=== PATIENT | male | born 1960 | race Caucasian/White ===

== ENCOUNTER 2016-06-20 06:28 | Emergency (ER) | payer MEDICARE, OTHER ==
[2016-06-20 06:51] VITALS: BP 139/93; PULSE 83; RESP 20; TEMP 98.4
[2016-06-20] MEDS ORDERED: NAPROXEN 250 MG TAB PO STA (07:23)
[2016-06-20] MEDS ORDERED: HYDROcodone/APAP 10-325MG 1 EACH TAB PO ONE (07:23)
--- NOTE | 2016-06-20 07:26 | ED ---
Back Pain HPI - General Chief Complaint: Back Pain/Injury Stated Complaint: Fall/Back Pain Time Seen by Provider: 06/20/16 07:14 Source: patient, family Limitations: no limitations - History of Present Illness Initial Comments: Patient complains of an accidental fall. He injured his low back. He did not hit his head. He denies conscious. He has no neck pain or stiffness. He has no nausea or vomiting. He has no belly pain. He has no weakness or trouble walking. He has no loss of continence. He denies urinary retention. He has no palpitations. He did not take any medication for the back pain. The pain is localized to the low back. It does not radiate anywhere. - Related Data Home Medications Medication Instructions Recorded Confirmed Budesonide-Formot 160-4.5 Mcg 2 puff INHALATION RT-BID 07/15/14 06/20/16 [Symbicort 160-4.5 Mcg Inhaler] Metoprolol Succinate (ER) [Toprol 25 mg PO DAILY 07/15/14 06/20/16 XL] Simvastatin [Zocor] 40 mg PO HS 07/15/14 06/20/16 FLUoxetine HCL [PROzac] 40 mg PO DAILY 01/23/16 06/20/16 Hydrocodone/Acetaminophen [[place] 1 tab PO Q6HR PRN 01/23/16 06/20/16 7.5-325] Albuterol Nebulized [Ventolin 2.5 mg INHALATION RT-Q4H PRN 06/20/16 06/20/16 Nebulized] Morphine Sulfate [Morphine Sulfate 30 mg PO BID PRN 06/20/16 06/20/16 ER] Previous Rx's Medication Instructions Recorded Morphine Sulfate Ir [MSIR] 15 mg PO Q6HR PRN #15 tablet 07/15/14 Allergies Allergy/AdvReac Type Severity Reaction Status Date / Time No Known Allergies Allergy Verified 06/20/16 07:34 Review of Systems ROS Statement: Those systems with pertinent positive or pertinent negative responses have been documented in the HPI. ROS Other: All systems not noted in ROS Statement are negative. Past Medical History Past Medical History: Heart Failure, COPD, Diabetes Mellitus, Hyperlipidemia, Hypertension, Seizure Disorder, Sleep Apnea/CPAP/BIPAP Additional Past Medical History / Comment(s): chronic pain History of Any Multi-Drug Resistant Organisms: None Reported Past Surgical History: Appendectomy Additional Past Surgical History / Comment(s): trach., left kidney operation d/ t defect Past Anesthesia/Blood Transfusion Reactions: No Reported Reaction Past Psychological History: No Psychological Hx Reported Smoking Status: Current every day smoker Past Alcohol Use History: Daily Past Drug Use History: Marijuana, Prescription Drug Abuse - Past Family History Father Family Medical History: No Reported History Additional Family Medical History / Comment(s): none Mother Family Medical History: No Reported History General Exam Limitations: no limitations General appearance: alert, in no apparent distress Head exam: Present: atraumatic, normocephalic, normal inspection Eye exam: Present: normal appearance, PERRL, EOMI. Absent: scleral icterus, conjunctival injection, periorbital swelling Respiratory exam: Absent: respiratory distress Back exam: Present: normal inspection Neurological exam: Present: alert, oriented X3, CN II-XII intact Psychiatric exam: Present: normal affect, normal mood Skin exam: Present: warm, dry, intact, normal color. Absent: rash Course Vital Signs 06/20/16 06:49 Temperature 98.4 F Pulse Rate 83 Respiratory 20 Rate Blood Pressure 139/93 O2 Sat by Pulse 90 L Oximetry Medical Decision Making - Medical Decision Making Patient complains of an injury to the low back. Imaging is all negative. Patient was given pain medication in the emergency department. He is feeling much better and is stable for discharge. Disposition Clinical Impression: Mechanical back pain Disposition: HOME SELF-CARE Condition: Good Instructions: Acute Low Back Pain (ED) Time of Disposition: 08:24
--- NOTE | 2016-06-20 08:21 | XR ---
EXAMINATION TYPE: XR lumbar spine 2 or 3V DATE OF EXAM: 06/20/2016 8:07 AM CLINICAL HISTORY: pain TECHNIQUE: Three views of the lumbar spine are submitted. COMPARISON: None. FINDINGS: There are 5 lumbar type vertebral bodies identified. The lumbar spine shows satisfactory alignment w ithout evidence of acute fracture or dislocation. Vertebral body heights are within normal limits. [id number] degenerative disc space narrowing is seen throughout. Ventral spurring is noted as w ell as facet joint arthropathy. The overlying soft tissue appears unremarkable. IMPRESSION: No acute fracture or dislocation is seen in the lumbar spine. ICD 10 NO FRACTURE, INITIAL EVALUATION
--- NOTE | 2016-06-20 08:22 | XR ---
EXAMINATION TYPE: XR pelvis AP view DATE OF EXAM: 06/20/2016 8:07 AM CLINICAL HISTORY: pain TECHNIQUE: Single view the pelvis is submitted. FINDINGS:No evidence for fracture, dislocation or bony lesion. Joint spaces are well-preserved. SI joints appear symmetric. IMPRESSION: 1. No acute fracture or dislocation seen. ICD 10 NO FRACTURE, INITIAL EVALUATION
== END 2016-06-20 08:58 | disposition home or self-care (01) ==
LOC: EC 06:28
DX: M54.9 Dorsalgia, unspecified (principal); I50.9 Heart failure, unspecified; I10 Essential (primary) hypertension; E78.5 Hyperlipidemia, unspecified; J44.9 Chronic obstructive pulmonary disease, unspecified; F17.200 Nicotine dependence, unspecified, uncomplicated; G47.30 Sleep apnea, unspecified; Z99.89 Dependence on other enabling machines and devices; Z79.899 Other long term (current) drug therapy; Z79.51 Long term (current) use of inhaled steroids; W19.XXXA Unspecified fall, initial encounter; G89.29 Other chronic pain
CPT/HCPCS: 72100; 72170; 99283

== ENCOUNTER → 2016-09-09 | Outpatient (CLI) | payer MEDICARE ==
[2016-09-09 13:16] LABS: Blood Urea Nitrogen 13 mg/dL (9-20); Non-African American GFR(MDRD) >60 (>60 ml/min/1.73 sqM)
== END | disposition home or self-care (01) ==
LOC: LABWHC1 12:45
PROVIDERS: ATTEND Psychiatry & Neurology Neurology
DX: M54.5 Low back pain (principal); M54.6 Pain in thoracic spine
CPT/HCPCS: 36415; 82565; 84520

== ENCOUNTER 2016-10-02 09:30 | Inpatient (IN) | payer MEDICARE, OTHER ==
[2016-10-02] MEDS ORDERED: MORPHINE SULFATE 4 MG/ML SYRINGE IV STA (09:42)
[2016-10-02] MEDS ORDERED: IPRATROPIUM-ALBUTEROL 3 ML NEB INHALATION STA (09:46)
--- NOTE | 2016-10-02 09:46 | ED ---
General Adult HPI - General Stated complaint: Chest Pain after fall Time Seen by Provider: 10/02/16 09:35 Source: patient, RN notes reviewed Mode of arrival: EMS Limitations: no limitations - History of Present Illness Initial comments: Patient is a pleasant 56-year-old male presenting to the emergency Department with chest discomfort. Patient did get up using restroom around 2 or 3 in the morning. Patient was taken off his sweat pants when he tripped and fell. Patient did fall on his hands and then did hit his chest. Injury did not the wind out of him however he did not pass out. No head injury or loss of consciousness. No neck or back pain. No abdominal pain. No extremity injury. Patient has continued chest discomfort. Patient denies any dyspnea. Patient states his oxygen saturation is normally in the upper 80s. - Related Data Home Medications Medication Instructions Recorded Confirmed Metoprolol Succinate (ER) [Toprol 25 mg PO DAILY 07/15/14 10/02/16 XL] FLUoxetine HCL [PROzac] 40 mg PO DAILY 01/23/16 10/02/16 Albuterol Nebulized [Ventolin 2.5 mg INHALATION RT-Q4H PRN 06/20/16 10/02/16 Nebulized] Morphine Sulfate [Morphine Sulfate 30 mg PO Q12H 06/20/16 10/02/16 ER] Lisinopril [Zestril] 2.5 mg PO DAILY 10/02/16 10/02/16 Morphine Sulfate ER [Ms Contin 15 mg PO Q12HR 10/02/16 10/02/16 15Mg] Simvastatin [Zocor] 80 mg PO HS 10/02/16 10/02/16 Allergies Allergy/AdvReac Type Severity Reaction Status Date / Time No Known Allergies Allergy Verified 10/02/16 11:07 Review of Systems ROS Statement: Those systems with pertinent positive or pertinent negative responses have been documented in the HPI. ROS Other: All systems not noted in ROS Statement are negative. Constitutional: Denies: fever Eyes: Denies: eye pain ENT: Denies: ear pain Respiratory: Denies: cough, dyspnea Cardiovascular: Reports: chest pain Endocrine: Denies: fatigue Gastrointestinal: Denies: abdominal pain Genitourinary: Denies: dysuria Musculoskeletal: Denies: back pain Skin: Denies: rash Neurological: Denies: weakness Past Medical History Past Medical History: Heart Failure, COPD, Diabetes Mellitus, Hyperlipidemia, Hypertension, Seizure Disorder, Sleep Apnea/CPAP/BIPAP Additional Past Medical History / Comment(s): chronic pain History of Any Multi-Drug Resistant Organisms: None Reported Past Surgical History: Appendectomy Additional Past Surgical History / Comment(s): trach., left kidney operation d/ t defect Past Anesthesia/Blood Transfusion Reactions: No Reported Reaction Past Psychological History: No Psychological Hx Reported Smoking Status: Current every day smoker Past Alcohol Use History: Daily Past Drug Use History: Marijuana, Prescription Drug Abuse - Past Family History Father Family Medical History: No Reported History Additional Family Medical History / Comment(s): none Mother Family Medical History: No Reported History General Exam Limitations: no limitations General appearance: alert, in no apparent distress Head exam: Present: atraumatic Eye exam: Present: normal appearance, PERRL ENT exam: Present: normal oropharynx Neck exam: Present: other (Tracheostomy) Respiratory exam: Present: wheezes, chest wall tenderness Cardiovascular Exam: Present: regular rate, normal rhythm Expanded Peripheral pulses: 2+: Dorsalis Pedis (R), Dorsalis Pedis (L) GI/Abdominal exam: Present: soft. Absent: tenderness Extremities exam: Present: normal inspection. Absent: pedal edema, calf tenderness Neurological exam: Present: alert Psychiatric exam: Present: normal affect, normal mood Skin exam: Absent: rash Course Vital Signs 10/02/16 10/02/16 10/02/16 09:42 10:00 10:13 Temperature 100.6 F H Pulse Rate 94 89 92 Respiratory 24 18 Rate Blood Pressure 110/62 O2 Sat by Pulse 89 L Oximetry 10/02/16 10/02/16 10/02/16 10:59 12:16 12:59 Temperature Pulse Rate 81 75 Respiratory 20 16 22 Rate Blood Pressure 164/74 118/70 107/63 O2 Sat by Pulse 91 L 95 Oximetry - Reevaluation(s) Reevaluation #1: 10/02/16 11:23 Case was discussed in detail with trauma surgeon, Dr. Monreal who does request computed tomography scan of the chest prior to making disposition. 10/02/16 11:29 Patient reexamined and still having discomfort now more in the right chest region. Patient updated. EKG Findings - EKG Comments: EKG Findings:: Normal sinus rhythm 96. WI 194. QRS 104. QT 364. QTC 459. Normal axis. Normal QRS. Normal ST-T. Medical Decision Making - Medical Decision Making Patient reexamined and has continued discomfort. Case again discussed with Dr. Monreal who will admit with pulmonary consult. Patient states he has seen Dr. King previously. Patient does not meet sepsis criteria as source of infection is not identified. - Lab Data Result diagrams: 10/02/16 09:53 10/02/16 09:53 Lab Results 10/02/16 10/02/16 10/02/16 Range/Units 09:53 09:53 09:53 WBC 9.8 (3.8-10.6) k/uL RBC 4.82 (4.30-5.90) m/uL Hgb 16.3 (13.0-17.5) gm/dL Hct 51.1 (39.0-53.0) % MCV 106.1 H (80.0-100.0) fL MCH 33.7 (25.0-35.0) pg MCHC 31.8 (31.0-37.0) g/dL RDW 15.6 H (11.5-15.5) % Plt Count 158 (150-450) k/uL Neutrophils % 84 % Lymphocytes % 9 % Monocytes % 4 % Eosinophils % 2 % Basophils % 1 % Neutrophils # 8.3 H (1.3-7.7) k/uL Lymphocytes # 0.8 L (1.0-4.8) k/uL Monocytes # 0.4 (0-1.0) k/uL Eosinophils # 0.2 (0-0.7) k/uL Basophils # 0.1 (0-0.2) k/uL Macrocytosis Moderate PT (9.0-12.0) sec INR (<1.1) APTT (22.0-30.0) sec Sodium 141 (137-145) mmol/L Potassium 4.8 (3.5-5.1) mmol/L Chloride 100 (98-107) mmol/L Carbon Dioxide 28 (22-30) mmol/L Anion Gap 13 mmol/L BUN 14 (9-20) mg/dL Creatinine 0.85 (0.66-1.25) mg/dL Est GFR (MDRD) Af Amer >60 (>60 ml/min/1.73 sqM) Est GFR (MDRD) Non-Af >60 (>60 ml/min/1.73 sqM) Glucose 155 H (74-99) mg/dL Calcium 9.4 (8.4-10.2) mg/dL Magnesium 1.8 (1.6-2.3) mg/dL Total Bilirubin 1.1 (0.2-1.3) mg/dL AST 65 H (17-59) U/L ALT 40 (21-72) U/L Alkaline Phosphatase 74 (38-126) U/L Total Creatine Kinase 207 H (55-170) U/L CK-MB (CK-2) 3.2 H* (0.0-2.4) ng/mL CK-MB (CK-2) Rel Index 1.5 Troponin I <0.012 (0.000-0.034) ng/mL Total Protein 8.3 H (6.3-8.2) g/dL Albumin 4.4 (3.5-5.0) g/dL Urine Color Urine Appearance (Clear) Urine pH (5.0-8.0) Ur Specific [place] (1.001-1.035) Urine Protein (Negative) Urine Glucose (UA) (Negative) Urine Ketones (Negative) Urine Blood (Negative) Urine Nitrite (Negative) Urine Bilirubin (Negative) Urine Urobilinogen (<2.0) mg/dL Ur Leukocyte Esterase (Negative) 10/02/16 10/02/16 Range/Units 09:53 12:45 WBC (3.8-10.6) k/uL RBC (4.30-5.90) m/uL Hgb (13.0-17.5) gm/dL Hct (39.0-53.0) % MCV (80.0-100.0) fL MCH (25.0-35.0) pg MCHC (31.0-37.0) g/dL RDW (11.5-15.5) % Plt Count (150-450) k/uL Neutrophils % % Lymphocytes % % Monocytes % % Eosinophils % % Basophils % % Neutrophils # (1.3-7.7) k/uL Lymphocytes # (1.0-4.8) k/uL Monocytes # (0-1.0) k/uL Eosinophils # (0-0.7) k/uL Basophils # (0-0.2) k/uL Macrocytosis PT 12.4 H (9.0-12.0) sec INR 1.3 (<1.1) APTT 22.6 (22.0-30.0) sec Sodium (137-145) mmol/L Potassium (3.5-5.1) mmol/L Chloride (98-107) mmol/L Carbon Dioxide (22-30) mmol/L Anion Gap mmol/L BUN (9-20) mg/dL Creatinine (0.66-1.25) mg/dL Est GFR (MDRD) Af Amer (>60 ml/min/1.73 sqM) Est GFR (MDRD) Non-Af (>60 ml/min/1.73 sqM) Glucose (74-99) mg/dL Calcium (8.4-10.2) mg/dL Magnesium (1.6-2.3) mg/dL Total Bilirubin (0.2-1.3) mg/dL AST (17-59) U/L ALT (21-72) U/L Alkaline Phosphatase (38-126) U/L Total Creatine Kinase (55-170) U/L CK-MB (CK-2) (0.0-2.4) ng/mL CK-MB (CK-2) Rel Index Troponin I (0.000-0.034) ng/mL Total Protein (6.3-8.2) g/dL Albumin (3.5-5.0) g/dL Urine Color Yellow Urine Appearance Clear (Clear) Urine pH 5.0 (5.0-8.0) Ur Specific [place] 1.027 (1.001-1.035) Urine Protein Trace H (Negative) Urine Glucose (UA) Negative (Negative) Urine Ketones Negative (Negative) Urine Blood Negative (Negative) Urine Nitrite Negative (Negative) Urine Bilirubin Negative (Negative) Urine Urobilinogen <2.0 (<2.0) mg/dL Ur Leukocyte Esterase Negative (Negative) - Radiology Data Radiology results: report reviewed (Computed tomography scan of the chest shows fractures ribs 6 and 7 on the right. Minimally depressed sternal fracture. Increased density right lung base could reflect atelectasis versus contusion.), image reviewed (Chest x-ray with rib x-rays shows right-sided fractures at 6 and 7. There is an area of increased opacity which could reflect atelectasis versus focal contusion. Sternal x-ray cannot exclude nondisplaced sternal fracture.) Disposition Clinical Impression: Sternal fracture, Rib fracture Disposition: ADMITTED IP TO THIS HOSP
[2016-10-02 10:05] LABS: Basophils # (A) 0.1 k/uL (0-0.2); Basophils % (A) 1 %; CH 34.1; CHCM 32.3; Eosinophils # (A) 0.2 k/uL (0-0.7); Eosinophils % (A) 2 %; HCT 51.1 % (39.0-53.0); HDW 2.45; HGB 16.3 gm/dL (13.0-17.5); Luc # (Auto) 0.13; Luc % (Auto) 1; Lymphocytes # (A) 0.8 k/uL (1.0-4.8); Lymphocytes % (A) 9 %; MCH 33.7 pg (25.0-35.0); MCHC 31.8 g/dL (31.0-37.0); MCV 106.1 fL (80.0-100.0); Macrocytosis Moderate; Mean Platelet Volume 6.9; Monocytes # (A) 0.4 k/uL (0-1.0); Monocytes % (A) 4 %; Neutrophils # (A) 8.3 k/uL (1.3-7.7); Neutrophils % (A) 84 %; RBC 4.82 m/uL (4.30-5.90); RDW 15.6 % (11.5-15.5); WBC 9.8 k/uL (3.8-10.6); WBC (Perox) 9.78
[2016-10-02 10:19] LABS: ALT 40 U/L (21-72); AST 65 U/L (17-59); Alkaline Phosphatase 74 U/L (38-126); Anion Gap 13 mmol/L; Blood Urea Nitrogen 14 mg/dL (9-20); Calcium 9.4 mg/dL (8.4-10.2); Carbon Dioxide 28 mmol/L (22-30); Chloride 100 mmol/L (98-107); Glucose 155 mg/dL (74-99); Magnesium 1.8 mg/dL (1.6-2.3); Non-African American GFR(MDRD) >60 (>60 ml/min/1.73 sqM); Potassium 4.8 mmol/L (3.5-5.1); Sodium 141 mmol/L (137-145); Total Bilirubin 1.1 mg/dL (0.2-1.3); Total Protein 8.3 g/dL (6.3-8.2)
[2016-10-02 10:21] LABS: INR 1.3 (<1.1); Partial Thromboplastin Time 22.6 sec (22.0-30.0); Prothrombin Time 12.4 sec (9.0-12.0)
[2016-10-02 10:26] LABS: Creatine Kinase 207 U/L (55-170)
[2016-10-02 10:38] LABS: Troponin I <0.012 ng/mL (0.000-0.034)
[2016-10-02 10:39] LABS: Creatine Kinase MB 3.2 ng/mL (0.0-2.4)
--- NOTE | 2016-10-02 10:58 | XR ---
EXAMINATION TYPE: XR ribs bilat w pa chest xray, XR sternum DATE OF EXAM: 10/02/2016 10:48 AM COMPARISON: NONE HISTORY: Pain TECHNIQUE: Single view of the chest 8 views of the ribs are submitted. 3 views of the sternum are a lso submitted. FINDINGS: Scattered senescent parenchymal changes are noted. There is focal increased density right lower lobe which may reflect pleural thickening although small contusion is not excluded. No Evidence for pneumo thorax. Mediastinal structures are prominent and this may reflect overall technique. Tracheostomy tub e noted. Evaluation of the right-sided ribs demonstrates fracture involving right ribs 6 and 7. Remote deformi ties of bowel several left-sided ribs without acute displaced fracture at this time. IMPRESSION: 1. Right-sided rib fractures of ribs 6 and 7 and now with small focal area of the increased opacity w hich may reflect focal contusion or atelectasis. Sternum: On the lateral projection there is a vague lucency involving the sternal body approximately 6 cm from the sternomanubrial joint. Correlate clinically with point tenderness to exclude fracture. Retroster nal airspace is well-preserved. IMPRESSION: I cannot exclude virtually nondisplaced sternal fracture. Correlate clinically with point tenderness .
[2016-10-02] MEDS ORDERED: RX INFO: IV CONTRAST WAS GIVEN 1 EACH MISC MISCELLANE PRN (11:24)
[2016-10-02] MEDS ORDERED: HYDROmorphone 1 MG/ML 1 ML SYRINGE IVP STA ×3 (11:28→16:40)
--- NOTE | 2016-10-02 12:29 | CT ---
EXAMINATION TYPE: CT chest w con DATE OF EXAM: 10/02/2016 12:17 PM COMPARISON: NONE HISTORY: Chest pain post fall CT DLP: 1142.2 mGycm Automated exposure control for dose reduction was used. CONTRAST: CT scan of the chest is performed with IV Contrast, patient injected with 100 mL of Omnipaque 300. FINDINGS: LUNGS: There is right basilar atelectasis or pulmonary contusion. There is no evidence for pneumothor ax. Mild left basilar atelectasis noted. MEDIASTINUM: No evidence for traumatic injury to the thoracic aorta. The heart is mildly enlarged. Tr acheostomy is in place. UPPER ABDOMEN: No significant abnormality appreciated. OTHER: Virtually nondisplaced fractures of right ribs 6 and 7. Minimally depressed sternal body frac ture with fracture depression 1 mm. Retrosternal airspace demonstrates mild strandy attenuation. No s ignificant hematoma. Upper abdominal structures are unremarkable. IMPRESSION: 1. Fractures of right ribs 6 and 7 as well as a minimally depressed sternal body fracture. 2. Increased density at the right lung base may reflect atelectasis however contusion is not excluded . No evidence for pneumothorax.
[2016-10-02 13:03] LABS: Appearance,Urine Clear (Clear); Bilirubin,Urine Negative (Negative); Glucose,Urine (UA) Negative (Negative); Ketones,Urine Negative (Negative); Leukocyte Esterase,Urine Negative (Negative); Nitrite,Urine Negative (Negative); Protein,Urine Trace (Negative); Specific Gravity,Urine 1.027 (1.001-1.035); UA Billing (MACRO vs. MICRO) CHEM; Urobilinogen,Urine <2.0 mg/dL (<2.0)
[2016-10-02] MEDS ORDERED: ONDANSETRON 4 MG/2 ML VIAL IVP PRN (13:35)
[2016-10-02] MEDS ORDERED: NALOXONE 0.4 MG/ML 1 ML VIAL IV PRN (13:35)
[2016-10-02] MEDS ORDERED: HYDROmorphone 1 MG/ML 1 ML SYRINGE IV PRN (13:35)
[2016-10-02] MEDS ORDERED: SODIUM CHLORIDE 0.9% 1,000 ML IV SCH (13:45)
--- NOTE | 2016-10-02 15:54 | P.GSHP ---
History of Present Illness H&P Date: 10/02/16 Chief Complaint: Fall 56 years old male presented with history of fall around 3 AM this morning. Patient was changing his clothes and felt dizzy and fell and hit his chest against bathtub. He complains of some shortness of breath and pain along the anterior part of the chest. He denies any abdominal pain. No nausea or vomiting. No difficulty with vision or hearing. Significant past medical history including obstructive sleep apnea and has tracheostomy. He has history of alcohol abuse and continues to drink 6 beers per day. Other comorbid conditions include morbid obesity BMI 39.2, sleep apnea, diabetes, seizures, COPD Past Medical History Past Medical History: Heart Failure, COPD, Diabetes Mellitus, Hyperlipidemia, Hypertension, Seizure Disorder, Sleep Apnea/CPAP/BIPAP Additional Past Medical History / Comment(s): chronic pain History of Any Multi-Drug Resistant Organisms: None Reported Past Surgical History: Appendectomy Additional Past Surgical History / Comment(s): trach., left kidney operation d/ t defect Past Anesthesia/Blood Transfusion Reactions: No Reported Reaction Past Psychological History: No Psychological Hx Reported Smoking Status: Current every day smoker Past Alcohol Use History: Daily Past Drug Use History: Marijuana, Prescription Drug Abuse - Past Family History Father Family Medical History: No Reported History Additional Family Medical History / Comment(s): none Mother Family Medical History: No Reported History Medications and Allergies Home Medications Medication Instructions Recorded Confirmed Type Metoprolol Succinate (ER) [Toprol 25 mg PO DAILY 07/15/14 10/02/16 History XL] FLUoxetine HCL [PROzac] 40 mg PO DAILY 01/23/16 10/02/16 History Albuterol Nebulized [Ventolin 2.5 mg INHALATION RT-Q4H PRN 06/20/16 10/02/16 History Nebulized] Morphine Sulfate [Morphine Sulfate 30 mg PO Q12H 06/20/16 10/02/16 History ER] Lisinopril [Zestril] 2.5 mg PO DAILY 10/02/16 10/02/16 History Morphine Sulfate ER [Ms Contin 15 mg PO Q12HR 10/02/16 10/02/16 History 15Mg] Simvastatin [Zocor] 80 mg PO HS 10/02/16 10/02/16 History Allergies Allergy/AdvReac Type Severity Reaction Status Date / Time No Known Allergies Allergy Verified 10/02/16 11:07 Surgical - Exam Vital Signs Temp Pulse Resp BP Pulse Ox 100.6 F H 94 24 110/62 89 L 10/02/16 09:42 10/02/16 09:42 10/02/16 09:42 10/02/16 09:42 10/02/16 09:42 General: Patient is alert and oriented to time, place and person and cooperative with exam. HEENT: No pallor, no icterus, tracheostomy in place Chest: Bilateral equal breath sounds present. His lung sounds at the base Cardiovascular: Regular rate and rhythm. Abdomen: Soft, nontender, nondistended. Integumentary: No active ulcers or discharge. Neurologic: Cranial nerves II-XII intact. Strength upper and lower extremities 5/5. No focal neurologic deficits. Gait is normal. Psychiatric: No anxiety or psychosis. No suicidal thoughts. Results - Labs 10/02/16 09:53 10/02/16 09:53 - Imaging Comments: Computed tomography scan of the chest reviewed. Multiple rib fractures and underlying pulmonary contusion versus atelectasis. Undisplaced sternal fracture Assessment and Plan (1) Diabetes 1.5, managed as type 1 Status: Acute (2) Diabetes mellitus Status: Acute (3) Rib fracture Status: Acute (4) Sternal fracture Status: Acute (5) Alcohol intoxication Status: Acute Plan: 1. Admit under trauma service 2. Internal medicine consultation for management of multiple compress comorbid conditions. Patient will be transferred to medical service once stable in next 24-48 hours 3. 12-lead EKG and 2-D echocardiogram 4. [facility] protocol- high risk for delirium tremens 5. Pulmonology consult 6. Chest x-ray in a.m. 7. Pain management. 8. Pulmonary toilet 9. Start clear liquid diet.
[2016-10-02] MEDS ORDERED: LORazepam 2 MG/ML SYRINGE IV PRN ×3 (17:32)
[2016-10-02] MEDS ORDERED: ALBUTEROL NEBULIZED 2.5 MG/3 ML INHALATION PRN (17:43)
[2016-10-02 18:22] LABS: Glucose,Whole Blood 122 mg/dL (75-99)
[2016-10-02] MEDS: THIAMINE 100 MG TAB PO SCH (18:23)
[2016-10-02 19:30] LABS: Hemoglobin A1C 6.6 % (4.2-6.1)
[2016-10-02] MEDS ORDERED: ALBUTEROL NEBULIZED 2.5 MG/3 ML INHALATION SCH (20:00)
[2016-10-02 20:49] LABS: Glucose,Whole Blood 143 mg/dL (75-99)
[2016-10-02] MEDS: HEPARIN SODIUM,PORCINE 5,000 UNIT/ML 1 ML VIAL SQ SCH (20:50)
[2016-10-02] MEDS: HYDROmorphone 2 MG/ML 1 ML SYRINGE IVP PRN (20:51)
[2016-10-02] MEDS: INSULIN LISPRO (humaLOG) 300 UNIT/3 ML VIAL SQ SCH (20:55)
[2016-10-02] MEDS ORDERED: SIMVASTATIN 80 MG PO SCH (21:00)
[2016-10-02] MEDS: BUDESONIDE 0.5 MG/2 ML NEBU INHALATION SCH (21:45)
[2016-10-02] MEDS: IPRATROPIUM-ALBUTEROL 3 ML NEB INHALATION SCH (21:45)
--- NOTE | 2016-10-02 22:03 | CONS ---
DATE OF CONSULTATION: 10/02/2016. CRITICAL CARE NOTE: REASON FOR CONSULTATION: Fall, chest pain and rib fracture. HISTORY OF PRESENT ILLNESS: Mr. Pete Gomez is a 56-year-old male who is very well known to me. Patient has severe degree of obstructive sleep apnea. He is morbidly obese. He has permanent tracheostomy due to severe sleep apnea, history of prior noncompliance and history of multiple cardiac arrest. Patient of note has been hospitalized after a fall which is about 1-1/2 to 2 feet and landed on his chest as well as on the right side. He is complaining of severe chest pain, which is in the front of the chest as well as going to the back. With that, he is making very shallow respiratory efforts. He was fairly asymptomatic. He feels that he tripped and fell down. He denies any loss of consciousness, seizure like activity. He has a history of deep venous thrombosis, pulmonary embolism in the past but has not been on any anticoagulant for a long period of time. His last tracheostomy was changed more than about I believe 3 years ago. He feels that his tracheostomy has been working very well. Past medical history is significant for hypertension, hypertensive cardiovascular disease, history of prior deep venous thrombosis, pulmonary embolism, history of chronic pain syndrome as well as pain medication utilization in the past, mood disorder, depression, morbid obesity, obstructive sleep apnea. PAST SURGICAL HISTORY: Significant for history of tracheostomy and left renal surgery. ALLERGIES: No known drug allergy. Medications at home include: 1. Metoprolol 25 mg p.o. daily. 2. Fluoxetine 40 mg daily. 3. Albuterol nebulizer 3 to 4 times a day as needed. 4. Morphine extended release 30 mg q.12. 5. Lisinopril 2.5 mg daily. 6. Zocor is 80 mg p.o. daily. FAMILY HISTORY AND SOCIAL HISTORY: , lives with his , extensive history of smoking and nicotine use. Uses about a pack a day on a daily basis. Also history of marijuana use in the past as well. His medications at home in the hospital include: 1. Albuterol unit dose updraft 4 times a day. 2. Dilaudid 1 mg q.3 hourly p.r.n. 3. Sliding scale insulin. 4. Ativan is 1 mg p.r.n. as per CIWA protocol. 5. Also on metoprolol is 25 mg daily. 6. Multivitamin. 7. Narcan. 8. Zofran. 9. Protonix. 10. IV fluid normal saline KVO. 11. Thiamine 100 mg p.o. 2 times a day. Patient has been complaining of severe pain and having very poor respiratory effort because of severe pain. Feels that 1 mg of Dilaudid is not helping much. Most recent vitals include blood pressure is 115/74, respiratory rate 20, pulse 73, temperature 98, his saturation is 93% on trach collar. HEENT: Atraumatic, normocephalic. Pharynx clear. Narrow pharyngeal opening is present. Mallampati Grade IV. NECK: Supple. The tracheostomy site is intact. No obvious purulent discharge surrounding erythema and edema is seen. NECK: Supple without lymphadenopathy, jugular venous distention or carotid bruit. LUNGS: Bilateral good air entry is present; however, decreased air entry at the bases present with poor respiratory effort. Patient does feel severe pain on taking deep breaths, tenderness on palpation is present on the right side of the chest as well as sternum. HEART: Regular rate and rhythm. S1 and S2 audible. ABDOMEN: Soft. No rebound or rigidity. EXTREMITIES: +1 peripheral pulses. NEUROLOGICAL EXAMINATION: Examination is awake and alert. No focal neurological deficits. X-rays including rib x-rays with right-sided rib fractures 6 and 7 was seen with associated contusion, atelectasis on the right side. Old deformities in the left side has been noted as well. EKG performed in the emergency department reviewed revealed normal sinus rhythm. Chest CT performed revealed right basal atelectasis of pulmonary contusion. No evidence of pneumothorax, mild left basilar atelectasis is seen. Tracheostomy is intact, nondisplaced fracture of the six and seventh right rib is noted along with depressed sternum about 1 mm likely fracture. No hematoma identified. Contusion and density in the right lung noted as well. The laboratory data reviewed. White cell count is 9800, hemoglobin of 15 and 51, platelet count of 158,000. PT and INR are 12.4 and 1.3. Chemistry otherwise is within normal limits. CK-MB is 3.2, LFTs are AST and ALT 65 and 40. Urinalysis is unremarkable. Alcohol level is less than 10. IMPRESSION: 1. Status post fall with likely sternal fracture as well as right sided two nondisplaced fracture. 2. Chest pain severity degree associated with that poor respiratory effort. 3. Lung contusion versus atelectasis on the right side. 4. Chronic hypoxic hypercapnic respiratory failure and obstructive sleep apnea with tracheostomy. 5. History of prior deep venous thrombosis, pulmonary embolism, hypertension, hypertensive cardiovascular disease. 6. The patient is high risk for deep venous thrombosis, peptic ulcer disease prophylaxis. PLAN AND RECOMMENDATION: 1. Continue breathing treatments and adjust bronchodilator. See orders for details. 2. Will put patient on DVT and peptic ulcer disease prophylaxis as well. Patient already on Protonix. Will put on subcu heparin as well. 3. Maintain patient on deep breathing exercises, incentive spirometry. Repeat follow-up chest x-ray tomorrow. Adjust pain medications. The patient is being started on CIWA protocol with Ativan as needed. In case if patient develops withdrawal or DTs. 4. I have discussed with the patient about trach change, which can be considered in outpatient setting. Of note that patient has been advised in the past for that as well but he missed and cancelled previous follow ups. 5. Will follow closely.
[2016-10-03] MEDS: HYDROmorphone 2 MG/ML 1 ML SYRINGE IVP PRN ×4 (00:44→12:56)
[2016-10-03 07:04] LABS: Glucose,Whole Blood 126 mg/dL (75-99)
[2016-10-03] MEDS: BUDESONIDE 0.5 MG/2 ML NEBU INHALATION SCH (07:15)
[2016-10-03] MEDS: IPRATROPIUM-ALBUTEROL 3 ML NEB INHALATION SCH ×2 (07:15→11:16)
[2016-10-03 07:35] VITALS: BP 126/73; RESP 18; TEMP 98.8
[2016-10-03] MEDS: INSULIN LISPRO (humaLOG) 300 UNIT/3 ML VIAL SQ SCH ×2 (08:24→12:56)
[2016-10-03] MEDS: HEPARIN SODIUM,PORCINE 5,000 UNIT/ML 1 ML VIAL SQ SCH (08:32)
[2016-10-03] MEDS ORDERED: PANTOPRAZOLE 40 MG/10 ML VIAL IV SCH (09:00)
[2016-10-03] MEDS ORDERED: LISINOPRIL 2.5 MG TAB PO SCH (09:00)
[2016-10-03] MEDS ORDERED: METOPROLOL SUCCINATE (ER) 25 MG TAB.ER.24H PO SCH (09:00)
[2016-10-03 09:32] LABS: Basophils # (A) 0.1 k/uL (0-0.2); Basophils % (A) 1 %; CH 34.5; CHCM 33.3; Eosinophils # (A) 0.2 k/uL (0-0.7); Eosinophils % (A) 3 %; HCT 49.6 % (39.0-53.0); HGB 16.7 gm/dL (13.0-17.5); Luc # (Auto) 0.14; Luc % (Auto) 2; Lymphocytes # (A) 1.5 k/uL (1.0-4.8); Lymphocytes % (A) 16 %; MCH 34.9 pg (25.0-35.0); MCHC 33.6 g/dL (31.0-37.0); Macrocytosis Moderate; Mean Platelet Volume 8.1; Monocytes # (A) 0.6 k/uL (0-1.0); Monocytes % (A) 7 %; Neutrophils # (A) 6.5 k/uL (1.3-7.7); Neutrophils % (A) 72 %; RBC 4.77 m/uL (4.30-5.90); RDW 15.5 % (11.5-15.5); WBC 8.9 k/uL (3.8-10.6); WBC (Perox) 8.76
--- NOTE | 2016-10-03 09:53 | ECHOF ---
Referral Reason:cardiac contusion MEASUREMENTS -------- HEIGHT: 185.4 cm WEIGHT: 142.4 kg BP: 140/60 RVIDd: 2.8 cm (< 3.3) IVSd: 1.5 cm (0.6 - 1.1) LVIDd: 4.8 cm (3.9 - 5.3) LVPWd: 1.2 cm (0.6 - 1.1) IVSs: 2.0 cm LVIDs: 3.9 cm LVPWs: 1.2 cm LA Diam: 4.0 cm (2.7 - 3.8) Ao Diam: 3.9 cm (2.0 - 3.7) AV Cusp: 2.4 cm (1.5 - 2.6) LA Diam: 5.5 cm (2.7 - 3.8) MV EXCURSION: 23.861 mm (> 18.000) MV EF SLOPE: 210 mm/s (70 - 150) EPSS: 0.6 cm MV E Manohar: 0.49 m/s MV DecT: 263 ms MV A Manohar: 0.69 m/s MV E/A Ratio: 0.72 FINDINGS -------- Sinus rhythm. Pt. is morbid obesity with FX Ribs from fall. There is mild concentric left ventricular hypertrophy. Overall left ventricular systolic function is normal with, an EF between 55 - 60 %. The right ventricle is normal in size. The left atrial size is normal. The right atrial size is normal. The aortic valve was not well visualized. Mild mitral annular calcification present. Mild mitral regurgitation is present. Mild tricuspid regurgitation present. There is no evidence of pulmonary hypertension. The right ventricular systolic pressure, as measured by Doppler, is {RVSP}. The pulmonic valve was not well visualized. The aortic root size is normal. There is no pericardial effusion. CONCLUSIONS -------- 1. Pt. is morbid obesity with FX Ribs from fall. 2. There is mild concentric left ventricular hypertrophy. 3. Overall left ventricular systolic function is normal with, an EF between 55 - 60 %. 4. Mild mitral annular calcification present. 5. Mild mitral regurgitation is present. 6. Mild tricuspid regurgitation present. 7. There is no evidence of pulmonary hypertension. 8. The right ventricular systolic pressure, as measured by Doppler, is {RVSP}. 9. There is no pericardial effusion. TRUCK UNLOADER: Debbie Acharya RDCS
[2016-10-03 10:04] LABS: ALT 42 U/L (21-72); AST 58 U/L (17-59); Alkaline Phosphatase 68 U/L (38-126); Anion Gap 13 mmol/L; Blood Urea Nitrogen 17 mg/dL (9-20); Calcium 9.8 mg/dL (8.4-10.2); Carbon Dioxide 28 mmol/L (22-30); Chloride 98 mmol/L (98-107); Glucose 141 mg/dL (74-99); Non-African American GFR(MDRD) >60 (>60 ml/min/1.73 sqM); Sodium 139 mmol/L (137-145); Total Bilirubin 1.8 mg/dL (0.2-1.3); Total Protein 8.3 g/dL (6.3-8.2)
[2016-10-03 10:10] LABS: Potassium 5.2 mmol/L (3.5-5.1)
[2016-10-03 11:21] VITALS: PULSE 90
[2016-10-03 11:45] LABS: Glucose,Whole Blood 163 mg/dL (75-99)
[2016-10-03] MEDS ORDERED: MULTIVITAMINS, THERA 1 EACH TAB PO SCH (12:00)
--- NOTE | 2016-10-03 12:27 | XR ---
EXAMINATION TYPE: XR chest 2V DATE OF EXAM: 10/03/2016 10:50 AM COMPARISON: Prior chest x-ray and chest CT third of September 2016 HISTORY: Sternal fracture, rib fractures TECHNIQUE: Frontal and lateral views of the chest are obtained on 4 images. FINDINGS: The heart remains enlarged. Patchy basilar density may reflect atelectasis or airspace dis ease. Patient's sternal fracture is not well seen due to technique. Patient's rib fractures are also not well seen. There is no evident pneumothorax. Tracheostomy tube is in place. There is overlying ap propriate position. Lung volumes are low. Pulmonary vascularity and john within normal limits. IMPRESSION: Probable basilar atelectasis, correlate to exclude pneumonia. Cardiomegaly. There may be ascending aortic aneurysm, correlate for possible pulmonary artery hypertension
[2016-10-03] MEDS: THIAMINE 100 MG TAB PO SCH (12:56)
--- NOTE | 2016-10-03 13:46 | P.PN ---
Subjective This is a 56-year-old male patient who is being evaluated and examined examined on the fourth floor. This patient is well-known to our services. This patient has a severe degree of obstructive sleep apnea and is morbidly obese. He has a permanent tracheostomy due to severe sleep apnea and a history of non- compliance with multiple cardiac arrests. Patient has been admitted to the hospital status post fall of about 1-1/2-2 feet he landed on his chest as well as his right side. He was complaining of chest pain which started in the front and goes around to the back. With chest pain he was having very shallow respiratory efforts. The patient stated that he tripped and fell down at home. He denies any loss of consciousness or seizure-like activity. The patient had x-rays that revealed he had a right-sided rib fractures #6 in #7 and it was associated with contusion and atelectasis on the right side. No deformities are also noted on the left side. A chest CT performed revealed a right basilar atelectasis of pulmonary contusion there was no evidence of pneumothorax, mild left basilar atelectasis is seen. Patient had a tracheostomy change 3 or more years ago. She is also known to have alcohol dependence. Upon examination the patient is resting up in bed and states he would like to be discharged. Is in no distress and he states his breathing efforts have improved. Objective - Vital Signs Vital signs: Vital Signs Temp 98.8 F 10/03/16 07:00 Pulse 90 10/03/16 11:26 Resp 18 10/03/16 07:00 BP 126/73 10/03/16 07:00 Pulse Ox 94 L 10/03/16 07:18 Intake & Output 10/02/16 10/03/16 10/03/16 18:59 06:59 18:59 Other: # Voids 1 1 - Exam GENERAL EXAM: Alert, active, comfortable in no apparent distress. HEAD: Normocephalic. EYES: Normal reaction of pupils, equal size. NOSE: Clear with pink turbinates. THROAT: No erythema or exudates. He is on a trach collar NECK: No masses, no JVD. CHEST: No chest wall deformity. LUNGS: Noted to have decreased air entry at the bases with poor respiratory effort. Patient does feel severe pain with taking deep breaths and has tenderness on palpitation to the right side. CVS: S1 and S2 normal with no audible mumurs, regular rhythm. ABDOMEN: No hepatosplenomegaly, normal bowel sounds, no guarding or rigidity. EXTREMITIES: No edema noted, pedal pulses palpable. SKIN: No rashes CENTRAL NERVOUS SYSTEM: No focal deficits, tone is normal in all 4 extremities. - Labs CBC & Chem 7: 10/03/16 08:24 10/03/16 08:24 Labs: Abnormal Lab Results - Last 24 Hours (Table) 10/02/16 10/02/16 10/03/16 Range/Units 18:11 20:47 06:59 MCV (80.0-100.0) fL Potassium (3.5-5.1) mmol/L Glucose (74-99) mg/dL POC Glucose (mg/dL) 122 H 143 H 126 H (75-99) mg/dL Total Bilirubin (0.2-1.3) mg/dL Total Protein (6.3-8.2) g/dL 10/03/16 10/03/16 10/03/16 Range/Units 08:24 08:24 11:43 MCV 104.0 H (80.0-100.0) fL Potassium 5.2 H (3.5-5.1) mmol/L Glucose 141 H (74-99) mg/dL POC Glucose (mg/dL) 163 H (75-99) mg/dL Total Bilirubin 1.8 H (0.2-1.3) mg/dL Total Protein 8.3 H (6.3-8.2) g/dL Assessment and Plan Plan: Assessment Status post fall with likely sternal fracture as well as right-sided to nondisplaced fractures of the ribs. Chest pain severity degree associated with that of poor respiratory effort Lung contusion versus atelectasis on the right side Chronic hypoxic hypercapnic respiratory failure and obstructive sleep apnea with tracheostomy History of deep vein thrombosis, pulmonary embolism History of hypertension and hypertensive cardiovascular disease Plan Medications have been reviewed and will be continued as ordered. Patient will need to maintain deep breathing exercises, incentive spirometer, supplemental oxygen and pulmonary hygiene. Continue with GI and DVT prophylaxis. Continue with CIWA protocol for possible withdrawals or DTs. Patient may have trach change possibly to be considered in the outpatient setting. We will continue to monitor labs/results and adjust treatment as necessary. I performed an examination of the patient and discussed their management with the nurse practitioner. I have reviewed the nurse practitioner's note and agree with the documented findings and plan of care.
--- NOTE | 2016-10-03 18:48 | CONS ---
DATE OF CONSULTATION: REASON FOR CONSULTATION: Fall, sternal fracture. Medical clearance for discharge and hypoxemia. Patient is a morbidly obese 56-year-old gentleman who has a chronic tracheostomy; does not use any oxygen; normal ( ) oxygen saturations are around 88% to 89%. Morbidly obese. Used to have sleep apnea. Since his tracheostomy does not have any sleep apnea anymore. He is admitted after a mechanical fall and found to have sternal fracture. Patient denied any fever or chills. Patient denied any nausea or vomiting. Patient is not having any alcohol withdrawals at this point of time. Patient was evaluated by Pulmonology as well. Regarding his blood pressure medication, patient is on lisinopril. Patient's potassium is a bit elevated at 5.2 secondary to mild hemolysis. Since his blood pressure remains normal, because of this mild hyperkalemia I will go ahead and discontinue lisinopril. Patient is on a very low dose of Lisinopril at 2.5. It can be restarted if needed as an outpatient. Patient is okay to be discharged from a medical perspective. No further intervention is necessary. REVIEW OF SYSTEMS: CONSTITUTIONAL: No fever, no malaise, no fatigue. HEENT: No recent visual problems or hearing problems. Denied any sore throat. CARDIOVASCULAR: No chest pain, orthopnea, PND, no palpitations, no syncope. PULMONARY: No shortness of breath, no cough, no hemoptysis. GASTROINTESTINAL: No diarrhea, no nausea, no vomiting, no abdominal pain. Normoactive bowel sounds. NEUROLOGICAL: No headaches, no weakness, no numbness. HEMATOLOGICAL: Denies any bleeding or petechiae. GENITOURINARY: Denies any burning micturition, frequency, or urgency. MUSCULOSKELETAL/RHEUMATOLOGICAL: Denies any joint pain, swelling, or any muscle pain. ENDOCRINE: Denies any polyuria or polydipsia. The rest of the 14 point review of systems is negative. Past medical history is significant for: 1. COPD. 2. Diabetes mellitus, although patient is not on any diabetic medications. It appears to be diet-controlled with hemoglobin A1c of 6.6. 3. Sleep apnea. 4. Appendectomy. SOCIAL HISTORY: Patient continues to smoke. Does drink alcohol daily but denied any previous withdrawals. Patient does not believe he is going to have withdrawals. Marijuana use. FAMILY HISTORY: Significant for diabetes mellitus. Home medications include: 1. Metoprolol. 2. Fluoxetine. 3. Albuterol. 4. Morphine. 5. Lisinopril. 6. Simvastatin. ALLERGIES: NO KNOWN DRUG ALLERGIES. PHYSICAL EXAMINATION: VITAL SIGNS: Temperature 98.8, pulse of 90, respiratory rate of 18. Blood pressure is 126/73. Saturating at 90% on 8 L ( ) oxygen patient is saturating at 89% or 88% on room air with tracheostomy, which is his baseline as per the patient. Patient had a low-grade temperature last night, although all the imaging workup is negative. No signs or symptoms of sepsis. May be related to fall and hematoma. Patient was asked to check his temperature at home. GENERAL: Morbidly obese. Alert and oriented x3. Patient has a tracheostomy in place. HEENT: Pupils are round and equally reacting to light. EOMI. No scleral icterus. No conjunctival pallor. Normocephalic, atraumatic. No pharyngeal erythema. No thyromegaly. CARDIOVASCULAR: S1 and S2 present. No murmurs, rubs, or gallops. PULMONARY: Chest is clear to auscultation, no wheezing or crackles. ABDOMEN: Soft, nontender, nondistended, normoactive bowel sounds. No palpable organomegaly. MUSCULOSKELETAL: No joint swelling or deformity. EXTREMITIES: No cyanosis, clubbing, or pedal edema. NEUROLOGICAL: Gross neurological examination did not reveal any focal deficits. SKIN: No rashes. LABORATORY DATA: CBC, CMP within normal limits. All the imaging was reviewed. Except for sternal fracture, no other abnormality was appreciated. Urine has trace protein. No signs or symptoms of sepsis. I do not believe patient will need antibiotics. ASSESSMENT AND PLAN: 1. Sternal fracture. Management as per primary service. 2. Diabetes mellitus; appears to be diet-controlled. May benefit from metformin. Hemoglobin A1c of 6.6. Because of his obesity, he can be treated with metformin for borderline diabetes to pre-diabetes. 3. Sternal fracture and rib fracture. 4. Patient was watched for alcohol withdrawals. My suspicion is low that patient is going to have alcohol withdrawals. Because of that patient can be discharged. 5. Acute hypoxemia secondary to fall and morbid obesity contributing to that. We are getting rid of the oxygen and Pulmonology evaluated the patient. No further recommendations from them. Patient can be discharged if he is able to saturate okay. 6. Low-grade fever secondary to fall and hematoma. I did not see signs or symptoms of sepsis. Patient was asked to check his temperature at home. If it continues to be elevated, patient will need to call PCP or come to the ER. At this point of time, patient's temperatures have been within normal limits since last night. 7. Hypertension because of mildly elevated potassium. I discontinued lisinopril, but patient was on lowest dose of lisinopril. It can be reinitiated if needed as an outpatient. Patient will need to follow up with Dr. Lilli Ferro in 3 to 7 days. Activity as tolerated. Cardiac diet. Low-calorie diet. Obesity counseling was provided. No further intervention from medical perspective. Patient can be discharged from medical perspective.
== END 2016-10-03 15:09 | disposition home or self-care (01) | DRG 184 ==
LOC: EC 09:30 → 4MS4W 13:35
PROVIDERS: ADMIT Surgery; ATTEND Surgery
DX: S22.41XA Multiple fractures of ribs, right side, initial encounter for closed fracture (principal); S22.22XA Fracture of body of sternum, initial encounter for closed fracture; J96.11 Chronic respiratory failure with hypoxia; J96.12 Chronic respiratory failure with hypercapnia; Z93.0 Tracheostomy status; S27.321A Contusion of lung, unilateral, initial encounter; J98.11 Atelectasis; I11.0 Hypertensive heart disease with heart failure; I50.9 Heart failure, unspecified; E87.5 Hyperkalemia; E66.01 Morbid (severe) obesity due to excess calories; F32.9 Major depressive disorder, single episode, unspecified; G89.4 Chronic pain syndrome; F10.10 Alcohol abuse, uncomplicated; G47.33 Obstructive sleep apnea (adult) (pediatric); G40.909 Epilepsy, unspecified, not intractable, without status epilepticus; F39 Unspecified mood [affective] disorder; F17.200 Nicotine dependence, unspecified, uncomplicated; E78.5 Hyperlipidemia, unspecified; E10.9 Type 1 diabetes mellitus without complications; Z68.39 Body mass index [BMI] 39.0-39.9, adult; J44.9 Chronic obstructive pulmonary disease, unspecified; Z86.74 Personal history of sudden cardiac arrest; Z91.19 Patient's noncompliance with other medical treatment and regimen; Z86.718 Personal history of other venous thrombosis and embolism; Z79.899 Other long term (current) drug therapy; Z86.711 Personal history of pulmonary embolism; W01.198A Fall on same level from slipping, tripping and stumbling with subsequent striking against other object, initial encounter; Y92.002 Bathroom of unspecified non-institutional (private) residence as the place of occurrence of the external cause
CPT/HCPCS: 36415; 71020; 71111; 71120; 71260; 80053; 80320; 81003; 82550; 82553; 83036; 83735; 84484; 85025; 85610; 85730; 87040; 87086; 93005; 93306; 94640; 94760

== ENCOUNTER 2016-10-04 05:35 | Inpatient (IN) | payer MEDICARE, OTHER ==
[2016-10-04] MEDS ORDERED: ACETAMINOPHEN TAB 325 MG TAB PO STA (05:38)
[2016-10-04] MEDS ORDERED: LEVOFLOXACIN 750MG-D5W PMX 750 MG in DEXTROSE/WATER 1 150ML.BAG IVPB STA (05:38)
--- NOTE | 2016-10-04 06:06 | XR ---
EXAM: XR Chest, 1 View CLINICAL HISTORY: Reason: Fever TECHNIQUE: Frontal view of the chest. COMPARISON: CT chest 10/02/2016 FINDINGS: Lungs: Mild increased opacity in both lung bases which may reflect lower lobe partial atelectasis or pulmonary infiltrates as were also evident on CT of 10/02/2016. Pleural space: No evidence of pleural effusion or pneumothorax. Heart: Heart size is mildly enlarged. Mediastinum: Prominence of superior mediastinum, unchanged since CT of 10/02/2016 and is related to vascular structures as well as mediastinal fat on CT chest of 10/02/2016. Bones/joints: Unremarkable. Tubes, lines and devices: Tracheostomy tube projects to upper trachea. IMPRESSION: Mild cardiomegaly. Mild bibasilar pulmonary opacities which may reflect bilateral lower lobe partial atelectasis or possible infiltrates. Possibility of basilar pneumonia cannot be excluded. Clinical correlation is recommended.
[2016-10-04] MEDS: SODIUM CHLORIDE 0.9% 500 ML IV SCH ×2 (06:08→07:28)
[2016-10-04 06:41] LABS: Basophils # (A) 0.1 k/uL (0-0.2); Basophils % (A) 1 %; CH 33.9; CHCM 32.1; Eosinophils % (A) 0 %; HCT 47.8 % (39.0-53.0); HDW 2.49; HGB 15.3 gm/dL (13.0-17.5); Luc # (Auto) 0.13; Luc % (Auto) 1; Lymphocytes # (A) 0.8 k/uL (1.0-4.8); Lymphocytes % (A) 5 %; MCH 34.1 pg (25.0-35.0); MCHC 32.1 g/dL (31.0-37.0); MCV 106.3 fL (80.0-100.0); Macrocytosis Moderate; Mean Platelet Volume 7.1; Monocytes # (A) 0.7 k/uL (0-1.0); Monocytes % (A) 5 %; Neutrophils # (A) 12.8 k/uL (1.3-7.7); Neutrophils % (A) 89 %; RDW 15.6 % (11.5-15.5); WBC 14.4 k/uL (3.8-10.6); WBC (Perox) 13.97
[2016-10-04] MEDS ORDERED: HYDROcodone/APAP 5-325MG 1 EACH TAB PO STA (06:55)
[2016-10-04 06:56] LABS: ALT 60 U/L (21-72); AST 103 U/L (17-59); Alkaline Phosphatase 60 U/L (38-126); Anion Gap 12 mmol/L; Blood Urea Nitrogen 25 mg/dL (9-20); Calcium 9.7 mg/dL (8.4-10.2); Carbon Dioxide 30 mmol/L (22-30); Chloride 96 mmol/L (98-107); Glucose 224 mg/dL (74-99); Non-African American GFR(MDRD) 59 (>60 ml/min/1.73 sqM); Sodium 138 mmol/L (137-145); Total Bilirubin 1.3 mg/dL (0.2-1.3); Total Protein 8.3 g/dL (6.3-8.2)
[2016-10-04 06:57] LABS: Potassium 5.6 mmol/L (3.5-5.1)
--- NOTE | 2016-10-04 07:03 | ED ---
SOB HPI - General Chief Complaint: Shortness of Breath Stated Complaint: joy Time Seen by Provider: 10/04/16 05:37 Source: patient, EMS Mode of arrival: EMS Limitations: physical limitation - History of Present Illness Initial Comments: This patient is a 56-year-old man brought by EMS to be evaluated for respiratory distress. The patient is reported by EMS to have coughed up a mucous plug through his tracheostomy and to have had improvement of the respiratory distress. The patient had been in his usual state of health until 2 days ago when he had a fall, striking his chest wall on the edge of a tub. He sustained a sternum and rib fractures. He had been admitted in the hospital then discharged yesterday. Over the course of the day he developed the thick secretions through his tracheostomy, and then was having moderately severe shortness of breath. Family phoned EMS. The patient also believes that he is having some subjective fever. The patient does note that he had been discharged with prescription for Coumadin but has not started that. He does have previous history of DVT, but states that he is not having leg pain or swelling currently. MD Complaint: shortness of breath, cough, pain with inspiration -: hour(s) Severity: severe Quality: aching, sharp Consistency: constant Improves With: nothing Worsens With: coughing, inspiration Known History Of: COPD Context: trauma/injury Associated Symptoms: chest pain, fever, cough, sputum production Treatments Prior to Arrival: oxygen - Related Data Home Oxygen Therapy: No Home Medications Medication Instructions Recorded Confirmed Metoprolol Succinate (ER) [Toprol 25 mg PO DAILY 07/15/14 10/04/16 XL] FLUoxetine HCL [PROzac] 40 mg PO DAILY 01/23/16 10/04/16 Albuterol Nebulized [Ventolin 2.5 mg INHALATION RT-Q4H PRN 06/20/16 10/04/16 Nebulized] Morphine Sulfate [Morphine Sulfate 30 mg PO Q12H 06/20/16 10/04/16 ER] Morphine Sulfate ER [Ms Contin 15 mg PO Q12HR 10/02/16 10/04/16 15Mg] Simvastatin [Zocor] 80 mg PO HS 10/02/16 10/04/16 Lisinopril [Zestril] 2.5 mg PO DAILY 10/04/16 10/04/16 Allergies Allergy/AdvReac Type Severity Reaction Status Date / Time No Known Allergies Allergy Verified 10/04/16 07:23 Review of Systems ROS Statement: Those systems with pertinent positive or pertinent negative responses have been documented in the HPI. ROS Other: All systems not noted in ROS Statement are negative. Constitutional: Reports: fever. Denies: weakness Respiratory: Reports: cough, dyspnea. Denies: wheezes, hemoptysis Cardiovascular: Reports: chest pain, palpitations. Denies: dyspnea on exertion , orthopnea, edema, syncope Gastrointestinal: Denies: abdominal pain, nausea, vomiting Genitourinary: Denies: dysuria, hematuria Musculoskeletal: Denies: back pain Skin: Denies: rash Neurological: Denies: headache, weakness, numbness Past Medical History Past Medical History: Heart Failure, COPD, Diabetes Mellitus, Hyperlipidemia, Hypertension, Seizure Disorder, Sleep Apnea/CPAP/BIPAP Additional Past Medical History / Comment(s): 10-02-16 fall and cp after fall. hx of: chronic pain, diverticulitis, pt stated he "has the trach d/t his sleep apnea", pt stated "told 2 days ago he has a mass next to spine" History of Any Multi-Drug Resistant Organisms: None Reported Past Surgical History: Appendectomy Additional Past Surgical History / Comment(s): trach., left kidney operation d/ t defect, bronch. colonoscopy/polypectomy-benign polyps Past Anesthesia/Blood Transfusion Reactions: No Reported Reaction Past Psychological History: Depression Smoking Status: Current every day smoker Past Alcohol Use History: Heavy Additional Past Alcohol Use History / Comment(s): started smoking age 17 but has decreased to smoking 1 cig per day but chews 1 can of tobacco per day. pt stated drinks more than 14 beer per week but does'nt drink daily. Past Drug Use History: Cocaine, Marijuana, Prescription Drug Abuse Additional Drug Use History / Comment(s): occ will smoke marijuana - Past Family History Father Family Medical History: No Reported History Additional Family Medical History / Comment(s): none Mother Family Medical History: No Reported History General Exam Limitations: physical limitation General appearance: alert, in distress, obese Head exam: Present: atraumatic, normocephalic Eye exam: Present: normal appearance. Absent: scleral icterus, conjunctival injection ENT exam: Present: normal oropharynx Neck exam: Present: other (Tracheostomy with small amount of thick yellow sputum ) Respiratory exam: Present: respiratory distress, wheezes, rhonchi, chest wall tenderness. Absent: decreased breath sounds, prolonged expiratory Cardiovascular Exam: Present: normal rhythm, tachycardia, normal heart sounds. Absent: systolic murmur, diastolic murmur, rubs, gallop GI/Abdominal exam: Present: soft. Absent: distended, tenderness, guarding, rebound, rigid, mass, pulsatile mass, hernia Extremities exam: Present: normal inspection, normal capillary refill. Absent: pedal edema, calf tenderness Back exam: Present: normal inspection. Absent: CVA tenderness (R), CVA tenderness (L) Neurological exam: Present: alert Skin exam: Present: warm, intact, normal color, diaphoretic. Absent: rash Course Vital Signs 10/04/16 10/04/16 10/04/16 05:37 07:11 07:28 Temperature 102.7 F H 100.5 F H Pulse Rate 112 H 102 H 100 Respiratory 24 24 24 Rate Blood Pressure 102/62 95/53 95/53 O2 Sat by Pulse 90 L 87 L 92 L Oximetry Medical Decision Making - Medical Decision Making Patient's 56-year-old man presenting with respiratory distress after being discharged with sternal and rib fractures. Clinically the patient does appear to be septic. He has fever, tachycardia and his pulse oximetry was low. On his exam he is also diaphoretic. Patient started with fluid bolus, started on broad-spectrum antibiotic for suspected pneumonia. Patient's be signed out pending the d-dimer. - Lab Data Result diagrams: 10/04/16 05:48 10/04/16 05:48 Lab Results 10/04/16 10/04/16 10/04/16 Range/Units 05:48 05:48 05:48 WBC 14.4 H (3.8-10.6) k/uL RBC 4.50 (4.30-5.90) m/uL Hgb 15.3 (13.0-17.5) gm/dL Hct 47.8 (39.0-53.0) % MCV 106.3 H (80.0-100.0) fL MCH 34.1 (25.0-35.0) pg MCHC 32.1 (31.0-37.0) g/dL RDW 15.6 H (11.5-15.5) % Plt Count 189 (150-450) k/uL Neutrophils % 89 % Lymphocytes % 5 % Monocytes % 5 % Eosinophils % 0 % Basophils % 1 % Neutrophils # 12.8 H (1.3-7.7) k/uL Lymphocytes # 0.8 L (1.0-4.8) k/uL Monocytes # 0.7 (0-1.0) k/uL Eosinophils # 0.0 (0-0.7) k/uL Basophils # 0.1 (0-0.2) k/uL Macrocytosis Moderate PT (9.0-12.0) sec INR (<1.1) APTT (22.0-30.0) sec D-Dimer (<0.60) mg/L FEU Sodium 138 (137-145) mmol/L Potassium 5.6 H (3.5-5.1) mmol/L Chloride 96 L (98-107) mmol/L Carbon Dioxide 30 (22-30) mmol/L Anion Gap 12 mmol/L BUN 25 H (9-20) mg/dL Creatinine 1.28 H (0.66-1.25) mg/dL Est GFR (MDRD) Af Amer >60 (>60 ml/min/1.73 sqM) Est GFR (MDRD) Non-Af 59 (>60 ml/min/1.73 sqM) Glucose 224 H (74-99) mg/dL Plasma Lactic Acid Miguel Angel 2.5 H* (0.7-2.0) mmol/L Calcium 9.7 (8.4-10.2) mg/dL Total Bilirubin 1.3 (0.2-1.3) mg/dL AST 103 H (17-59) U/L ALT 60 (21-72) U/L Alkaline Phosphatase 60 (38-126) U/L Troponin I (0.000-0.034) ng/mL NT-Pro-B Natriuret Pep pg/mL Total Protein 8.3 H (6.3-8.2) g/dL Albumin 4.2 (3.5-5.0) g/dL 10/04/16 10/04/16 10/04/16 Range/Units 05:48 05:48 05:48 WBC (3.8-10.6) k/uL RBC (4.30-5.90) m/uL Hgb (13.0-17.5) gm/dL Hct (39.0-53.0) % MCV (80.0-100.0) fL MCH (25.0-35.0) pg MCHC (31.0-37.0) g/dL RDW (11.5-15.5) % Plt Count (150-450) k/uL Neutrophils % % Lymphocytes % % Monocytes % % Eosinophils % % Basophils % % Neutrophils # (1.3-7.7) k/uL Lymphocytes # (1.0-4.8) k/uL Monocytes # (0-1.0) k/uL Eosinophils # (0-0.7) k/uL Basophils # (0-0.2) k/uL Macrocytosis PT 12.4 H (9.0-12.0) sec INR 1.3 (<1.1) APTT 22.8 (22.0-30.0) sec D-Dimer (<0.60) mg/L FEU Sodium (137-145) mmol/L Potassium (3.5-5.1) mmol/L Chloride (98-107) mmol/L Carbon Dioxide (22-30) mmol/L Anion Gap mmol/L BUN (9-20) mg/dL Creatinine (0.66-1.25) mg/dL Est GFR (MDRD) Af Amer (>60 ml/min/1.73 sqM) Est GFR (MDRD) Non-Af (>60 ml/min/1.73 sqM) Glucose (74-99) mg/dL Plasma Lactic Acid Miguel Angel (0.7-2.0) mmol/L Calcium (8.4-10.2) mg/dL Total Bilirubin (0.2-1.3) mg/dL AST (17-59) U/L ALT (21-72) U/L Alkaline Phosphatase (38-126) U/L Troponin I 0.030 (0.000-0.034) ng/mL NT-Pro-B Natriuret Pep 582 pg/mL Total Protein (6.3-8.2) g/dL Albumin (3.5-5.0) g/dL 10/04/16 Range/Units 07:20 WBC (3.8-10.6) k/uL RBC (4.30-5.90) m/uL Hgb (13.0-17.5) gm/dL Hct (39.0-53.0) % MCV (80.0-100.0) fL MCH (25.0-35.0) pg MCHC (31.0-37.0) g/dL RDW (11.5-15.5) % Plt Count (150-450) k/uL Neutrophils % % Lymphocytes % % Monocytes % % Eosinophils % % Basophils % % Neutrophils # (1.3-7.7) k/uL Lymphocytes # (1.0-4.8) k/uL Monocytes # (0-1.0) k/uL Eosinophils # (0-0.7) k/uL Basophils # (0-0.2) k/uL Macrocytosis PT (9.0-12.0) sec INR (<1.1) APTT (22.0-30.0) sec D-Dimer 0.74 H (<0.60) mg/L FEU Sodium (137-145) mmol/L Potassium (3.5-5.1) mmol/L Chloride (98-107) mmol/L Carbon Dioxide (22-30) mmol/L Anion Gap mmol/L BUN (9-20) mg/dL Creatinine (0.66-1.25) mg/dL Est GFR (MDRD) Af Amer (>60 ml/min/1.73 sqM) Est GFR (MDRD) Non-Af (>60 ml/min/1.73 sqM) Glucose (74-99) mg/dL Plasma Lactic Acid Miguel Angel (0.7-2.0) mmol/L Calcium (8.4-10.2) mg/dL Total Bilirubin (0.2-1.3) mg/dL AST (17-59) U/L ALT (21-72) U/L Alkaline Phosphatase (38-126) U/L Troponin I (0.000-0.034) ng/mL NT-Pro-B Natriuret Pep pg/mL Total Protein (6.3-8.2) g/dL Albumin (3.5-5.0) g/dL - EKG Data -: EKG Interpreted by Hi EKG shows normal: sinus rhythm, axis (Normal), intervals (Normal), QRS complexes (Normal), ST-T waves (Normal) Rate: tachycardia (Rate 104 bpm) Disposition Clinical Impression: Respiratory distress, acute, Pneumonia, Sepsis, Lactic acidosis, Hyperkalemia Disposition: ADMITTED IP TO THIS HOSP Condition: Serious Referrals: Lilli Ferro MD [Primary Care Provider] - 1-2 days
[2016-10-04 07:20] LABS: INR 1.3 (<1.1); Partial Thromboplastin Time 22.8 sec (22.0-30.0); Prothrombin Time 12.4 sec (9.0-12.0)
[2016-10-04] MEDS ORDERED: PIPERACILLIN-TAZOBACTAM 3.375 GM in DEXTROSE/WATER 1 50ML.BAG IVPB STA (07:41)
[2016-10-04] MEDS ORDERED: LEVOFLOXACIN 750MG-D5W PMX 750 MG in DEXTROSE/WATER 1 150ML.BAG IVPB SCH (07:45)
[2016-10-04] MEDS ORDERED: RX INFO: IV CONTRAST WAS GIVEN 1 EACH MISC MISCELLANE PRN (08:06)
[2016-10-04] MEDS: PIPERACILLIN-TAZOBACTAM 3.375 GM in DEXTROSE/WATER 1 50ML.BAG IVPB SCH ×3 (08:07→23:53)
[2016-10-04] MEDS: SODIUM CHLORIDE 0.9% 1,000 ML IV SCH ×6 (08:41→20:54)
--- NOTE | 2016-10-04 09:06 | CT ---
EXAMINATION TYPE: CT chest angio for PE DATE OF EXAM: 10/04/2016 8:46 AM COMPARISON: CT chest dated 10/02/2016. HISTORY: r/o PE, recent fall with rib fx, SOB CT DLP: 969.2 mGycm. Automated Exposure Control for Dose Reduction was Utilized. CONTRAST: CTA scan of the thorax is performed with IV Contrast, patient injected with 80 mL of Visipaque 320, p ulmonary embolism protocol. MIP Images are created on CT scanner and reviewed. FINDINGS: LUNGS: Multifocal wedge shaped consolidations with air bronchograms demonstrated increased attenuatio n in comparison to the paraspinal muscles and represent bibasilar atelectasis. Mild paraseptal emphys ematous changes are most pronounced within the lung apices. Midline tracheostomy is noted. The lungs are grossly clear, there is no concerning parenchymal mass or nodule identified. There is no pleura l effusion or pneumothorax seen. The tracheobronchial tree is patent. MEDIASTINUM: There is satisfactory enhancement of the pulmonary artery and its branches, there is no CT evidence for pulmonary embolism. There are no greater than 1 cm hilar or mediastinal lymph nodes. No cardiomegaly or pericardial effusion is seen. OTHER: The hepatic parenchyma is generally hypoattenuated most commonly related to underlying hepatic steatosis. Mild degenerative changes of the visualized thoracic spine are seen. Subacute fractures o f right ribs 6 and 7 at the lateral margins are again appreciated. IMPRESSION: 1. No evidence of pulmonary embolus. 2. Multifocal wedge-shaped consolidations most compatible with multifocal subsegmental atelectasis. N o large airways are patent. 3. Hepatic steatosis.
[2016-10-04] MEDS: SODIUM CHLORIDE 0.9% 1,000 ML IV ONE ×2 (09:44→10:38)
[2016-10-04] MEDS ORDERED: HYDROmorphone 1 MG/ML 1 ML SYRINGE IVP PRN ×2 (10:03→13:18)
[2016-10-04] MEDS: FAMOTIDINE 20 MG/2 ML VIAL IV SCH ×2 (10:05→20:52)
[2016-10-04] MEDS: HEPARIN SODIUM,PORCINE 5,000 UNIT/ML 1 ML VIAL SQ SCH ×3 (10:05→23:53)
[2016-10-04 11:18] LABS: Glucose,Whole Blood 134 mg/dL (75-99)
[2016-10-04 13:36] LABS: Appearance,Urine Cloudy (Clear); Bilirubin,Urine Negative (Negative); Calcium Oxalate Crystals,Urine Occasional /hpf; Glucose,Urine (UA) Negative (Negative); Granular Casts,Urine 5 /lpf (0); Ketones,Urine Trace (Negative); Leukocyte Esterase,Urine Negative (Negative); Mucus,Urine Rare /hpf; Nitrite,Urine Negative (Negative); PH, Urine 5.5 (5.0-8.0); Particle Count 9062; Protein,Urine 2+ (Negative); RBC,Urine 61 /hpf (0-5); Squamous Epithelial Cell,Urine <1 /hpf (0-4); UA Billing (MACRO vs. MICRO) MICRO; Urobilinogen,Urine <2.0 mg/dL (<2.0); WBC,Urine 6 /hpf (0-5)
[2016-10-04 14:31] LABS: Specific Gravity,Urine >1.050 (1.001-1.035)
[2016-10-04 15:25] LABS: Glucose,Whole Blood 163 mg/dL (75-99)
[2016-10-04] MEDS ORDERED: IPRATROPIUM-ALBUTEROL 3 ML NEB INHALATION PRN (15:27)
[2016-10-04] MEDS ORDERED: NALOXONE 0.4 MG/ML 1 ML VIAL IV PRN (15:27)
[2016-10-04] MEDS ORDERED: IV VANCOMYCIN PER PHARMACY 1 EACH MISC MISCELLANE PRN (15:38)
[2016-10-04] MEDS ORDERED: VANCOMYCIN 1,000 MG in SODIUM CHLORIDE 0.9% 250 ML IVPB STA (15:38)
[2016-10-04] MEDS: IPRATROPIUM-ALBUTEROL 3 ML NEB INHALATION SCH ×3 (15:59→23:26)
[2016-10-04] MEDS: methylPREDNISolone SOD SUCCI 40 MG/ML 1 ML VIAL IV SCH ×3 (16:25→23:53)
[2016-10-04] MEDS ORDERED: VANCOMYCIN 2,500 MG in SODIUM CHLORIDE 0.9% 500 ML IVPB ONE (16:30)
--- NOTE | 2016-10-04 17:23 | CONS ---
DATE OF CONSULTATION: 10/04/2016 REASON FOR CONSULT: Acute hypoxic respiratory failure. HISTORY OF PRESENTING ILLNESS: Mr. Pete Gomez is a 56-year-old morbidly obese male with history of severe degree of obstructive sleep apnea and obesity hypoventilation. Patient has a long-standing tracheostomy. Patient in fact was hospitalized about 72 hours ago with fall and sternal fracture and 2 right-sided rib fractures. Patient had a component of pulmonary contusion, was stabilized with pain medications, breathing treatments, deep breathing exercises, incentive spirometry, and eventually was discharged; however, patient came back into the emergency department earlier this morning with increasing shortness of breath, cough, low oxygen saturation. He has been very short of breath. Patient has been having very thick secretions coming from the tracheostomy tube with intermittent mucus plugs. Patient was eventually admitted to the hospital with low oxygen saturation. He does require about 70% oxygen to keep saturation in low 90s and high 80s, though. But he is awake, opens eyes, follows simple commands. Past medical history is significant for: 1. Prior history of DVT, PE. Did receive his therapy. Now off of anticoagulation. 2. History of obesity hypoventilation and severe degree of obstructive sleep apnea, status post tracheostomy. 3. History of hypertension, hypertensive cardiovascular disease. 4. Chronic pain syndrome. 5. History of mood disorder, depression. 6. Severe chronic obstructive pulmonary disease, emphysema. 7. Chronic congestive heart failure related to chronic diastolic heart failure. 8. History of seizure disorder. 9. Dyslipidemia. 10. Diabetes mellitus. Past surgical history is significant for: 1. Status post tracheostomy. 2. History of renal surgery. 3. Status post colonoscopy. 4. Bronchoscopy for tracheostomy change in the past. 5. History of polyp resection during colonoscopy. FAMILY HISTORY AND SOCIAL HISTORY: . Lives with his . Smokes about 1 pack per day. Has been doing that for the last 40 to 45 years. Prior history of substance use, including cocaine, marijuana and history of alcohol, but has been sober for many years. Rest of the family history and social history otherwise unremarkable and noncontributory. ALLERGIES: NO KNOWN DRUG ALLERGY. Medications at home include: 1. Zestril 2.5 mg. 2. Zocor 80 mg daily. 3. MS Contin 15 two times a day. 4. Morphine sulfate 30 mg q.12. 5. Albuterol updraft 4 times a day. 6. Prozac 40 mg daily. 7. Metoprolol 25 mg daily. REVIEW OF SYSTEMS: Otherwise unremarkable except as dictated above. Current medications while in the hospital include: 1. DuoNeb unit dose updraft 4 times a day. 2. Pulmicort 2 times a day. 3. Pepcid 20 mg daily. 4. Heparin 5000 subcutaneously q.8 hourly. 5. Dilaudid for pain control. 6. Sliding scale insulin. 7. Levaquin 750 IV q.24. 8. Solu-Medrol just started; 40 q.6. 9. IV fluids. 10. Zosyn 3.375. 11. Vancomycin. Patient has very concentrated urine. On examination, most recent vitals include blood pressure 97/73, respiratory rate 14, pulse 74, temperature 98. T-max was 103. Saturation 90% on 15% non-rebreather mask. HEENT EXAMINATION: Otherwise atraumatic, normocephalic. Pharynx is clear. Narrow pharyngeal opening is present. Mallampati grade IV. NECK: Supple. Tracheostomy is intact. No bruit is present. LUNGS: Bilateral coarse breath sounds present. Inspiratory and expiratory wheezing and rhonchi. HEART: Regular rate, rhythm. S1, S2 audible. ABDOMEN: Soft. No rebound or rigidity. EXTREMITIES: Plus one peripheral pulses. NEUROLOGICAL EXAMINATION: Otherwise awake and alert. Labs reviewed. White cell count 14,000, hemoglobin 15, hematocrit 47, platelet count 189,000. PT, INR, PTT within normal limits. Sodium 138, potassium 5.6. BUN 25, creatinine 1.28. LFTs are within normal limits. BNP is 582. Urinalysis otherwise unremarkable. Influenza A and B are both negative. GFR is greater than 60%, though. Radiographic studies include chest x-ray performed in the emergency department earlier this morning; reviewed and compared to prior x-ray; revealed bibasilar infiltrate. EKG performed in the emergency department revealed sinus tachycardia. CT scan of the chest performed in the emergency department reviewed and compared; no PE has been seen; dense consolidation bilaterally is seen with severe emphysema, stable. Tracheostomy. Subsegmental atelectasis cannot be excluded bilaterally. IMPRESSION: 1. Acute hypoxic respiratory failure. 2. Severe sepsis associated with acute hypoxic respiratory failure and bilateral pneumonia. 3. Septic shock, intravascular volume depletion and dehydration and very poor urine output. Urine output of only 200 mL, which is very dark, since morning. Patient is significantly volume-depleted, has rising creatinine. 4. Obesity hypoventilation. 5. Obstructive sleep apnea. 6. Severe chronic obstructive pulmonary disease, emphysema. PLAN AND RECOMMENDATIONS: Antibiotics. Breathing treatments. Steroids are being started. Continue other supportive care. Will give aggressive fluid resuscitation. Will give 2 liters of crystalloid followed by IV fluids. Patient's FiO2 has been lowered to 70%. With that, saturations are still in the high 80s to low 90s. Would recommend accepting saturation about 88%. 7. Right-sided multiple rib fractures as well as mediastinal fracture. Will monitor and observe. 8. Bilateral atelectasis, more so on the left base, and some on the right side as well. Likely related to rib fractures and pneumonia and poor respiratory effort. Will keep patient in ICU. Continue deep breathing exercises, incentive spirometry, supportive care as dictated above. Critical care time spent: 45 minutes.
--- NOTE | 2016-10-04 17:47 | HP ---
DATE OF ADMISSION: Patient is a 56-year-old who came in with respiratory distress, found to be significantly wheezing. Patient was discharged yesterday after he was treated for a sternal fracture. Patient was evaluated by me as well as Pulmonary. CT of the chest did not show any significant pneumonic infiltrates on the day before CT, but CT was done yesterday which showed significant pneumonic infiltrates with high-grade fever, although patient had low-grade fever the day before which was believed secondary to the atelectasis. Now he has clear-cut pneumonic pneumonia with dark sputum production. Patient denied any dysuria, nausea, vomiting. Patient has elevated potassium, because of which lisinopril is being held. Patient is on IV fluids and patient was admitted to ICU. Patient's wheezing did improve significantly after systemic steroids, inhalational treatments. Patient's sepsis did improve. Respiratory failure did improve. REVIEW OF SYSTEMS: CONSTITUTIONAL: No fever, no malaise, no fatigue. HEENT: No recent visual problems or hearing problems. Denied any sore throat. CARDIOVASCULAR: No chest pain, orthopnea, PND, no palpitations, no syncope. PULMONARY: As described in HPI. GASTROINTESTINAL: No diarrhea, no nausea, no vomiting, no abdominal pain. Normoactive bowel sounds. NEUROLOGICAL: No headaches, no weakness, no numbness. HEMATOLOGICAL: Denies any bleeding or petechiae. GENITOURINARY: Denies any burning micturition, frequency, or urgency. MUSCULOSKELETAL/RHEUMATOLOGICAL: Denies any joint pain, swelling, or any muscle pain. ENDOCRINE: Denies any polyuria or polydipsia. The rest of the 14 point review of systems is negative. Home medications include: 1. Metoprolol. 2. Fluoxetine. 3. Albuterol. 4. Morphine. 5. Simvastatin. 6. Lisinopril. ALLERGIES: NO KNOWN DRUG ALLERGIES. Past medical history is significant for: 1. COPD. 2. Diabetes mellitus. 3. Hyperlipidemia. 4. Hypertension. 5. Seizure disorder. 6. Sleep apnea. 7. Patient has a tracheostomy. PSYCHOLOGICAL HISTORY: Significant for depression. SOCIAL HISTORY: Patient continues to smoke. Does drink alcohol, about 6 beers a day. Used to use cocaine and marijuana. Occasionally smokes marijuana. FAMILY HISTORY: Significant for diabetes mellitus. PHYSICAL EXAMINATION: VITAL SIGNS: Temperature 98.8. Pulse of 74 now; when he came in it was 112. Respiratory rate of 34. Blood pressure is 119/73. Saturating at 92% on trach collar 70% FiO2 and 15 L of oxygen. GENERAL: Alert, oriented x3. Morbidly obese. Patient has a tracheostomy in place. HEENT: Pupils are round and equally reacting to light. EOMI. No scleral icterus. No conjunctival pallor. Normocephalic, atraumatic. No pharyngeal erythema. No thyromegaly. CARDIOVASCULAR: S1 and S2 present. No murmurs, rubs, or gallops. PULMONARY: Rhonchorous breath sounds bilaterally. Expiratory wheezing, which was not heard yesterday. I did not hear any clear-cut bronchophony or egophony. Apparently his wheezing is significantly improved as compared to admission. ABDOMEN: Soft, nontender, nondistended, normoactive bowel sounds. No palpable organomegaly. MUSCULOSKELETAL: No joint swelling or deformity. EXTREMITIES: No cyanosis, clubbing, or pedal edema. NEUROLOGICAL: Gross neurological examination did not reveal any focal deficits. SKIN: No rashes. LABORATORY DATA: CBC, CMP are abnormal for elevated RBC in the urine. WBC count of 6. CT of the chest as mentioned above. MCV is 106.3. I will obtain a B12 level. WBC count of 14,400. BUN of 25, creatinine 1.28. Blood glucose is elevated. ASSESSMENT AND PLAN: 1. Severe sepsis secondary to bilateral pneumonia. Probable precipitating factor is his rib fracture. Patient was started on broad-spectrum antibiotics Zosyn, vancomycin. I discontinued levofloxacin. Will get sputum cultures. 2. Leukocytosis due to assessment #1. 3. Hyperkalemia. Lisinopril will be discontinued and patient will be started on IV fluids. Patient is significantly hypotensive. 4. Alcohol abuse. Will watch him for alcohol withdrawals. 5. Acute hypoxic respiratory failure secondary to pneumonia. 6. Acute on chronic hypercapnic respiratory failure secondary to chronic obstructive pulmonary disease exacerbation, for which patient will be started on systemic steroids, inhalational treatments, antibiotics. 7. Hypertension. Lisinopril will be held because of above-mentioned reasons. Patient is at present hypotensive because of possibly sepsis. Blood cultures were obtained. 8. Patient will be on GI prophylaxis. 9. Patient will need DVT prophylaxis as well. 10. Morbid obesity. Used to have history of sleep apnea.
[2016-10-04 17:53] LABS: Glucose,Whole Blood 135 mg/dL (75-99)
[2016-10-04] MEDS: INSULIN LISPRO (humaLOG) 300 UNIT/3 ML VIAL SQ SCH ×2 (18:42→21:10)
[2016-10-04] MEDS: BUDESONIDE 0.5 MG/2 ML NEBU INHALATION SCH (19:27)
[2016-10-04 21:11] LABS: Glucose,Whole Blood 159 mg/dL (75-99)
[2016-10-04] MEDS: HYDROmorphone 1 MG/ML 1 ML SYRINGE IVP PRN (21:19)
[2016-10-04] MEDS: VANCOMYCIN 2,000 MG in SODIUM CHLORIDE 0.9% 500 ML IVPB SCH (23:52)
[2016-10-05] MEDS: SODIUM CHLORIDE 0.9% 1,000 ML IV SCH ×2 (00:57→09:32)
[2016-10-05] MEDS: HYDROmorphone 1 MG/ML 1 ML SYRINGE IVP PRN ×7 (01:17→22:26)
[2016-10-05] MEDS: IPRATROPIUM-ALBUTEROL 3 ML NEB INHALATION SCH ×6 (03:04→23:23)
[2016-10-05 04:39] LABS: Basophils % (A) 0 %; CH 34.1; CHCM 32.1; Eosinophils # (A) 0.1 k/uL (0-0.7); Eosinophils % (A) 1 %; HCT 43.9 % (39.0-53.0); HDW 2.59; HGB 14.6 gm/dL (13.0-17.5); Luc # (Auto) 0.03; Luc % (Auto) 0; Lymphocytes # (A) 0.8 k/uL (1.0-4.8); Lymphocytes % (A) 8 %; MCH 35.4 pg (25.0-35.0); MCHC 33.2 g/dL (31.0-37.0); MCV 106.7 fL (80.0-100.0); Macrocytosis Moderate; Mean Platelet Volume 7.2; Monocytes # (A) 0.1 k/uL (0-1.0); Monocytes % (A) 2 %; Neutrophils # (A) 7.9 k/uL (1.3-7.7); Neutrophils % (A) 89 %; RBC 4.12 m/uL (4.30-5.90); WBC 8.9 k/uL (3.8-10.6); WBC (Perox) 8.08
[2016-10-05 05:11] LABS: Anion Gap 10 mmol/L; Blood Urea Nitrogen 22 mg/dL (9-20); Calcium 8.5 mg/dL (8.4-10.2); Carbon Dioxide 26 mmol/L (22-30); Chloride 102 mmol/L (98-107); Glucose 191 mg/dL (74-99); Magnesium 1.9 mg/dL (1.6-2.3); Non-African American GFR(MDRD) >60 (>60 ml/min/1.73 sqM); Phosphorous 2.9 mg/dL (2.5-4.5); Potassium 4.9 mmol/L (3.5-5.1); Sodium 138 mmol/L (137-145)
[2016-10-05] MEDS: methylPREDNISolone SOD SUCCI 40 MG/ML 1 ML VIAL IV SCH ×2 (05:31→13:36)
[2016-10-05] MEDS ORDERED: LEVOFLOXACIN 750MG-D5W PMX 750 MG in DEXTROSE/WATER 1 150ML.BAG IVPB SCH (06:00)
[2016-10-05] MEDS: BUDESONIDE 0.5 MG/2 ML NEBU INHALATION SCH ×2 (08:02→19:23)
--- NOTE | 2016-10-05 08:04 | XR ---
EXAMINATION TYPE: XR chest 1V DATE OF EXAM: 10/05/2016 6:37 AM COMPARISON: Prior chest x-ray and chest CT 10/04/2016 HISTORY: Shortness of breath TECHNIQUE: Single frontal view of the chest is obtained. FINDINGS: The patient is rotated. Tracheostomy tube is again seen overlying appropriate position. Mccall perior mediastinum is prominent as on previous. Heart remains enlarged. There are overlying cardiac l cortes. No evident pneumothorax. There may be some improvement in the interstitium. Patchy basilar dens ity persists. IMPRESSION: Suspect improvement in patient's volume status. There may be basilar atelectasis or airs pace disease versus edema, difficult to exclude small effusion.
[2016-10-05] MEDS: PIPERACILLIN-TAZOBACTAM 3.375 GM in DEXTROSE/WATER 1 50ML.BAG IVPB SCH ×2 (08:10→16:59)
[2016-10-05] MEDS: INSULIN LISPRO (humaLOG) 300 UNIT/3 ML VIAL SQ SCH ×4 (08:12→20:49)
[2016-10-05] MEDS: HEPARIN SODIUM,PORCINE 5,000 UNIT/ML 1 ML VIAL SQ SCH ×2 (08:13→16:58)
[2016-10-05] MEDS: FAMOTIDINE 20 MG/2 ML VIAL IV SCH ×2 (08:13→20:33)
[2016-10-05 08:14] LABS: Glucose,Whole Blood 176 mg/dL (75-99)
[2016-10-05 12:28] LABS: Glucose,Whole Blood 186 mg/dL (75-99)
[2016-10-05] MEDS: VANCOMYCIN 2,000 MG in SODIUM CHLORIDE 0.9% 500 ML IVPB SCH (13:36)
[2016-10-05 13:39] LABS: Hemoglobin A1C 6.6 % (4.2-6.1)
--- NOTE | 2016-10-05 15:06 | PN ---
The patient is a 56-year-old admitted with acute hypoxic respiratory failure secondary to bilateral pneumonia as well as also severe sepsis secondary to pneumonia and patient is having copious amount of sputum. Patient has Gram-positive cocci ( ) cocci on the sputum cultures. Will continue with broad-spectrum antibiotics for now. Patient is having severe pain in the places where he has rib fractures. Patient was resumed on his home opiates for pain. Patient is having good urine output. Creatinine improved. Will cut down IV fluids. REVIEW OF SYSTEMS: GENERAL: As described in HPI. CARDIOVASCULAR: No chest pain, no orthopnea, no PND, no palpitations. PULMONARY: Denied any shortness of breath. No cough or hemoptysis. GASTROINTESTINAL: No diarrhea, nausea or vomiting. No abdominal pain. Normoactive bowel sounds. NEUROLOGIC: No headaches, no weakness, no numbness. Medications were reviewed. PHYSICAL EXAMINATION: VITAL SIGNS: Temperature 98.1, pulse of 87, respiratory rate of around 26, blood pressure is 142/82, saturating at 88% on 13 L by trach collar with copious amounts of sputum coming out of it. GENERAL: The patient is alert and oriented x3, morbidly obese, tracheostomy in place, copious amount of sputum coming out. HEENT: Pupils are round and equally reacting to light. EOMI. No scleral icterus. No conjunctival pallor. Normocephalic, atraumatic. No pharyngeal erythema. No thyromegaly. CARDIOVASCULAR: S1 and S2 present. No murmurs, rubs, or gallops. LUNG EXAMINATION: Rhonchus breath sounds. Expiratory wheezing significant. ABDOMEN: Soft, nontender, nondistended, normoactive bowel sounds. No palpable organomegaly. MUSCULOSKELETAL: No joint swelling or deformity. EXTREMITIES: No cyanosis, clubbing, or pedal edema. NEUROLOGICAL: Gross neurological examination did not reveal any focal deficits. SKIN: No rashes. LABORATORY DATA: CBC, CMP showed improved. BUN and creatinine, mildly low platelet count secondary to sepsis. ASSESSMENT AND PLAN: 1. Severe sepsis secondary to bilateral pneumonia and patient is on broad-spectrum antibiotics as mentioned above. Will taper down the antibiotics depending on further ( ) of the cultures. 2. Leukocytosis due to assessment #1. 3. Acute hypoxic respiratory failure secondary to bilateral pneumonia. 4. Acute on chronic hypercarbic respiratory failure secondary to chronic obstructive pulmonary disease exacerbation. Continue with systemic steroids and inhalational treatments. 5. Hyperkalemia, resolved at this point of time. Continue to hold off lisinopril. 6. Hypertension. Antihypertensives are being held because of his kidney dysfunction and sepsis. 7. Acute renal failure secondary to acute tubular necrosis which improved, presently improved creatinine. We will cut down on the IV fluids. Patient is having good urine output around 200 mL per hour. Leukocytosis improved.
[2016-10-05] MEDS: methylPREDNISolone SOD SUCCI 125 MG/2 ML VIAL IV SCH (16:59)
--- NOTE | 2016-10-05 17:10 | PN ---
He was seen on 10/05/2016. He is hemodynamically stable. He is quite short of breath. He has a tracheostomy in place. On physical examination, his blood pressure 140/80, respiratory rate 17, pulse rate 87, temperature 98.1, O2 sat is 78%. HEENT reveals pupils are equal. Tracheostomy in place. Chest reveals decreased breath sounds with bilateral wheeze. Cardiovascular system reveals an S1, S2. Abdomen is soft. There is 1+ pedal edema. White count is 8.9, hemoglobin 14.6. Sodium 138, potassium 4.9, chloride 102, bicarb 26, BUN 22, creatinine 0.9. Chest x-ray shows basilar atelectasis versus edema. CTA off the chest done on 10/04/2016 showed multifocal wedge shape consolidation with air bronchograms representing bibasilar atelectasis versus infiltrate. IMPRESSION AT THIS TIME: 1. Acute on chronic respiratory failure. 2. Obesity with obesity hypoventilation syndrome, status post tracheostomy. 3. Previous history of deep venous thrombosis and pulmonary embolism. 4. Acute on chronic hypoxic respiratory failure. 5. Septic shock with possible aspiration-type pneumonia. At this point in time, continue IV steroids, increase them. Continue bronchodilators. Continue to optimize his oxygenation with supplemental oxygen through the tracheostomy. Have ID further evaluate the patient as the patient is on multiple antibiotics and hopefully we can narrow his coverage. He may require gentle diuresis. Continue supportive care. Would consult physical medicine and rehab to see if he is a candidate for inpatient rehab as he was recently discharged and came back to the hospital. Depending on how he does, we shall make further changes to his care.
[2016-10-05 17:15] LABS: Glucose,Whole Blood 219 mg/dL (75-99)
[2016-10-05 20:29] LABS: Glucose,Whole Blood 261 mg/dL (75-99)
[2016-10-05] MEDS: MORPHINE SULFATE ER 15 MG TABLET PO SCH (20:33)
[2016-10-05] MEDS: MORPHINE SULFATE ER 30 MG TABLET PO SCH (20:34)
[2016-10-05] MEDS ORDERED: INSULIN DETEMIR 100 UNIT/ML 10 ML VIAL SQ ONE (20:44)
[2016-10-05] MEDS ORDERED: INSULIN LISPRO (humaLOG) 300 UNIT/3 ML VIAL SQ ONE (20:44)
--- NOTE | 2016-10-05 23:34 | P.CONS ---
History of Present Illness - Reason for Consult Consult date: 10/05/16 - Chief Complaint shortness of breath - History of Present Illness 56-year-old male that he has multiple medical troubles and includes a history of respiratory failure requiring tracheostomy. He apparently had difficulty with trauma to his sternum was taking care of recently. He was doing somewhat better however now presents with significant shortness of breath and wheezing. Computed tomography scan shows evidence of multifocal pneumonia. Which is a new finding. Patient is doing somewhat better this afternoon ALLERGIES had steroids and antibiotic therapy. He is not hypotensive responded well to fluid resuscitation Is able to communicate that he is feeling somewhat better this evening. He is much less short of breath. Wheezing is improved. Coughing is improved. He feels that his distress has resolved. He is denying significant fever, chill or rigor. He was able to ingest some nutrition, does not have a tube feed at this time. Tracheostomies in the place from difficulties with recent respiratory failure. Review of Systems she 6-year-old gentleman which is feelin HEENT:Denies headache or acute visual change. Denies sinus or mouth discomforts. Denies neck stiffness or pain. Denies significant oral cavity pain. Denies difficulty on swallowing.no difficulties with his tracheostomy Lungs: per the HPI stiffing and shortness of Cardiovascular: Denies significant chest pain, orthopnea, dyspnea on exertion, syncope Gastrointestinal:Denies nausea, vomiting, diarrhea, constipation, hematemesis, melena, hematochezia. No no significant change of bowel habit noticed. Musculoskeletal: denies significant myalgias or arthralgias. No new joint swelling. Denies new back pain. Skin: Denies new rash or lesions. No new ulcers or wounds are related.. Neuro: Denies headache or visual change. Denies any new onset weakness or difficulty with ambulation. Denies falls or seizures. Psychiatric:Denies anxiety or depression. Endocrine: Denies significant fatigue, denies significant weight loss or weight gain. Past Medical History Past Medical History: Heart Failure, COPD, Diabetes Mellitus, Hyperlipidemia, Hypertension, Seizure Disorder, Sleep Apnea/CPAP/BIPAP Additional Past Medical History / Comment(s): 5 Pt admitted to [facility] after a fall with sternal and rib fractures. hx of: chronic pain, diverticulitis, pt stated he "has the trach d/t his sleep apnea"-no longer has SANTY, pt stated "told 4 days ago he has a mass next to spine". History of Any Multi-Drug Resistant Organisms: None Reported Past Surgical History: Appendectomy Additional Past Surgical History / Comment(s): trach., left kidney operation d/ t defect, bronch. colonoscopy/polypectomy-benign polyps Past Anesthesia/Blood Transfusion Reactions: No Reported Reaction Past Psychological History: Depression Additional Psychological History / Comment(s): Pt resides with spouse and child. He uses no assistive device. He drives. Smoking Status: Current every day smoker Past Alcohol Use History: Heavy Additional Past Alcohol Use History / Comment(s): started smoking age 17 but has decreased to smoking 1 cig per day but chews 1 can of tobacco per day. pt stated drinks more than 14 beer per week but does'nt drink daily. Past Drug Use History: Cocaine, Marijuana, Prescription Drug Abuse Additional Drug Use History / Comment(s): occ will smoke marijuana - Past Family History Father Family Medical History: No Reported History Additional Family Medical History / Comment(s): none Mother Family Medical History: No Reported History Medications and Allergies Home Medications and Allergies Comment(s): Current Medications Albuterol/Ipratropium (Duoneb 0.5 Mg-3 Mg/3 Ml Soln) 3 ml INHALATION RT-Q2H PRN PRN Reason: Shortness Of Breath Or Wheezing Albuterol/Ipratropium (Duoneb 0.5 Mg-3 Mg/3 Ml Soln) 3 ml INHALATION RT-Q4H [facility] Last Admin: 10/05/16 23:23 Dose: 3 ml Budesonide (Pulmicort) 0.5 mg INHALATION RT-BID [facility] Last Admin: 10/05/16 19:23 Dose: 0.5 mg Famotidine (Pepcid) 20 mg IV BID [facility] Last Admin: 10/05/16 20:33 Dose: 20 mg Heparin Sodium (Porcine) (Heparin) 5,000 unit SQ Q8HR [facility] Last Admin: 10/05/16 16:58 Dose: 5,000 unit Hydromorphone HCl (Dilaudid) 1 mg IVP Q2HR PRN PRN Reason: Pain Last Admin: 10/05/16 22:26 Dose: 1 mg Piperacillin/Tazobactam/ (Dextrose 3.375 gm/ IV Solution) 50 mls @ 12.5 mls/hr IVPB Q8HR [facility] Last Admin: 10/05/16 16:59 Dose: 12.5 mls/hr Sodium Chloride (Saline 0.9%) 1,000 mls @ 50 mls/hr IV .Q20H [facility] Last Admin: 10/05/16 09:32 Dose: 150 mls/hr Vancomycin HCl 2,000 mg/ (Sodium Chloride) 500 mls @ 167 mls/hr IVPB Q12HR@0000 ,1200 [facility] Last Admin: 10/05/16 13:36 Dose: 167 mls/hr Insulin Human Lispro (Humalog) 0 unit SQ ACHS [facility] PRN Reason: Protocol Last Admin: 10/05/16 20:49 Dose: Not Given Methylprednisolone Sodium Succinate (Solu-Medrol) 60 mg IV Q6HR [facility] Last Admin: 10/05/16 16:59 Dose: 60 mg Miscellaneous Information (Rx Info: Iv Contrast Was Given) 1 each MISCELLANE DAILY PRN PRN Reason: Per Protocol Stop: 10/06/16 08:07 Last Admin: 10/04/16 10:06 Dose: 1 each Miscellaneous Information (Vancomycin Trough Due) 0 each MISCELLANE ONCE ONE Stop: 10/06/16 11:01 Morphine Sulfate (Ms Contin) 30 mg PO Q12HR [facility] Last Admin: 10/05/16 20:34 Dose: 30 mg Morphine Sulfate (Ms Contin) 15 mg PO Q12HR [facility] Last Admin: 10/05/16 20:33 Dose: 15 mg Naloxone HCl (Narcan) 0.2 mg IV Q2M PRN PRN Reason: Opioid Reversal Home Medications Medication Instructions Recorded Confirmed Type Metoprolol Succinate (ER) [Toprol 25 mg PO DAILY 07/15/14 10/04/16 History XL] FLUoxetine HCL [PROzac] 40 mg PO DAILY 01/23/16 10/04/16 History Albuterol Nebulized [Ventolin 2.5 mg INHALATION RT-Q4H PRN 06/20/16 10/04/16 History Nebulized] Morphine Sulfate [Morphine Sulfate 30 mg PO Q12H 06/20/16 10/04/16 History ER] Morphine Sulfate ER [Ms Contin 15 mg PO Q12HR 10/02/16 10/04/16 History 15Mg] Simvastatin [Zocor] 80 mg PO HS 10/02/16 10/04/16 History Lisinopril [Zestril] 2.5 mg PO DAILY 10/04/16 10/04/16 History Allergies Allergy/AdvReac Type Severity Reaction Status Date / Time No Known Allergies Allergy Verified 10/04/16 07:23 Physical Exam Vitals: Vital Signs Temp Pulse Resp BP Pulse Ox 10/05/16 23:23 63 10/05/16 22:00 73 15 146/79 91 L 10/05/16 21:00 74 23 147/86 90 L 10/05/16 20:00 98.8 F 77 16 154/85 91 L 10/05/16 19:46 92 10/05/16 19:24 77 10/05/16 19:00 74 13 141/80 90 L 10/05/16 18:00 73 14 154/75 88 L 10/05/16 17:00 78 23 135/84 91 L 10/05/16 16:00 76 17 144/78 92 L 10/05/16 15:35 78 10/05/16 15:26 86 10/05/16 15:00 73 22 133/78 90 L 10/05/16 14:00 87 26 H 142/82 88 L 10/05/16 13:00 87 17 140/80 89 L 10/05/16 12:00 98.1 F 72 23 153/101 86 L 10/05/16 11:30 73 14 176/95 88 L 10/05/16 11:16 70 10/05/16 11:00 71 13 178/110 88 L 10/05/16 10:30 73 19 171/122 88 L 10/05/16 10:00 73 13 189/91 89 L 10/05/16 09:30 74 11 L 166/85 88 L 10/05/16 09:00 77 13 179/85 88 L 10/05/16 08:39 76 10/05/16 08:30 75 16 181/89 94 L 10/05/16 08:14 94 L 10/05/16 08:05 87 10/05/16 08:00 98.2 F 72 13 144/89 93 L 10/05/16 07:30 69 15 163/94 92 L 10/05/16 07:00 65 18 168/119 91 L 10/05/16 06:30 73 26 H 193/92 88 L 10/05/16 06:00 81 12 155/87 89 L 10/05/16 05:30 65 10 L 131/78 91 L 10/05/16 05:00 65 15 139/81 91 L 10/05/16 04:30 77 16 145/84 91 L 10/05/16 04:00 72 16 140/76 91 L 10/05/16 03:30 70 11 L 137/74 91 L 10/05/16 03:18 68 10/05/16 03:04 67 10/05/16 03:00 68 15 137/75 92 L 10/05/16 02:30 68 12 133/73 92 L 10/05/16 02:00 71 13 145/84 92 L 10/05/16 01:30 80 20 153/83 89 L 10/05/16 01:00 69 12 154/89 90 L 10/05/16 00:30 72 12 160/88 91 L 10/05/16 00:05 75 11 L 147/86 92 L 10/05/16 00:00 73 12 103/68 89 L 10/04/16 23:43 67 10/04/16 23:30 69 13 109/69 91 L 10/04/16 23:27 67 Intake and Output 10/05/16 10/05/16 10/06/16 14:59 22:59 06:59 Intake Total 1650 500 Output Total 815 655 Balance 835 -155 Intake: IV 200 0.9 ns 200 Intake, IV Titration 1650 300 Amount Piperacillin-Tazobactam 3 50 50 .375 gm In Dextrose/Water 1 50ml.bag @ 12.5 mls/hr IVPB Q8HR [facility] Rx#: [id number] Sodium Chloride 0.9% 1, 1100 250 000 ml @ 50 mls/hr IV . Q20H [facility] Rx#:[id number] Vancomycin 2,000 mg In 500 Sodium Chloride 0.9% 500 ml @ 167 mls/hr IVPB Q12HR@0000,1200 [facility] Rx#: [id number] Output: Urine 815 655 Other: Voiding Method Indwelling Catheter Indwelling Catheter Weight 153 kg 153 kg Patient Weight 10/06/16 06:59 Weight 153 kg 56-year-old male who has superobesity seems comfortable HEENT: Anicteric conjunctiva are pink and moist nasal mucosa grossly intact without significant lesions, there is no thrush.tracheostomy scant purulent sputum Neck: The neck is supple without significant lymphadenopathy or thyromegaly. Lungs: Symmetrical air entry. Bibasilar crackles are heard. Scattered wheezing and crackles to the lung villalpando. Heart: Regular rate and rhythm with an audible S1-S2, no S3 positive S4 There is no significant murmur click or rub, PMI was nondisplaced. Abdomen:obese Positive bowel sounds soft and nontender without palpable masses or organomegaly. There was no guarding or rebound. Extremities: The upper extremities have excellent pulses they are symmetric, no significant petechiae or telangiectasia. No splinter hemorrhages were noted. lower extremities have evidence of the significant edema. No ulcerations are s Neuro: Awake alert oriented to person place and time. There are no acute new gross focal sensory motor deficits.communicates by capping his tracheostomy. Results CBC & Chem 7: 10/05/16 04:10 10/05/16 04:10 Labs: Abnormal Lab Results - Last 24 Hours (Table) 10/05/16 10/05/16 10/05/16 Range/Units 04:10 04:10 04:10 RBC 4.12 L (4.30-5.90) m/uL MCV 106.7 H (80.0-100.0) fL MCH 35.4 H (25.0-35.0) pg Plt Count 134 L (150-450) k/uL Neutrophils # 7.9 H (1.3-7.7) k/uL Lymphocytes # 0.8 L (1.0-4.8) k/uL BUN 22 H (9-20) mg/dL Glucose 191 H (74-99) mg/dL POC Glucose (mg/dL) (75-99) mg/dL Hemoglobin A1c 6.6 H (4.2-6.1) % 10/05/16 10/05/16 10/05/16 Range/Units 08:12 12:24 17:12 RBC (4.30-5.90) m/uL MCV (80.0-100.0) fL MCH (25.0-35.0) pg Plt Count (150-450) k/uL Neutrophils # (1.3-7.7) k/uL Lymphocytes # (1.0-4.8) k/uL BUN (9-20) mg/dL Glucose (74-99) mg/dL POC Glucose (mg/dL) 176 H 186 H 219 H (75-99) mg/dL Hemoglobin A1c (4.2-6.1) % 10/05/16 Range/Units 20:27 RBC (4.30-5.90) m/uL MCV (80.0-100.0) fL MCH (25.0-35.0) pg Plt Count (150-450) k/uL Neutrophils # (1.3-7.7) k/uL Lymphocytes # (1.0-4.8) k/uL BUN (9-20) mg/dL Glucose (74-99) mg/dL POC Glucose (mg/dL) 261 H (75-99) mg/dL Hemoglobin A1c (4.2-6.1) % Microbiology - Last 24 Hours (Table) 10/04/16 13:17 Urine Culture - Final Urine,Catheterized 10/04/16 09:55 Blood Culture - Preliminary Blood No Growth after 24 hours Laboratory Results WBC 8.9 k/uL (3.8-10.6) 10/05/16 04:10 RBC 4.12 m/uL (4.30-5.90) L 10/05/16 04:10 Hgb 14.6 gm/dL (13.0-17.5) 10/05/16 04:10 Hct 43.9 % (39.0-53.0) 10/05/16 04:10 MCV 106.7 fL (80.0-100.0) H 10/05/16 04:10 MCH 35.4 pg (25.0-35.0) H 10/05/16 04:10 MCHC 33.2 g/dL (31.0-37.0) 10/05/16 04:10 RDW 15.0 % (11.5-15.5) 10/05/16 04:10 Plt Count 134 k/uL (150-450) L 10/05/16 04:10 Neutrophils % 89 % 10/05/16 04:10 Lymphocytes % 8 % 10/05/16 04:10 Monocytes % 2 % 10/05/16 04:10 Eosinophils % 1 % 10/05/16 04:10 Basophils % 0 % 10/05/16 04:10 Neutrophils # 7.9 k/uL (1.3-7.7) H 10/05/16 04:10 Lymphocytes # 0.8 k/uL (1.0-4.8) L 10/05/16 04:10 Monocytes # 0.1 k/uL (0-1.0) 10/05/16 04:10 Eosinophils # 0.1 k/uL (0-0.7) 10/05/16 04:10 Basophils # 0.0 k/uL (0-0.2) 10/05/16 04:10 Macrocytosis Moderate 10/05/16 04:10 PT 12.4 sec (9.0-12.0) H 10/04/16 05:48 INR 1.3 (<1.1) 10/04/16 05:48 APTT 22.8 sec (22.0-30.0) 10/04/16 05:48 D-Dimer 0.74 mg/L FEU (<0.60) H 10/04/16 07:20 Sodium 138 mmol/L (137-145) 10/05/16 04:10 Potassium 4.9 mmol/L (3.5-5.1) 10/05/16 04:10 Chloride 102 mmol/L (98-107) 10/05/16 04:10 Carbon Dioxide 26 mmol/L (22-30) 10/05/16 04:10 Anion Gap 10 mmol/L 10/05/16 04:10 BUN 22 mg/dL (9-20) H 10/05/16 04:10 Creatinine 0.90 mg/dL (0.66-1.25) 10/05/16 04:10 Est GFR (MDRD) Af Amer >60 (>60 ml/min/1.73 sqM) 10/05/16 04:10 Est GFR (MDRD) Non-Af >60 (>60 ml/min/1.73 sqM) 10/05/16 04:10 Glucose 191 mg/dL (74-99) H 10/05/16 04:10 POC Glucose (mg/dL) 261 mg/dL (75-99) H 10/05/16 20:27 POC Glu Schedule Announcer ID Kranthi Mims 10/05/16 20:[address] Glu mg/dL 143 mg/dL 10/05/16 04:10 Hemoglobin A1c 6.6 % (4.2-6.1) H 10/05/16 04:10 Plasma Lactic Acid Miguel Angel 1.6 mmol/L (0.7-2.0) 10/04/16 09:55 Calcium 8.5 mg/dL (8.4-10.2) 10/05/16 04:10 Phosphorus 2.9 mg/dL (2.5-4.5) 10/05/16 04:10 Magnesium 1.9 mg/dL (1.6-2.3) 10/05/16 04:10 Total Bilirubin 1.3 mg/dL (0.2-1.3) 10/04/16 05:48 AST 103 U/L (17-59) H 10/04/16 05:48 ALT 60 U/L (21-72) 10/04/16 05:48 Alkaline Phosphatase 60 U/L (38-126) 10/04/16 05:48 Troponin I 0.030 ng/mL (0.000-0.034) 10/04/16 05:48 NT-Pro-B Natriuret Pep 582 pg/mL 10/04/16 05:48 Total Protein 8.3 g/dL (6.3-8.2) H 10/04/16 05:48 Albumin 4.2 g/dL (3.5-5.0) 10/04/16 05:48 Urine Color Yellow 10/04/16 13:17 Urine Appearance Cloudy (Clear) 10/04/16 13:17 Urine pH 5.5 (5.0-8.0) 10/04/16 13:17 Ur Specific [place] >1.050 (1.001-1.035) H 10/04/16 13:17 Urine Protein 2+ (Negative) H 10/04/16 13:17 Urine Glucose (UA) Negative (Negative) 10/04/16 13:17 Urine Ketones Trace (Negative) H 10/04/16 13:17 Urine Blood Small (Negative) H 10/04/16 13:17 Urine Nitrite Negative (Negative) 10/04/16 13:17 Urine Bilirubin Negative (Negative) 10/04/16 13:17 Urine Urobilinogen <2.0 mg/dL (<2.0) 10/04/16 13:17 Ur Leukocyte Esterase Negative (Negative) 10/04/16 13:17 Urine RBC 61 /hpf (0-5) H 10/04/16 13:17 Urine WBC 6 /hpf (0-5) H 10/04/16 13:17 Ur Squamous Epith Cells <1 /hpf (0-4) 10/04/16 13:17 Calcium Oxalate Crystal Occasional /hpf (None) H 10/04/16 13:17 Hyaline Casts 13 /lpf (0-2) H 10/04/16 13:17 Granular Casts 5 /lpf (0) 10/04/16 13:17 Urine Mucus Rare /hpf (None) H 10/04/16 13:17 Influenza Type A RNA Not Detected (Not Detectd) 10/04/16 08:15 Influenza Type B (PCR) Not Detected (Not Detectd) 10/04/16 08:15 Microbiology 10/04/16 13:17 Urine,Catheterized Urine Culture - Final 10/04/16 09:55 Blood Blood Culture - Preliminary No Growth after 24 hours 10/04/16 05:48 Blood Blood Culture - Preliminary No Growth after 24 hours 10/04/16 06:05 Sputum Gram Stain - Preliminary 10/04/16 06:05 Sputum Sputum Culture - Preliminary Assessment and Plan (1) Gram-negative pneumonia Narrative/Plan: 56-year-old male that has an extensive past medical history including respiratory failure requiring tracheostomy he is nonintensive care unit with evidence of multifocal pneumonia. Sputum Gram stain is a available and is evidence of several gram-negative pathogens. This time we await further data. Piperacillin tazobactam is being utilized in case her Pseudomonas pneumonia. There is also concerned there may have an aspiration event. These also would give coverage for this also. While culture is in process would continue current antibiotic therapy but will likely discontinue the vancomycin tomorrow when there is further data available. Computed tomography scan fails to reveal evidence of a pulmonary embolus. However there is evidence of the multifocal pneumonia. There is leukocytosis. Respiratory failure has also improved. He's had significant improvement since coming to the ICU with treatment of his underlying pulmonary disease also. Status: Acute (2) Lactic acidosis Status: Acute (3) Tracheostomy in place Status: Acute
[2016-10-06] MEDS: HYDROmorphone 1 MG/ML 1 ML SYRINGE IVP PRN ×9 (00:29→22:35)
[2016-10-06] MEDS: HEPARIN SODIUM,PORCINE 5,000 UNIT/ML 1 ML VIAL SQ SCH ×3 (00:29→16:33)
[2016-10-06] MEDS: methylPREDNISolone SOD SUCCI 125 MG/2 ML VIAL IV SCH ×4 (00:29→17:39)
[2016-10-06] MEDS: SODIUM CHLORIDE 0.9% 1,000 ML IV SCH ×2 (00:34→17:39)
[2016-10-06] MEDS: VANCOMYCIN 2,000 MG in SODIUM CHLORIDE 0.9% 500 ML IVPB SCH (00:34)
[2016-10-06] MEDS: PIPERACILLIN-TAZOBACTAM 3.375 GM in DEXTROSE/WATER 1 50ML.BAG IVPB SCH ×2 (00:34→08:21)
[2016-10-06] MEDS: IPRATROPIUM-ALBUTEROL 3 ML NEB INHALATION SCH ×6 (03:26→19:55)
[2016-10-06 05:55] LABS: Basophils % (A) 0 %; CH 34.4; CHCM 31.5; Eosinophils % (A) 0 %; HDW 2.42; HGB 13.3 gm/dL (13.0-17.5); Luc # (Auto) 0.06; Luc % (Auto) 1; Lymphocytes # (A) 0.5 k/uL (1.0-4.8); Lymphocytes % (A) 5 %; MCH 34.1 pg (25.0-35.0); MCV 109.9 fL (80.0-100.0); Macrocytosis Marked; Mean Platelet Volume 7.7; Monocytes # (A) 0.3 k/uL (0-1.0); Monocytes % (A) 3 %; Neutrophils % (A) 91 %; RBC 3.91 m/uL (4.30-5.90); RDW 15.3 % (11.5-15.5); WBC (Perox) 11.67
[2016-10-06 06:18] LABS: Anion Gap 10 mmol/L; Blood Urea Nitrogen 21 mg/dL (9-20); Calcium 8.9 mg/dL (8.4-10.2); Carbon Dioxide 26 mmol/L (22-30); Chloride 102 mmol/L (98-107); Glucose 204 mg/dL (74-99); Magnesium 2.1 mg/dL (1.6-2.3); Non-African American GFR(MDRD) >60 (>60 ml/min/1.73 sqM); Phosphorous 2.7 mg/dL (2.5-4.5); Potassium 4.3 mmol/L (3.5-5.1); Sodium 138 mmol/L (137-145)
--- NOTE | 2016-10-06 07:01 | XR ---
EXAMINATION TYPE: XR chest 1V DATE OF EXAM: 10/06/2016 6:43 AM COMPARISON: 10/05/2016 HISTORY: Shortness of breath TECHNIQUE: Single frontal view of the chest is obtained. FINDINGS: Midline tracheostomy is again present. Cardiac enlargement remains unchanged from the prio r exam. Superior mediastinal prominence is again unchanged. No overt pulmonary vascular congestion. T here is blunting of the costophrenic angles with a layering effect and associated bibasilar airspace disease. No pneumothorax. IMPRESSION: Small layering pleural effusions and associated bibasilar airspace disease, likely atele ctasis, although infectious etiology is also possible.
[2016-10-06 07:04] LABS: Vitamin B12 524 pg/mL (239-931)
[2016-10-06] MEDS: INSULIN LISPRO (humaLOG) 300 UNIT/3 ML VIAL SQ SCH ×6 (08:19→20:26)
[2016-10-06] MEDS: FAMOTIDINE 20 MG/2 ML VIAL IV SCH ×2 (08:21→20:26)
[2016-10-06 08:25] LABS: Glucose,Whole Blood 220 mg/dL (75-99)
[2016-10-06] MEDS: BUDESONIDE 0.5 MG/2 ML NEBU INHALATION SCH ×2 (08:27→19:37)
[2016-10-06] MEDS: MORPHINE SULFATE ER 30 MG TABLET PO SCH ×2 (08:28→20:27)
[2016-10-06] MEDS: MORPHINE SULFATE ER 15 MG TABLET PO SCH ×2 (08:28→20:27)
[2016-10-06] MEDS ORDERED: VANCOMYCIN TROUGH DUE 1 EACH MISC MISCELLANE ONE (11:00)
[2016-10-06] MEDS ORDERED: MEROPENEM 1 GM in SODIUM CHLORIDE 0.9% 100 ML IVPB SCH (11:15)
--- NOTE | 2016-10-06 12:34 | PN ---
DATE OF SERVICE: 10/06/2016 He is less short of breath, seems to be doing better overall. On physical examination, blood pressure is 138/78, respiratory rate 14, pulse rate of 63, O2 sat by trach collar on 70% FiO2 is 90%. HEENT reveals tracheostomy in place. Chest reveals decreased breath sounds with occasional rhonchi. Cardiovascular system reveals an S1 and S2. Abdomen is soft. There is 1+ to 2+ pedal edema. White count is 11, hemoglobin 13.3. Sodium 138, potassium 4.3, chloride 102, bicarb 26, BUN 21, creatinine of 0.8. Chest x-ray shows pleural effusions with atelectatic changes, possible infiltrate in the lower zones. IMPRESSION: 1. Aspiration-type pneumonia. 2. Gram-negative etiology to pneumonia with pseudomonas aeruginosa growing from the sputum from the fifth which is resistant to Zosyn and Levaquin. At this point in time, I would continue meropenem, bronchodilators, IV steroids. Agree with transferring him out of the ICU. Continue tracheostomy for obesity hypoventilation syndrome and obstructive sleep apnea.
[2016-10-06] MEDS ORDERED: MEROPENEM 0.5 GM in SODIUM CHLORIDE 0.9% 100 ML IVPB SCH (12:45)
[2016-10-06] MEDS: NICOTINE 14MG/24HR PATCH TRANSDERM SCH (13:14)
[2016-10-06 13:15] LABS: Glucose,Whole Blood 234 mg/dL (75-99)
--- NOTE | 2016-10-06 13:20 | PN ---
Patient is a 56-year-old admitted to the hospital with acute hypoxic respiratory failure secondary to bilateral pneumonia and patient is found to have ( ) pneumonia and patient was being treated for COPD exacerbation. Patient pseudomonas is not sensitive to Zosyn. Vancomycin will be discontinued. Zosyn will be discontinued. Patient was started on Meropenem and patient is still having copious amounts of sputum. REVIEW OF SYSTEMS: CARDIOVASCULAR: No chest pain, no orthopnea, no PND, no palpitations. PULMONARY: significantly improved shortness of breath. GASTROINTESTINAL: No diarrhea, nausea or vomiting. No abdominal pain. Normoactive bowel sounds. NEUROLOGIC: No headaches, no weakness, no numbness. Medications are reviewed. PHYSICAL EXAMINATION: Temperature 97.8, pulse of 68, respiratory rate of 14, blood pressure is 138/78, saturating at 92% on trach collar and 14 liters of oxygen of 70% FiO2. GENERAL: Morbidly obese. Alert and oriented x3. HEENT: Pupils are round and equally reacting to light. EOMI. No scleral icterus. No conjunctival pallor. Normocephalic, atraumatic. No pharyngeal erythema. No thyromegaly. CARDIOVASCULAR: S1 and S2 present. No murmurs, rubs, or gallops. PULMONARY: rhonchus breath sounds bilaterally with expiratory wheezing, continued expiratory wheezing and much improved compared to admission clinically, although does not on requirements of his oxygen. ABDOMEN: Soft, nontender, nondistended, normoactive bowel sounds. No palpable organomegaly. MUSCULOSKELETAL: No joint swelling or deformity. EXTREMITIES: No cyanosis, clubbing, or pedal edema. NEUROLOGICAL: Gross neurological examination did not reveal any focal deficits. SKIN: No rashes. LABORATORY DATA: B12 Level is essentially within normal limits. CBC, CMP are abnormal for elevated WBC count of 11,000. Blood sugars are elevated, because of systemic steroids. Patient was started on insulin regimen. ASSESSMENT AND PLAN: 1. Severe sepsis secondary to bilateral pneumonia pseudomonal pneumonia, which is probably complicated by tracheostomy and also recent rib fracture. 2. Acute hypoxic respiratory failure secondary to bilateral pneumonia. 3. Acute hypoxic respiratory failure due to pneumonia. 4. Acute on chronic hypercapnic respiratory failure secondary to chronic obstructive pulmonary disease with acute exacerbation along with ( ) lung disease contributing to severe hypoxemia hypertension. 5. Acute renal failure. 6. Uncontrolled blood sugars secondary to systemic steroids. Management as mentioned above.
--- NOTE | 2016-10-06 14:44 | P.PN ---
Subjective Principal diagnosis: Gram-negative pneumonia 56-year-old male that he has multiple medical troubles and includes a history of respiratory failure requiring tracheostomy. He apparently had difficulty with trauma to his sternum was taking care of recently. He was doing somewhat better however now presents with significant shortness of breath and wheezing. Computed tomography scan shows evidence of multifocal pneumonia. Which is a new finding. Patient is doing somewhat better this afternoon ALLERGIES had steroids and antibiotic therapy. He is not hypotensive responded well to fluid resuscitation Is able to communicate that he is feeling somewhat better this evening. He is much less short of breath. Wheezing is improved. Coughing is improved. He feels that his distress has resolved. He is denying significant fever, chill or rigor. He was able to ingest some nutrition, does not have a tube feed at this time. Tracheostomies in the place from difficulties with recent respiratory failure. Sitting upright eating his lunch. Has been a bit cantankerous with the staff and his . He wants tobacco to chew on. We related this is not a possibility. Nicotine patches given. Less short of breath overall improved Objective - Vital Signs Vital signs: Vital Signs Temp 98.1 F 10/06/16 12:00 Pulse 91 10/06/16 13:00 Resp 22 10/06/16 13:00 BP 149/90 10/06/16 13:00 Pulse Ox 88 L 10/06/16 13:00 Intake & Output 10/05/16 10/06/16 10/06/16 18:59 06:59 18:59 Intake Total 1900 1200 350 Output Total 1050 1460 490 Balance 850 -260 -140 Weight 153 kg 153 kg Intake: IV 1150 350 0.9 ns 600 200 Meropenem 1 gm In Sodium 100 Chloride 0.9% 100 ml @ 200 mls/hr IVPB Q8HR [facility] Rx#:[id number] Piperacillin-Tazobactam 3 50 50 .375 gm In Dextrose/Water 1 50ml.bag @ 12.5 mls/hr IVPB Q8HR [facility] Rx#: [id number] Vancomycin 2,000 mg In 500 Sodium Chloride 0.9% 500 ml @ 167 mls/hr IVPB Q12HR@0000,1200 [facility] Rx#: [id number] Intake, IV Titration 1900 50 Amount Piperacillin-Tazobactam 3 100 .375 gm In Dextrose/Water 1 50ml.bag @ 12.5 mls/hr IVPB Q8HR [facility] Rx#: [id number] Sodium Chloride 0.9% 1, 1300 50 000 ml @ 50 mls/hr IV . Q20H [facility] Rx#:[id number] Vancomycin 2,000 mg In 500 Sodium Chloride 0.9% 500 ml @ 167 mls/hr IVPB Q12HR@0000,1200 [facility] Rx#: [id number] Output: Urine 1050 1460 490 Other: Voiding Method Indwelling Catheter Indwelling Catheter Indwelling Catheter - Exam 56-year-old male who has superobesity seems comfortable HEENT: Anicteric conjunctiva are pink and moist nasal mucosa grossly intact without significant lesions, there is no thrush.tracheostomy scant purulent sputum Neck: The neck is supple without significant lymphadenopathy or thyromegaly. Lungs: Symmetrical air entry. Bibasilar crackles are heard. Scattered wheezing and crackles to the lung villalpando. Heart: Regular rate and rhythm with an audible S1-S2, no S3 positive S4 There is no significant murmur click or rub, PMI was nondisplaced. Abdomen:obese Positive bowel sounds soft and nontender without palpable masses or organomegaly. There was no guarding or rebound. Extremities: The upper extremities have excellent pulses they are symmetric, no significant petechiae or telangiectasia. No splinter hemorrhages were noted. lower extremities have evidence of the significant edema. No ulcerations are s Neuro: Awake alert oriented to person place and time. There are no acute new gross focal sensory motor deficits.communicates by capping his tracheostomy. - Labs CBC & Chem 7: 10/06/16 05:00 10/06/16 05:00 Labs: Abnormal Lab Results - Last 24 Hours (Table) 10/05/16 10/05/16 10/06/16 Range/Units 17:12 20:27 05:00 WBC 11.0 H (3.8-10.6) k/uL RBC 3.91 L (4.30-5.90) m/uL MCV 109.9 H (80.0-100.0) fL Plt Count 146 L (150-450) k/uL Neutrophils # 10.0 H (1.3-7.7) k/uL Lymphocytes # 0.5 L (1.0-4.8) k/uL BUN (9-20) mg/dL Glucose (74-99) mg/dL POC Glucose (mg/dL) 219 H 261 H (75-99) mg/dL 10/06/16 10/06/16 10/06/16 Range/Units 05:00 08:18 13:13 WBC (3.8-10.6) k/uL RBC (4.30-5.90) m/uL MCV (80.0-100.0) fL Plt Count (150-450) k/uL Neutrophils # (1.3-7.7) k/uL Lymphocytes # (1.0-4.8) k/uL BUN 21 H (9-20) mg/dL Glucose 204 H (74-99) mg/dL POC Glucose (mg/dL) 220 H 234 H (75-99) mg/dL Microbiology - Last 24 Hours (Table) 10/04/16 09:55 Blood Culture - Preliminary Blood No Growth after 48 hours 10/04/16 13:17 Urine Culture - Final Urine,Catheterized Laboratory Results WBC 11.0 k/uL (3.8-10.6) H 10/06/16 05:00 RBC 3.91 m/uL (4.30-5.90) L 10/06/16 05:00 Hgb 13.3 gm/dL (13.0-17.5) 10/06/16 05:00 Hct 43.0 % (39.0-53.0) 10/06/16 05:00 MCV 109.9 fL (80.0-100.0) H 10/06/16 05:00 MCH 34.1 pg (25.0-35.0) 10/06/16 05:00 MCHC 31.0 g/dL (31.0-37.0) 10/06/16 05:00 RDW 15.3 % (11.5-15.5) 10/06/16 05:00 Plt Count 146 k/uL (150-450) L 10/06/16 05:00 Neutrophils % 91 % 10/06/16 05:00 Lymphocytes % 5 % 10/06/16 05:00 Monocytes % 3 % 10/06/16 05:00 Eosinophils % 0 % 10/06/16 05:00 Basophils % 0 % 10/06/16 05:00 Neutrophils # 10.0 k/uL (1.3-7.7) H 10/06/16 05:00 Lymphocytes # 0.5 k/uL (1.0-4.8) L 10/06/16 05:00 Monocytes # 0.3 k/uL (0-1.0) 10/06/16 05:00 Eosinophils # 0.0 k/uL (0-0.7) 10/06/16 05:00 Basophils # 0.0 k/uL (0-0.2) 10/06/16 05:00 Macrocytosis Marked 10/06/16 05:00 PT 12.4 sec (9.0-12.0) H 10/04/16 05:48 INR 1.3 (<1.1) 10/04/16 05:48 APTT 22.8 sec (22.0-30.0) 10/04/16 05:48 D-Dimer 0.74 mg/L FEU (<0.60) H 10/04/16 07:20 Sodium 138 mmol/L (137-145) 10/06/16 05:00 Potassium 4.3 mmol/L (3.5-5.1) 10/06/16 05:00 Chloride 102 mmol/L (98-107) 10/06/16 05:00 Carbon Dioxide 26 mmol/L (22-30) 10/06/16 05:00 Anion Gap 10 mmol/L 10/06/16 05:00 BUN 21 mg/dL (9-20) H 10/06/16 05:00 Creatinine 0.80 mg/dL (0.66-1.25) 10/06/16 05:00 Est GFR (MDRD) Af Amer >60 (>60 ml/min/1.73 sqM) 10/06/16 05:00 Est GFR (MDRD) Non-Af >60 (>60 ml/min/1.73 sqM) 10/06/16 05:00 Glucose 204 mg/dL (74-99) H 10/06/16 05:00 POC Glucose (mg/dL) 234 mg/dL (75-99) H 10/06/16 13:13 POC Glu Physics Instructor CHERRIE Carol Ann Arriaza 10/06/16 13:[address] Glu mg/dL 143 mg/dL 10/05/16 04:10 Hemoglobin A1c 6.6 % (4.2-6.1) H 10/05/16 04:10 Plasma Lactic Acid Miguel Angel 1.6 mmol/L (0.7-2.0) 10/04/16 09:55 Calcium 8.9 mg/dL (8.4-10.2) 10/06/16 05:00 Phosphorus 2.7 mg/dL (2.5-4.5) 10/06/16 05:00 Magnesium 2.1 mg/dL (1.6-2.3) 10/06/16 05:00 Total Bilirubin 1.3 mg/dL (0.2-1.3) 10/04/16 05:48 AST 103 U/L (17-59) H 10/04/16 05:48 ALT 60 U/L (21-72) 10/04/16 05:48 Alkaline Phosphatase 60 U/L (38-126) 10/04/16 05:48 Troponin I 0.030 ng/mL (0.000-0.034) 10/04/16 05:48 NT-Pro-B Natriuret Pep 582 pg/mL 10/04/16 05:48 Total Protein 8.3 g/dL (6.3-8.2) H 10/04/16 05:48 Albumin 4.2 g/dL (3.5-5.0) 10/04/16 05:48 Vitamin B12 524 pg/mL (239-931) 10/06/16 05:00 Urine Color Yellow 10/04/16 13:17 Urine Appearance Cloudy (Clear) 10/04/16 13:17 Urine pH 5.5 (5.0-8.0) 10/04/16 13:17 Ur Specific [place] >1.050 (1.001-1.035) H 10/04/16 13:17 Urine Protein 2+ (Negative) H 10/04/16 13:17 Urine Glucose (UA) Negative (Negative) 10/04/16 13:17 Urine Ketones Trace (Negative) H 10/04/16 13:17 Urine Blood Small (Negative) H 10/04/16 13:17 Urine Nitrite Negative (Negative) 10/04/16 13:17 Urine Bilirubin Negative (Negative) 10/04/16 13:17 Urine Urobilinogen <2.0 mg/dL (<2.0) 10/04/16 13:17 Ur Leukocyte Esterase Negative (Negative) 10/04/16 13:17 Urine RBC 61 /hpf (0-5) H 10/04/16 13:17 Urine WBC 6 /hpf (0-5) H 10/04/16 13:17 Ur Squamous Epith Cells <1 /hpf (0-4) 10/04/16 13:17 Calcium Oxalate Crystal Occasional /hpf (None) H 10/04/16 13:17 Hyaline Casts 13 /lpf (0-2) H 10/04/16 13:17 Granular Casts 5 /lpf (0) 10/04/16 13:17 Urine Mucus Rare /hpf (None) H 10/04/16 13:17 Influenza Type A RNA Not Detected (Not Detectd) 10/04/16 08:15 Influenza Type B (PCR) Not Detected (Not Detectd) 10/04/16 08:15 Microbiology 10/04/16 09:55 Blood Blood Culture - Preliminary No Growth after 48 hours 10/04/16 06:05 Sputum Gram Stain - Preliminary 10/04/16 06:05 Sputum Sputum Culture - Preliminary Pseudomonas aeruginosa 10/04/16 05:48 Blood Blood Culture - Preliminary No Growth after 48 hours 10/04/16 13:17 Urine,Catheterized Urine Culture - Final Assessment and Plan (1) Gram-negative pneumonia Narrative/Plan: 56-year-old male that has an extensive past medical history including respiratory failure requiring tracheostomy he is nonintensive care unit with evidence of multifocal pneumonia. Sputum Gram stain is a available and is evidence of several gram-negative pathogens. This time we await further data. Piperacillin tazobactam is being utilized in case her Pseudomonas pneumonia. There is also concerned there may have an aspiration event. These also would give coverage for this also. The culture is now finalized and pseudomonas has been isolated but it is resistant to piperacillin tazobactam. Constantly he is altered to meropenem appropriate dose of 1 g IV piggyback every 8 hours. The 2 weeks of this therapy. Will need IV access and outpatient IV antibiotic therapy which he has done in the past. Computed tomography scan fails to reveal evidence of a pulmonary embolus. However there is evidence of the multifocal pneumonia. There is leukocytosis. Respiratory failure has also improved. He's had significant improvement since coming to the ICU with treatment of his underlying pulmonary disease also. Currently out of the ICU today. Appropriate isolation is been started for the multidrug resistant pathogen. Status: Acute (2) Lactic acidosis Status: Acute (3) Tracheostomy in place Status: Acute
[2016-10-06 16:50] LABS: Glucose,Whole Blood 240 mg/dL (75-99)
[2016-10-06 20:25] LABS: Glucose,Whole Blood 257 mg/dL (75-99)
[2016-10-06] MEDS: MEROPENEM 500 MG in SODIUM CHLORIDE 0.9% 50 ML IVPB SCH (20:25)
[2016-10-06] MEDS: INSULIN GLARGINE 100 UNIT/ML 10 ML VIAL SQ SCH (20:25)
[2016-10-07 00:04] LABS: Glucose,Whole Blood 141 mg/dL (75-99)
[2016-10-07] MEDS: HYDROmorphone 1 MG/ML 1 ML SYRINGE IVP PRN ×12 (00:23→23:12)
[2016-10-07] MEDS: HEPARIN SODIUM,PORCINE 5,000 UNIT/ML 1 ML VIAL SQ SCH ×4 (00:24→23:11)
[2016-10-07] MEDS: methylPREDNISolone SOD SUCCI 125 MG/2 ML VIAL IV SCH ×5 (00:24→23:12)
[2016-10-07] MEDS: MEROPENEM 500 MG in SODIUM CHLORIDE 0.9% 50 ML IVPB SCH ×3 (04:54→20:41)
[2016-10-07 05:19] LABS: Basophils % (A) 0 %; CH 34.3; CHCM 32.6; Eosinophils % (A) 0 %; HCT 43.1 % (39.0-53.0); HDW 2.52; HGB 13.9 gm/dL (13.0-17.5); Luc # (Auto) 0.06; Luc % (Auto) 1; Lymphocytes # (A) 0.5 k/uL (1.0-4.8); Lymphocytes % (A) 5 %; MCH 34.2 pg (25.0-35.0); MCHC 32.3 g/dL (31.0-37.0); MCV 105.8 fL (80.0-100.0); Macrocytosis Moderate; Mean Platelet Volume 7.4; Monocytes # (A) 0.4 k/uL (0-1.0); Monocytes % (A) 4 %; Neutrophils # (A) 9.6 k/uL (1.3-7.7); Neutrophils % (A) 91 %; RBC 4.08 m/uL (4.30-5.90); RDW 14.9 % (11.5-15.5); WBC 10.6 k/uL (3.8-10.6); WBC (Perox) 10.72
[2016-10-07 05:31] LABS: Anion Gap 9 mmol/L; Blood Urea Nitrogen 26 mg/dL (9-20); Carbon Dioxide 27 mmol/L (22-30); Chloride 102 mmol/L (98-107); Glucose 169 mg/dL (74-99); Magnesium 2.4 mg/dL (1.6-2.3); Non-African American GFR(MDRD) >60 (>60 ml/min/1.73 sqM); Phosphorous 3.2 mg/dL (2.5-4.5); Potassium 4.5 mmol/L (3.5-5.1); Sodium 138 mmol/L (137-145)
--- NOTE | 2016-10-07 06:45 | P.CONS ---
History of Present Illness - Chief Complaint Medical debility - History of Present Illness I had the opportunity to see patient for inpatient rehab consultation with regard to medical debility. He was admitted to [facility] October 04 with respiratory distress. Known respiratory failure and tracheostomy. Seen by Dr. King for same. Seen by Dr. Kaur for multifactorial pneumonia. Chest x-rays followed and demonstrated effusions and airspace disease. I have just added PT. Previous functional history, as elicited from patient: 56-year-old right-handed white male who is and lives in one floor home with and 2 kids. History smoking doesn't smoke currently. Admits to alcohol. Is on disability due to back pain issues. Does the cooking and laundry. Patient describes independent with driving, standing shower and gait without device. Family history mother of heart attack. Review of Systems Review of systems: ENT: Denies sneezes or discharge. Eyes: Denies discharge or photophobia. Cardiac: Denies chest pain or palpitation. Pulmonary: At least mild shortness of breath. Gastrointestinal: Denies nausea, emesis, constipation, diarrhea. Genitourinary: Denies discharge or frequency. Musculoskeletal: Denies muscle or bone aches. Neurologic: Generalized weakness. Endocrine: Denies shakes or sweats. Oncology: Denies cancers. Dermatologic: Denies rash, itching, pruritus. ALLERGY/immunology: Denies sneezes, rashes. Past Medical History Past Medical History: Heart Failure, COPD, Diabetes Mellitus, Hyperlipidemia, Hypertension, Seizure Disorder, Sleep Apnea/CPAP/BIPAP Additional Past Medical History / Comment(s): 5-3-17 Pt admitted to [facility] after a fall with sternal and rib fractures. hx of: chronic pain, diverticulitis, pt stated he "has the trach d/t his sleep apnea"-no longer has SANTY, pt stated "told 4 days ago he has a mass next to spine". History of Any Multi-Drug Resistant Organisms: None Reported Past Surgical History: Appendectomy Additional Past Surgical History / Comment(s): trach., left kidney operation d/ t defect, bronch. colonoscopy/polypectomy-benign polyps Past Anesthesia/Blood Transfusion Reactions: No Reported Reaction Past Psychological History: Depression Additional Psychological History / Comment(s): Pt resides with spouse and child. He uses no assistive device. He drives. Smoking Status: Current every day smoker Past Alcohol Use History: Heavy Additional Past Alcohol Use History / Comment(s): started smoking age 17 but has decreased to smoking 1 cig per day but chews 1 can of tobacco per day. pt stated drinks more than 14 beer per week but does'nt drink daily. Past Drug Use History: Cocaine, Marijuana, Prescription Drug Abuse Additional Drug Use History / Comment(s): occ will smoke marijuana - Past Family History Father Family Medical History: No Reported History Additional Family Medical History / Comment(s): none Mother Family Medical History: No Reported History Medications and Allergies Home Medications Medication Instructions Recorded Confirmed Type Metoprolol Succinate (ER) [Toprol 25 mg PO DAILY 07/15/14 10/04/16 History XL] FLUoxetine HCL [PROzac] 40 mg PO DAILY 01/23/16 10/04/16 History Albuterol Nebulized [Ventolin 2.5 mg INHALATION RT-Q4H PRN 06/20/16 10/04/16 History Nebulized] Morphine Sulfate [Morphine Sulfate 30 mg PO Q12H 06/20/16 10/04/16 History ER] Morphine Sulfate ER [Ms Contin 15 mg PO Q12HR 10/02/16 10/04/16 History 15Mg] Simvastatin [Zocor] 80 mg PO HS 10/02/16 10/04/16 History Lisinopril [Zestril] 2.5 mg PO DAILY 10/04/16 10/04/16 History Allergies Allergy/AdvReac Type Severity Reaction Status Date / Time No Known Allergies Allergy Verified 10/04/16 07:23 Physical Exam Vitals: Vital Signs Temp Pulse Resp BP Pulse Ox 10/07/16 04:00 58 L 17 134/86 92 L 10/07/16 02:00 69 16 10/07/16 00:00 98.2 F 70 24 174/90 90 L 10/06/16 22:00 66 20 147/83 89 L 10/06/16 21:00 70 15 147/83 92 L 10/06/16 20:00 98.6 F 67 27 H 135/71 89 L 10/06/16 19:47 76 10/06/16 19:37 74 10/06/16 18:00 40 H 176/86 10/06/16 16:00 60 12 176/86 88 L 10/06/16 15:48 68 10/06/16 15:43 68 10/06/16 15:00 70 22 89 L 10/06/16 14:00 72 13 149/90 88 L 10/06/16 13:00 91 22 149/90 88 L 10/06/16 12:00 98.1 F 65 12 148/84 89 L 10/06/16 11:42 68 10/06/16 11:36 59 L 10/06/16 11:00 59 L 25 H 145/82 90 L 10/06/16 10:00 63 14 138/78 90 L 10/06/16 09:00 90 23 133/68 89 L 10/06/16 08:45 68 10/06/16 08:30 65 92 L 10/06/16 08:00 97.8 F 62 23 146/89 89 L 10/06/16 07:00 64 21 146/88 93 L Intake and Output 10/06/16 10/06/16 10/07/16 14:59 22:59 06:59 Intake Total 350 300 300 Output Total 875 848 4255 Balance -140 100 -700 Intake: IV 350 300 300 0.9 ns 200 100 100 Meropenem 1 gm In Sodium 100 200 200 Chloride 0.9% 100 ml @ 200 mls/hr IVPB Q8HR [facility] Rx#:[id number] Piperacillin-Tazobactam 3 50 .375 gm In Dextrose/Water 1 50ml.bag @ 12.5 mls/hr IVPB Q8HR [facility] Rx#: [id number] Output: Urine 411 [id number] Other: Voiding Method Indwelling Catheter Indwelling Catheter Indwelling Catheter Weight 153 kg 153 kg Patient Weight 10/07/16 06:59 Weight 153 kg Skin: Good color, texture, turgor. General: Overweight to obese and comfortable appearance. Head: Normocephalic, atraumatic. Eyes: Symmetric. Pupils equal round. Ears: Symmetric. Hearing within normal limits. Mouth: Clear. Neck: Supple. Carotid without bruit. Cardiac: Regular rate and rhythm. Lungs: Clear anteriorly and posteriorly. Barrel chested. Abdomen: Soft active nontender. Extremities: Normal tone. Neurological: Mental status: Alert, cooperative, pleasant. Cranial nerves: Symmetric facial tone and trapezius. Motor: Demonstrates active movement of all limbs but difficulty elevating legs more so than arms off of bed. Sensation: Intact throughout. DTRs: Symmetric and equal throughout. Mobility: Very weak and did not attempt to sit or stand on my own in ICU. Results CBC & Chem 7: 10/07/16 04:04 10/07/16 04:04 Labs: Abnormal Lab Results - Last 24 Hours (Table) 10/06/16 10/06/16 10/06/16 Range/Units 05:00 08:18 13:13 RBC (4.30-5.90) m/uL MCV (80.0-100.0) fL Neutrophils # (1.3-7.7) k/uL Lymphocytes # (1.0-4.8) k/uL BUN 21 H (9-20) mg/dL Glucose 204 H (74-99) mg/dL POC Glucose (mg/dL) 220 H 234 H (75-99) mg/dL Magnesium (1.6-2.3) mg/dL 10/06/16 10/06/16 10/07/16 Range/Units 16:48 20:24 00:02 RBC (4.30-5.90) m/uL MCV (80.0-100.0) fL Neutrophils # (1.3-7.7) k/uL Lymphocytes # (1.0-4.8) k/uL BUN (9-20) mg/dL Glucose (74-99) mg/dL POC Glucose (mg/dL) 240 H 257 H 141 H (75-99) mg/dL Magnesium (1.6-2.3) mg/dL 10/07/16 10/07/16 Range/Units 04:04 04:04 RBC 4.08 L (4.30-5.90) m/uL MCV 105.8 H (80.0-100.0) fL Neutrophils # 9.6 H (1.3-7.7) k/uL Lymphocytes # 0.5 L (1.0-4.8) k/uL BUN 26 H (9-20) mg/dL Glucose 169 H (74-99) mg/dL POC Glucose (mg/dL) (75-99) mg/dL Magnesium 2.4 H (1.6-2.3) mg/dL Microbiology - Last 24 Hours (Table) 10/04/16 09:55 Blood Culture - Preliminary Blood No Growth after 48 hours Chest x-ray: report reviewed (Chest x-rays followed for effusions.) Assessment and Plan (1) Respiratory distress, acute Status: Acute Plan: Pressure and: 1. Medical debility. 2. Acute respiratory failure. 3. Pneumonia with sepsis. 4. History of low back pain. 5. Diabetes. 6. Hypertension. 7. Dyslipidemia. 8. History of seizure. 9. COPD. 10. Sleep apnea. Comments and plan: At this time I have conservatively prescribe physical therapy for at least bedside to begin with. Advance as able. As patient is able to tolerate and benefit from therapy out of bed may begin occupational therapy.
[2016-10-07 07:36] LABS: Glucose,Whole Blood 205 mg/dL (75-99)
--- NOTE | 2016-10-07 08:13 | XR ---
EXAMINATION TYPE: XR chest 1V DATE OF EXAM: 10/07/2016 6:49 AM COMPARISON: Prior chest x-ray 06 Oct 2016, CT chest 04 Oct 2016 HISTORY: Shortness of breath TECHNIQUE: frontal view of the chest is obtained on 2 images. FINDINGS: The heart is enlarged. There is no evident pneumothorax. Superior mediastinum is prominent , tracheostomy tube is stable. There are overlying cardiac leads. Central vascularity is mildly incre ased. Bibasilar increased density again noted. IMPRESSION: Similar findings. Basilar atelectasis versus edema or pneumonia, small effusions not exc luded. Ascending aortic aneurysm.
[2016-10-07] MEDS: BUDESONIDE 0.5 MG/2 ML NEBU INHALATION SCH ×2 (08:42→19:26)
[2016-10-07] MEDS: IPRATROPIUM-ALBUTEROL 3 ML NEB INHALATION SCH ×4 (08:43→19:26)
[2016-10-07] MEDS: FAMOTIDINE 20 MG/2 ML VIAL IV SCH (09:06)
[2016-10-07] MEDS: INSULIN LISPRO (humaLOG) 300 UNIT/3 ML VIAL SQ SCH ×7 (09:12→20:38)
[2016-10-07] MEDS: MORPHINE SULFATE ER 15 MG TABLET PO SCH ×2 (09:16→20:39)
[2016-10-07] MEDS: MORPHINE SULFATE ER 30 MG TABLET PO SCH ×2 (09:16→20:38)
[2016-10-07] MEDS: NICOTINE 14MG/24HR PATCH TRANSDERM SCH (09:17)
[2016-10-07 09:24] LABS: INR 1.3 (<1.1); Prothrombin Time 12.8 sec (9.0-12.0)
--- NOTE | 2016-10-07 11:18 | P.PN ---
Subjective This is a 56-year-old male being evaluated and examined today on the sixth floor. This patient is well-known to our services, is morbidly obese and has a permanent tracheostomy.. This patient was recently discharged from the hospital a few days ago with status post fall with sternal fractures and right- sided rib fractures. The patient also had a component of a pulmonary contusion and was stabilized with pain medications, breathing treatments, deep breathing exercises, incentive spirometry and was eventually discharged. Patient came back to the emergency room with increasing shortness of breath, cough and desaturations. Patient states he has been having some very thick secretions coming out from his tracheostomy tube with intermittent mucous plugs. Upon examination the patient is resting up in bed on 70% trach collar and keeping oxygen saturations in the low 90s. He continues to have increase in secretions which are thick. Patient is unable to cough up secretions and requires frequent suctioning. Objective - Vital Signs Vital signs: Vital Signs Temp 98.0 F 10/07/16 08:00 Pulse 66 10/07/16 08:00 Resp 31 H 10/07/16 08:00 BP 145/95 10/07/16 08:00 Pulse Ox 91 L 10/07/16 08:00 Intake & Output 10/06/16 10/07/16 10/07/16 18:59 06:59 18:59 Intake Total 400 550 650 Output Total 690 1000 600 Balance -290 -450 50 Weight 153 kg Intake: IV 400 550 50 0.9 ns 250 150 50 Meropenem 1 gm In Sodium 100 400 Chloride 0.9% 100 ml @ 200 mls/hr IVPB Q8HR [facility] Rx#:[id number] Piperacillin-Tazobactam 3 50 .375 gm In Dextrose/Water 1 50ml.bag @ 12.5 mls/hr IVPB Q8HR [facility] Rx#: [id number] Oral 600 Output: Urine 690 1000 600 Other: Voiding Method Indwelling Catheter Indwelling Catheter Urinal - Exam GENERAL EXAM: Alert, active, comfortable in no apparent distress. HEAD: Normocephalic. EYES: Normal reaction of pupils, equal size. NOSE: Clear with pink turbinates. THROAT: No erythema or exudates. Mallampati grade 4 NECK: No masses, no JVD. CHEST: No chest wall deformity. LUNGS: Laterally coarse and congested. His respiratory and expiratory wheezes and rhonchi noted throughout. CVS: S1 and S2 normal with no audible mumurs, regular rhythm. ABDOMEN: No hepatosplenomegaly, normal bowel sounds, no guarding or rigidity. EXTREMITIES: No edema noted, pedal pulses palpable. SKIN: No rashes CENTRAL NERVOUS SYSTEM: No focal deficits, tone is normal in all 4 extremities. - Labs CBC & Chem 7: 10/07/16 04:04 10/07/16 04:04 Labs: Abnormal Lab Results - Last 24 Hours (Table) 10/06/16 10/06/16 10/06/16 Range/Units 13:13 16:48 20:24 RBC (4.30-5.90) m/uL MCV (80.0-100.0) fL Neutrophils # (1.3-7.7) k/uL Lymphocytes # (1.0-4.8) k/uL PT (9.0-12.0) sec BUN (9-20) mg/dL Glucose (74-99) mg/dL POC Glucose (mg/dL) 234 H 240 H 257 H (75-99) mg/dL Magnesium (1.6-2.3) mg/dL 10/07/16 10/07/16 10/07/16 Range/Units 00:02 04:04 04:04 RBC 4.08 L (4.30-5.90) m/uL MCV 105.8 H (80.0-100.0) fL Neutrophils # 9.6 H (1.3-7.7) k/uL Lymphocytes # 0.5 L (1.0-4.8) k/uL PT (9.0-12.0) sec BUN 26 H (9-20) mg/dL Glucose 169 H (74-99) mg/dL POC Glucose (mg/dL) 141 H (75-99) mg/dL Magnesium 2.4 H (1.6-2.3) mg/dL 10/07/16 10/07/16 Range/Units 07:34 08:51 RBC (4.30-5.90) m/uL MCV (80.0-100.0) fL Neutrophils # (1.3-7.7) k/uL Lymphocytes # (1.0-4.8) k/uL PT 12.8 H (9.0-12.0) sec BUN (9-20) mg/dL Glucose (74-99) mg/dL POC Glucose (mg/dL) 205 H (75-99) mg/dL Magnesium (1.6-2.3) mg/dL Microbiology - Last 24 Hours (Table) 10/04/16 09:55 Blood Culture - Preliminary Blood No Growth after 48 hours Assessment and Plan Plan: Assessment Acute hypoxic respiratory failure Severe sepsis associated with acute hypoxic respiratory failure and bilateral pneumonia Pseudomonas MDRO pneumonia Septic shock, intravascular volume depletion and dehydration Obesity hypoventilation Obstructive sleep apnea Severe chronic obstructive pulmonary disease, emphysema Right-sided multiple rib fractures and mediastinal fracture Bilateral atelectasis more so on the left and some on the right side as well. Likely related to rib fractures, pneumonia and poor respiratory effort. Medications have been reviewed and will be continued. We will continue with the antibiotics as well as the breathing treatments and steroids. We will continue pulmonary hygiene, spirometer and supportive care. Patient continues on FiO2 of 70% on trach collar. Requires frequent suctioning. Recommend keeping oxygen saturations above 88% or higher. We will continue to monitor labs/results and adjust treatment as necessary. I performed an examination of the patient and discussed their management with the nurse practitioner. I have reviewed the nurse practitioner's note and agree with the documented findings and plan of care.
[2016-10-07] MEDS ORDERED: LIDOCAINE 2% INJ 20 MG/ML SQ ONE (11:45)
--- NOTE | 2016-10-07 12:09 | XR ---
EXAMINATION TYPE: XR chest 1V confirm line plcmt DATE OF EXAM: 10/07/2016 12:02 PM COMPARISON: 10/07/2016 HISTORY: PICC line FINDINGS: There are bilateral pleural effusions with cardiomegaly and bibasilar infiltrate. There is a diffuse interstitial pattern. Mediastinum is widened and a tracheostomy tube noted. PICC line appears with t he tip overlying the SVC. Arthropathy of the shoulders. Rib deformities are stable. IMPRESSION: 1. PICC line in good position. 2. Widened mediastinum is stable with bilateral infiltrate and pleural effusion. Underlying CHF not e xcluded.
[2016-10-07 12:29] LABS: Glucose,Whole Blood 164 mg/dL (75-99)
--- NOTE | 2016-10-07 16:29 | P.PN ---
Subjective Date of service 10/07/2016. Progress note being dictated for Dr. Andujar. Interval history: This a 56-year-old gentleman admitted with acute hypoxic respiratory failure secondary to bilateral pneumonia with Pseudomonas. Change meropenem as per infectious disease. Continues to have moderate secretions, improving states clear whitish but still thick, unable to cough up, requiring suctioning-less frequent. Unable INR 1.3, scheduled for PICC line today. Telemetry sinus rhythm. Awaiting transfer to telemetry unit. Denies chest pain , palpitations or increasing shortness of breath. Blood Sugars better controlled. Objective - Vital Signs Vital signs: Vital Signs Temp 98.6 F 10/07/16 12:00 Pulse 56 L 10/07/16 12:00 Resp 14 10/07/16 12:00 BP 155/86 10/07/16 12:00 Pulse Ox 95 10/07/16 12:00 Intake & Output 10/06/16 10/07/16 10/07/16 18:59 06:59 18:59 Intake Total 175 753 9554 Output Total 690 1000 600 Balance -290 -450 450 Weight 153 kg Intake: IV 400 550 450 0.9 ns 250 150 400 Meropenem 1 gm In Sodium 100 400 50 Chloride 0.9% 100 ml @ 200 mls/hr IVPB Q8HR [facility] Rx#:[id number] Piperacillin-Tazobactam 3 50 .375 gm In Dextrose/Water 1 50ml.bag @ 12.5 mls/hr IVPB Q8HR [facility] Rx#: [id number] Oral 600 Output: Urine 690 1000 600 Other: Voiding Method Indwelling Catheter Indwelling Catheter Urinal - Exam PHYSICAL EXAM: VITAL SIGNS: As above GENERAL: [Sitting up at side of bed, maintaining O2 sats of 93-94% on trach collar, 14 L, 70% FiO2, no acute distress] HEENT: [Pupils equal conjunctiva normal. No conjunctival pallor] NECK: [Supple, no JVD] RESPIRATORY EFFORT:[Increased] LUNGS: [Rhonchorous throughout with improved expiratory wheezing] CARDIOVASCULAR[regular S1 and S2, no murmurs rubs or gallops, no edema] GI: [Abdomen soft,nondistended, nontender, positive bowel sounds. No guarding, no rigidity] PSYCH: [Alert and oriented -3, mood and affect normal.] NEURO: [No focal deficits] Microbiology 10/04/16 09:55 Blood Blood Culture - Preliminary No Growth after 72 hours 10/04/16 05:48 Blood Blood Culture - Preliminary No Growth after 72 hours 10/04/16 06:05 Sputum Gram Stain - Final 10/04/16 06:05 Sputum Sputum Culture - Final Pseudomonas aeruginosa Haemophilus influenzae 10/04/16 13:17 Urine,Catheterized Urine Culture - Final - Labs CBC & Chem 7: 10/07/16 04:04 10/07/16 04:04 Labs: Abnormal Lab Results - Last 24 Hours (Table) 10/06/16 10/06/16 10/07/16 Range/Units 16:48 20:24 00:02 RBC (4.30-5.90) m/uL MCV (80.0-100.0) fL Neutrophils # (1.3-7.7) k/uL Lymphocytes # (1.0-4.8) k/uL PT (9.0-12.0) sec BUN (9-20) mg/dL Glucose (74-99) mg/dL POC Glucose (mg/dL) 240 H 257 H 141 H (75-99) mg/dL Magnesium (1.6-2.3) mg/dL 10/07/16 10/07/16 10/07/16 Range/Units 04:04 04:04 07:34 RBC 4.08 L (4.30-5.90) m/uL MCV 105.8 H (80.0-100.0) fL Neutrophils # 9.6 H (1.3-7.7) k/uL Lymphocytes # 0.5 L (1.0-4.8) k/uL PT (9.0-12.0) sec BUN 26 H (9-20) mg/dL Glucose 169 H (74-99) mg/dL POC Glucose (mg/dL) 205 H (75-99) mg/dL Magnesium 2.4 H (1.6-2.3) mg/dL 10/07/16 10/07/16 Range/Units 08:51 12:28 RBC (4.30-5.90) m/uL MCV (80.0-100.0) fL Neutrophils # (1.3-7.7) k/uL Lymphocytes # (1.0-4.8) k/uL PT 12.8 H (9.0-12.0) sec BUN (9-20) mg/dL Glucose (74-99) mg/dL POC Glucose (mg/dL) 164 H (75-99) mg/dL Magnesium (1.6-2.3) mg/dL Microbiology - Last 24 Hours (Table) 10/04/16 09:55 Blood Culture - Preliminary Blood No Growth after 72 hours Assessment and Plan Plan: 1. Severe sepsis secondary to bilateral pseudomonal MDRO pneumonia, complicated by tracheostomy and recent rib fracture. 2. Acute hypoxic respiratory failure secondary to pneumonia and. 3. [Acute on chronic hypercapnic respiratory failure secondary to acute exacerbation of COPD]. 4. [Acute renal failure]. 5. [Morbid Obesity, BMI 42.2]. 6. [Obstructive Sleep apnea, uses CPAP at home]. 7. [Ongoing nicotine abuse]. 8. PICC line placement pending. 9. Ascending aortic aneurysm per CXR 10. PE ruled out 11. Hepatic steatosis 12. Multifocal wedge-shaped consolidations compatible with multifocal subsegmental atelectasis per CT 13. Hepatic steatosis 14. Diabetes mellitus, uncontrolled on steroids, improving Plan: Continue on current medication regime, Merrem, steroids, nebulized bronchodilators. Antibiotics as per infectious disease. Aggressive pulmonary toileting. Awaiting transfer to 6 E. telemetry unit., Patient still requiring tracheostomy suctioning for thick secretions. Further recommendations to follow. The impression and plan of care has been dictated as directed. : I performed a H&P examination of this patient and discussed the same with the dictator. I agree with the dictator's note. Any additional findings/opinions/ etc. will be noted.
[2016-10-07] MEDS: SODIUM CHLORIDE 0.9% 1,000 ML IV SCH (16:30)
[2016-10-07 17:36] LABS: Glucose,Whole Blood 135 mg/dL (75-99)
[2016-10-07 20:28] LABS: Glucose,Whole Blood 183 mg/dL (75-99)
[2016-10-07] MEDS: INSULIN GLARGINE 100 UNIT/ML 10 ML VIAL SQ SCH (20:37)
--- NOTE | 2016-10-07 22:03 | P.PN ---
Subjective Principal diagnosis: Gram-negative pneumonia 56-year-old male that he has multiple medical troubles and includes a history of respiratory failure requiring tracheostomy. He apparently had difficulty with trauma to his sternum was taking care of recently. He was doing somewhat better however now presents with significant shortness of breath and wheezing. Computed tomography scan shows evidence of multifocal pneumonia. Which is a new finding. Patient is doing somewhat better this afternoon ALLERGIES had steroids and antibiotic therapy. He is not hypotensive responded well to fluid resuscitation Is able to communicate that he is feeling somewhat better this evening. He is much less short of breath. Wheezing is improved. Coughing is improved. He feels that his distress has resolved. He is denying significant fever, chill or rigor. He was able to ingest some nutrition, does not have a tube feed at this time. Tracheostomies in the place from difficulties with recent respiratory failure. Sitting upright eating his lunch. Has been a bit cantankerous with the staff and his . He wants tobacco to chew on. We related this is not a possibility. Nicotine patches given. Less short of breath and improved overall. Objective - Vital Signs Vital signs: Vital Signs Temp 98.7 F 10/07/16 20:00 Pulse 64 10/07/16 20:00 Resp 34 H 10/07/16 20:00 BP 165/83 10/07/16 20:00 Pulse Ox 93 L 10/07/16 20:00 Intake & Output 10/07/16 10/07/16 10/08/16 06:59 18:59 06:59 Intake Total 550 1100 410 Output Total 1000 2000 Balance -450 -900 410 Weight 153 kg Intake: IV 550 500 50 0.9 ns 150 450 50 Meropenem 1 gm In Sodium 400 50 Chloride 0.9% 100 ml @ 200 mls/hr IVPB Q8HR [facility] Rx#:[id number] Oral 600 360 Output: Urine 1000 2000 Other: Voiding Method Indwelling Catheter Urinal Urinal - Exam 56-year-old male who has superobesity seems comfortable sitting up and eating without problem. HEENT: Anicteric conjunctiva are pink and moist nasal mucosa grossly intact without significant lesions, there is no thrush.tracheostomy scant purulent sputum Neck: The neck is supple without significant lymphadenopathy or thyromegaly. Lungs: Symmetrical air entry. Bibasilar crackles are heard. Scattered wheezing and crackles to the lung villalpando. Heart: Regular rate and rhythm with an audible S1-S2, no S3 positive S4 There is no significant murmur click or rub, PMI was nondisplaced. Abdomen:obese Positive bowel sounds soft and nontender without palpable masses or organomegaly. There was no guarding or rebound. Extremities: The upper extremities have excellent pulses they are symmetric, no significant petechiae or telangiectasia. No splinter hemorrhages were noted. lower extremities have evidence of the significant edema. No ulcerations are seen Neuro: Awake alert oriented to person place and time. There are no acute new gross focal sensory motor deficits.communicates by capping his tracheostomy. - Labs CBC & Chem 7: 10/07/16 04:04 10/07/16 04:04 Labs: Abnormal Lab Results - Last 24 Hours (Table) 10/07/16 10/07/16 10/07/16 Range/Units 00:02 04:04 04:04 RBC 4.08 L (4.30-5.90) m/uL MCV 105.8 H (80.0-100.0) fL Neutrophils # 9.6 H (1.3-7.7) k/uL Lymphocytes # 0.5 L (1.0-4.8) k/uL PT (9.0-12.0) sec BUN 26 H (9-20) mg/dL Glucose 169 H (74-99) mg/dL POC Glucose (mg/dL) 141 H (75-99) mg/dL Magnesium 2.4 H (1.6-2.3) mg/dL 10/07/16 10/07/16 10/07/16 Range/Units 07:34 08:51 12:28 RBC (4.30-5.90) m/uL MCV (80.0-100.0) fL Neutrophils # (1.3-7.7) k/uL Lymphocytes # (1.0-4.8) k/uL PT 12.8 H (9.0-12.0) sec BUN (9-20) mg/dL Glucose (74-99) mg/dL POC Glucose (mg/dL) 205 H 164 H (75-99) mg/dL Magnesium (1.6-2.3) mg/dL 10/07/16 10/07/16 Range/Units 17:34 20:26 RBC (4.30-5.90) m/uL MCV (80.0-100.0) fL Neutrophils # (1.3-7.7) k/uL Lymphocytes # (1.0-4.8) k/uL PT (9.0-12.0) sec BUN (9-20) mg/dL Glucose (74-99) mg/dL POC Glucose (mg/dL) 135 H 183 H (75-99) mg/dL Magnesium (1.6-2.3) mg/dL Microbiology - Last 24 Hours (Table) 10/04/16 09:55 Blood Culture - Preliminary Blood No Growth after 72 hours Laboratory Results WBC 10.6 k/uL (3.8-10.6) 10/07/16 04:04 RBC 4.08 m/uL (4.30-5.90) L 10/07/16 04:04 Hgb 13.9 gm/dL (13.0-17.5) 10/07/16 04:04 Hct 43.1 % (39.0-53.0) 10/07/16 04:04 MCV 105.8 fL (80.0-100.0) H 10/07/16 04:04 MCH 34.2 pg (25.0-35.0) 10/07/16 04:04 MCHC 32.3 g/dL (31.0-37.0) 10/07/16 04:04 RDW 14.9 % (11.5-15.5) 10/07/16 04:04 Plt Count 171 k/uL (150-450) 10/07/16 04:04 Neutrophils % 91 % 10/07/16 04:04 Lymphocytes % 5 % 10/07/16 04:04 Monocytes % 4 % 10/07/16 04:04 Eosinophils % 0 % 10/07/16 04:04 Basophils % 0 % 10/07/16 04:04 Neutrophils # 9.6 k/uL (1.3-7.7) H 10/07/16 04:04 Lymphocytes # 0.5 k/uL (1.0-4.8) L 10/07/16 04:04 Monocytes # 0.4 k/uL (0-1.0) 10/07/16 04:04 Eosinophils # 0.0 k/uL (0-0.7) 10/07/16 04:04 Basophils # 0.0 k/uL (0-0.2) 10/07/16 04:04 Macrocytosis Moderate 10/07/16 04:04 PT 12.8 sec (9.0-12.0) H 10/07/16 08:51 INR 1.3 (<1.1) 10/07/16 08:51 APTT 22.8 sec (22.0-30.0) 10/04/16 05:48 D-Dimer 0.74 mg/L FEU (<0.60) H 10/04/16 07:20 Sodium 138 mmol/L (137-145) 10/07/16 04:04 Potassium 4.5 mmol/L (3.5-5.1) 10/07/16 04:04 Chloride 102 mmol/L (98-107) 10/07/16 04:04 Carbon Dioxide 27 mmol/L (22-30) 10/07/16 04:04 Anion Gap 9 mmol/L 10/07/16 04:04 BUN 26 mg/dL (9-20) H 10/07/16 04:04 Creatinine 0.80 mg/dL (0.66-1.25) 10/07/16 04:04 Est GFR (MDRD) Af Amer >60 (>60 ml/min/1.73 sqM) 10/07/16 04:04 Est GFR (MDRD) Non-Af >60 (>60 ml/min/1.73 sqM) 10/07/16 04:04 Glucose 169 mg/dL (74-99) H 10/07/16 04:04 POC Glucose (mg/dL) 183 mg/dL (75-99) H 10/07/16 20:26 POC Glu C[employer] Mason Maintenance ID Francesca Johnson 10/07/16 20:[address] Glu mg/dL 143 mg/dL 10/05/16 04:10 Hemoglobin A1c 6.6 % (4.2-6.1) H 10/05/16 04:10 Plasma Lactic Acid Miguel Angel 1.6 mmol/L (0.7-2.0) 10/04/16 09:55 Calcium 9.0 mg/dL (8.4-10.2) 10/07/16 04:04 Phosphorus 3.2 mg/dL (2.5-4.5) 10/07/16 04:04 Magnesium 2.4 mg/dL (1.6-2.3) H 10/07/16 04:04 Total Bilirubin 1.3 mg/dL (0.2-1.3) 10/04/16 05:48 AST 103 U/L (17-59) H 10/04/16 05:48 ALT 60 U/L (21-72) 10/04/16 05:48 Alkaline Phosphatase 60 U/L (38-126) 10/04/16 05:48 Troponin I 0.030 ng/mL (0.000-0.034) 10/04/16 05:48 NT-Pro-B Natriuret Pep 582 pg/mL 10/04/16 05:48 Total Protein 8.3 g/dL (6.3-8.2) H 10/04/16 05:48 Albumin 4.2 g/dL (3.5-5.0) 10/04/16 05:48 Vitamin B12 524 pg/mL (239-931) 10/06/16 05:00 Urine Color Yellow 10/04/16 13:17 Urine Appearance Cloudy (Clear) 10/04/16 13:17 Urine pH 5.5 (5.0-8.0) 10/04/16 13:17 Ur Specific [place] >1.050 (1.001-1.035) H 10/04/16 13:17 Urine Protein 2+ (Negative) H 10/04/16 13:17 Urine Glucose (UA) Negative (Negative) 10/04/16 13:17 Urine Ketones Trace (Negative) H 10/04/16 13:17 Urine Blood Small (Negative) H 10/04/16 13:17 Urine Nitrite Negative (Negative) 10/04/16 13:17 Urine Bilirubin Negative (Negative) 10/04/16 13:17 Urine Urobilinogen <2.0 mg/dL (<2.0) 10/04/16 13:17 Ur Leukocyte Esterase Negative (Negative) 10/04/16 13:17 Urine RBC 61 /hpf (0-5) H 10/04/16 13:17 Urine WBC 6 /hpf (0-5) H 10/04/16 13:17 Ur Squamous Epith Cells <1 /hpf (0-4) 10/04/16 13:17 Calcium Oxalate Crystal Occasional /hpf (None) H 10/04/16 13:17 Hyaline Casts 13 /lpf (0-2) H 10/04/16 13:17 Granular Casts 5 /lpf (0) 10/04/16 13:17 Urine Mucus Rare /hpf (None) H 10/04/16 13:17 Influenza Type A RNA Not Detected (Not Detectd) 10/04/16 08:15 Influenza Type B (PCR) Not Detected (Not Detectd) 10/04/16 08:15 Microbiology 10/04/16 09:55 Blood Blood Culture - Preliminary No Growth after 72 hours 10/04/16 05:48 Blood Blood Culture - Preliminary No Growth after 72 hours 10/04/16 06:05 Sputum Gram Stain - Final 10/04/16 06:05 Sputum Sputum Culture - Final Pseudomonas aeruginosa Haemophilus influenzae 10/04/16 13:17 Urine,Catheterized Urine Culture - Final Assessment and Plan (1) Gram-negative pneumonia Narrative/Plan: 56-year-old male that has an extensive past medical history including respiratory failure requiring tracheostomy he is nonintensive care unit with evidence of multifocal pneumonia. Sputum Gram stain is a available and is evidence of several gram-negative pathogens. This time we await further data. Piperacillin tazobactam is being utilized in case her Pseudomonas pneumonia. There is also concerned there may have an aspiration event. These also would give coverage for this also. The culture is now finalized and pseudomonas has been isolated but it is resistant to piperacillin tazobactam. Constantly he is altered to meropenem appropriate dose of 1 g IV piggyback every 8 hours. The 2 weeks of this therapy. Will need IV access and outpatient IV antibiotic therapy which he has done in the past. PICC line to be done and IV antibioitics chocies given and will recive through [facility] . Computed tomography scan fails to reveal evidence of a pulmonary embolus. However there is evidence of the multifocal pneumonia. There is leukocytosis. Respiratory failure has also improved. He's had significant improvement since coming to the ICU with treatment of his underlying pulmonary disease also. Sill move out of the ICU today. Appropriate isolation is been started for the multidrug resistant pathogen. Status: Acute (2) Lactic acidosis Status: Acute (3) Tracheostomy in place Status: Acute
[2016-10-07] MEDS: FAMOTIDINE 20 MG TAB PO SCH (23:11)
[2016-10-08] MEDS: HYDROmorphone 1 MG/ML 1 ML SYRINGE IVP PRN ×10 (01:24→21:58)
[2016-10-08 02:46] LABS: Glucose,Whole Blood 137 mg/dL (75-99)
[2016-10-08] MEDS: MEROPENEM 500 MG in SODIUM CHLORIDE 0.9% 50 ML IVPB SCH ×3 (03:15→19:48)
[2016-10-08 05:01] LABS: Basophils % (A) 0 %; CH 34.6; CHCM 32.7; Eosinophils # (A) 0.1 k/uL (0-0.7); Eosinophils % (A) 1 %; HCT 42.4 % (39.0-53.0); HDW 2.49; HGB 14.3 gm/dL (13.0-17.5); Luc # (Auto) 0.04; Luc % (Auto) 1; Lymphocytes # (A) 0.5 k/uL (1.0-4.8); Lymphocytes % (A) 6 %; MCH 35.9 pg (25.0-35.0); MCHC 33.8 g/dL (31.0-37.0); MCV 106.2 fL (80.0-100.0); Macrocytosis Moderate; Monocytes # (A) 0.4 k/uL (0-1.0); Monocytes % (A) 4 %; Neutrophils # (A) 8.3 k/uL (1.3-7.7); Neutrophils % (A) 89 %; RBC 3.99 m/uL (4.30-5.90); RDW 14.9 % (11.5-15.5); WBC 9.3 k/uL (3.8-10.6); WBC (Perox) 9.19
[2016-10-08 05:09] LABS: Anion Gap 7 mmol/L; Blood Urea Nitrogen 32 mg/dL (9-20); Calcium 8.9 mg/dL (8.4-10.2); Carbon Dioxide 33 mmol/L (22-30); Chloride 100 mmol/L (98-107); Glucose 158 mg/dL (74-99); Magnesium 2.7 mg/dL (1.6-2.3); Non-African American GFR(MDRD) >60 (>60 ml/min/1.73 sqM); Phosphorous 3.7 mg/dL (2.5-4.5); Potassium 4.6 mmol/L (3.5-5.1); Sodium 140 mmol/L (137-145)
[2016-10-08] MEDS: methylPREDNISolone SOD SUCCI 125 MG/2 ML VIAL IV SCH ×3 (06:08→17:43)
[2016-10-08 07:26] LABS: Glucose,Whole Blood 157 mg/dL (75-99)
[2016-10-08] MEDS: BUDESONIDE 0.5 MG/2 ML NEBU INHALATION SCH ×2 (07:46→19:43)
[2016-10-08] MEDS: IPRATROPIUM-ALBUTEROL 3 ML NEB INHALATION SCH ×4 (07:47→19:43)
[2016-10-08] MEDS: INSULIN LISPRO (humaLOG) 300 UNIT/3 ML VIAL SQ SCH ×7 (07:56→22:26)
[2016-10-08] MEDS: HEPARIN SODIUM,PORCINE 5,000 UNIT/ML 1 ML VIAL SQ SCH ×2 (07:57→16:29)
[2016-10-08] MEDS: NICOTINE 14MG/24HR PATCH TRANSDERM SCH (07:57)
[2016-10-08] MEDS: FAMOTIDINE 20 MG TAB PO SCH ×2 (07:57→21:58)
--- NOTE | 2016-10-08 07:59 | XR ---
EXAMINATION TYPE: XR chest 1V DATE OF EXAM: 10/08/2016 7:05 AM HISTORY: Shortness of breath. COMPARISON: October 07, 2016 TECHNIQUE: Single view of the chest is submitted. FINDINGS: Demonstrated are scattered senescent parenchymal change. Persistent pulmonary venous congestion with cardiomegaly and scattered infiltrates and pleural effusi ons suggesting underlying congestive failure. Infiltrates of other etiology not excluded. Hilar and mediastinal structures are stable. Tracheostomy tube in place. Left-sided PICC line noted. Degenerative changes are seen of the dorsal spine. IMPRESSION: 1. Stable features of congestive failure. Follow-up until resolution recommended.
[2016-10-08] MEDS: MORPHINE SULFATE ER 30 MG TABLET PO SCH ×2 (08:22→20:14)
[2016-10-08] MEDS: MORPHINE SULFATE ER 15 MG TABLET PO SCH ×2 (08:22→20:14)
--- NOTE | 2016-10-08 10:50 | P.PN ---
Subjective This is a 56-year-old male being evaluated and examined today on the sixth floor. This patient is well-known to our services, is morbidly obese and has a permanent tracheostomy.. This patient was recently discharged from the hospital a few days ago with status post fall with sternal fractures and right- sided rib fractures. The patient also had a component of a pulmonary contusion and was stabilized with pain medications, breathing treatments, deep breathing exercises, incentive spirometry and was eventually discharged. Patient came back to the emergency room with increasing shortness of breath, cough and desaturations. Patient states he has been having some very thick secretions coming out from his tracheostomy tube with intermittent mucous plugs. Upon examination the patient is resting up in bed side chair, his trach collar was not connected to the wall oxygen and he was satting in the mid 70s. This blog writer reconnected the oxygen and awoke the patient. And the patient thinks he remembers knocking it off the wall and then he fell asleep and forgot to reattach it. The patient is self ambulating in the room therefore he was educated on the importance of making sure his trach collars attached at all times. He continues to have increase in secretions which are thick, however the amount has decreased since yesterday per the patient.. Patient in 10 used to be unable to cough up secretions and requires frequent suctioning. Objective - Vital Signs Vital signs: Vital Signs Temp 98.3 F 10/08/16 06:00 Pulse 50 L 10/08/16 10:00 Resp 17 10/08/16 10:00 BP 156/91 10/08/16 08:00 Pulse Ox 95 10/08/16 10:00 Intake & Output 10/07/16 10/08/16 10/08/16 18:59 06:59 18:59 Intake Total 1100 460 20 Output Total 1999 1300 800 Balance -900 -840 -780 Weight 153 kg 160 kg 160 kg Intake: IV 500 100 20 0.9 ns 450 100 20 Meropenem 1 gm In Sodium 50 Chloride 0.9% 100 ml @ 200 mls/hr IVPB Q8HR [facility] Rx#:[id number] Oral 600 360 Output: Urine 1999 1300 800 Other: Voiding Method Urinal Urinal Urinal - Exam GENERAL EXAM: Alert, active, comfortable in no apparent distress. HEAD: Normocephalic. EYES: Normal reaction of pupils, equal size. NOSE: Clear with pink turbinates. THROAT: No erythema or exudates. Mallampati grade 4 NECK: No masses, no JVD. CHEST: No chest wall deformity. LUNGS:Bilaterally coarse and congested. His respiratory and expiratory wheezes and rhonchi noted throughout. CVS: S1 and S2 normal with no audible mumurs, regular rhythm. ABDOMEN: No hepatosplenomegaly, normal bowel sounds, no guarding or rigidity. EXTREMITIES: No edema noted, pedal pulses palpable. SKIN: No rashes CENTRAL NERVOUS SYSTEM: No focal deficits, tone is normal in all 4 extremities. - Labs CBC & Chem 7: 10/08/16 04:40 10/08/16 04:40 Labs: Abnormal Lab Results - Last 24 Hours (Table) 10/07/16 10/07/16 10/07/16 Range/Units 12:28 17:34 20:26 RBC (4.30-5.90) m/uL MCV (80.0-100.0) fL MCH (25.0-35.0) pg Plt Count (150-450) k/uL Neutrophils # (1.3-7.7) k/uL Lymphocytes # (1.0-4.8) k/uL Carbon Dioxide (22-30) mmol/L BUN (9-20) mg/dL Glucose (74-99) mg/dL POC Glucose (mg/dL) 164 H 135 H 183 H (75-99) mg/dL Magnesium (1.6-2.3) mg/dL 10/08/16 10/08/16 10/08/16 Range/Units 02:43 04:40 04:40 RBC 3.99 L (4.30-5.90) m/uL MCV 106.2 H (80.0-100.0) fL MCH 35.9 H (25.0-35.0) pg Plt Count 149 L (150-450) k/uL Neutrophils # 8.3 H (1.3-7.7) k/uL Lymphocytes # 0.5 L (1.0-4.8) k/uL Carbon Dioxide 33 H (22-30) mmol/L BUN 32 H (9-20) mg/dL Glucose 158 H (74-99) mg/dL POC Glucose (mg/dL) 137 H (75-99) mg/dL Magnesium 2.7 H (1.6-2.3) mg/dL 10/08/16 Range/Units 07:25 RBC (4.30-5.90) m/uL MCV (80.0-100.0) fL MCH (25.0-35.0) pg Plt Count (150-450) k/uL Neutrophils # (1.3-7.7) k/uL Lymphocytes # (1.0-4.8) k/uL Carbon Dioxide (22-30) mmol/L BUN (9-20) mg/dL Glucose (74-99) mg/dL POC Glucose (mg/dL) 157 H (75-99) mg/dL Magnesium (1.6-2.3) mg/dL Microbiology - Last 24 Hours (Table) 10/04/16 09:55 Blood Culture - Preliminary Blood No Growth after 72 hours Assessment and Plan Plan: Assessment Acute hypoxic respiratory failure Severe sepsis associated with acute hypoxic respiratory failure and bilateral pneumonia Pseudomonas MDRO pneumonia Septic shock, intravascular volume depletion and dehydration Obesity hypoventilation Obstructive sleep apnea Severe chronic obstructive pulmonary disease, emphysema Right-sided multiple rib fractures and mediastinal fracture Bilateral atelectasis more so on the left and some on the right side as well. Likely related to rib fractures, pneumonia and poor respiratory effort. Medications have been reviewed and will be continued. We will continue with the antibiotics as well as the breathing treatments and steroids. We will continue pulmonary hygiene, spirometer and supportive care. Patient continues on FiO2 of 70% on trach collar. Requires frequent suctioning. Recommend keeping oxygen saturations above 88% or higher. Occasion provided to the patient regarding importance of making sure trach collar is attached at all times. Patient was also educated on the fact that he cannot have tobacco chew and hospital. Patient is on nicotine patch. We will continue to monitor labs/ results and adjust treatment as necessary. I performed an examination of the patient and discussed their management with the nurse practitioner. I have reviewed the nurse practitioner's note and agree with the documented findings and plan of care.
[2016-10-08 11:55] LABS: Glucose,Whole Blood 141 mg/dL (75-99)
--- NOTE | 2016-10-08 13:02 | P.PN ---
Subjective Date of service 10/08/2016. Progress note being dictated for Dr. Knutson. Interval history: This a 56-year-old gentleman admitted with acute hypoxic respiratory failure secondary to bilateral pneumonia with Pseudomonas. Maintained on Meropenem as per infectious disease. Secretions, improving requiring less frequent suctioning. PICC line placed yesterday.Telemetry sinus rhythm. Denies chest pain, palpitations or increasing shortness of breath. Blood Sugars controlled. Bilateral legs swollen, Doppler ultrasound ordered. Chest x-ray stable features of possible CHF and the patient with history of CHF. Past medical history reviewed. Review of systems: HEENT: Denies headache or focal deficits. Denies any dizziness or lightheadedness. Respiratory: Denies any increased shortness of breath. Moderate secretions, improving, not yet able to cough up own secretions Cardiac: Denies any chest pain, palpitations. GI: Denies any nausea, vomiting, or diarrhea. Denies any abdominal tenderness. : Denies any dysuria. Psychiatry: Denies any anxiety or depression. Active Medications Albuterol/Ipratropium (Duoneb 0.5 Mg-3 Mg/3 Ml Soln) 3 ml INHALATION RT-Q2H PRN PRN Reason: Shortness Of Breath Or Wheezing Albuterol/Ipratropium (Duoneb 0.5 Mg-3 Mg/3 Ml Soln) 3 ml INHALATION RT-QID [facility] Last Admin: 10/08/16 11:25 Dose: Not Given Budesonide (Pulmicort) 0.5 mg INHALATION RT-BID [facility] Last Admin: 10/08/16 07:46 Dose: Not Given Famotidine (Pepcid) 20 mg PO BID [facility] Last Admin: 10/08/16 07:57 Dose: 20 mg Heparin Sodium (Porcine) (Heparin) 5,000 unit SQ Q8HR [facility] Last Admin: 10/08/16 07:57 Dose: 5,000 unit Hydromorphone HCl (Dilaudid) 1 mg IVP Q2HR PRN PRN Reason: Pain Last Admin: 10/08/16 10:02 Dose: 1 mg Meropenem 500 mg/ Sodium (Chloride) 50 mls @ 100 mls/hr IVPB Q8H [facility] Last Admin: 10/08/16 11:26 Dose: 100 mls/hr Insulin Glargine (Lantus) 20 unit SQ HS [facility] Last Admin: 10/07/16 20:37 Dose: 20 unit Insulin Human Lispro (Humalog) 0 unit SQ ACHS [facility] PRN Reason: Protocol Last Admin: 10/08/16 07:56 Dose: 3 unit Insulin Human Lispro (Humalog) 10 unit SQ AC-TID [facility] Last Admin: 10/08/16 07:57 Dose: 10 unit Methylprednisolone Sodium Succinate (Solu-Medrol) 40 mg IV Q6HR [facility] Last Admin: 10/08/16 11:26 Dose: 40 mg Morphine Sulfate (Ms Contin) 30 mg PO Q12HR [facility] Last Admin: 10/08/16 08:22 Dose: 30 mg Morphine Sulfate (Ms Contin) 15 mg PO Q12HR [facility] Last Admin: 10/08/16 08:22 Dose: 15 mg Naloxone HCl (Narcan) 0.2 mg IV Q2M PRN PRN Reason: Opioid Reversal Nicotine (Habitrol 14mg/24hr Patch) 1 patch TRANSDERM DAILY [facility] Last Admin: 10/08/16 07:57 Dose: 1 patch Objective - Vital Signs Vital signs: Vital Signs Temp 98.5 F 10/08/16 11:20 Pulse 53 L 10/08/16 11:20 Resp 27 H 10/08/16 11:23 BP 156/91 10/08/16 08:00 Pulse Ox 93 L 10/08/16 11:20 Intake & Output 10/07/16 10/08/16 10/08/16 18:59 06:59 18:59 Intake Total 1100 460 40 Output Total 1999 1300 1750 Balance -900 -924 -2440 Weight 153 kg 160 kg 160 kg Intake: IV 500 100 40 0.9 ns 450 100 40 Meropenem 1 gm In Sodium 50 Chloride 0.9% 100 ml @ 200 mls/hr IVPB Q8HR [facility] Rx#:[id number] Oral 600 360 Output: Urine 1999 1300 1750 Other: Voiding Method Urinal Urinal Urinal - Exam PHYSICAL EXAM: VITAL SIGNS: As above GENERAL: [Sitting up in chair, maintaining O2 sats of 93-94% on trach collar, 70 % FiO2, no acute distress] HEENT: [Pupils equal conjunctiva normal. No conjunctival pallor] NECK: [Supple, no JVD] RESPIRATORY EFFORT:[Increased] LUNGS: [Rhonchorous throughout with improving scattered expiratory wheezing] CARDIOVASCULAR[regular S1 and S2, no murmurs rubs or gallops, positive edema] GI: [Abdomen soft,nondistended, nontender, positive bowel sounds. No guarding, no rigidity] PSYCH: [Alert and oriented -3, mood and affect normal.] NEURO: [No focal deficits] Microbiology 10/04/16 09:55 Blood Blood Culture - Preliminary No Growth after 96 hours 10/04/16 05:48 Blood Blood Culture - Preliminary No Growth after 96 hours 10/04/16 06:05 Sputum Gram Stain - Final 10/04/16 06:05 Sputum Sputum Culture - Final Pseudomonas aeruginosa Haemophilus influenzae 10/04/16 13:17 Urine,Catheterized Urine Culture - Final - Labs CBC & Chem 7: 10/08/16 04:40 10/08/16 04:40 Labs: Abnormal Lab Results - Last 24 Hours (Table) 10/07/16 10/07/16 10/07/16 Range/Units 12:28 17:34 20:26 RBC (4.30-5.90) m/uL MCV (80.0-100.0) fL MCH (25.0-35.0) pg Plt Count (150-450) k/uL Neutrophils # (1.3-7.7) k/uL Lymphocytes # (1.0-4.8) k/uL Carbon Dioxide (22-30) mmol/L BUN (9-20) mg/dL Glucose (74-99) mg/dL POC Glucose (mg/dL) 164 H 135 H 183 H (75-99) mg/dL Magnesium (1.6-2.3) mg/dL 10/08/16 10/08/16 10/08/16 Range/Units 02:43 04:40 04:40 RBC 3.99 L (4.30-5.90) m/uL MCV 106.2 H (80.0-100.0) fL MCH 35.9 H (25.0-35.0) pg Plt Count 149 L (150-450) k/uL Neutrophils # 8.3 H (1.3-7.7) k/uL Lymphocytes # 0.5 L (1.0-4.8) k/uL Carbon Dioxide 33 H (22-30) mmol/L BUN 32 H (9-20) mg/dL Glucose 158 H (74-99) mg/dL POC Glucose (mg/dL) 137 H (75-99) mg/dL Magnesium 2.7 H (1.6-2.3) mg/dL 10/08/16 10/08/16 Range/Units 07:25 11:53 RBC (4.30-5.90) m/uL MCV (80.0-100.0) fL MCH (25.0-35.0) pg Plt Count (150-450) k/uL Neutrophils # (1.3-7.7) k/uL Lymphocytes # (1.0-4.8) k/uL Carbon Dioxide (22-30) mmol/L BUN (9-20) mg/dL Glucose (74-99) mg/dL POC Glucose (mg/dL) 157 H 141 H (75-99) mg/dL Magnesium (1.6-2.3) mg/dL Microbiology - Last 24 Hours (Table) 10/04/16 09:55 Blood Culture - Preliminary Blood No Growth after 96 hours Assessment and Plan Plan: 1. Severe sepsis secondary to bilateral pseudomonal MDRO pneumonia, complicated by tracheostomy and recent rib fracture. Possible component of acute CHF exacerbation, in a patient with history of CHF, echo pending,. 2. Acute hypoxic respiratory failure secondary to pneumonia and. 3. [Acute on chronic hypercapnic respiratory failure secondary to acute exacerbation of COPD]. 4. [Acute renal failure]. 5. [Morbid Obesity, BMI 42.2]. 6. [Obstructive Sleep apnea, uses CPAP at home]. 7. [Ongoing nicotine abuse]. 8. PICC line placement pending. 9. Ascending aortic aneurysm per CXR 10. PE ruled out 11. Hepatic steatosis 12. Multifocal wedge-shaped consolidations compatible with multifocal subsegmental atelectasis per CT 13. Hepatic steatosis 14. Diabetes mellitus, uncontrolled on steroids, improving Plan: Continue on current medication regime, Merrem, steroids, nebulized bronchodilators. Bilateral Doppler ultrasound of legs pending .echo ordered. Antibiotics continue as per infectious disease. Aggressive pulmonary toileting. Awaiting transfer to telemetry unit. The impression and plan of care has been dictated as directed. : I performed a H&P examination of this patient and discussed the same with the dictator. I agree with the dictator's note. Any additional findings/opinions/ etc. will be noted.
--- NOTE | 2016-10-08 16:43 | US ---
EXAMINATION TYPE: US venous doppler duplex LE DATE OF EXAM: 10/08/2016 10:38 AM COMPARISON: NONE CLINICAL HISTORY: rule out DVT, swelling. SIDE PERFORMED: TECHNIQUE: The lower extremity deep venous system is examined utilizing real time linear array sonog kisha with graded compression, doppler sonography and color-flow sonography. VESSELS IMAGED: External Iliac Vein (EIV) Common Femoral Vein Deep Femoral Vein Greater Saphenous Vein * Femoral Vein Popliteal Vein Small Saphenous Vein * Proximal Calf Veins (* superficial vessels) Patient morbidly obese, technically difficult study Right Leg: Appears negative for DVT Left Leg: Appears negative for DVT IMPRESSION: No evidence of DVT at this time.
[2016-10-08 16:59] LABS: Glucose,Whole Blood 136 mg/dL (75-99)
[2016-10-08 22:13] LABS: Glucose,Whole Blood 116 mg/dL (75-99)
--- NOTE | 2016-10-08 22:25 | PN ---
DATE OF SERVICE: 10/08/2016 This 56-year-old gentleman who was admitted with severe sepsis secondary to Pseudomonas pneumonia also had H. influenzae grown from the sputum culture. The patient is on broad-spectrum IV antibiotics. I have seen and evaluated the patient with the nurse practitioner. Please refer to the nurse practitioner's notes and impressions documented as scribe for further information. The patient also has bilateral leg swelling. Would also recommend bilateral ultrasound of the leg to rule out possibility of DVT. Continue to monitor. Chest x-ray reviewed. Further recommendations to follow.
--- NOTE | 2016-10-08 22:46 | P.PN ---
Subjective Principal diagnosis: Gram-negative pneumonia 56-year-old male that he has multiple medical troubles and includes a history of respiratory failure requiring tracheostomy. He apparently had difficulty with trauma to his sternum was taking care of recently. He was doing somewhat better however now presents with significant shortness of breath and wheezing. Computed tomography scan shows evidence of multifocal pneumonia. Which is a new finding. Patient is doing somewhat better this afternoon ALLERGIES had steroids and antibiotic therapy. He is not hypotensive responded well to fluid resuscitation Is able to communicate that he is feeling somewhat better this evening. He is much less short of breath. Wheezing is improved. Coughing is improved. He feels that his distress has resolved. He is denying significant fever, chill or rigor. He was able to ingest some nutrition, does not have a tube feed at this time. Tracheostomies in the place from difficulties with recent respiratory failure. Sitting upright eating his lunch. More calm today Less short of breath and improved overall. Objective - Vital Signs Vital signs: Vital Signs Temp 98.5 F 10/08/16 16:00 Pulse 55 L 10/08/16 18:00 Resp 37 H 10/08/16 18:00 BP 152/84 10/08/16 18:00 Pulse Ox 94 L 10/08/16 18:00 Intake & Output 10/08/16 10/08/16 10/09/16 06:59 18:59 06:59 Intake Total 460 60 20 Output Total 1300 2700 900 Balance -844 -4283 -880 Weight 160 kg 160 kg 160 kg Intake: IV 100 60 20 0.9 ns 100 60 20 Oral 360 Output: Urine 1300 2700 900 Other: Voiding Method Urinal Urinal Urinal - Exam 56-year-old male who has superobesity seems comfortable sitting up and eating without problem. HEENT: Anicteric conjunctiva are pink and moist nasal mucosa grossly intact without significant lesions, there is no thrush.tracheostomy scant purulent sputum Neck: The neck is supple without significant lymphadenopathy or thyromegaly. Lungs: Symmetrical air entry. Bibasilar crackles are heard. Scattered wheezing and crackles to the lung villalpando. Heart: Regular rate and rhythm with an audible S1-S2, no S3 positive S4 There is no significant murmur click or rub, PMI was nondisplaced. Abdomen:obese Positive bowel sounds soft and nontender without palpable masses or organomegaly. There was no guarding or rebound. Extremities: The upper extremities have excellent pulses they are symmetric, no significant petechiae or telangiectasia. No splinter hemorrhages were noted. lower extremities have evidence of the significant edema. No ulcerations are seen Neuro: Awake alert oriented to person place and time. There are no acute new gross focal sensory motor deficits.communicates by capping his tracheostomy. - Labs CBC & Chem 7: 10/08/16 04:40 10/08/16 04:40 Labs: Abnormal Lab Results - Last 24 Hours (Table) 10/08/16 10/08/16 10/08/16 Range/Units 02:43 04:40 04:40 RBC 3.99 L (4.30-5.90) m/uL MCV 106.2 H (80.0-100.0) fL MCH 35.9 H (25.0-35.0) pg Plt Count 149 L (150-450) k/uL Neutrophils # 8.3 H (1.3-7.7) k/uL Lymphocytes # 0.5 L (1.0-4.8) k/uL Carbon Dioxide 33 H (22-30) mmol/L BUN 32 H (9-20) mg/dL Glucose 158 H (74-99) mg/dL POC Glucose (mg/dL) 137 H (75-99) mg/dL Magnesium 2.7 H (1.6-2.3) mg/dL 10/08/16 10/08/16 10/08/16 Range/Units 07:25 11:53 16:58 RBC (4.30-5.90) m/uL MCV (80.0-100.0) fL MCH (25.0-35.0) pg Plt Count (150-450) k/uL Neutrophils # (1.3-7.7) k/uL Lymphocytes # (1.0-4.8) k/uL Carbon Dioxide (22-30) mmol/L BUN (9-20) mg/dL Glucose (74-99) mg/dL POC Glucose (mg/dL) 157 H 141 H 136 H (75-99) mg/dL Magnesium (1.6-2.3) mg/dL 10/08/16 Range/Units 22:12 RBC (4.30-5.90) m/uL MCV (80.0-100.0) fL MCH (25.0-35.0) pg Plt Count (150-450) k/uL Neutrophils # (1.3-7.7) k/uL Lymphocytes # (1.0-4.8) k/uL Carbon Dioxide (22-30) mmol/L BUN (9-20) mg/dL Glucose (74-99) mg/dL POC Glucose (mg/dL) 116 H (75-99) mg/dL Magnesium (1.6-2.3) mg/dL Microbiology - Last 24 Hours (Table) 10/04/16 09:55 Blood Culture - Preliminary Blood No Growth after 96 hours Laboratory Results WBC 9.3 k/uL (3.8-10.6) 10/08/16 04:40 RBC 3.99 m/uL (4.30-5.90) L 10/08/16 04:40 Hgb 14.3 gm/dL (13.0-17.5) 10/08/16 04:40 Hct 42.4 % (39.0-53.0) 10/08/16 04:40 MCV 106.2 fL (80.0-100.0) H 10/08/16 04:40 MCH 35.9 pg (25.0-35.0) H 10/08/16 04:40 MCHC 33.8 g/dL (31.0-37.0) 10/08/16 04:40 RDW 14.9 % (11.5-15.5) 10/08/16 04:40 Plt Count 149 k/uL (150-450) L 10/08/16 04:40 Neutrophils % 89 % 10/08/16 04:40 Lymphocytes % 6 % 10/08/16 04:40 Monocytes % 4 % 10/08/16 04:40 Eosinophils % 1 % 10/08/16 04:40 Basophils % 0 % 10/08/16 04:40 Neutrophils # 8.3 k/uL (1.3-7.7) H 10/08/16 04:40 Lymphocytes # 0.5 k/uL (1.0-4.8) L 10/08/16 04:40 Monocytes # 0.4 k/uL (0-1.0) 10/08/16 04:40 Eosinophils # 0.1 k/uL (0-0.7) 10/08/16 04:40 Basophils # 0.0 k/uL (0-0.2) 10/08/16 04:40 Macrocytosis Moderate 10/08/16 04:40 PT 12.8 sec (9.0-12.0) H 10/07/16 08:51 INR 1.3 (<1.1) 10/07/16 08:51 APTT 22.8 sec (22.0-30.0) 10/04/16 05:48 D-Dimer 0.74 mg/L FEU (<0.60) H 10/04/16 07:20 Sodium 140 mmol/L (137-145) 10/08/16 04:40 Potassium 4.6 mmol/L (3.5-5.1) 10/08/16 04:40 Chloride 100 mmol/L (98-107) 10/08/16 04:40 Carbon Dioxide 33 mmol/L (22-30) H 10/08/16 04:40 Anion Gap 7 mmol/L 10/08/16 04:40 BUN 32 mg/dL (9-20) H 10/08/16 04:40 Creatinine 0.74 mg/dL (0.66-1.25) 10/08/16 04:40 Est GFR (MDRD) Af Amer >60 (>60 ml/min/1.73 sqM) 10/08/16 04:40 Est GFR (MDRD) Non-Af >60 (>60 ml/min/1.73 sqM) 10/08/16 04:40 Glucose 158 mg/dL (74-99) H 10/08/16 04:40 POC Glucose (mg/dL) 116 mg/dL (75-99) H 10/08/16 22:12 POC Glu Contract Graphic Designer ID Delmy Schwartz 10/08/16 22:[address] Glu mg/dL 143 mg/dL 10/05/16 04:10 Hemoglobin A1c 6.6 % (4.2-6.1) H 10/05/16 04:10 Plasma Lactic Acid Miguel Angel 1.6 mmol/L (0.7-2.0) 10/04/16 09:55 Calcium 8.9 mg/dL (8.4-10.2) 10/08/16 04:40 Phosphorus 3.7 mg/dL (2.5-4.5) 10/08/16 04:40 Magnesium 2.7 mg/dL (1.6-2.3) H 10/08/16 04:40 Total Bilirubin 1.3 mg/dL (0.2-1.3) 10/04/16 05:48 AST 103 U/L (17-59) H 10/04/16 05:48 ALT 60 U/L (21-72) 10/04/16 05:48 Alkaline Phosphatase 60 U/L (38-126) 10/04/16 05:48 Troponin I 0.030 ng/mL (0.000-0.034) 10/04/16 05:48 NT-Pro-B Natriuret Pep 582 pg/mL 10/04/16 05:48 Total Protein 8.3 g/dL (6.3-8.2) H 10/04/16 05:48 Albumin 4.2 g/dL (3.5-5.0) 10/04/16 05:48 Vitamin B12 524 pg/mL (239-931) 10/06/16 05:00 Urine Color Yellow 10/04/16 13:17 Urine Appearance Cloudy (Clear) 10/04/16 13:17 Urine pH 5.5 (5.0-8.0) 10/04/16 13:17 Ur Specific [place] >1.050 (1.001-1.035) H 10/04/16 13:17 Urine Protein 2+ (Negative) H 10/04/16 13:17 Urine Glucose (UA) Negative (Negative) 10/04/16 13:17 Urine Ketones Trace (Negative) H 10/04/16 13:17 Urine Blood Small (Negative) H 10/04/16 13:17 Urine Nitrite Negative (Negative) 10/04/16 13:17 Urine Bilirubin Negative (Negative) 10/04/16 13:17 Urine Urobilinogen <2.0 mg/dL (<2.0) 10/04/16 13:17 Ur Leukocyte Esterase Negative (Negative) 10/04/16 13:17 Urine RBC 61 /hpf (0-5) H 10/04/16 13:17 Urine WBC 6 /hpf (0-5) H 10/04/16 13:17 Ur Squamous Epith Cells <1 /hpf (0-4) 10/04/16 13:17 Calcium Oxalate Crystal Occasional /hpf (None) H 10/04/16 13:17 Hyaline Casts 13 /lpf (0-2) H 10/04/16 13:17 Granular Casts 5 /lpf (0) 10/04/16 13:17 Urine Mucus Rare /hpf (None) H 10/04/16 13:17 Influenza Type A RNA Not Detected (Not Detectd) 10/04/16 08:15 Influenza Type B (PCR) Not Detected (Not Detectd) 10/04/16 08:15 Microbiology 10/04/16 09:55 Blood Blood Culture - Preliminary No Growth after 96 hours 10/04/16 05:48 Blood Blood Culture - Preliminary No Growth after 96 hours 10/04/16 06:05 Sputum Gram Stain - Final 10/04/16 06:05 Sputum Sputum Culture - Final Pseudomonas aeruginosa Haemophilus influenzae 10/04/16 13:17 Urine,Catheterized Urine Culture - Final Assessment and Plan (1) Gram-negative pneumonia Narrative/Plan: 56-year-old male that has an extensive past medical history including respiratory failure requiring tracheostomy he is nonintensive care unit with evidence of multifocal pneumonia. Sputum Gram stain is a available and is evidence of several gram-negative pathogens. This time we await further data. Piperacillin tazobactam is being utilized in case her Pseudomonas pneumonia. There is also concerned there may have an aspiration event. These also would give coverage for this also. The culture is now finalized and pseudomonas has been isolated but it is resistant to piperacillin tazobactam. Constantly he is altered to meropenem appropriate dose of 1 g IV piggyback every 8 hours. The 2 weeks of this therapy. Will need IV access and outpatient IV antibiotic therapy which he has done in the past. PICC line to be done and IV antibioitics chocies given and will recive through [facility] . Computed tomography scan fails to reveal evidence of a pulmonary embolus. However there is evidence of the multifocal pneumonia. There is leukocytosis. Respiratory failure has also improved. He's had significant improvement since coming to the ICU with treatment of his underlying pulmonary disease also. Will move out of the ICU today. Appropriate isolation is been started for the multidrug resistant pathogen. Status: Acute (2) Lactic acidosis Status: Acute (3) Tracheostomy in place Status: Acute
[2016-10-09] MEDS: INSULIN GLARGINE 100 UNIT/ML 10 ML VIAL SQ SCH ×2 (00:01→21:46)
[2016-10-09] MEDS: methylPREDNISolone SOD SUCCI 125 MG/2 ML VIAL IV SCH ×4 (00:02→18:09)
[2016-10-09] MEDS: HEPARIN SODIUM,PORCINE 5,000 UNIT/ML 1 ML VIAL SQ SCH ×3 (00:03→18:09)
[2016-10-09 02:00] LABS: Glucose,Whole Blood 160 mg/dL (75-99)
[2016-10-09] MEDS: HYDROmorphone 1 MG/ML 1 ML SYRINGE IVP PRN ×6 (04:33→23:31)
[2016-10-09] MEDS: MEROPENEM 500 MG in SODIUM CHLORIDE 0.9% 50 ML IVPB SCH ×3 (05:59→20:26)
[2016-10-09 07:42] LABS: Glucose,Whole Blood 146 mg/dL (75-99)
--- NOTE | 2016-10-09 07:55 | XR ---
EXAMINATION TYPE: XR chest 1V DATE OF EXAM: 10/09/2016 7:32 AM COMPARISON: Prior chest x-ray 10/08/2016 HISTORY: Shortness of breath TECHNIQUE: Single frontal view of the chest is obtained. FINDINGS: The heart remains enlarged. Patchy basilar density persists, there is blunting of the cost ophrenic angle on the right, the left is not included. Interstitium is increased. No evident pneumoth orax. Tracheostomy tube is stable. Left-sided PICC line shows the distal tip in the innominate vein r egion. Prominent mediastinum is also unchanged. IMPRESSION: Correlate for pulmonary venous hypertension and interstitial edema. There may be associa shira effusion.
[2016-10-09] MEDS: IPRATROPIUM-ALBUTEROL 3 ML NEB INHALATION SCH ×4 (08:12→19:21)
[2016-10-09] MEDS: BUDESONIDE 0.5 MG/2 ML NEBU INHALATION SCH ×2 (08:12→19:21)
[2016-10-09 09:06] LABS: Basophils % (A) 0 %; CH 34.1; Eosinophils % (A) 0 %; HCT 48.4 % (39.0-53.0); HDW 2.35; HGB 15.4 gm/dL (13.0-17.5); Luc # (Auto) 0.08; Luc % (Auto) 1; Lymphocytes # (A) 0.4 k/uL (1.0-4.8); Lymphocytes % (A) 4 %; MCHC 31.8 g/dL (31.0-37.0); MCV 107.1 fL (80.0-100.0); Macrocytosis Moderate; Mean Platelet Volume 7.2; Monocytes # (A) 0.4 k/uL (0-1.0); Monocytes % (A) 3 %; Neutrophils # (A) 9.3 k/uL (1.3-7.7); Neutrophils % (A) 92 %; RBC 4.52 m/uL (4.30-5.90); RDW 14.9 % (11.5-15.5); WBC 10.1 k/uL (3.8-10.6); WBC (Perox) 10.28
[2016-10-09] MEDS: NICOTINE 14MG/24HR PATCH TRANSDERM SCH (09:11)
[2016-10-09] MEDS: FAMOTIDINE 20 MG TAB PO SCH ×2 (09:11→20:32)
[2016-10-09] MEDS: INSULIN LISPRO (humaLOG) 300 UNIT/3 ML VIAL SQ SCH ×7 (09:11→21:47)
[2016-10-09] MEDS: MORPHINE SULFATE ER 30 MG TABLET PO SCH ×2 (09:30→21:46)
[2016-10-09] MEDS: MORPHINE SULFATE ER 15 MG TABLET PO SCH ×2 (09:30→21:46)
[2016-10-09 10:10] LABS: Anion Gap 9 mmol/L; Blood Urea Nitrogen 33 mg/dL (9-20); Calcium 9.2 mg/dL (8.4-10.2); Carbon Dioxide 32 mmol/L (22-30); Chloride 97 mmol/L (98-107); Glucose 211 mg/dL (74-99); Magnesium 2.7 mg/dL (1.6-2.3); Non-African American GFR(MDRD) >60 (>60 ml/min/1.73 sqM); Phosphorous 3.9 mg/dL (2.5-4.5); Potassium 4.8 mmol/L (3.5-5.1); Sodium 138 mmol/L (137-145)
--- NOTE | 2016-10-09 10:57 | P.PN ---
Subjective This is a 56-year-old male being evaluated and examined today on the 4th floor. This patient is well-known to our services, is morbidly obese and has a permanent tracheostomy.. This patient was recently discharged from the hospital a few days ago with status post fall with sternal fractures and right- sided rib fractures. The patient also had a component of a pulmonary contusion and was stabilized with pain medications, breathing treatments, deep breathing exercises, incentive spirometry and was eventually discharged. Patient came back to the emergency room with increasing shortness of breath, cough and desaturations. Patient states he has been having some very thick secretions coming out from his tracheostomy tube with intermittent mucous plugs. Upon examination the patient is resting up on the side of the bed. He appears to be doing a lot better than previous. Patient continues on 70% trach collar. Prescription has been provided for home suction equipment. He continues to have secretions which are thick, however the amount has decreased since yesterday per the patient. Patient is unable to cough up secretions and requires frequent suctioning. Objective - Vital Signs Vital signs: Vital Signs Temp 97.5 F L 10/09/16 07:00 Pulse 51 L 10/09/16 07:00 Resp 22 10/09/16 07:00 BP 178/99 10/09/16 07:00 Pulse Ox 94 L 10/09/16 07:00 Intake & Output 10/08/16 10/09/16 10/09/16 18:59 06:59 18:59 Intake Total 60 20 120 Output Total 2700 1550 Balance -2640 -1530 120 Weight 160 kg 160 kg Intake: IV 60 20 0.9 ns 60 20 Oral 120 Output: Urine 2700 1550 Other: Voiding Method Urinal Urinal # Voids 1 # Bowel Movements 1 - Exam GENERAL EXAM: Alert, active, comfortable in no apparent distress. HEAD: Normocephalic. EYES: Normal reaction of pupils, equal size. NOSE: Clear with pink turbinates. THROAT: No erythema or exudates. Mallampati grade 4 NECK: No masses, no JVD. CHEST: No chest wall deformity. LUNGS:Bilaterally coarse and congested. His respiratory and expiratory wheezes and rhonchi noted throughout. CVS: S1 and S2 normal with no audible mumurs, regular rhythm. ABDOMEN: No hepatosplenomegaly, normal bowel sounds, no guarding or rigidity. EXTREMITIES: +1 edema noted, pedal pulses palpable. SKIN: No rashes CENTRAL NERVOUS SYSTEM: No focal deficits, tone is normal in all 4 extremities. - Labs CBC & Chem 7: 10/09/16 08:33 10/09/16 08:33 Labs: Abnormal Lab Results - Last 24 Hours (Table) 10/08/16 10/08/16 10/08/16 Range/Units 11:53 16:58 22:12 MCV (80.0-100.0) fL Neutrophils # (1.3-7.7) k/uL Lymphocytes # (1.0-4.8) k/uL Chloride (98-107) mmol/L Carbon Dioxide (22-30) mmol/L BUN (9-20) mg/dL Glucose (74-99) mg/dL POC Glucose (mg/dL) 141 H 136 H 116 H (75-99) mg/dL Magnesium (1.6-2.3) mg/dL 10/09/16 10/09/16 10/09/16 Range/Units 01:58 07:18 08:33 MCV 107.1 H (80.0-100.0) fL Neutrophils # 9.3 H (1.3-7.7) k/uL Lymphocytes # 0.4 L (1.0-4.8) k/uL Chloride (98-107) mmol/L Carbon Dioxide (22-30) mmol/L BUN (9-20) mg/dL Glucose (74-99) mg/dL POC Glucose (mg/dL) 160 H 146 H (75-99) mg/dL Magnesium (1.6-2.3) mg/dL 10/09/16 Range/Units 08:33 MCV (80.0-100.0) fL Neutrophils # (1.3-7.7) k/uL Lymphocytes # (1.0-4.8) k/uL Chloride 97 L (98-107) mmol/L Carbon Dioxide 32 H (22-30) mmol/L BUN 33 H (9-20) mg/dL Glucose 211 H (74-99) mg/dL POC Glucose (mg/dL) (75-99) mg/dL Magnesium 2.7 H (1.6-2.3) mg/dL Microbiology - Last 24 Hours (Table) 10/04/16 09:55 Blood Culture - Preliminary Blood No Growth after 96 hours Assessment and Plan Plan: Assessment Acute hypoxic respiratory failure Severe sepsis associated with acute hypoxic respiratory failure and bilateral pneumonia Pseudomonas MDRO pneumonia Septic shock, intravascular volume depletion and dehydration Obesity hypoventilation Obstructive sleep apnea Severe chronic obstructive pulmonary disease, emphysema Right-sided multiple rib fractures and mediastinal fracture Bilateral atelectasis more so on the left and some on the right side as well. Likely related to rib fractures, pneumonia and poor respiratory effort. Medications have been reviewed and will be continued. Continue with discharge planning. We will continue with the antibiotics as well as the breathing treatments and steroids. We will continue pulmonary hygiene, spirometer and supportive care. Patient continues on FiO2 of 70% on trach collar. Requires frequent suctioning. Prescription has been provided for home suction equipment. Recommend keeping oxygen saturations above 88% or higher. Education provided to the patient regarding importance of making sure trach collar is attached at all times. Patient was also educated on the fact that he cannot have tobacco chew and hospital. Patient is on nicotine patch. We will continue to monitor labs/results and adjust treatment as necessary. I performed an examination of the patient and discussed their management with the nurse practitioner. I have reviewed the nurse practitioner's note and agree with the documented findings and plan of care.
--- NOTE | 2016-10-09 11:15 | P.PN ---
Subjective Date of service 10/09/2016. Progress note being dictated for Dr. Knutson. Interval history: This a 56-year-old gentleman admitted with acute hypoxic respiratory failure secondary to bilateral pneumonia with Pseudomonas. Maintained on Meropenem as per infectious disease via PICC line. Transferred out of ICU last night to [facility] unit. Secretions continue to improve, occasionally able to cough up own secretions , occasional suctioning. Chest x- ray reporting unchanged prominent mediastinum, pulmonary venous hypertension, interstitial edema, possible associated effusion.Good diet intake, positive bowel movement. Bilateral Doppler negative for DVT. Denies chest pain, palpitations or increasing shortness of breath. Past medical history reviewed. Review of systems: HEENT: Denies headache or focal deficits. Denies any dizziness or lightheadedness. Respiratory: Denies any increased shortness of breath. Secretions, improving, occasionally able to cough up creamy white secretions, occasional suctioning Cardiac: Denies any chest pain, palpitations. GI: Denies any nausea, vomiting, or diarrhea. Denies any abdominal tenderness. Positive bowel movement last night. : Denies any dysuria. Psychiatry: Denies any anxiety or depression. Active Medications Generic Name Dose Route Start Last Admin Trade Name Freq PRN Reason Stop Dose Admin Albuterol/Ipratropium 3 ml 10/04/16 15:27 Duoneb 0.5 Mg-3 Mg/3 Ml Soln INHALATION RT-Q2H PRN Shortness Of Breath Or Wheezing Albuterol/Ipratropium 3 ml 10/06/16 20:00 10/09/16 08:12 Duoneb 0.5 Mg-3 Mg/3 Ml Soln INHALATION Not Given RT-QID FRANCO Budesonide 0.5 mg 10/04/16 20:00 10/09/16 08:12 Pulmicort INHALATION Not Given RT-BID FRANCO Famotidine 20 mg 10/07/16 21:00 10/09/16 09:11 Pepcid PO 20 mg BID FRANCO Administration Heparin Sodium (Porcine) 5,000 unit 10/04/16 08:00 10/09/16 09:11 Heparin SQ 5,000 unit Q8HR FRANCO Administration Hydromorphone HCl 1 mg 10/05/16 14:03 10/09/16 09:12 Dilaudid IVP 1 mg Q2HR PRN Administration Pain Meropenem 500 mg/ Sodium 50 mls @ 100 mls/hr 10/06/16 20:00 10/09/16 05:59 Chloride IVPB 100 mls/hr Q8H FRANCO Administration Insulin Glargine 20 unit 10/06/16 21:00 10/09/16 00:01 Lantus SQ 20 unit HS FRANCO Administration Insulin Human Lispro 0 unit 10/04/16 17:30 10/09/16 09:11 Humalog SQ 2 unit ACHS FRANCO Administration Protocol Insulin Human Lispro 10 unit 10/06/16 12:30 10/09/16 09:11 Humalog SQ 10 unit AC-TID FRANCO Administration Methylprednisolone Sodium Succinate 40 mg 10/08/16 00:00 10/09/16 06:01 Solu-Medrol IV 40 mg Q6HR FRANCO Administration Morphine Sulfate 30 mg 10/05/16 21:00 10/09/16 09:30 Ms Contin PO 30 mg Q12HR FRANCO Administration Morphine Sulfate 15 mg 10/05/16 21:00 10/09/16 09:30 Ms Contin PO Not Given Q12HR FRANCO Naloxone HCl 0.2 mg 10/04/16 15:27 Narcan IV Q2M PRN Opioid Reversal Nicotine 1 patch 10/06/16 12:00 10/09/16 09:11 Habitrol 14mg/24hr Patch TRANSDERM 1 patch DAILY FRANCO Administration Objective - Vital Signs Vital signs: Vital Signs Temp 97.5 F L 10/09/16 07:00 Pulse 51 L 10/09/16 07:00 Resp 22 10/09/16 07:00 BP 178/99 10/09/16 07:00 Pulse Ox 94 L 10/09/16 07:00 Intake & Output 10/08/16 10/09/16 10/09/16 18:59 06:59 18:59 Intake Total 60 20 120 Output Total 2700 1550 Balance -2640 -1530 120 Weight 160 kg 160 kg Intake: IV 60 20 0.9 ns 60 20 Oral 120 Output: Urine 2700 1550 Other: Voiding Method Urinal Urinal # Voids 1 # Bowel Movements 1 - Exam PHYSICAL EXAM: VITAL SIGNS: As above GENERAL: [Sitting up at bedside, no acute distress HEENT: [Pupils equal conjunctiva normal. No conjunctival pallor. 70% trach collar.] NECK: [Supple, no JVD] RESPIRATORY EFFORT:[Increased] LUNGS: [Rhonchorous throughout with improving scattered expiratory wheezing] CARDIOVASCULAR[regular S1 and S2, no murmurs rubs or gallops, positive edema] GI: [Abdomen soft,nondistended, nontender, positive bowel sounds. No guarding, no rigidity] PSYCH: [Alert and oriented -3, mood and affect normal.] NEURO: [No focal deficits] Microbiology 10/04/16 05:48 Blood Blood Culture - Preliminary No Growth after 120 hours 10/04/16 09:55 Blood Blood Culture - Preliminary No Growth after 96 hours 10/04/16 06:05 Sputum Gram Stain - Final 10/04/16 06:05 Sputum Sputum Culture - Final Pseudomonas aeruginosa Haemophilus influenzae 10/04/16 13:17 Urine,Catheterized Urine Culture - Final - Labs CBC & Chem 7: 10/09/16 08:33 10/09/16 08:33 Labs: Abnormal Lab Results - Last 24 Hours (Table) 10/08/16 10/08/16 10/08/16 Range/Units 11:53 16:58 22:12 MCV (80.0-100.0) fL Neutrophils # (1.3-7.7) k/uL Lymphocytes # (1.0-4.8) k/uL Chloride (98-107) mmol/L Carbon Dioxide (22-30) mmol/L BUN (9-20) mg/dL Glucose (74-99) mg/dL POC Glucose (mg/dL) 141 H 136 H 116 H (75-99) mg/dL Magnesium (1.6-2.3) mg/dL 10/09/16 10/09/16 10/09/16 Range/Units 01:58 07:18 08:33 MCV 107.1 H (80.0-100.0) fL Neutrophils # 9.3 H (1.3-7.7) k/uL Lymphocytes # 0.4 L (1.0-4.8) k/uL Chloride (98-107) mmol/L Carbon Dioxide (22-30) mmol/L BUN (9-20) mg/dL Glucose (74-99) mg/dL POC Glucose (mg/dL) 160 H 146 H (75-99) mg/dL Magnesium (1.6-2.3) mg/dL 10/09/16 Range/Units 08:33 MCV (80.0-100.0) fL Neutrophils # (1.3-7.7) k/uL Lymphocytes # (1.0-4.8) k/uL Chloride 97 L (98-107) mmol/L Carbon Dioxide 32 H (22-30) mmol/L BUN 33 H (9-20) mg/dL Glucose 211 H (74-99) mg/dL POC Glucose (mg/dL) (75-99) mg/dL Magnesium 2.7 H (1.6-2.3) mg/dL Microbiology - Last 24 Hours (Table) 10/04/16 09:55 Blood Culture - Preliminary Blood No Growth after 96 hours Assessment and Plan Plan: 1. Severe sepsis secondary to bilateral pseudomonal MDRO pneumonia, complicated by tracheostomy and recent rib fracture. Possible component of acute CHF exacerbation, in a patient with history of CHF, echo pending,. 2. Acute hypoxic respiratory failure secondary to pneumonia and. 3. [Acute on chronic hypercapnic respiratory failure secondary to acute exacerbation of COPD]. 4. [Acute renal failure]. 5. [Morbid Obesity, BMI 42.2]. 6. [Obstructive Sleep apnea, uses CPAP at home]. 7. [Ongoing nicotine abuse]. 8. PICC line placement pending. 9. Ascending aortic aneurysm per CXR 10. PE ruled out 11. Hepatic steatosis 12. Multifocal wedge-shaped consolidations compatible with multifocal subsegmental atelectasis per CT 13. Hepatic steatosis 14. Diabetes mellitus, uncontrolled on steroids, improving Plan: Continue on current medication regime, Merrem, steroids, nebulized bronchodilators. Aggressive pulmonary toileting. Nicotine/chewing tobacco cessation readdressed. Antibiotics as per ID. Increase ambulation as tolerated. Further recommendations to follow. The impression and plan of care has been dictated as directed. : I performed a H&P examination of this patient and discussed the same with the dictator. I agree with the dictator's note. Any additional findings/opinions/ etc. will be noted.
[2016-10-09 12:14] LABS: Glucose,Whole Blood 159 mg/dL (75-99)
[2016-10-09 17:10] LABS: Glucose,Whole Blood 141 mg/dL (75-99)
--- NOTE | 2016-10-09 20:13 | PN ---
This 56-year-old gentleman who was admitted with severe sepsis and Pseudomonas and pneumonia is being closely monitored. Patient is definitely improving, but still has multiple medical issues at this time. Continue with antibiotics. Please refer to the nurse practitioner's notes and impressions documented as a scribe for further information. Closely monitor. Prognosis guarded. Further recommendations to follow. PT, OT evaluation. Discharge plan will be home with home care versus ECF. Further recommendations to follow. MTDD
[2016-10-09 21:28] LABS: Glucose,Whole Blood 137 mg/dL (75-99)
--- NOTE | 2016-10-09 22:41 | P.PN ---
Subjective Principal diagnosis: Gram-negative pneumonia 56-year-old male that he has multiple medical troubles and includes a history of respiratory failure requiring tracheostomy. He apparently had difficulty with trauma to his sternum was taking care of recently. He was doing somewhat better however now presents with significant shortness of breath and wheezing. Computed tomography scan shows evidence of multifocal pneumonia. Which is a new finding. Patient is doing somewhat better this afternoon ALLERGIES had steroids and antibiotic therapy. He is not hypotensive responded well to fluid resuscitation Is able to communicate that he is feeling somewhat better this evening. He is much less short of breath. Wheezing is improved. Coughing is improved. He feels that his distress has resolved. He is denying significant fever, chill or rigor. He was able to ingest some nutrition, does not have a tube feed at this time. Tracheostomies in the place from difficulties with recent respiratory failure. Sitting upright eating his lunch. More calm today Less short of breath and improved overall. Objective - Vital Signs Vital signs: Vital Signs Temp 97.5 F L 10/09/16 15:00 Pulse 60 10/09/16 15:00 Resp 22 10/09/16 15:00 BP 134/74 10/09/16 15:00 Pulse Ox 96 10/09/16 15:00 Intake & Output 10/09/16 10/09/16 10/10/16 06:59 18:59 06:59 Intake Total 20 360 Output Total 0687 333 4313 Balance -1530 -540 -1200 Weight 160 kg Intake: IV 20 0.9 ns 20 Oral 360 Output: Urine 1524 087 0931 Other: Voiding Method Urinal # Voids 1 2 # Bowel Movements 1 0 - Exam 56-year-old male who has superobesity seems comfortable sitting up and eating without problem. HEENT: Anicteric conjunctiva are pink and moist nasal mucosa grossly intact without significant lesions, there is no thrush.tracheostomy scant purulent sputum Neck: The neck is supple without significant lymphadenopathy or thyromegaly. Lungs: Symmetrical air entry. Bibasilar crackles are heard. Scattered wheezing and crackles to the lung villalpando. Heart: Regular rate and rhythm with an audible S1-S2, no S3 positive S4 There is no significant murmur click or rub, PMI was nondisplaced. Abdomen:obese Positive bowel sounds soft and nontender without palpable masses or organomegaly. There was no guarding or rebound. Extremities: The upper extremities have excellent pulses they are symmetric, no significant petechiae or telangiectasia. No splinter hemorrhages were noted. lower extremities have evidence of the significant edema. No ulcerations are seen Neuro: Awake alert oriented to person place and time. There are no acute new gross focal sensory motor deficits.communicates by capping his tracheostomy. - Labs CBC & Chem 7: 10/09/16 08:33 10/09/16 08:33 Labs: Abnormal Lab Results - Last 24 Hours (Table) 10/09/16 10/09/16 10/09/16 Range/Units 01:58 07:18 08:33 MCV 107.1 H (80.0-100.0) fL Neutrophils # 9.3 H (1.3-7.7) k/uL Lymphocytes # 0.4 L (1.0-4.8) k/uL Chloride (98-107) mmol/L Carbon Dioxide (22-30) mmol/L BUN (9-20) mg/dL Glucose (74-99) mg/dL POC Glucose (mg/dL) 160 H 146 H (75-99) mg/dL Magnesium (1.6-2.3) mg/dL 10/09/16 10/09/16 10/09/16 Range/Units 08:33 11:59 16:59 MCV (80.0-100.0) fL Neutrophils # (1.3-7.7) k/uL Lymphocytes # (1.0-4.8) k/uL Chloride 97 L (98-107) mmol/L Carbon Dioxide 32 H (22-30) mmol/L BUN 33 H (9-20) mg/dL Glucose 211 H (74-99) mg/dL POC Glucose (mg/dL) 159 H 141 H (75-99) mg/dL Magnesium 2.7 H (1.6-2.3) mg/dL 10/09/16 Range/Units 21:10 MCV (80.0-100.0) fL Neutrophils # (1.3-7.7) k/uL Lymphocytes # (1.0-4.8) k/uL Chloride (98-107) mmol/L Carbon Dioxide (22-30) mmol/L BUN (9-20) mg/dL Glucose (74-99) mg/dL POC Glucose (mg/dL) 137 H (75-99) mg/dL Magnesium (1.6-2.3) mg/dL Microbiology - Last 24 Hours (Table) 10/04/16 09:55 Blood Culture - Preliminary Blood No Growth after 120 hours Laboratory Results WBC 10.1 k/uL (3.8-10.6) 10/09/16 08:33 RBC 4.52 m/uL (4.30-5.90) 10/09/16 08:33 Hgb 15.4 gm/dL (13.0-17.5) 10/09/16 08:33 Hct 48.4 % (39.0-53.0) 10/09/16 08:33 MCV 107.1 fL (80.0-100.0) H 10/09/16 08:33 MCH 34.0 pg (25.0-35.0) 10/09/16 08:33 MCHC 31.8 g/dL (31.0-37.0) 10/09/16 08:33 RDW 14.9 % (11.5-15.5) 10/09/16 08:33 Plt Count 181 k/uL (150-450) 10/09/16 08:33 Neutrophils % 92 % 10/09/16 08:33 Lymphocytes % 4 % 10/09/16 08:33 Monocytes % 3 % 10/09/16 08:33 Eosinophils % 0 % 10/09/16 08:33 Basophils % 0 % 10/09/16 08:33 Neutrophils # 9.3 k/uL (1.3-7.7) H 10/09/16 08:33 Lymphocytes # 0.4 k/uL (1.0-4.8) L 10/09/16 08:33 Monocytes # 0.4 k/uL (0-1.0) 10/09/16 08:33 Eosinophils # 0.0 k/uL (0-0.7) 10/09/16 08:33 Basophils # 0.0 k/uL (0-0.2) 10/09/16 08:33 Macrocytosis Moderate 10/09/16 08:33 PT 12.8 sec (9.0-12.0) H 10/07/16 08:51 INR 1.3 (<1.1) 10/07/16 08:51 APTT 22.8 sec (22.0-30.0) 10/04/16 05:48 D-Dimer 0.74 mg/L FEU (<0.60) H 10/04/16 07:20 Sodium 138 mmol/L (137-145) 10/09/16 08:33 Potassium 4.8 mmol/L (3.5-5.1) 10/09/16 08:33 Chloride 97 mmol/L (98-107) L 10/09/16 08:33 Carbon Dioxide 32 mmol/L (22-30) H 10/09/16 08:33 Anion Gap 9 mmol/L 10/09/16 08:33 BUN 33 mg/dL (9-20) H 10/09/16 08:33 Creatinine 0.77 mg/dL (0.66-1.25) 10/09/16 08:33 Est GFR (MDRD) Af Amer >60 (>60 ml/min/1.73 sqM) 10/09/16 08:33 Est GFR (MDRD) Non-Af >60 (>60 ml/min/1.73 sqM) 10/09/16 08:33 Glucose 211 mg/dL (74-99) H 10/09/16 08:33 POC Glucose (mg/dL) 137 mg/dL (75-99) H 10/09/16 21:10 POC Glu Spindle Carver Krystal Agrawal 10/09/16 21:[address] Glu mg/dL 143 mg/dL 10/05/16 04:10 Hemoglobin A1c 6.6 % (4.2-6.1) H 10/05/16 04:10 Plasma Lactic Acid Miguel Angel 1.6 mmol/L (0.7-2.0) 10/04/16 09:55 Calcium 9.2 mg/dL (8.4-10.2) 10/09/16 08:33 Phosphorus 3.9 mg/dL (2.5-4.5) 10/09/16 08:33 Magnesium 2.7 mg/dL (1.6-2.3) H 10/09/16 08:33 Total Bilirubin 1.3 mg/dL (0.2-1.3) 10/04/16 05:48 AST 103 U/L (17-59) H 10/04/16 05:48 ALT 60 U/L (21-72) 10/04/16 05:48 Alkaline Phosphatase 60 U/L (38-126) 10/04/16 05:48 Troponin I 0.030 ng/mL (0.000-0.034) 10/04/16 05:48 NT-Pro-B Natriuret Pep 582 pg/mL 10/04/16 05:48 Total Protein 8.3 g/dL (6.3-8.2) H 10/04/16 05:48 Albumin 4.2 g/dL (3.5-5.0) 10/04/16 05:48 Vitamin B12 524 pg/mL (239-931) 10/06/16 05:00 Urine Color Yellow 10/04/16 13:17 Urine Appearance Cloudy (Clear) 10/04/16 13:17 Urine pH 5.5 (5.0-8.0) 10/04/16 13:17 Ur Specific [place] >1.050 (1.001-1.035) H 10/04/16 13:17 Urine Protein 2+ (Negative) H 10/04/16 13:17 Urine Glucose (UA) Negative (Negative) 10/04/16 13:17 Urine Ketones Trace (Negative) H 10/04/16 13:17 Urine Blood Small (Negative) H 10/04/16 13:17 Urine Nitrite Negative (Negative) 10/04/16 13:17 Urine Bilirubin Negative (Negative) 10/04/16 13:17 Urine Urobilinogen <2.0 mg/dL (<2.0) 10/04/16 13:17 Ur Leukocyte Esterase Negative (Negative) 10/04/16 13:17 Urine RBC 61 /hpf (0-5) H 10/04/16 13:17 Urine WBC 6 /hpf (0-5) H 10/04/16 13:17 Ur Squamous Epith Cells <1 /hpf (0-4) 10/04/16 13:17 Calcium Oxalate Crystal Occasional /hpf (None) H 10/04/16 13:17 Hyaline Casts 13 /lpf (0-2) H 10/04/16 13:17 Granular Casts 5 /lpf (0) 10/04/16 13:17 Urine Mucus Rare /hpf (None) H 10/04/16 13:17 Influenza Type A RNA Not Detected (Not Detectd) 10/04/16 08:15 Influenza Type B (PCR) Not Detected (Not Detectd) 10/04/16 08:15 Microbiology 10/04/16 09:55 Blood Blood Culture - Preliminary No Growth after 120 hours 10/04/16 05:48 Blood Blood Culture - Preliminary No Growth after 120 hours 10/04/16 06:05 Sputum Gram Stain - Final 10/04/16 06:05 Sputum Sputum Culture - Final Pseudomonas aeruginosa Haemophilus influenzae 10/04/16 13:17 Urine,Catheterized Urine Culture - Final Assessment and Plan (1) Gram-negative pneumonia Narrative/Plan: 56-year-old male that has an extensive past medical history including respiratory failure requiring tracheostomy he is nonintensive care unit with evidence of multifocal pneumonia. Sputum Gram stain is a available and is evidence of several gram-negative pathogens. This time we await further data. Piperacillin tazobactam is being utilized in case her Pseudomonas pneumonia. There is also concerned there may have an aspiration event. These also would give coverage for this also. The culture is now finalized and pseudomonas has been isolated but it is resistant to piperacillin tazobactam. Constantly he is altered to meropenem appropriate dose of 1 g IV piggyback every 8 hours. The 2 weeks of this therapy. Will need IV access and outpatient IV antibiotic therapy which he has done in the past. PICC line to be done and IV antibioitics chocies given and will recive through [facility] . Computed tomography scan fails to reveal evidence of a pulmonary embolus. However there is evidence of the multifocal pneumonia. There is leukocytosis. Respiratory failure has also improved. He's had significant improvement on the medical floor. Likely discharge home tomorrow with his intravenous antibiotic therapy. Appropriate isolation is been started for the multidrug resistant pathogen. Status: Acute (2) Lactic acidosis Status: Acute (3) Tracheostomy in place Status: Acute
[2016-10-10] MEDS: methylPREDNISolone SOD SUCCI 125 MG/2 ML VIAL IV SCH ×5 (00:33→23:37)
[2016-10-10] MEDS: HEPARIN SODIUM,PORCINE 5,000 UNIT/ML 1 ML VIAL SQ SCH ×4 (00:36→23:41)
[2016-10-10] MEDS: MEROPENEM 500 MG in SODIUM CHLORIDE 0.9% 50 ML IVPB SCH ×3 (04:12→20:22)
[2016-10-10] MEDS: HYDROmorphone 1 MG/ML 1 ML SYRINGE IVP PRN ×5 (04:12→23:37)
[2016-10-10] MEDS: BUDESONIDE 0.5 MG/2 ML NEBU INHALATION SCH ×2 (07:30→19:21)
[2016-10-10] MEDS: IPRATROPIUM-ALBUTEROL 3 ML NEB INHALATION SCH ×4 (07:30→19:21)
[2016-10-10 07:41] LABS: Glucose,Whole Blood 141 mg/dL (75-99)
[2016-10-10] MEDS: NICOTINE 14MG/24HR PATCH TRANSDERM SCH (08:12)
[2016-10-10] MEDS: FAMOTIDINE 20 MG TAB PO SCH ×2 (08:13→20:22)
[2016-10-10] MEDS: INSULIN LISPRO (humaLOG) 300 UNIT/3 ML VIAL SQ SCH ×7 (08:13→21:47)
[2016-10-10] MEDS: MORPHINE SULFATE ER 15 MG TABLET PO SCH ×2 (08:23→21:48)
[2016-10-10] MEDS: MORPHINE SULFATE ER 30 MG TABLET PO SCH ×2 (08:23→21:47)
--- NOTE | 2016-10-10 11:21 | P.PN ---
Subjective This is a 56-year-old male being evaluated and examined today on the 4th floor. This patient is well-known to our services, is morbidly obese and has a permanent tracheostomy.. This patient was recently discharged from the hospital a few days ago with status post fall with sternal fractures and right- sided rib fractures. The patient also had a component of a pulmonary contusion and was stabilized with pain medications, breathing treatments, deep breathing exercises, incentive spirometry and was eventually discharged. Patient came back to the emergency room with increasing shortness of breath, cough and desaturations. Patient states he has been having some very thick secretions coming out from his tracheostomy tube with intermittent mucous plugs. Upon examination the patient is resting up on the side of the bed. He appears to be doing a lot better than previous. Patient continues on 70% trach collar. Prescription has been provided for home suction equipment. He continues to have secretions which are thick, however the amount has decreased. Patient is unable to cough up secretions and requires frequent suctioning. Patient states he is feeling much better today and would like to go home soon. Objective - Vital Signs Vital signs: Vital Signs Temp 96.3 F L 10/10/16 07:00 Pulse 56 L 10/10/16 10:11 Resp 22 10/10/16 07:00 BP 172/98 10/10/16 07:00 Pulse Ox 94 L 10/10/16 07:00 Intake & Output 10/09/16 10/10/16 10/10/16 18:59 06:59 18:59 Intake Total 360 Output Total 900 2200 1000 Balance -540 -2200 -1000 Intake: Oral 360 Output: Urine 900 2200 1000 Other: Voiding Method Urinal # Voids 0 # Bowel Movements 0 - Exam GENERAL EXAM: Alert, active, comfortable in no apparent distress. HEAD: Normocephalic. EYES: Normal reaction of pupils, equal size. NOSE: Clear with pink turbinates. THROAT: No erythema or exudates. Mallampati grade 4 NECK: No masses, no JVD. CHEST: No chest wall deformity. LUNGS:Bilaterally coarse and congested. His respiratory and expiratory wheezes and rhonchi noted throughout. CVS: S1 and S2 normal with no audible mumurs, regular rhythm. ABDOMEN: No hepatosplenomegaly, normal bowel sounds, no guarding or rigidity. EXTREMITIES: +1 edema noted, pedal pulses palpable. SKIN: No rashes CENTRAL NERVOUS SYSTEM: No focal deficits, tone is normal in all 4 extremities. - Labs CBC & Chem 7: 10/09/16 08:33 10/09/16 08:33 Labs: Abnormal Lab Results - Last 24 Hours (Table) 10/09/16 10/09/16 10/09/16 Range/Units 11:59 16:59 21:10 POC Glucose (mg/dL) 159 H 141 H 137 H (75-99) mg/dL 10/10/16 Range/Units 07:36 POC Glucose (mg/dL) 141 H (75-99) mg/dL Microbiology - Last 24 Hours (Table) 10/04/16 09:55 Blood Culture - Preliminary Blood No Growth after 120 hours Assessment and Plan Plan: Assessment Acute hypoxic respiratory failure Severe sepsis associated with acute hypoxic respiratory failure and bilateral pneumonia Pseudomonas MDRO pneumonia Septic shock, intravascular volume depletion and dehydration Obesity hypoventilation Obstructive sleep apnea Severe chronic obstructive pulmonary disease, emphysema Right-sided multiple rib fractures and mediastinal fracture Bilateral atelectasis more so on the left and some on the right side as well. Likely related to rib fractures, pneumonia and poor respiratory effort. Patient could be discharged home in the near future as patient has PICC line now and in-home care is being set up. Medications have been reviewed and will be continued. Continue with discharge planning. We will continue with the antibiotics as well as the breathing treatments and steroids. We will continue pulmonary hygiene, spirometer and supportive care. Patient continues on FiO2 of 70% on trach collar. Requires frequent suctioning. Prescription has been provided for home suction equipment. Recommend keeping oxygen saturations above 88% or higher. Education provided to the patient regarding importance of making sure trach collar is attached at all times. Patient was also educated on the fact that he cannot have tobacco chew and hospital. Patient is on nicotine patch. We will continue to monitor labs/results and adjust treatment as necessary. I performed an examination of the patient and discussed their management with the nurse practitioner. I have reviewed the nurse practitioner's note and agree with the documented findings and plan of care.
[2016-10-10 12:38] LABS: Glucose,Whole Blood 173 mg/dL (75-99)
[2016-10-10 17:20] LABS: Glucose,Whole Blood 199 mg/dL (75-99)
[2016-10-10 21:21] LABS: Glucose,Whole Blood 220 mg/dL (75-99)
--- NOTE | 2016-10-10 21:22 | PN ---
DATE OF SERVICE: 10/10/2016 This 56-year-old gentleman, admitted with severe sepsis and pseudomonas pneumonia also had H influenzae grown from the cultures. Seen and evaluated the patient along with the nurse practitioner. Please refer to the nurse practitioner's notes and impressions documented as a scribe for further information. Continue the bronchodilators. Continue with the antibiotics. Increase ambulation. Further recommendations to follow. IV antibiotics as outpatient. PICC line is in place.
[2016-10-10] MEDS: INSULIN GLARGINE 100 UNIT/ML 10 ML VIAL SQ SCH (21:47)
--- NOTE | 2016-10-10 23:46 | P.PN ---
Subjective Principal diagnosis: Gram-negative pneumonia 56-year-old male that he has multiple medical troubles and includes a history of respiratory failure requiring tracheostomy. He apparently had difficulty with trauma to his sternum was taking care of recently. He was doing somewhat better however now presents with significant shortness of breath and wheezing. Computed tomography scan shows evidence of multifocal pneumonia. Which is a new finding. Patient is doing somewhat better this afternoon ALLERGIES had steroids and antibiotic therapy. He is not hypotensive responded well to fluid resuscitation Is able to communicate that he is feeling somewhat better this evening. He is much less short of breath. Wheezing is improved. Coughing is improved. He feels that his distress has resolved. He is denying significant fever, chill or rigor. He was able to ingest some nutrition, does not have a tube feed at this time. Tracheostomies in the place from difficulties with recent respiratory failure. Sitting upright eating his lunch. More calm today Less short of breath and improved overall. Objective - Vital Signs Vital signs: Vital Signs Temp 97.7 F 10/10/16 14:50 Pulse 66 10/10/16 19:43 Resp 22 10/10/16 14:50 BP 127/78 10/10/16 14:50 Pulse Ox 86 L 10/10/16 19:55 Intake & Output 10/10/16 10/10/16 10/11/16 06:59 18:59 06:59 Intake Total 240 Output Total 2200 1900 Balance -2200 -1660 Intake: Oral 240 Output: Urine 2200 1900 Other: Voiding Method Urinal Urinal # Voids 0 # Bowel Movements 0 - Exam 56-year-old male who has superobesity seems comfortable sitting up and eating without problem. HEENT: Anicteric conjunctiva are pink and moist nasal mucosa grossly intact without significant lesions, there is no thrush.tracheostomy scant purulent sputum Neck: The neck is supple without significant lymphadenopathy or thyromegaly. Lungs: Symmetrical air entry. Bibasilar crackles are heard. Scattered wheezing and crackles to the lung villalpando. Heart: Regular rate and rhythm with an audible S1-S2, no S3 positive S4 There is no significant murmur click or rub, PMI was nondisplaced. Abdomen:obese Positive bowel sounds soft and nontender without palpable masses or organomegaly. There was no guarding or rebound. Extremities: The upper extremities have excellent pulses they are symmetric, no significant petechiae or telangiectasia. No splinter hemorrhages were noted. lower extremities have evidence of the significant edema. No ulcerations are seen Neuro: Awake alert oriented to person place and time. There are no acute new gross focal sensory motor deficits.communicates by capping his tracheostomy. - Labs CBC & Chem 7: 10/09/16 08:33 10/09/16 08:33 Labs: Abnormal Lab Results - Last 24 Hours (Table) 10/10/16 10/10/16 10/10/16 Range/Units 07:36 12:32 17:02 POC Glucose (mg/dL) 141 H 173 H 199 H (75-99) mg/dL 10/10/16 Range/Units 21:17 POC Glucose (mg/dL) 220 H (75-99) mg/dL Microbiology - Last 24 Hours (Table) 10/04/16 09:55 Blood Culture - Final Blood No Growth after 144 hours Laboratory Results WBC 10.1 k/uL (3.8-10.6) 10/09/16 08:33 RBC 4.52 m/uL (4.30-5.90) 10/09/16 08:33 Hgb 15.4 gm/dL (13.0-17.5) 10/09/16 08:33 Hct 48.4 % (39.0-53.0) 10/09/16 08:33 MCV 107.1 fL (80.0-100.0) H 10/09/16 08:33 MCH 34.0 pg (25.0-35.0) 10/09/16 08:33 MCHC 31.8 g/dL (31.0-37.0) 10/09/16 08:33 RDW 14.9 % (11.5-15.5) 10/09/16 08:33 Plt Count 181 k/uL (150-450) 10/09/16 08:33 Neutrophils % 92 % 10/09/16 08:33 Lymphocytes % 4 % 10/09/16 08:33 Monocytes % 3 % 10/09/16 08:33 Eosinophils % 0 % 10/09/16 08:33 Basophils % 0 % 10/09/16 08:33 Neutrophils # 9.3 k/uL (1.3-7.7) H 10/09/16 08:33 Lymphocytes # 0.4 k/uL (1.0-4.8) L 10/09/16 08:33 Monocytes # 0.4 k/uL (0-1.0) 10/09/16 08:33 Eosinophils # 0.0 k/uL (0-0.7) 10/09/16 08:33 Basophils # 0.0 k/uL (0-0.2) 10/09/16 08:33 Macrocytosis Moderate 10/09/16 08:33 PT 12.8 sec (9.0-12.0) H 10/07/16 08:51 INR 1.3 (<1.1) 10/07/16 08:51 APTT 22.8 sec (22.0-30.0) 10/04/16 05:48 D-Dimer 0.74 mg/L FEU (<0.60) H 10/04/16 07:20 Sodium 138 mmol/L (137-145) 10/09/16 08:33 Potassium 4.8 mmol/L (3.5-5.1) 10/09/16 08:33 Chloride 97 mmol/L (98-107) L 10/09/16 08:33 Carbon Dioxide 32 mmol/L (22-30) H 10/09/16 08:33 Anion Gap 9 mmol/L 10/09/16 08:33 BUN 33 mg/dL (9-20) H 10/09/16 08:33 Creatinine 0.77 mg/dL (0.66-1.25) 10/09/16 08:33 Est GFR (MDRD) Af Amer >60 (>60 ml/min/1.73 sqM) 10/09/16 08:33 Est GFR (MDRD) Non-Af >60 (>60 ml/min/1.73 sqM) 10/09/16 08:33 Glucose 211 mg/dL (74-99) H 10/09/16 08:33 POC Glucose (mg/dL) 220 mg/dL (75-99) H 10/10/16 21:17 POC Glu Stretcher Helper CHERRIE Renee Awan 10/10/16 21:[address] Glu mg/dL 143 mg/dL 10/05/16 04:10 Hemoglobin A1c 6.6 % (4.2-6.1) H 10/05/16 04:10 Plasma Lactic Acid Miguel Angel 1.6 mmol/L (0.7-2.0) 10/04/16 09:55 Calcium 9.2 mg/dL (8.4-10.2) 10/09/16 08:33 Phosphorus 3.9 mg/dL (2.5-4.5) 10/09/16 08:33 Magnesium 2.7 mg/dL (1.6-2.3) H 10/09/16 08:33 Total Bilirubin 1.3 mg/dL (0.2-1.3) 10/04/16 05:48 AST 103 U/L (17-59) H 10/04/16 05:48 ALT 60 U/L (21-72) 10/04/16 05:48 Alkaline Phosphatase 60 U/L (38-126) 10/04/16 05:48 Troponin I 0.030 ng/mL (0.000-0.034) 10/04/16 05:48 NT-Pro-B Natriuret Pep 582 pg/mL 10/04/16 05:48 Total Protein 8.3 g/dL (6.3-8.2) H 10/04/16 05:48 Albumin 4.2 g/dL (3.5-5.0) 10/04/16 05:48 Vitamin B12 524 pg/mL (239-931) 10/06/16 05:00 Urine Color Yellow 10/04/16 13:17 Urine Appearance Cloudy (Clear) 10/04/16 13:17 Urine pH 5.5 (5.0-8.0) 10/04/16 13:17 Ur Specific [place] >1.050 (1.001-1.035) H 10/04/16 13:17 Urine Protein 2+ (Negative) H 10/04/16 13:17 Urine Glucose (UA) Negative (Negative) 10/04/16 13:17 Urine Ketones Trace (Negative) H 10/04/16 13:17 Urine Blood Small (Negative) H 10/04/16 13:17 Urine Nitrite Negative (Negative) 10/04/16 13:17 Urine Bilirubin Negative (Negative) 10/04/16 13:17 Urine Urobilinogen <2.0 mg/dL (<2.0) 10/04/16 13:17 Ur Leukocyte Esterase Negative (Negative) 10/04/16 13:17 Urine RBC 61 /hpf (0-5) H 10/04/16 13:17 Urine WBC 6 /hpf (0-5) H 10/04/16 13:17 Ur Squamous Epith Cells <1 /hpf (0-4) 10/04/16 13:17 Calcium Oxalate Crystal Occasional /hpf (None) H 10/04/16 13:17 Hyaline Casts 13 /lpf (0-2) H 10/04/16 13:17 Granular Casts 5 /lpf (0) 10/04/16 13:17 Urine Mucus Rare /hpf (None) H 10/04/16 13:17 Influenza Type A RNA Not Detected (Not Detectd) 10/04/16 08:15 Influenza Type B (PCR) Not Detected (Not Detectd) 10/04/16 08:15 Microbiology 10/04/16 09:55 Blood Blood Culture - Final No Growth after 144 hours 10/04/16 05:48 Blood Blood Culture - Final No Growth after 144 hours 10/04/16 06:05 Sputum Gram Stain - Final 10/04/16 06:05 Sputum Sputum Culture - Final Pseudomonas aeruginosa Haemophilus influenzae 10/04/16 13:17 Urine,Catheterized Urine Culture - Final Assessment and Plan (1) Gram-negative pneumonia Narrative/Plan: 56-year-old male that has an extensive past medical history including respiratory failure requiring tracheostomy he is nonintensive care unit with evidence of multifocal pneumonia. Sputum Gram stain is a available and is evidence of several gram-negative pathogens. This time we await further data. Piperacillin tazobactam is being utilized in case her Pseudomonas pneumonia. There is also concerned there may have an aspiration event. These also would give coverage for this also. The culture is now finalized and pseudomonas has been isolated but it is resistant to piperacillin tazobactam. Constantly he is altered to meropenem appropriate dose of 1 g IV piggyback every 8 hours. The 2 weeks of this therapy. Will need IV access and outpatient IV antibiotic therapy which he has done in the past. PICC line to be done and IV antibioitics through [facility] Computed tomography scan fails to reveal evidence of a pulmonary embolus. However there is evidence of the multifocal pneumonia. There is leukocytosis. Respiratory failure has also improved. He's had significant improvement on the medical floor. Likely discharge home tomorrow with his intravenous antibiotic therapy. Merrem to complete 14 days .Appropriate isolation is been started for the multidrug resistant pathogen. Status: Acute (2) Lactic acidosis Status: Acute (3) Tracheostomy in place Status: Acute
[2016-10-11] MEDS: HYDROmorphone 1 MG/ML 1 ML SYRINGE IVP PRN ×4 (02:00→12:13)
[2016-10-11] MEDS: MEROPENEM 500 MG in SODIUM CHLORIDE 0.9% 50 ML IVPB SCH ×2 (03:37→12:05)
[2016-10-11] MEDS: methylPREDNISolone SOD SUCCI 125 MG/2 ML VIAL IV SCH ×2 (06:30→12:05)
[2016-10-11] MEDS: IPRATROPIUM-ALBUTEROL 3 ML NEB INHALATION SCH ×2 (07:03→11:00)
[2016-10-11] MEDS: BUDESONIDE 0.5 MG/2 ML NEBU INHALATION SCH (07:03)
[2016-10-11 07:45] LABS: Glucose,Whole Blood 153 mg/dL (75-99)
[2016-10-11 08:00] VITALS: BP 162/79; PULSE 55; RESP 20; TEMP 98.1
[2016-10-11] MEDS: INSULIN LISPRO (humaLOG) 300 UNIT/3 ML VIAL SQ SCH ×4 (08:15→12:35)
[2016-10-11] MEDS: NICOTINE 14MG/24HR PATCH TRANSDERM SCH (08:15)
[2016-10-11] MEDS: FAMOTIDINE 20 MG TAB PO SCH (08:16)
[2016-10-11] MEDS: HEPARIN SODIUM,PORCINE 5,000 UNIT/ML 1 ML VIAL SQ SCH (08:16)
[2016-10-11] MEDS: MORPHINE SULFATE ER 15 MG TABLET PO SCH (08:27)
[2016-10-11] MEDS: MORPHINE SULFATE ER 30 MG TABLET PO SCH (08:27)
--- NOTE | 2016-10-11 09:06 | P.PN ---
Subjective Date of service 10/10/2016. Progress note being dictated for Dr. Knutson. Interval history: This a 56-year-old gentleman admitted with acute hypoxic respiratory failure secondary to bilateral pneumonia with Pseudomonas, H influenza. Maintained on Meropenem as per infectious disease via PICC line. Able to clear her own secretions regularly with infrequent suctioning. He ambulated in hallway on room air, maintaining O2 sats of 91%. Post-ambulation at rest though patient did desat down to 86%, requiring reapplication of oxygen. Denies chest pain, palpitations or increasing shortness of breath. Objective - Vital Signs Vital signs: Vital Signs Temp 97.7 F 10/10/16 14:50 Pulse 62 10/10/16 16:51 Resp 22 10/10/16 14:50 BP 127/78 10/10/16 14:50 Pulse Ox 96 10/10/16 14:50 Intake & Output 10/09/16 10/10/16 10/10/16 18:59 06:59 18:59 Intake Total 360 240 Output Total 900 2200 1900 Balance -540 -2200 -1660 Intake: Oral 360 240 Output: Urine 900 2200 1900 Other: Voiding Method Urinal # Voids 0 # Bowel Movements 0 - Exam PHYSICAL EXAM: VITAL SIGNS: As above GENERAL: [Sitting up at bedside, no acute distress HEENT: [Pupils equal conjunctiva normal. No conjunctival pallor. NECK: [Supple, no JVD] RESPIRATORY EFFORT:[Increased] LUNGS: [Rhonchorous throughout with improving , occasional scattered expiratory wheezing with fine bibasilar crackles CARDIOVASCULAR[regular S1 and S2, no murmurs rubs or gallops, positive edema] GI: [Abdomen soft,nondistended, nontender, positive bowel sounds. No guarding, no rigidity] PSYCH: [Alert and oriented -3, mood and affect normal.] NEURO: [No focal deficits] - Labs CBC & Chem 7: 10/09/16 08:33 10/09/16 08:33 Labs: Abnormal Lab Results - Last 24 Hours (Table) 10/09/16 10/10/16 10/10/16 Range/Units 21:10 07:36 12:32 POC Glucose (mg/dL) 137 H 141 H 173 H (75-99) mg/dL 10/10/16 Range/Units 17:02 POC Glucose (mg/dL) 199 H (75-99) mg/dL Microbiology - Last 24 Hours (Table) 10/04/16 09:55 Blood Culture - Final Blood No Growth after 144 hours Assessment and Plan Plan: 1. Severe sepsis secondary to bilateral pseudomonal MDRO pneumonia, H influenza complicated by tracheostomy and recent rib fracture. Possible component of acute on chronic CHF exacerbation, diastolic dysfunction, EF 55-60% . 2. Acute hypoxic respiratory failure secondary to pneumonia and. 3. [Acute on chronic hypercapnic respiratory failure secondary to acute exacerbation of COPD]. 4. [Acute renal failure]. 5. [Morbid Obesity, BMI 42.2]. 6. [Obstructive Sleep apnea, uses CPAP at home]. 7. [Ongoing nicotine abuse]. 8. PICC line placement pending. 9. Ascending aortic aneurysm per CXR 10. PE ruled out 11. Hepatic steatosis 12. Multifocal wedge-shaped consolidations compatible with multifocal subsegmental atelectasis per CT 13. Hepatic steatosis 14. Diabetes mellitus, uncontrolled on steroids, improving Plan: Continue on current medication regime, Merrem, steroids, nebulized bronchodilators. Discharge planning in progress for tomorrow . Nicotine/ chewing tobacco cessation readdressed. Antibiotics as per ID. Increase ambulation as tolerated. Further recommendations to follow. The impression and plan of care has been dictated as directed. : I performed a H&P examination of this patient and discussed the same with the dictator. I agree with the dictator's note. Any additional findings/opinions/ etc. will be noted.
[2016-10-11 10:06] LABS: Basophils % (A) 0 %; CH 34.3; CHCM 32.4; Eosinophils # (A) 0.1 k/uL (0-0.7); Eosinophils % (A) 1 %; HCT 46.7 % (39.0-53.0); HDW 2.23; HGB 15.3 gm/dL (13.0-17.5); Luc # (Auto) 0.04; Luc % (Auto) 0; Lymphocytes # (A) 0.3 k/uL (1.0-4.8); Lymphocytes % (A) 2 %; MCH 34.8 pg (25.0-35.0); MCHC 32.8 g/dL (31.0-37.0); MCV 106.1 fL (80.0-100.0); Macrocytosis Moderate; Mean Platelet Volume 7.3; Monocytes # (A) 0.4 k/uL (0-1.0); Monocytes % (A) 3 %; Neutrophils # (A) 10.6 k/uL (1.3-7.7); Neutrophils % (A) 93 %; RDW 14.8 % (11.5-15.5); WBC 11.4 k/uL (3.8-10.6); WBC (Perox) 11.79
[2016-10-11 10:21] LABS: Anion Gap 7 mmol/L; Blood Urea Nitrogen 29 mg/dL (9-20); Calcium 9.1 mg/dL (8.4-10.2); Carbon Dioxide 37 mmol/L (22-30); Chloride 92 mmol/L (98-107); Glucose 283 mg/dL (74-99); Non-African American GFR(MDRD) >60 (>60 ml/min/1.73 sqM); Potassium 4.5 mmol/L (3.5-5.1); Sodium 136 mmol/L (137-145)
[2016-10-11 12:09] LABS: Glucose,Whole Blood 137 mg/dL (75-99)
--- NOTE | 2016-10-11 13:11 | P.PN ---
Subjective This is a 56-year-old male being evaluated and examined today on the 4th floor. This patient is well-known to our services, is morbidly obese and has a permanent tracheostomy.. This patient was recently discharged from the hospital a few days ago with status post fall with sternal fractures and right- sided rib fractures. The patient also had a component of a pulmonary contusion and was stabilized with pain medications, breathing treatments, deep breathing exercises, incentive spirometry and was eventually discharged. Patient came back to the emergency room with increasing shortness of breath, cough and desaturations. Patient states he has been having some very thick secretions coming out from his tracheostomy tube with intermittent mucous plugs. Upon examination the patient is resting up on the side of the bed. He appears to be doing a lot better than previous. Prescription has been provided for home suction equipment. He continues to have secretions which are thick, however the amount has decreased. Patient is unable to cough up secretions and requires frequent suctioning. Patient states he is feeling much better today and would like to go home soon. Patient was able to ambulate in the [place] on room air and maintained oxygen saturations of 91% or higher. Objective - Vital Signs Vital signs: Vital Signs Temp 98.1 F 10/11/16 07:00 Pulse 64 10/11/16 07:15 Resp 20 10/11/16 07:00 BP 162/79 10/11/16 07:00 Pulse Ox 91 L 10/11/16 07:00 Intake & Output 10/10/16 10/11/16 10/11/16 18:59 06:59 18:59 Intake Total 240 200 240 Output Total 1900 1400 Balance -1660 -1200 240 Intake: Oral 240 200 240 Output: Urine 1900 1400 Other: Voiding Method Urinal Urinal Urinal - Exam GENERAL EXAM: Alert, active, comfortable in no apparent distress. HEAD: Normocephalic. EYES: Normal reaction of pupils, equal size. NOSE: Clear with pink turbinates. THROAT: No erythema or exudates. Mallampati grade 4 NECK: No masses, no JVD. CHEST: No chest wall deformity. LUNGS:Bilaterally coarse and congested. His respiratory and expiratory wheezes and rhonchi noted throughout. CVS: S1 and S2 normal with no audible mumurs, regular rhythm. ABDOMEN: No hepatosplenomegaly, normal bowel sounds, no guarding or rigidity. EXTREMITIES: +1 edema noted, pedal pulses palpable. SKIN: No rashes CENTRAL NERVOUS SYSTEM: No focal deficits, tone is normal in all 4 extremities. - Labs CBC & Chem 7: 10/11/16 09:45 10/11/16 09:45 Labs: Abnormal Lab Results - Last 24 Hours (Table) 10/10/16 10/10/16 10/11/16 Range/Units 17:02 21:17 07:36 WBC (3.8-10.6) k/uL MCV (80.0-100.0) fL Neutrophils # (1.3-7.7) k/uL Lymphocytes # (1.0-4.8) k/uL Sodium (137-145) mmol/L Chloride (98-107) mmol/L Carbon Dioxide (22-30) mmol/L BUN (9-20) mg/dL Glucose (74-99) mg/dL POC Glucose (mg/dL) 199 H 220 H 153 H (75-99) mg/dL 10/11/16 10/11/16 10/11/16 Range/Units 09:45 09:45 12:07 WBC 11.4 H (3.8-10.6) k/uL MCV 106.1 H (80.0-100.0) fL Neutrophils # 10.6 H (1.3-7.7) k/uL Lymphocytes # 0.3 L (1.0-4.8) k/uL Sodium 136 L (137-145) mmol/L Chloride 92 L (98-107) mmol/L Carbon Dioxide 37 H (22-30) mmol/L BUN 29 H (9-20) mg/dL Glucose 283 H (74-99) mg/dL POC Glucose (mg/dL) 137 H (75-99) mg/dL Microbiology - Last 24 Hours (Table) 10/04/16 09:55 Blood Culture - Final Blood No Growth after 144 hours Assessment and Plan Plan: Assessment Acute hypoxic respiratory failure Severe sepsis associated with acute hypoxic respiratory failure and bilateral pneumonia Pseudomonas MDRO pneumonia Septic shock, intravascular volume depletion and dehydration Obesity hypoventilation Obstructive sleep apnea Severe chronic obstructive pulmonary disease, emphysema Right-sided multiple rib fractures and mediastinal fracture Bilateral atelectasis more so on the left and some on the right side as well. Likely related to rib fractures, pneumonia and poor respiratory effort. Patient could be discharged home in the near future as patient has PICC line now and in-home care is being set up. Patient is cleared for discharge from a pulmonary standpoint. Medications have been reviewed and will be continued. Continue with discharge planning. We will continue with the antibiotics as well as the breathing treatments and steroids. We will continue pulmonary hygiene, spirometer and supportive care. Patient was able to ambulate in the [place] on room air and maintained his oxygen saturations 91 and above. Requires frequent suctioning. Prescription has been provided for home suction equipment. Recommend keeping oxygen saturations above 88% or higher. Smoking cessation discussed at length. Patient is on nicotine patch. We will continue to monitor labs/results and adjust treatment as necessary. I performed an examination of the patient and discussed their management with the nurse practitioner. I have reviewed the nurse practitioner's note and agree with the documented findings and plan of care.
[2016-10-11 14:34] VITALS: BMI 44.1
--- NOTE | 2016-10-11 14:35 | DS ---
DATE OF ADMISSION: 10/04/2016 DATE OF DISCHARGE: FINAL DIAGNOSES: 1. Severe sepsis secondary to bilateral pseudomonas pneumonia MDRP with H-influenza complicated by tracheostomy and as well as recent rib fracture. 2. Possible acute on chronic congestive heart failure acute exacerbation, ejection fraction 55% to 60% with acute on chronic diastolic dysfunction. 3. Acute hypoxic respiratory failure secondary to pneumonia. 4. Chronic obstructive pulmonary disease acute exacerbation, with acute on chronic hypercapnic hypoxic respiratory failure. 5. Acute renal failure, possibly prerenal, acute tubular necrosis. 6. Morbid obesity, body mass index 42.2. 7. History of sleep apnea, CPAP at home. 8. Continued ongoing nicotine dependence. 9. PICC line placement. 10. Ascending aortic aneurysm on chest x-ray, pulmonary embolism ruled out. 11. Hepatic steatosis, multifocal wedge-shaped consolidations compatible with multiple episodes of atelectasis per CT. 12. Hepatic steatosis. 13. Diabetes mellitus type 2, uncontrolled on steroids. 14. FULL CODE. DISCHARGE DISPOSITION: The patient will be discharged in a stable condition with guarded prognosis. Total time taken is 40 minutes. This is a 56-year-old gentleman with a past medical history of multiple medical problems was admitted with pneumonia, sepsis, some multiple complex medical issues. The patient followed with Dr. Ferro in the outpatient setting. Dr. King saw the patient during the hospitalization, bronchodilators were given and Infectious Disease also saw the patient and care was coordinated. On exam, vitals are stable. CARDIOVASCULAR SYSTEM: S1, S2. RESPIRATORY SYSTEM: A few scattered rhonchi. ABDOMEN: Soft, nontender, tracheostomy percent. The patient also recommended rehab at this time. The patient would like to return home and continue to monitor. Home care is also. Discharge advice: 1. Diet is cardiac. 2. Activity limited until followup. 3. Follow up with Dr. Ferro in 2 to 3 days. 4. Follow up with Dr. King as advised. 5. Home care. MEDICATIONS: 1. Albuterol and Atrovent updrafts q.i.d. and p.r.n. 2. Prozac 40 mg p.o. daily. 3. Pepcid 20 mg p.o. b.i.d. 4. Lantus 10 units subQ q.h.s. 5. Accu-Cheks a.c. and at bedtime to be sent to Dr. Ferro. 6. Hold insulin if the Accu-Chek less than 120. 7. Zestril 2.5 mg daily. 8. Meropenem 1 gm IV q.8 for [address] Kaur. 9. PICC line care. 10. Toprol-XL 25 mg p.o. daily. 11. Morphine sulfate 30 mg p.o. b.i.d. 12. MS Contin 50 mg p.o. b.i.d. as at home. 13. Habitrol 14 daily. 14. Zocor 80 mg q.h.s. 15. Prednisone taper so that will be 40 mg daily for 3 days; 30 mg for 3 days; 20 mg for 3 days; 10 mg for 3 days. 16. Pulmicort 1 mg b.i.d. MTDD
--- NOTE | 2016-10-18 12:57 | IR ---
PICC LINE PLACEMENT: HISTORY: Infection requiring long-term antibiotic therapy PROCEDURE: Ultrasound guidance of PICC line placement. COMPLICATIONS: None ANESTHESIA: 1. 1% Lidocaine locally. FINDINGS/TECHNIQUE: The procedure was explained to the patient. The risks, complications, benefits and alternatives were discussed and any questions were answered. Informed consent was obtained. The patient was placed supine on the fluoroscopic table and prepped and draped in the usual sterile fas ion. Utilizing a 21 gauge needle and sonographic guidance, access in the left basilic vein was achi eved and there is placement of a 0.018 guidewire. The vein is patent. A 5-F. sheath was placed over the guidewire. The guidewire and dilator were removed and a 5-F. Double lumen PICC line was placed through the sheath with the chest x-ray confirming the tip at the level of the SVC. The sheath was r emoved, the catheter was flushed and sutured into position. The patient was stable throughout the pr ocedure and remained stable upon discharge from the Department of Radiology. The vein puncture was patent under ultrasound. A rojas scale image was obtained to document patency of the vein punctured. All elements of the maximal barrier technique were utilized. IMPRESSION: 1. Successful PICC line placement under ultrasound performed bedside.
== END 2016-10-11 14:53 | disposition home health service (06) | DRG 871 ==
LOC: EC 05:35 → 6ICU 07:41 → 4MS4W 10-08 20:34
PROVIDERS: ADMIT Hospitalist; ATTEND Hospitalist
PROC: 02HV33Z Insertion of Infusion Device into Superior Vena Cava, Percutaneous Approach (ICD-10-PCS; principal; 2016-10-07 12:30)
PROC: B548ZZA Ultrasonography of Superior Vena Cava, Guidance (ICD-10-PCS; principal; 2016-10-07 12:30)
DX: A41.9 Sepsis, unspecified organism (principal); J96.21 Acute and chronic respiratory failure with hypoxia; N17.0 Acute kidney failure with tubular necrosis; R65.21 Severe sepsis with septic shock; J69.0 Pneumonitis due to inhalation of food and vomit; S27.329A Contusion of lung, unspecified, initial encounter; Z93.0 Tracheostomy status; T17.990A Other foreign object in respiratory tract, part unspecified in causing asphyxiation, initial encounter; J15.1 Pneumonia due to Pseudomonas; J15.6 Pneumonia due to other Gram-negative bacteria; J96.22 Acute and chronic respiratory failure with hypercapnia; I50.33 Acute on chronic diastolic (congestive) heart failure; J44.0 Chronic obstructive pulmonary disease with (acute) lower respiratory infection; E66.2 Morbid (severe) obesity with alveolar hypoventilation; E87.2 Acidosis; J44.1 Chronic obstructive pulmonary disease with (acute) exacerbation; Z68.41 Body mass index [BMI] 40.0-44.9, adult; S22.49XA Multiple fractures of ribs, unspecified side, initial encounter for closed fracture; I11.0 Hypertensive heart disease with heart failure; I27.2 Other secondary pulmonary hypertension; E11.65 Type 2 diabetes mellitus with hyperglycemia; E78.5 Hyperlipidemia, unspecified; E86.0 Dehydration; E87.5 Hyperkalemia; F10.10 Alcohol abuse, uncomplicated; F12.10 Cannabis abuse, uncomplicated; F14.10 Cocaine abuse, uncomplicated; F17.200 Nicotine dependence, unspecified, uncomplicated; F39 Unspecified mood [affective] disorder; G40.909 Epilepsy, unspecified, not intractable, without status epilepticus; G47.33 Obstructive sleep apnea (adult) (pediatric); G89.4 Chronic pain syndrome; K76.0 Fatty (change of) liver, not elsewhere classified; T38.0X5A Adverse effect of glucocorticoids and synthetic analogues, initial encounter; Z16.24 Resistance to multiple antibiotics; Z79.899 Other long term (current) drug therapy; Z82.49 Family history of ischemic heart disease and other diseases of the circulatory system; Z86.711 Personal history of pulmonary embolism; Z86.718 Personal history of other venous thrombosis and embolism; I71.2 Thoracic aortic aneurysm, without rupture
CPT/HCPCS: 36415; 36569; 71010; 71275; 76937; 80048; 80053; 81001; 82607; 83036; 83605; 83735; 83880; 84100; 84484; 85025; 85379; 85610; 85730; 87040; 87070; 87077; 87086; 87186; 87205; 87502; 93005; 93970; 94640; 94760; 96361; 96365; 96366; 96367; 96375; 96376; 99285

== ENCOUNTER 2017-10-14 11:47 | Day surgery (SDC) | payer MEDICARE, OTHER ==
[2017-10-13 09:18] VITALS: BMI 37.5
[~2017-10-14 11:47] MED LIST: ALBUTEROL NEB (CONC) 2.5 MG/0.5 ML INHALATION ONE; LACTATED RINGERS 1,000 ML IV ONE; LACTATED RINGERS 1,000 ML IV SCH; LIDOCAINE 1% 20 ML VIAL (10MG/ML) FOR IV START INTRADERMA PRN; LIDOCAINE 2% (PF) 20 MG/ML 2 ML AMP INHALATION ONE; Pre Op ABX Message 1 EACH MISC MISCELLANE ONE
[2017-10-14 12:21] VITALS: TEMP 98.2
[2017-10-14 12:29] LABS: Glucose,Whole Blood 112 mg/dL (75-99)
[2017-10-14] MEDS ORDERED: KETAMINE 10 MG/ML 20 ML VIAL ONE (12:48)
[2017-10-14] MEDS ORDERED: PROPOFOL 10 MG/ML 20 ML VIAL IV ONE (12:48)
[2017-10-14] MEDS ORDERED: GLYCOPYRROLATE 0.2 MG/ML 2 ML VIAL ONE (12:48)
[2017-10-14] MEDS ORDERED: LIDOCAINE 1% INJ 10MG/ML (20 ML MDV) ONE (12:48)
[2017-10-14] MEDS ORDERED: MIDAZOLAM 2 MG/2 ML VIAL ONE (12:48)
--- NOTE | 2017-10-14 13:51 | P.PCN ---
Date of Procedure: 10/14/17 Preoperative Diagnosis: Recurrent tracheobronchitis, pneumonia, mucous plugs, chronic respiratory failure, obesity hypoventilation syndrome with severe degree of obstructive sleep apnea is status post tracheostomy, occlusion of tracheostomy to Postoperative Diagnosis: Purulent tracheobronchitis, bilateral mucous plug, pneumonia, extensive granulation tissue at tracheostomy site partly occluding the lumen Procedure(s) Performed: #1 Bronchoscopy, #2 bronchoalveolar lavage of right lower lobe, left lower lobe , #3 tracheostomy changed Anesthesia: local, other Surgeon: Jacques King Disposition: same day Indications for Procedure: Recurrent tracheobronchitis, tracheostomy changed, cough shortness of breath and purulent sputum production Operative Findings: As below Description of Procedure: Patient prepared and draped in a usual fashion, informed consent obtained from the patient, fiberoptic bronchoscope was passed through the existing Shiley tracheostomy granulation tissue was noted to be present at the distal stoma, extensive allow amount of mucous plug and purulent secretion was seen in the trachea as well as bilaterally in lower segmental area. Tip of the scope was wedged in the right lower lobe BAL was performed followed by BAL of the left lower lobe patient tolerated procedure well the the bronchoscope was withdrawn. New #8 Shiley XLT proximal was prepared and old tracheostomy was removed the new tracheostomy tube was placed without any difficulty in her cannula was placed the position of tracheostomy was confirmed with the bronchoscope into trachea in adequate position, patient tolerated procedure well no complication noted the new tracheostomy anchored with new trach collars
--- NOTE | 2017-10-14 14:19 | XR ---
EXAMINATION TYPE: XR chest 1V portable DATE OF EXAM: 10/14/2017 Comparison: 10/09/2016 Clinical History: 57-year-old male S/P BRONCHOSCOPY Findings: Heart remains enlarged. Diffuse interstitial prominence. Underpenetrated, limited exam. Strandy atele ctasis right base. No definite pneumothorax. There seems to be improvement of the previous effusions. Impression: Suboptimal, underpenetrated portable exam. There is cardiomegaly with continued interstitial changes, possible CHF with pulmonary vascular congestion. Improvement in the previous small effusion.
[2017-10-14 14:39] VITALS: BP 113/71; PULSE 72; RESP 18
== END 2017-10-14 15:01 | disposition home or self-care (01) ==
LOC: ORWHC2ENDO 11:47
PROVIDERS: ATTEND Internal Medicine Sleep Medicine
DX: J41.1 Mucopurulent chronic bronchitis (principal); J18.9 Pneumonia, unspecified organism; J96.10 Chronic respiratory failure, unspecified whether with hypoxia or hypercapnia; J95.09 Other tracheostomy complication; I10 Essential (primary) hypertension; E78.5 Hyperlipidemia, unspecified; G47.33 Obstructive sleep apnea (adult) (pediatric); Z99.89 Dependence on other enabling machines and devices; Z86.718 Personal history of other venous thrombosis and embolism; E11.9 Type 2 diabetes mellitus without complications; Z79.4 Long term (current) use of insulin; Z79.891 Long term (current) use of opiate analgesic; Z79.51 Long term (current) use of inhaled steroids; Z79.899 Other long term (current) drug therapy
CPT/HCPCS: 87798 ×3; 87496; 87498; 87529; 88108; 88305; 87252; 87502; 87634; 87070; 87205; 87116; 87102; 87206; 71045; 31502; 31624; J2250; J2001; J2704

== ENCOUNTER → 2019-03-26 | Outpatient (CLI) | payer MEDICARE, OTHER ==
--- NOTE | 2019-03-27 11:05 | MR ---
EXAMINATION TYPE: MR brain wo con DATE OF EXAM: 03/26/2019 7:59 PM COMPARISON: NONE HISTORY: Epilepsy, fall FINDINGS: The ventricles, basal cisterns and sulci overlying the cerebral convexities are mildly enlarged. There is evidence of mild periventricular white matter ischemic demyelination. Remote deep white matter insults are also noted. No acute edema is seen on diffusion weighted imaging. There is no evidence for midline shift or mass effect. Acute intracranial hemorrhage or extra-axial collection is not evident. The paranasal sinuses and mastoid air cells are well-aerated. IMPRESSION: Age-related atrophic and chronic small vessel ischemic change. No acute intracranial process at this time.
== END | disposition home or self-care (01) ==
LOC: RADMRIMAIN 18:49
PROVIDERS: ATTEND Family Medicine
DX: G31.1 Senile degeneration of brain, not elsewhere classified (principal); G40.309 Generalized idiopathic epilepsy and epileptic syndromes, not intractable, without status epilepticus
CPT/HCPCS: 70551

== ENCOUNTER → 2019-06-17 | Outpatient (CLI) | payer MEDICARE ==
--- NOTE | 2019-06-17 15:43 | CT ---
EXAMINATION TYPE: CT abdomen pelvis wo con DATE OF EXAM: 06/17/2019 COMPARISON: 12/12/2015 HISTORY: 58-year-old male Low back pain, abdominal pain. CT DLP: 1494.5 mGycm. Automated exposure control for dose reduction was used. TECHNIQUE: Contiguous axial scanning of the abdomen and pelvis without IV contrast. Coronal and sagit heather reconstructions performed. FINDINGS: Heart is borderline enlarged without pericardial effusion. Bands of atelectasis or scarring at the ri ght greater than left lung bases. No pleural effusion. Noncontrast appearance of the liver, gallbladder, adrenal glands, right kidney with extrarenal pelvis , spleen, and pancreas shows no gross adenopathy. Redemonstrated 2 calculi within the lower pole of the left kidney measuring up to 1 cm. Mild left-sided pelvocaliectasis shows further improvement from 12/12/2015. No dilatation of the urete rs. Prominent gastrohepatic ligament lymph node measures up to 1.2 cm but is unchanged from 2016 suggesti ng a chronic postinflammatory etiology. Same with a prominent 1.4 cm portacaval lymph node. Otherwise , scattered nonenlarged mesenteric lymph nodes are noted. Normal appendix. Mild overall stool burden. Sigmoid diverticulosis. No pericolonic inflammatory rowan e. Mild metastatic calcification abdominal aorta and iliac arteries. Mild circumferential bladder wall thickening. Minimal perivesicular fat stranding. No abnormal fluid collection in the pelvis or pelvic lymphadenopathy. Bones: There is a transitional lumbosacral segment with a sacralized L5. Disc herniations noted at L4 -L5 and L3-L4. Along with hypertrophic facet arthropathy, on the left, changes result in moderate gege ral foraminal stenosis at L4-L5 and [id number] at L3-L4. Mild to moderate on the right at L4-L5 . IMPRESSION: 1. Two nonobstructive left lower pole renal calculi measuring up to 1 cm. 2. Mild left-sided pelvicaliectasis. There seems to be some chronic dilatation of the left renal junior ecting system but this shows further improvement from 12/12/2015. 3. No ureteral calculus or ureteric dilatation. 4. Sigmoid diverticulosis without acute diverticulitis. 5. Mild circumferential bladder wall thickening may be chronic in this patient. Correlate to exclude cystitis. 6. Transitional lumbosacral segment with a sacralized L5. Disc herniations at L4-L5 and L3-L4. Modera te left neuroforaminal stenosis at L4-L5.
== END | disposition home or self-care (01) ==
LOC: RADCTMAIN 13:28
PROVIDERS: ATTEND Family Medicine
DX: N20.0 Calculus of kidney (principal); K57.30 Diverticulosis of large intestine without perforation or abscess without bleeding; N32.89 Other specified disorders of bladder
CPT/HCPCS: 74176

== ENCOUNTER → 2020-04-21 | Outpatient (CLI) | payer MEDICARE ==
--- NOTE | 2020-04-21 13:57 | XR ---
EXAMINATION TYPE: XR lumbosacral spine min 4V DATE OF EXAM: 04/21/2020 CLINICAL HISTORY: pain COMPARISON: NONE TECHNIQUE: Frontal, lateral, and oblique images of the lumbar spine are obtained. FINDINGS: There are 5 lumbar type vertebral bodies identified. The lumbar spine shows satisfactory alignment without evidence of acute fracture or dislocation. Vertebral body heights are within normal limits. Mild scattered degenerative disc disease and spondylosis. The overlying soft tissue appear s unremarkable. IMPRESSION: No acute fracture or dislocation is seen in the lumbar spine.ICD 10 NO FRACTURE, INITIAL EVALUATION
--- NOTE | 2020-04-21 13:58 | XR ---
EXAMINATION TYPE: XR sacrum coccyx DATE OF EXAM: 04/21/2020 CLINICAL HISTORY: pain TECHNIQUE: Three views of the sacrum and coccyx are submitted. COMPARISON: Sacral alae appear symmetric. No evidence for fracture or bony lesion. Sacroiliac joints are within normal limits. Visualized coccygeal segments are free of fracture or lesion. IMPRESSION: Normal study
== END | disposition home or self-care (01) ==
LOC: RADXRMAIN 13:00
PROVIDERS: ATTEND Family Medicine
DX: M54.5 Low back pain (principal); M53.3 Sacrococcygeal disorders, not elsewhere classified
CPT/HCPCS: 72110; 72220

== ENCOUNTER 2020-08-23 16:50 | Inpatient (IN) | payer MEDICARE ==
[2020-08-23] MEDS ORDERED: methylPREDNISolone SOD SUCCI 125 MG/2 ML VIAL IV STA (16:54)
--- NOTE | 2020-08-23 17:05 | ED ---
General Adult HPI - General Stated complaint: NAYA Time Seen by Provider: 08/23/20 16:54 Source: patient, RN notes reviewed, old records reviewed - History of Present Illness Initial comments: 60-year-old male presenting with increased cough and dyspnea. History of COPD and tracheostomy secondary to severe sleep apnea. Patient was vaccinated against coronavirus approximately one week ago. Since this time he's had fever, chills, increased cough and dyspnea as well as myalgias. He denies central chest pain. Denies lower extremity pain or swelling. Patient was transferred by EMS, hypoxic and febrile. Given albuterol, Atrovent during transport. - Related Data Home Medications Medication Instructions Recorded Confirmed Metoprolol Succinate (ER) [Toprol 25 mg PO DAILY 07/15/14 08/23/20 XL] FLUoxetine HCL [PROzac] 40 mg PO DAILY 01/23/16 08/23/20 Morphine Sulfate [Morphine Sulfate 30 mg PO Q12H 06/20/16 08/23/20 ER] Simvastatin [Zocor] 80 mg PO DAILY 10/02/16 08/23/20 lisinopriL [Zestril] 2.5 mg PO DAILY 10/04/16 08/23/20 Ipratropium-Albuterol Nebulize 3 ml INHALATION RT-BID 08/23/20 08/23/20 [Duoneb 0.5 mg-3 mg/3 ml Soln] Morphine Sulfate Ir [MSIR] 15 mg PO Q12H 08/23/20 08/23/20 metFORMIN HCL [Glucophage] 500 mg PO DAILY 08/23/20 08/23/20 Allergies Allergy/AdvReac Type Severity Reaction Status Date / Time No Known Allergies Allergy Verified 08/23/20 17:40 Review of Systems ROS Statement: Those systems with pertinent positive or pertinent negative responses have been documented in the HPI. ROS Other: All systems not noted in ROS Statement are negative. Past Medical History Past Medical History: Heart Failure, COPD, Diabetes Mellitus, Deep Vein Thrombosis (DVT), Hyperlipidemia, Hypertension, Sleep Apnea/CPAP/BIPAP Additional Past Medical History / Comment(s): 5-- Pt admitted to [facility] after a fall with sternal and rib fractures. hx of: chronic pain, diverticulitis, states he has a mass next to spine the dr is watching History of Any Multi-Drug Resistant Organisms: Other MDRO Past Surgical History: Appendectomy Additional Past Surgical History / Comment(s): trach., left kidney operation d/t defect, bronch. colonoscopy/polypectomy-benign polyps Past Anesthesia/Blood Transfusion Reactions: No Reported Reaction Past Psychological History: Depression Additional Psychological History / Comment(s): Pt resides with spouse and child. He uses no assistive device. He drives. Past Alcohol Use History: Occasional Additional Past Alcohol Use History / Comment(s): started smoking age 17 but has decreased to smoking 1 cig per day but chews 1 can of tobacco per day. Past Drug Use History: Cocaine, Marijuana Additional Drug Use History / Comment(s): occ will smoke marijuana current, past hx of cocaine use - Past Family History Father Family Medical History: No Reported History Additional Family Medical History / Comment(s): none Mother Family Medical History: No Reported History General Exam General appearance: alert, in no apparent distress Head exam: Present: atraumatic, normocephalic Eye exam: Present: normal appearance, PERRL ENT exam: Present: normal exam Neck exam: Present: other (Tracheostomy) Respiratory exam: Present: respiratory distress, wheezes, stridor, prolonged expiratory Cardiovascular Exam: Present: normal rhythm, tachycardia GI/Abdominal exam: Present: soft. Absent: distended, tenderness, guarding Extremities exam: Present: normal capillary refill. Absent: pedal edema, calf tenderness Neurological exam: Present: alert, oriented X3, CN II-XII intact. Absent: motor sensory deficit Psychiatric exam: Present: normal affect, normal mood Skin exam: Present: warm, dry, intact. Absent: cyanosis, diaphoretic Course Vital Signs 08/23/20 08/23/20 08/23/20 16:53 17:06 17:54 Temperature 102.7 F H Pulse Rate 112 H 112 H 110 H Respiratory 18 18 18 Rate Blood Pressure 111/76 110/75 127/79 O2 Sat by Pulse 94 L 92 L Oximetry 08/23/20 08/23/20 18:06 19:06 Temperature 100.0 F H Pulse Rate 108 H 89 Respiratory 18 18 Rate Blood Pressure 110/76 90/55 O2 Sat by Pulse 88 L 88 L Oximetry EKG Findings - EKG Comments: EKG Findings:: EKG: Sinus tachycardia, rate of 109, ID interval 180, QRS duration 106, QTC 447, no ST segment elevation. Medical Decision Making - Medical Decision Making 60-year-old male presenting with increased cough and dyspnea. Patient received coronavirus vaccine approximately one week ago. He has history of COPD. He is wheezing bilaterally. He has history of tracheostomy secondary to severe sleep apnea. He states that he does have a low oxygen level at baseline around 90%. He's 88 on 10 L trach mask. Chest x-ray showing a bilateral pneumonia. Laboratory studies reveal mild hyponatremia, acute kidney injury with a creatinine 1.42. Mildly elevated CRP. Additional coronavirus laboratory studies are pending. He will be admitted for combination COPD exacerbation with bilateral pneumonia. I will repeat a coronavirus test this is pending. Given that the patient recently received his vaccine and he does display bilateral pneumonia additionally I have given antibiotics including azithromycin and ceftriaxone. Case discussed with Dr. Lal who will admit. - Lab Data Result diagrams: 08/23/20 17:19 08/23/20 17:19 Lab Results 08/23/20 08/23/20 08/23/20 Range/Units 17:19 17:19 17:19 WBC 4.1 (3.8-10.6) k/uL RBC 4.17 L (4.30-5.90) m/uL Hgb 15.3 (13.0-17.5) gm/dL Hct 45.0 (39.0-53.0) % MCV 105.9 H (80.0-100.0) fL MCH 36.8 H (25.0-35.0) pg MCHC 34.0 (31.0-37.0) g/dL RDW 14.8 (11.5-15.5) % Plt Count 171 (150-450) k/uL MPV 8.1 Neutrophils % 63 % Lymphocytes % 20 % Monocytes % 12 % Eosinophils % 0 % Basophils % 2 % Neutrophils # 2.6 (1.3-7.7) k/uL Lymphocytes # 0.8 L (1.0-4.8) k/uL Monocytes # 0.5 (0-1.0) k/uL Eosinophils # 0.0 (0-0.7) k/uL Basophils # 0.1 (0-0.2) k/uL Macrocytosis Moderate PT 11.1 (9.0-12.0) sec INR 1.0 (<1.2) APTT 23.8 (22.0-30.0) sec D-Dimer 0.66 H (<0.60) mg/L FEU Sodium 131 L (137-145) mmol/L Potassium 4.3 (3.5-5.1) mmol/L Chloride 88 L (98-107) mmol/L Carbon Dioxide 30 (22-30) mmol/L Anion Gap 13 mmol/L BUN 33 H (9-20) mg/dL Creatinine 1.41 H (0.66-1.25) mg/dL Est GFR (CKD-EPI)AfAm 63 (>60 ml/min/1.73 sqM) Est GFR (CKD-EPI)NonAf 55 (>60 ml/min/1.73 sqM) Glucose 184 H (74-99) mg/dL Plasma Lactic Acid Miguel Angel (0.7-2.0) mmol/L Calcium 9.0 (8.4-10.2) mg/dL Magnesium 2.1 (1.6-2.3) mg/dL Total Bilirubin 0.9 (0.2-1.3) mg/dL AST 51 (17-59) U/L ALT 23 (4-49) U/L Alkaline Phosphatase 96 (38-126) U/L Lactate Dehydrogenase 597 (313-618) U/L C-Reactive Protein 53.8 H (<10.0) mg/L Total Protein 8.2 (6.3-8.2) g/dL Albumin 4.4 (3.5-5.0) g/dL 08/23/20 Range/Units 17:19 WBC (3.8-10.6) k/uL RBC (4.30-5.90) m/uL Hgb (13.0-17.5) gm/dL Hct (39.0-53.0) % MCV (80.0-100.0) fL MCH (25.0-35.0) pg MCHC (31.0-37.0) g/dL RDW (11.5-15.5) % Plt Count (150-450) k/uL MPV Neutrophils % % Lymphocytes % % Monocytes % % Eosinophils % % Basophils % % Neutrophils # (1.3-7.7) k/uL Lymphocytes # (1.0-4.8) k/uL Monocytes # (0-1.0) k/uL Eosinophils # (0-0.7) k/uL Basophils # (0-0.2) k/uL Macrocytosis PT (9.0-12.0) sec INR (<1.2) APTT (22.0-30.0) sec D-Dimer (<0.60) mg/L FEU Sodium (137-145) mmol/L Potassium (3.5-5.1) mmol/L Chloride (98-107) mmol/L Carbon Dioxide (22-30) mmol/L Anion Gap mmol/L BUN (9-20) mg/dL Creatinine (0.66-1.25) mg/dL Est GFR (CKD-EPI)AfAm (>60 ml/min/1.73 sqM) Est GFR (CKD-EPI)NonAf (>60 ml/min/1.73 sqM) Glucose (74-99) mg/dL Plasma Lactic Acid Miguel Angel 2.2 H* (0.7-2.0) mmol/L Calcium (8.4-10.2) mg/dL Magnesium (1.6-2.3) mg/dL Total Bilirubin (0.2-1.3) mg/dL AST (17-59) U/L ALT (4-49) U/L Alkaline Phosphatase (38-126) U/L Lactate Dehydrogenase (313-618) U/L C-Reactive Protein (<10.0) mg/L Total Protein (6.3-8.2) g/dL Albumin (3.5-5.0) g/dL Critical Care Time Critical Care Time: Yes Total Critical Care Time: 35 Disposition Clinical Impression: Tracheostomy in place, Bilateral pneumonia, COPD (chronic obstructive pulmonary disease) Disposition: ADMITTED IP TO THIS [facility] Condition: Stable Is patient prescribed a controlled substance at d/c from ED?: No Referrals: Lilli Ferro MD [Primary Care Provider] - 1-2 days Decision to Admit Reason: Admit from EC Decision Date: 08/23/20 Decision Time: 19:37
[2020-08-23 17:42] LABS: Basophils # (A) 0.1 k/uL (0-0.2); Basophils % (A) 2 %; Eosinophils % (A) 0 %; HGB 15.3 gm/dL (13.0-17.5); Lymphocytes # (A) 0.8 k/uL (1.0-4.8); Lymphocytes % (A) 20 %; MCH 36.8 pg (25.0-35.0); Mean Platelet Volume 8.1; Monocytes # (A) 0.5 k/uL (0-1.0); Monocytes % (A) 12 %; Neutrophils # (A) 2.6 k/uL (1.3-7.7); Neutrophils % (A) 63 %; Platelet Count 171 k/uL (150-450); RBC 4.17 m/uL (4.30-5.90); RDW 14.8 % (11.5-15.5); WBC 4.1 k/uL (3.8-10.6)
[2020-08-23 17:45] LABS: Albumin 4.4 g/dL (3.5-5.0); C Reactive Protein 53.8 mg/L (<10.0); Magnesium 2.1 mg/dL (1.6-2.3); Potassium 4.3 mmol/L (3.5-5.1); Total Bilirubin 0.9 mg/dL (0.2-1.3); Total Protein 8.2 g/dL (6.3-8.2)
[2020-08-23 17:46] LABS: MCV 105.9 fL (80.0-100.0); Macrocytosis Moderate
[2020-08-23 17:47] LABS: Partial Thromboplastin Time 23.8 sec (22.0-30.0); Prothrombin Time 11.1 sec (9.0-12.0)
[2020-08-23 17:50] LABS: D-Dimer 0.66 mg/L FEU (<0.60)
[2020-08-23] MEDS ORDERED: ACETAMINOPHEN TAB 500 MG TAB PO STA (18:05)
[2020-08-23] MEDS ORDERED: MORPHINE SULFATE 4 MG/ML SYRINGE IVP STA (18:31)
[2020-08-23] MEDS ORDERED: SODIUM CHLORIDE 0.9% 500 ML 500 ML IV ONE ×3 (18:34→21:18)
--- NOTE | 2020-08-23 18:59 | XR ---
EXAMINATION TYPE: XR chest 1V portable DATE OF EXAM: 08/23/2020 COMPARISON: 10/14/2017. HISTORY: Cough and body aches. TECHNIQUE: Single frontal view of the chest is obtained. FINDINGS: There are moderate bilateral peripheral opacities predominantly in the mid to lower lungs. No pleural effusion, or pneumothorax seen. The cardiac silhouette size is within normal limits. T he osseous structures are intact. There is an endotracheal tube terminating approximately 6 cm above the peggy IMPRESSION: Bilateral infiltrates. High riding endotracheal tube.
[2020-08-23] MEDS ORDERED: IPRATROPIUM-ALBUTEROL 3 ML NEB INHALATION PRN (19:32)
[2020-08-23] MEDS ORDERED: AZITHROMYCIN 500 MG in SODIUM CHLORIDE 0.9% 250 ML IVPB STA (19:34)
[2020-08-23] MEDS ORDERED: cefTRIAXone IN SWFI 1,000 MG/10 ML SYRINGE IVP STA (19:34)
[2020-08-23] MEDS: SODIUM CHLORIDE 0.9% 1,000 ML IV SCH (19:44)
[2020-08-23] MEDS ORDERED: ACETAMINOPHEN TAB 325 MG TAB PO PRN (20:13)
[2020-08-23 21:33] LABS: Glucose,Whole Blood 231 mg/dL (75-99)
[2020-08-23] MEDS: IPRATROPIUM-ALBUTEROL 3 ML NEB INHALATION SCH (21:38)
[2020-08-23] MEDS: INSULIN ASPART (NovoLOG) 100 UNIT/ML VIAL SQ SCH (21:43)
[2020-08-23] MEDS: HEPARIN SODIUM,PORCINE 5,000 UNIT/ML 1 ML VIAL SQ SCH (21:44)
[2020-08-23] MEDS: MORPHINE SULFATE ER 30 MG TABLET PO SCH (21:47)
[2020-08-23] MEDS: MORPHINE SULFATE IR 15 MG TABLET PO SCH (21:48)
[2020-08-23] MEDS: FAMOTIDINE 20 MG/2 ML VIAL IV SCH (23:20)
[2020-08-23 23:27] LABS: Glucose,Whole Blood 266 mg/dL (75-99)
[2020-08-24] MEDS: methylPREDNISolone SOD SUCCI 125 MG/2 ML VIAL IV SCH ×4 (00:45→17:00)
[2020-08-24 04:12] LABS: Ferritin 1010.4 ng/mL (22.0-322.0)
[2020-08-24] MEDS: IPRATROPIUM-ALBUTEROL 3 ML NEB INHALATION SCH ×2 (07:45→11:32)
[2020-08-24 08:36] LABS: Glucose,Whole Blood 347 mg/dL (75-99)
[2020-08-24] MEDS: HEPARIN SODIUM,PORCINE 5,000 UNIT/ML 1 ML VIAL SQ SCH (08:36)
[2020-08-24] MEDS: METOPROLOL SUCCINATE (ER) 25 MG TAB.ER.24H PO SCH ×2 (08:37→08:48)
[2020-08-24] MEDS: FAMOTIDINE 20 MG/2 ML VIAL IV SCH (08:37)
[2020-08-24] MEDS: INSULIN ASPART (NovoLOG) 100 UNIT/ML VIAL SQ SCH ×4 (08:38→20:54)
[2020-08-24] MEDS: FLUoxetine HCL 20 MG CAP PO SCH (08:51)
[2020-08-24] MEDS ORDERED: AZITHROMYCIN 500 MG in SODIUM CHLORIDE 0.9% 250 ML IVPB SCH (09:00)
[2020-08-24] MEDS: MORPHINE SULFATE ER 30 MG TABLET PO SCH ×2 (09:18→20:53)
[2020-08-24] MEDS: MORPHINE SULFATE IR 15 MG TABLET PO SCH ×2 (09:19→20:52)
[2020-08-24] MEDS: SODIUM CHLORIDE 0.9% 1,000 ML IV SCH ×2 (09:24→20:54)
--- NOTE | 2020-08-24 11:29 | P.CNPUL ---
History of Present Illness Consult date: 08/24/20 Reason for consult: dyspnea, cough, hypoxemia, pneumonia Chief complaint: Shortness of breath progressive with cough diffuse myalgia History of present illness: This patient is a 60-year-old male with a history of obstructive sleep apnea status post multiple cardiopulmonary arrest due to sleep apnea, patient has permanent tracheostomy, patient has his first dose of covid vaccine week ago developed labs aches pains followed by progressive cuff shortness of breath and breathing difficulty, came into the hospital for further evaluation, patient currently on 10 L oxygen, primary medical history significant for morbid obesity hypertension hypertensive cardiovascular disease mood disorder depression dyslipidemia and end-stage COPD along with severe sleep apnea with type 2 diabetes mellitus he also has a history of pulmonary embolism completed his anticoagulation Review of Systems All systems: negative Past Medical History Past Medical History: Heart Failure, COPD, Diabetes Mellitus, Deep Vein Thrombosis (DVT), Hyperlipidemia, Hypertension, Sleep Apnea/CPAP/BIPAP Additional Past Medical History / Comment(s): 10-02-16 Pt admitted to [facility] after a fall with sternal and rib fractures. hx of: chronic pain, diverticulitis, states he has a mass next to spine the dr is watching History of Any Multi-Drug Resistant Organisms: Other MDRO Past Surgical History: Appendectomy Additional Past Surgical History / Comment(s): trach., left kidney operation d/t defect, bronch. colonoscopy/polypectomy-benign polyps Past Anesthesia/Blood Transfusion Reactions: No Reported Reaction Past Psychological History: Depression Additional Psychological History / Comment(s): Pt resides with spouse and child. He uses no assistive device. He drives. Smoking Status: Light tobacco smoker Past Alcohol Use History: Occasional Additional Past Alcohol Use History / Comment(s): started smoking age 17 but has decreased to smoking 1 cig per day but chews 1 can of tobacco per day. Past Drug Use History: Marijuana - Past Family History Father Family Medical History: No Reported History Additional Family Medical History / Comment(s): none Mother Family Medical History: No Reported History Medications and Allergies Home Medications Medication Instructions Recorded Confirmed Type Metoprolol Succinate (ER) [Toprol 25 mg PO DAILY 07/15/14 08/23/20 History XL] FLUoxetine HCL [PROzac] 40 mg PO DAILY 01/23/16 08/23/20 History Morphine Sulfate [Morphine Sulfate 30 mg PO Q12H 06/20/16 08/23/20 History ER] Simvastatin [Zocor] 80 mg PO DAILY 10/02/16 08/23/20 History lisinopriL [Zestril] 2.5 mg PO DAILY 10/04/16 08/23/20 History Ipratropium-Albuterol Nebulize 3 ml INHALATION RT-BID 08/23/20 08/23/20 History [Duoneb 0.5 mg-3 mg/3 ml Soln] Morphine Sulfate Ir [MSIR] 15 mg PO Q12H 08/23/20 08/23/20 History metFORMIN HCL [Glucophage] 500 mg PO DAILY 08/23/20 08/23/20 History Allergies Allergy/AdvReac Type Severity Reaction Status Date / Time No Known Allergies Allergy Verified 08/23/20 17:40 Physical Exam Vitals: Vital Signs Temp Pulse Pulse Resp BP BP Pulse Ox 08/24/20 10:18 95 08/24/20 10:01 97.9 F 66 16 118/73 92 L 08/24/20 09:39 68 18 113/82 92 L 08/24/20 09:22 71 18 99/70 92 L 08/24/20 08:18 66 20 119/87 93 L 08/24/20 07:00 98.6 F 68 18 111/80 90 L 08/24/20 06:00 68 18 124/80 91 L 08/24/20 05:00 57 L 18 123/82 90 L 08/24/20 04:00 62 18 102/69 89 L 08/24/20 03:29 58 L 18 101/66 91 L 08/24/20 02:39 98.8 F 57 L 18 102/69 94 L 08/24/20 00:46 61 18 98/74 90 L 08/24/20 00:30 67 18 102/66 89 L 08/24/20 00:07 70 18 99/73 87 L 08/23/20 23:17 65 18 95/58 91 L 08/23/20 22:21 98.4 F 79 18 89/58 88 L 08/23/20 21:48 73 18 88/47 90 L 08/23/20 21:15 98.1 F 75 20 79/48 88 L 08/23/20 20:30 72 20 106/58 88 L 08/23/20 20:00 74 20 88/50 88 L 08/23/20 19:34 100.3 F H 89 20 88/49 89 L 08/23/20 19:06 100.0 F H 89 18 90/55 88 L 08/23/20 18:06 108 H 18 110/76 88 L 08/23/20 17:54 110 H 18 127/79 08/23/20 17:06 112 H 18 110/75 92 L 08/23/20 16:53 102.7 F H 112 H 18 111/76 94 L Intake and Output 08/23/20 08/24/20 08/24/20 22:59 06:59 14:59 Other: Weight 133.5 kg - Constitutional General appearance: disheveled, morbidly obese - EENT Eyes: EOMI, PERRLA Ears: bilateral: normal - Neck Neck: normal ROM Carotids: bilateral: upstroke normal - Respiratory Respiratory: bilateral: diminished - Cardiovascular Rhythm: regular Heart sounds: normal: S1, S2 - Gastrointestinal General gastrointestinal: decreased bowel sounds - Integumentary Integumentary: decreased turgor - Neurologic Neurologic: CNII-XII intact - Musculoskeletal Musculoskeletal: gait normal, generalized weakness, strength equal bilaterally - Psychiatric Psychiatric: A&O x's 3, appropriate affect, intact judgment & insight Results - Laboratory Findings CBC and BMP: 08/23/20 17:19 08/23/20 17:19 PT/INR, D-dimer PT 11.1 sec (9.0-12.0) 08/23/20 17:19 INR 1.0 (<1.2) 08/23/20 17:19 D-Dimer 0.66 mg/L FEU (<0.60) H 08/23/20 17:19 Abnormal lab findings: Abnormal Labs 08/23/20 08/23/20 08/23/20 17:19 17:19 17:19 RBC 4.17 L MCV 105.9 H MCH 36.8 H Lymphocytes # 0.8 L D-Dimer 0.66 H Sodium 131 L Chloride 88 L BUN 33 H Creatinine 1.41 H Glucose 184 H POC Glucose (mg/dL) Plasma Lactic Acid Miguel Angel Ferritin 1010.4 H C-Reactive Protein 53.8 H Procalcitonin Coronavirus (PCR) 08/23/20 08/23/20 08/23/20 17:19 17:19 19:52 RBC MCV MCH Lymphocytes # D-Dimer Sodium Chloride BUN Creatinine Glucose POC Glucose (mg/dL) Plasma Lactic Acid Miguel Angel 2.2 H* Ferritin C-Reactive Protein Procalcitonin 0.32 H Coronavirus (PCR) Detected A 08/23/20 08/23/20 08/24/20 21:31 23:21 08:30 RBC MCV MCH Lymphocytes # D-Dimer Sodium Chloride BUN Creatinine Glucose POC Glucose (mg/dL) 231 H 266 H 347 H Plasma Lactic Acid Miguel Angel Ferritin C-Reactive Protein Procalcitonin Coronavirus (PCR) Assessment and Plan Assessment: Covert 19 pneumonia Acute hypoxic respiratory failure Sleep disorder breathing and sleep apnea status post permanent tracheostomy Hypertension hypertensive cardiovascular disease Dyslipidemia Morbid obesity Plan: Continue supplemental oxygen Deep breathing exercise incentive spirometry Continue home medications Continue IV steroids and broad-spectrum antibiotics IV REMdesivir for 5 days Time with Patient: Greater than 30
[2020-08-24] MEDS ORDERED: REMDESIVIR 200 MG in SODIUM CHLORIDE 0.9% 250 ML IVPB ONE (12:00)
[2020-08-24 12:02] LABS: African American GFR (CKD) >90 (>60 ml/min/1.73 sqM); Anion Gap 12 mmol/L; Blood Urea Nitrogen 32 mg/dL (9-20); Calcium 8.1 mg/dL (8.4-10.2); Carbon Dioxide 24 mmol/L (22-30); Chloride 96 mmol/L (98-107); Glucose 318 mg/dL (74-99); Non-African American GFR(CKD) 87 (>60 ml/min/1.73 sqM); Potassium 4.7 mmol/L (3.5-5.1); Sodium 132 mmol/L (137-145)
[2020-08-24 12:35] LABS: Glucose,Whole Blood 283 mg/dL (75-99)
[2020-08-24] MEDS ORDERED: ALBUTEROL HFA INHALER INHALATION PRN (12:43)
[2020-08-24] MEDS: TIOTROPIUM 2.5 MCG INHALER INHALATION SCH (14:31)
[2020-08-24] MEDS: ALBUTEROL HFA INHALER INHALATION SCH ×3 (14:31→19:36)
[2020-08-24 16:55] LABS: Glucose,Whole Blood 307 mg/dL (75-99)
[2020-08-24] MEDS: ZINC SULFATE 220 MG CAP PO SCH (17:00)
--- NOTE | 2020-08-24 17:34 | P.HPIM ---
History of Present Illness H&P Date: 08/24/20 Chief Complaint: Shortness of breath Mr. Gomez is a 60-year-old male with a past medical history of obstructive sleep apnea status post tracheostomy, COPD, diabetes mellitus, DVT, hypertension, hyperlipidemia coming to the hospital with a chief complaint of difficulty in breathing. Patient states that he got the COVID 19 vaccine Approximately one week back. Since then patient has been having myalgias. He was also having chest discomfort and has been coughing along with difficulty in breathing. Over the past course of 1 week his symptoms have worsened he started to have fevers and was extremely fatigued so came in for further evaluation. Patient also complains of loss of taste and loss of smell and that the symptoms are slowly improving. He mentions that he had tracheostomy because of severe obstructive sleep apnea it was done in 2003. He states that he follows with Dr. King who is his contact center consultant on a regular basis. Patient denies having any chest pain or palpitations. No abdominal pain nausea vomiting or diarrhea. No dysuria or hematuria. Patient denies and swelling of his lower extremities. He was given breathing treatments via transport and brought in to the hospital. In the ER, patient had a chest x-ray showing bilateral infiltrates and high riding endotracheal tube. At the time of admission patient was febrile with a temperature of 102.7, tachycardic, respiratory rate 18, saturating at 94% on trach collar his blood pressure was 1 10 x 75. On reviewing his labs white count of 4.1, hemoglobin 15.3, MCV 105.9, platelets 171 lymphocytes 0.8. D- dimer 0.66, sodium 131, potassium 4.3, chloride 88, bicarb 30, B and 33, creatinine 1.41. Total bilirubin 0.9, ferritin 1010, LDH 597, CRP 53.8, prolactin 0.32. He's tested positive for bui virus. Review of Systems REVIEW OF SYSTEMS: CONSTITUTIONAL: As per HPI HEENT: No recent visual problems or hearing problems. Denied any sore throat. CARDIOVASCULAR: No chest pain, orthopnea, PND, no palpitations, no syncope. PULMONARY: Positive cough and difficulty in breathing, as per HPI. GASTROINTESTINAL: No abdominal pain or constipation. No abdominal pain nausea vomiting or diarrhea NEUROLOGICAL: No headaches, no weakness. HEMATOLOGICAL: Denies any bleeding or petechiae. GENITOURINARY: Denies any burning micturition, frequency, or urgency. MUSCULOSKELETAL/RHEUMATOLOGICAL: Denies any joint pain, swelling ENDOCRINE: Denies any polyuria or polydipsia. The rest of the 14-point review of systems is negative. Past Medical History Past Medical History: Heart Failure, COPD, Diabetes Mellitus, Deep Vein Thrombosis (DVT), Hyperlipidemia, Hypertension, Sleep Apnea/CPAP/BIPAP Additional Past Medical History / Comment(s): 10-02-16 Pt admitted to [facility] after a fall with sternal and rib fractures. hx of: chronic pain, diverticulitis, states he has a mass next to spine the dr is watching History of Any Multi-Drug Resistant Organisms: Other MDRO Past Surgical History: Appendectomy Additional Past Surgical History / Comment(s): trach., left kidney operation d/t defect, bronch. colonoscopy/polypectomy-benign polyps Past Anesthesia/Blood Transfusion Reactions: No Reported Reaction Past Psychological History: Depression Additional Psychological History / Comment(s): Pt resides with spouse and child. He uses no assistive device. He drives. Smoking Status: Light tobacco smoker Past Alcohol Use History: Occasional Additional Past Alcohol Use History / Comment(s): started smoking age 17 but has decreased to smoking 1 cig per day but chews 1 can of tobacco per day. Past Drug Use History: Marijuana - Past Family History Father Family Medical History: No Reported History Additional Family Medical History / Comment(s): none Mother Family Medical History: No Reported History Medications and Allergies Home Medications Medication Instructions Recorded Confirmed Type Metoprolol Succinate (ER) [Toprol 25 mg PO DAILY 07/15/14 08/23/20 History XL] FLUoxetine HCL [PROzac] 40 mg PO DAILY 01/23/16 08/23/20 History Morphine Sulfate [Morphine Sulfate 30 mg PO Q12H 06/20/16 08/23/20 History ER] Simvastatin [Zocor] 80 mg PO DAILY 10/02/16 08/23/20 History lisinopriL [Zestril] 2.5 mg PO DAILY 10/04/16 08/23/20 History Ipratropium-Albuterol Nebulize 3 ml INHALATION RT-BID 08/23/20 08/23/20 History [Duoneb 0.5 mg-3 mg/3 ml Soln] Morphine Sulfate Ir [MSIR] 15 mg PO Q12H 08/23/20 08/23/20 History metFORMIN HCL [Glucophage] 500 mg PO DAILY 08/23/20 08/23/20 History Allergies Allergy/AdvReac Type Severity Reaction Status Date / Time No Known Allergies Allergy Verified 08/23/20 17:40 Physical Exam Vitals: Vital Signs Temp Pulse Pulse Resp BP BP Pulse Ox 08/24/20 14:46 98.5 F 64 22 113/72 96 08/24/20 10:18 95 08/24/20 10:01 97.9 F 66 16 118/73 92 L 08/24/20 09:39 68 18 113/82 92 L 08/24/20 09:22 71 18 99/70 92 L 08/24/20 08:18 66 20 119/87 93 L 08/24/20 07:00 98.6 F 68 18 111/80 90 L 08/24/20 06:00 68 18 124/80 91 L 08/24/20 05:00 57 L 18 123/82 90 L 08/24/20 04:00 62 18 102/69 89 L 08/24/20 03:29 58 L 18 101/66 91 L 08/24/20 02:39 98.8 F 57 L 18 102/69 94 L 08/24/20 00:46 61 18 98/74 90 L 08/24/20 00:30 67 18 102/66 89 L 08/24/20 00:07 70 18 99/73 87 L 08/23/20 23:17 65 18 95/58 91 L 08/23/20 22:21 98.4 F 79 18 89/58 88 L 08/23/20 21:48 73 18 88/47 90 L 08/23/20 21:15 98.1 F 75 20 79/48 88 L 08/23/20 20:30 72 20 106/58 88 L 08/23/20 20:00 74 20 88/50 88 L 08/23/20 19:34 100.3 F H 89 20 88/49 89 L 08/23/20 19:06 100.0 F H 89 18 90/55 88 L 08/23/20 18:06 108 H 18 110/76 88 L 08/23/20 17:54 110 H 18 127/79 08/23/20 17:06 112 H 18 110/75 92 L 08/23/20 16:53 102.7 F H 112 H 18 111/76 94 L PHYSICAL EXAMINATION: GENERAL: The patient is alert and oriented x3, not in any acute distress. Ill appearing HEENT: Pupils are round and equally reacting to light. EOMI. No scleral icterus. No pallor. Trach collar in place. CARDIOVASCULAR: S1 and S2 present. PULMONARY: Bilateral coarse breath sounds. No crackles or wheezing ABDOMEN: Abdomen is soft. Nontender. Nondistended. Normal bowel sounds. MUSCULOSKELETAL: No joint swelling or deformity. EXTREMITIES: No cyanosis, clubbing, or pedal edema. NEUROLOGICAL: Gross neurological examination did not reveal any focal deficits. SKIN: No rashes. Results CBC & Chem 7: 08/23/20 17:19 08/24/20 10:33 Labs: Abnormal Lab Results - Last 24 Hours (Table) 08/23/20 08/23/20 08/23/20 Range/Units 17:19 17:19 17:19 RBC 4.17 L (4.30-5.90) m/uL MCV 105.9 H (80.0-100.0) fL MCH 36.8 H (25.0-35.0) pg Lymphocytes # 0.8 L (1.0-4.8) k/uL D-Dimer 0.66 H (<0.60) mg/L FEU Sodium 131 L (137-145) mmol/L Chloride 88 L (98-107) mmol/L BUN 33 H (9-20) mg/dL Creatinine 1.41 H (0.66-1.25) mg/dL Glucose 184 H (74-99) mg/dL POC Glucose (mg/dL) (75-99) mg/dL Plasma Lactic Acid Miguel Angel (0.7-2.0) mmol/L Calcium (8.4-10.2) mg/dL Ferritin 1010.4 H (22.0-322.0) ng/mL C-Reactive Protein 53.8 H (<10.0) mg/L Procalcitonin (0.02-0.09) ng/mL Coronavirus (PCR) (Not Detectd) 08/23/20 08/23/20 08/23/20 Range/Units 17:19 17:19 19:52 RBC (4.30-5.90) m/uL MCV (80.0-100.0) fL MCH (25.0-35.0) pg Lymphocytes # (1.0-4.8) k/uL D-Dimer (<0.60) mg/L FEU Sodium (137-145) mmol/L Chloride (98-107) mmol/L BUN (9-20) mg/dL Creatinine (0.66-1.25) mg/dL Glucose (74-99) mg/dL POC Glucose (mg/dL) (75-99) mg/dL Plasma Lactic Acid Miguel Angel 2.2 H* (0.7-2.0) mmol/L Calcium (8.4-10.2) mg/dL Ferritin (22.0-322.0) ng/mL C-Reactive Protein (<10.0) mg/L Procalcitonin 0.32 H (0.02-0.09) ng/mL Coronavirus (PCR) Detected A (Not Detectd) 08/23/20 08/23/20 08/24/20 Range/Units 21:31 23:21 08:30 RBC (4.30-5.90) m/uL MCV (80.0-100.0) fL MCH (25.0-35.0) pg Lymphocytes # (1.0-4.8) k/uL D-Dimer (<0.60) mg/L FEU Sodium (137-145) mmol/L Chloride (98-107) mmol/L BUN (9-20) mg/dL Creatinine (0.66-1.25) mg/dL Glucose (74-99) mg/dL POC Glucose (mg/dL) 231 H 266 H 347 H (75-99) mg/dL Plasma Lactic Acid Miguel Angel (0.7-2.0) mmol/L Calcium (8.4-10.2) mg/dL Ferritin (22.0-322.0) ng/mL C-Reactive Protein (<10.0) mg/L Procalcitonin (0.02-0.09) ng/mL Coronavirus (PCR) (Not Detectd) 08/24/20 08/24/20 Range/Units 10:33 12:10 RBC (4.30-5.90) m/uL MCV (80.0-100.0) fL MCH (25.0-35.0) pg Lymphocytes # (1.0-4.8) k/uL D-Dimer (<0.60) mg/L FEU Sodium 132 L (137-145) mmol/L Chloride 96 L (98-107) mmol/L BUN 32 H (9-20) mg/dL Creatinine (0.66-1.25) mg/dL Glucose 318 H (74-99) mg/dL POC Glucose (mg/dL) 283 H (75-99) mg/dL Plasma Lactic Acid Miguel Angel (0.7-2.0) mmol/L Calcium 8.1 L (8.4-10.2) mg/dL Ferritin (22.0-322.0) ng/mL C-Reactive Protein (<10.0) mg/L Procalcitonin (0.02-0.09) ng/mL Coronavirus (PCR) (Not Detectd) Thrombosis Risk Factor Assmnt - Choose All That Apply Any of the Below Risk Factors Present?: Yes Each Factor Represents 1 point: Abnormal pulmonary function (COPD), Age 41-60 years, Obesity (BMI >25), Serious lung disease incl. pneumonia (< 1month) Other Risk Factors: Yes Each Risk Factor Represents 3 Points: History of DVT/PE Other congenital or acquired thrombophilia - If yes, enter type in comment: No Thrombosis Risk Factor Assessment Total Risk Factor Score: 7 Thrombosis Risk Factor Assessment Level: High Risk Assessment and Plan Assessment: ASSESSMENT Acute hypoxic respiratory failure secondary to COVID pneumonia Sepsis secondary to above Lymphopenia Increased inflammatory markers Severe obstructive sleep apnea Macrocytosis Hyperglycemia Acute kidney injury COPD History of DVT Hypertension Hyperlipidemia History of depression fractures History of polypectomy Nicotine dependence Past history of substance abuse Obesity with BMI of 36.8 PLAN: Patient is currently requiring 40% FiO2 through the trach collar to maint ain saturations above 90%. He has been started on ceftriaxone and Zithromax. Pulmonary Dr. King following the patient. Patient to be continued on Decadron, Lovenox, vitamin C, zinc supplements. Encouraged to continue with incentive spirometry. He is getting Remdesivir. Further recommendations to follow depending on the progress of the patient.
[2020-08-24 20:19] LABS: Glucose,Whole Blood 350 mg/dL (75-99)
[2020-08-24] MEDS: FAMOTIDINE 20 MG TAB PO SCH (20:51)
[2020-08-24] MEDS: ASCORBIC ACID 500 MG TAB PO SCH (20:53)
[2020-08-25] MEDS: methylPREDNISolone SOD SUCCI 125 MG/2 ML VIAL IV SCH ×4 (06:19→23:10)
[2020-08-25 07:03] LABS: Glucose,Whole Blood 336 mg/dL (75-99)
[2020-08-25] MEDS: INSULIN ASPART (NovoLOG) 100 UNIT/ML VIAL SQ SCH ×4 (07:55→20:27)
[2020-08-25] MEDS: FAMOTIDINE 20 MG TAB PO SCH ×2 (08:30→20:04)
[2020-08-25] MEDS: METOPROLOL SUCCINATE (ER) 25 MG TAB.ER.24H PO SCH (08:30)
[2020-08-25] MEDS: AZITHROMYCIN 500 MG TAB PO SCH (08:30)
[2020-08-25] MEDS: MORPHINE SULFATE IR 15 MG TABLET PO SCH ×2 (08:30→20:04)
[2020-08-25] MEDS: MORPHINE SULFATE ER 30 MG TABLET PO SCH ×2 (08:30→20:05)
[2020-08-25] MEDS: ASCORBIC ACID 500 MG TAB PO SCH ×2 (08:31→20:04)
[2020-08-25] MEDS: ZINC SULFATE 220 MG CAP PO SCH (08:31)
[2020-08-25] MEDS: ENOXAPARIN 40 MG/0.4 ML SYRINGE SQ SCH (08:31)
[2020-08-25] MEDS: SODIUM CHLORIDE 0.9% 1,000 ML IV SCH ×2 (08:31→23:10)
[2020-08-25] MEDS: ATORVASTATIN 40 MG TAB PO SCH (08:31)
[2020-08-25] MEDS: FLUoxetine HCL 20 MG CAP PO SCH (08:31)
[2020-08-25] MEDS: ALBUTEROL HFA INHALER INHALATION SCH ×4 (09:00→20:01)
[2020-08-25] MEDS: TIOTROPIUM 2.5 MCG INHALER INHALATION SCH (09:00)
[2020-08-25 09:20] LABS: Basophils % (A) 0 %; Eosinophils % (A) 0 %; HCT 40.4 % (39.0-53.0); HGB 13.2 gm/dL (13.0-17.5); Lymphocytes # (A) 0.7 k/uL (1.0-4.8); Lymphocytes % (A) 5 %; MCH 35.9 pg (25.0-35.0); MCHC 32.6 g/dL (31.0-37.0); MCV 110.1 fL (80.0-100.0); Macrocytosis Marked; Mean Platelet Volume 8.2; Monocytes # (A) 0.4 k/uL (0-1.0); Monocytes % (A) 3 %; Neutrophils # (A) 11.8 k/uL (1.3-7.7); Neutrophils % (A) 91 %; Platelet Count 191 k/uL (150-450); RBC 3.67 m/uL (4.30-5.90); RDW 14.6 % (11.5-15.5)
[2020-08-25 11:10] LABS: African American GFR (CKD) >90 (>60 ml/min/1.73 sqM); Anion Gap 10 mmol/L; Blood Urea Nitrogen 36 mg/dL (9-20); C Reactive Protein 30.1 mg/L (<10.0); Calcium 8.2 mg/dL (8.4-10.2); Carbon Dioxide 26 mmol/L (22-30); Chloride 98 mmol/L (98-107); Glucose 326 mg/dL (74-99); LDH 811 U/L (313-618); Non-African American GFR(CKD) 79 (>60 ml/min/1.73 sqM); Potassium 5.1 mmol/L (3.5-5.1); Sodium 134 mmol/L (137-145)
[2020-08-25 11:49] LABS: Glucose,Whole Blood 321 mg/dL (75-99)
[2020-08-25] MEDS: REMDESIVIR 100 MG in SODIUM CHLORIDE 0.9% 250 ML IVPB SCH (12:48)
[2020-08-25 16:39] LABS: Glucose,Whole Blood 271 mg/dL (75-99)
--- NOTE | 2020-08-25 17:21 | P.PN ---
Subjective Progress Note Date: 08/25/20 Principal diagnosis: COVID Pneumonia Mr. Gomez is a 60-year-old male with a past medical history of obstructive sleep apnea status post tracheostomy, COPD, diabetes mellitus, DVT, hypertension, hyperlipidemia coming to the hospital with a chief complaint of difficulty in breathing. Patient states that he got the COVID 19 vaccine Approximately one week back. Since then patient has been having myalgias. He was also having chest discomfort and has been coughing along with difficulty in breathing. Over the past course of 1 week his symptoms have worsened he started to have fevers and was extremely fatigued so came in for further evaluation. Patient also complains of loss of taste and loss of smell and that the symptoms are slowly improving. He mentions that he had tracheostomy because of severe obstructive sleep apnea it was done in 2003. He states that he follows with Dr. King who is his green building energy engineer on a regular basis. Patient denies having any chest pain or palpitations. No abdominal pain nausea vomiting or diarrhea. No dysuria or hematuria. Patient denies and swelling of his lower extremities. He was given breathing treatments via transport and brought in to the hospital. In the ER, patient had a chest x-ray showing bilateral infiltrates and high riding endotracheal tube. At the time of admission patient was febrile with a temperature of 102.7, tachycardic, respiratory rate 18, saturating at 94% on trach collar his blood pressure was 1 10 x 75. On reviewing his labs white count of 4.1, hemoglobin 15.3, MCV 105.9, platelets 171 lymphocytes 0.8. D- dimer 0.66, sodium 131, potassium 4.3, chloride 88, bicarb 30, B and 33, creatinine 1.41. Total bilirubin 0.9, ferritin 1010, LDH 597, CRP 53.8, prolactin 0.32. He's tested positive for bui virus. On 08/25/2020- patient was seen and examined at bedside. He is sitting up comfortably in the bed appears to be no acute distress. He complains of mild cough. He is requiring 10 L of oxygen with 40% FiO2 on trach collar to maintain saturations above 90. Patient denies having any chest pain or palpitations. No abdominal pain nausea vomiting or diarrhea. No dysuria or hematuria. On reviewing vitals temperature of 97.6, heart rate around 50s, respiratory rate 18, blood pressure 104/66. On reviewing labs, white count of 13, hemoglobin 13.2, platelets 191. Sodium 134, potassium 5.1, chloride 98, bicarb 26, BNP 36 , creatinine 1.04. Active Medications Acetaminophen (Acetaminophen Tab 325 Mg Tab) 325 mg PO Q6HR PRN PRN Reason: Fever and/ or Pain Albuterol Sulfate (Albuterol Hfa Inhaler) 2 puff INHALATION RT-Q4H PRN PRN Reason: Shortness Of Breath Or Wheezing Albuterol Sulfate (Albuterol Hfa Inhaler) 2 puff INHALATION RT-QID [facility] Last Admin: 08/25/20 15:39 Dose: 2 puff Documented by: Ascorbic Acid (Ascorbic Acid 500 Mg Tab) 500 mg PO BID [facility] Last Admin: 08/25/20 08:31 Dose: 500 mg Documented by: Atorvastatin Calcium (Atorvastatin 40 Mg Tab) 40 mg PO DAILY [facility] [place] Last Admin: 08/25/20 08:31 Dose: 40 mg Documented by: Azithromycin (Azithromycin 500 Mg Tab) 500 mg PO DAILY [facility] [place] Last Admin: 08/25/20 08:30 Dose: 500 mg Documented by: Enoxaparin Sodium (Enoxaparin 40 Mg/0.4 Ml Syringe) 40 mg SQ DAILY [facility] [place] Last Admin: 08/25/20 08:31 Dose: 40 mg Documented by: Famotidine (Famotidine 20 Mg Tab) 20 mg PO Q12HR [facility] Last Admin: 08/25/20 08:30 Dose: 20 mg Documented by: Fluoxetine HCl (Fluoxetine Hcl 20 Mg Cap) 40 mg PO DAILY [facility] [place] Last Admin: 08/25/20 08:31 Dose: 40 mg Documented by: Sodium Chloride (Saline 0.9%) 1,000 mls @ 75 mls/hr IV .[id number] [facility] Last Admin: 08/25/20 08:31 Dose: 75 mls/hr Documented by: Ceftriaxone Sodium 1 gm/ (Sodium Chloride) 50 mls @ 100 mls/hr IVPB Q24HR [facility] [place] Last Admin: 08/24/20 08:42 Dose: 100 mls/hr Documented by: Remdesivir 100 mg/ Sodium (Chloride) 250 mls @ 250 mls/hr IVPB DAILY@1200 [facility] Stop: 08/28/20 12:59 Last Admin: 08/25/20 12:48 Dose: 250 mls/hr Documented by: Insulin Aspart (Insulin Aspart (Novolog) 100 Unit/Ml Vial) 0 unit SQ ACHS [facility] [place]; Protocol Last Admin: 08/25/20 12:47 Dose: 8 unit Documented by: Methylprednisolone Sodium Succinate (Methylprednisolone Sod Succi 125 Mg/2 Ml Vial) 60 mg IV Q6HR [facility] [place] Last Admin: 08/25/20 12:47 Dose: 60 mg Documented by: Metoprolol Succinate (Metoprolol Succinate (Er) 25 Mg Tab.Er.24h) 25 mg PO DAILY [facility] [place] Last Admin: 08/25/20 08:30 Dose: 25 mg Documented by: Morphine Sulfate (Morphine Sulfate Ir 15 Mg Tablet) 15 mg PO Q12HR [facility] [place] Last Admin: 08/25/20 08:30 Dose: 15 mg Documented by: Morphine Sulfate (Morphine Sulfate Er 30 Mg Tablet) 30 mg PO Q12HR [facility] [place]; Protocol Last Admin: 08/25/20 08:30 Dose: 30 mg Documented by: Tiotropium [place] (Tiotropium 2.5 Mcg Inhaler) 2 puff INHALATION RT-DAILY [facility] [place] Last Admin: 08/25/20 09:00 Dose: 2 puff Documented by: Zinc Sulfate (Zinc Sulfate 220 Mg Cap) 220 mg PO DAILY [facility] [place] Last Admin: 08/25/20 08:31 Dose: 220 mg Documented by: Objective - Vital Signs Vital signs: Vital Signs Temp 97.5 F L 08/25/20 09:52 Pulse 51 L 08/25/20 09:52 Resp 18 08/25/20 09:52 BP 109/69 08/25/20 09:52 Pulse Ox 95 08/25/20 09:52 Intake & Output 08/24/20 08/25/20 08/25/20 18:59 06:59 18:59 Intake Total 900 Balance 900 Intake: Intake, IV Titration 900 Amount Sodium Chloride 0.9% 1, 900 000 ml @ 75 mls/hr IV . [id number] [facility] Rx#:[id number] Other: # Voids 1 - Exam PHYSICAL EXAMINATION: GENERAL: The patient is alert and oriented x3, not in any acute distress. HEENT: Pupils are round and equally reacting to light. EOMI. No scleral icterus. No pallor. Trach collar in place. Requiring 10 L of oxygen, 40% FiO2 CARDIOVASCULAR: S1 and S2 present. PULMONARY: Bilateral coarse breath sounds. No crackles or wheezing ABDOMEN: Abdomen is soft. Nontender. Nondistended. Normal bowel sounds. MUSCULOSKELETAL: No joint swelling or deformity. EXTREMITIES: No cyanosis, clubbing, or pedal edema. NEUROLOGICAL: Gross neurological examination did not reveal any focal deficits. SKIN: No rashes. - Labs CBC & Chem 7: 08/25/20 07:08 08/25/20 07:08 Labs: Abnormal Lab Results - Last 24 Hours (Table) 08/24/20 08/24/20 08/24/20 Range/Units 12:10 16:53 20:17 WBC (3.8-10.6) k/uL RBC (4.30-5.90) m/uL MCV (80.0-100.0) fL MCH (25.0-35.0) pg Neutrophils # (1.3-7.7) k/uL Lymphocytes # (1.0-4.8) k/uL Macrocytosis Sodium (137-145) mmol/L BUN (9-20) mg/dL Glucose (74-99) mg/dL POC Glucose (mg/dL) 283 H 307 H 350 H (75-99) mg/dL Calcium (8.4-10.2) mg/dL Lactate Dehydrogenase (313-618) U/L C-Reactive Protein (<10.0) mg/L 08/25/20 08/25/20 08/25/20 Range/Units 07:00 07:08 07:08 WBC 13.0 H (3.8-10.6) k/uL RBC 3.67 L (4.30-5.90) m/uL MCV 110.1 H (80.0-100.0) fL MCH 35.9 H (25.0-35.0) pg Neutrophils # 11.8 H (1.3-7.7) k/uL Lymphocytes # 0.7 L (1.0-4.8) k/uL Macrocytosis Marked A Sodium 134 L (137-145) mmol/L BUN 36 H (9-20) mg/dL Glucose 326 H (74-99) mg/dL POC Glucose (mg/dL) 336 H (75-99) mg/dL Calcium 8.2 L (8.4-10.2) mg/dL Lactate Dehydrogenase 811 H (313-618) U/L C-Reactive Protein 30.1 H (<10.0) mg/L 08/25/20 Range/Units 11:47 WBC (3.8-10.6) k/uL RBC (4.30-5.90) m/uL MCV (80.0-100.0) fL MCH (25.0-35.0) pg Neutrophils # (1.3-7.7) k/uL Lymphocytes # (1.0-4.8) k/uL Macrocytosis Sodium (137-145) mmol/L BUN (9-20) mg/dL Glucose (74-99) mg/dL POC Glucose (mg/dL) 321 H (75-99) mg/dL Calcium (8.4-10.2) mg/dL Lactate Dehydrogenase (313-618) U/L C-Reactive Protein (<10.0) mg/L Microbiology - Last 24 Hours (Table) 08/23/20 17:55 Blood Culture - Preliminary Blood No Growth after 24 hours 08/23/20 17:40 Blood Culture - Preliminary Blood No Growth after 24 hours Assessment and Plan Assessment: ASSESSMENT Acute hypoxic respiratory failure secondary to COVID pneumonia Sepsis secondary to above Lymphopenia Increased inflammatory markers Severe obstructive sleep apnea Macrocytosis Hyperglycemia Acute kidney injury COPD History of DVT Hypertension Hyperlipidemia History of depression fractures History of polypectomy Nicotine dependence Past history of substance abuse Obesity with BMI of 36.8 PLAN: Patient is currently requiring 10 L of oxygen, 40% FiO2 through the trach collar to maintain saturations above 90%. Continue on ceftriaxone and Zithromax. Pulmonary Dr. King following the patient. Patient to be continued on Decadron, Lovenox, vitamin C, zinc supplements. Encouraged to continue with incentive spirometry. He is getting Remdesivir. We will monitor inflammatory markers and chest x-ray. Further recommendations to follow depending on the progress of the patient.
[2020-08-25 20:24] LABS: Glucose,Whole Blood 326 mg/dL (75-99)
[2020-08-26] MEDS: methylPREDNISolone SOD SUCCI 125 MG/2 ML VIAL IV SCH ×3 (05:28→16:55)
[2020-08-26 07:00] LABS: Glucose,Whole Blood 331 mg/dL (75-99)
[2020-08-26] MEDS: ALBUTEROL HFA INHALER INHALATION SCH ×4 (07:24→19:01)
[2020-08-26] MEDS: TIOTROPIUM 2.5 MCG INHALER INHALATION SCH (07:24)
--- NOTE | 2020-08-26 07:54 | XR ---
EXAMINATION TYPE: XR chest 1V DATE OF EXAM: 08/26/2020 COMPARISON: 08/23/2020 HISTORY: Shortness of breath TECHNIQUE: Single frontal view of the chest is obtained. FINDINGS Partially consolidative opacity in the right mid and lower lung zone. Left lung essentially clear. He art size is prominent. The osseous structures are intact. There is no pleural effusion or pneumothora x. IMPRESSION: Right mid and lower lung zone infiltrate essentially unchanged compared to the prior study.
[2020-08-26] MEDS: METOPROLOL SUCCINATE (ER) 25 MG TAB.ER.24H PO SCH (08:43)
[2020-08-26] MEDS: FAMOTIDINE 20 MG TAB PO SCH ×2 (08:43→21:12)
[2020-08-26] MEDS: ATORVASTATIN 40 MG TAB PO SCH (08:43)
[2020-08-26] MEDS: ASCORBIC ACID 500 MG TAB PO SCH ×2 (08:43→21:12)
[2020-08-26] MEDS: INSULIN ASPART (NovoLOG) 100 UNIT/ML VIAL SQ SCH ×4 (08:43→21:13)
[2020-08-26] MEDS: MORPHINE SULFATE IR 15 MG TABLET PO SCH ×2 (08:43→21:15)
[2020-08-26] MEDS: FLUoxetine HCL 20 MG CAP PO SCH (08:44)
[2020-08-26] MEDS: MORPHINE SULFATE ER 30 MG TABLET PO SCH ×3 (08:44→21:14)
[2020-08-26] MEDS: ZINC SULFATE 220 MG CAP PO SCH (08:44)
[2020-08-26] MEDS: ENOXAPARIN 40 MG/0.4 ML SYRINGE SQ SCH (08:45)
[2020-08-26] MEDS: AZITHROMYCIN 500 MG TAB PO SCH (08:45)
[2020-08-26 09:00] LABS: HCT 38.7 % (39.6-50.0); HGB 12.6 g/dL (13.0-17.0); MCH 36.5 pg (27.0-32.0); MCHC 32.6 g/dL (32.0-37.0); MCV 112.2 fL (80.0-97.0); Mean Platelet Volume 10.7 fL (9.5-12.2); Platelet Count 222 X 10*3/uL (140-440); RBC 3.45 X 10*6/uL (4.40-5.60); RDW 14.1 % (11.5-14.5); WBC 13.46 X 10*3/uL (4.50-10.00)
[2020-08-26 09:13] LABS: African American GFR (CKD) 85.3 (60.0-200.0); Anion Gap 10.6 mmol/L (4.00-12.00); BUN/Creat Ratio 30.91 Ratio (12.00-20.00); C Reactive Protein 1.6 mg/dL (0.0-0.8); Calcium 8.4 mg/dL (8.7-10.3); Carbon Dioxide 26.4 mmol/L (21.6-31.8); Non-African American GFR(CKD) 73.6 (60.0-200.0); Potassium 4.3 mmol/L (3.5-5.5)
[2020-08-26 10:36] LABS: Basophils # (A) 0.02 X 10*3/uL (0.00-0.10); Basophils % (A) 0.1 %; Eosinophils # (A) 0 X 10*3/uL (0.04-0.35); Eosinophils % (A) 0 %; Lymphocytes # (A) 0.61 X 10*3/uL (0.90-5.00); Lymphocytes % (A) 4.5 %; Macrocytosis (M) 2+; Monocytes # (A) 0.37 X 10*3/uL (0.20-1.00); Monocytes % (A) 2.7 %; Neutrophils # (A) 12.33 X 10*3/uL (1.80-7.70); Neutrophils % (A) 91.7 %
[2020-08-26 11:46] LABS: Glucose,Whole Blood 330 mg/dL (75-99)
[2020-08-26] MEDS: REMDESIVIR 100 MG in SODIUM CHLORIDE 0.9% 250 ML IVPB SCH (12:25)
[2020-08-26] MEDS: SODIUM CHLORIDE 0.9% 1,000 ML IV SCH ×2 (12:26→21:16)
[2020-08-26 13:05] LABS: BUN/Creat Ratio 33.64 Ratio (12.00-20.00)
[2020-08-26] MEDS: ACETAMINOPHEN TAB 325 MG TAB PO PRN (14:57)
[2020-08-26 16:21] LABS: Glucose,Whole Blood 360 mg/dL (75-99)
[2020-08-26 19:47] LABS: Glucose,Whole Blood 299 mg/dL (75-99)
[2020-08-27] MEDS: methylPREDNISolone SOD SUCCI 125 MG/2 ML VIAL IV SCH ×5 (00:36→23:19)
[2020-08-27 06:57] LABS: Glucose,Whole Blood 315 mg/dL (75-99)
[2020-08-27] MEDS: TIOTROPIUM 2.5 MCG INHALER INHALATION SCH (07:37)
[2020-08-27] MEDS: ALBUTEROL HFA INHALER INHALATION SCH ×4 (07:37→19:22)
[2020-08-27] MEDS: ENOXAPARIN 40 MG/0.4 ML SYRINGE SQ SCH (08:28)
[2020-08-27] MEDS: FAMOTIDINE 20 MG TAB PO SCH ×2 (08:28→20:06)
[2020-08-27] MEDS: ASCORBIC ACID 500 MG TAB PO SCH ×2 (08:28→20:06)
[2020-08-27] MEDS: FLUoxetine HCL 20 MG CAP PO SCH (08:28)
[2020-08-27] MEDS: ATORVASTATIN 40 MG TAB PO SCH (08:28)
[2020-08-27] MEDS: MORPHINE SULFATE ER 30 MG TABLET PO SCH ×2 (08:28→20:06)
[2020-08-27] MEDS: MORPHINE SULFATE IR 15 MG TABLET PO SCH ×2 (08:28→20:06)
[2020-08-27] MEDS: METOPROLOL SUCCINATE (ER) 25 MG TAB.ER.24H PO SCH (08:28)
[2020-08-27] MEDS: ZINC SULFATE 220 MG CAP PO SCH (08:28)
[2020-08-27] MEDS: INSULIN ASPART (NovoLOG) 100 UNIT/ML VIAL SQ SCH ×4 (08:29→21:02)
[2020-08-27] MEDS: AZITHROMYCIN 500 MG TAB PO SCH (08:29)
[2020-08-27 08:47] LABS: C Reactive Protein 10.7 mg/L (<10.0)
[2020-08-27] MEDS: ACETAMINOPHEN TAB 325 MG TAB PO PRN (11:24)
[2020-08-27 11:31] LABS: Glucose,Whole Blood 357 mg/dL (75-99)
[2020-08-27] MEDS: REMDESIVIR 100 MG in SODIUM CHLORIDE 0.9% 250 ML IVPB SCH (12:21)
[2020-08-27 16:46] LABS: Glucose,Whole Blood 339 mg/dL (75-99)
[2020-08-27] MEDS: SODIUM CHLORIDE 0.9% 1,000 ML IV SCH (17:29)
--- NOTE | 2020-08-27 17:43 | P.PN ---
Subjective Progress Note Date: 08/26/20 Principal diagnosis: COVID Pneumonia Mr. Gomez is a 60-year-old male with a past medical history of obstructive sleep apnea status post tracheostomy, COPD, diabetes mellitus, DVT, hypertension, hyperlipidemia coming to the hospital with a chief complaint of difficulty in breathing. Patient states that he got the COVID 19 vaccine Approximately one week back. Since then patient has been having myalgias. He was also having chest discomfort and has been coughing along with difficulty in breathing. Over the past course of 1 week his symptoms have worsened he started to have fevers and was extremely fatigued so came in for further evaluation. Patient also complains of loss of taste and loss of smell and that the symptoms are slowly improving. He mentions that he had tracheostomy because of severe obstructive sleep apnea it was done in 2003. He states that he follows with Dr. King who is his group social worker on a regular basis. Patient denies having any chest pain or palpitations. No abdominal pain nausea vomiting or diarrhea. No dysuria or hematuria. Patient denies and swelling of his lower extremities. He was given breathing treatments via transport and brought in to the hospital. In the ER, patient had a chest x-ray showing bilateral infiltrates and high riding endotracheal tube. At the time of admission patient was febrile with a temperature of 102.7, tachycardic, respiratory rate 18, saturating at 94% on trach collar his blood pressure was 1 10 x 75. On reviewing his labs white count of 4.1, hemoglobin 15.3, MCV 105.9, platelets 171 lymphocytes 0.8. D- dimer 0.66, sodium 131, potassium 4.3, chloride 88, bicarb 30, B and 33, creatinine 1.41. Total bilirubin 0.9, ferritin 1010, LDH 597, CRP 53.8, prolactin 0.32. He's tested positive for bui virus. On 08/25/2020- patient was seen and examined at bedside. He is sitting up comfortably in the bed appears to be no acute distress. He complains of mild cough. He is requiring 10 L of oxygen with 40% FiO2 on trach collar to maintain saturations above 90. Patient denies having any chest pain or palpitations. No abdominal pain nausea vomiting or diarrhea. No dysuria or hematuria. On reviewing vitals temperature of 97.6, heart rate around 50s, respiratory rate 18, blood pressure 104/66. On reviewing labs, white count of 13, hemoglobin 13.2, platelets 191. Sodium 134, potassium 5.1, chloride 98, bicarb 26, BNP 36 , creatinine 1.04. On 08/26/2020 - patient is seen and examined at bedside. He is sitting comfortably in bed in no acute distress. He is still requiring 10 L of oxygen with 40% FiO2 on trach collar to maintain his sats above 90. Patient had a chest x-ray done this morning showing right middle and lower lobe zone infiltrates essentially unchanged compared to prior study. On reviewing vitals temperature 90.8, heart rate 62, respiratory rate 18, blood pressure 111/58. Reviewing labs white count of 13.4, platelets 222, hemoglobin 12.6, sodium 136, but aeration 4.3, chloride 99, bicarb 26, BUN 34, creatinine 1.1. CRP is 1.6, LDH 265. All medications and pertinent changes made. Objective - Vital Signs Vital signs: Vital Signs Temp 97.7 F 08/26/20 13:10 Pulse 61 08/26/20 13:10 Resp 18 08/26/20 13:10 BP 114/73 08/26/20 13:10 Pulse Ox 90 L 08/26/20 13:10 Intake & Output 08/25/20 08/26/20 08/26/20 18:59 06:59 18:59 Output Total 900 400 Balance -900 -400 Output: Urine 900 400 - Exam PHYSICAL EXAMINATION: GENERAL: The patient is alert and oriented x3, not in any acute distress. On 10 L of oxygen with 40% FiO2 saturating about 90% HEENT: Pupils are round and equally reacting to light. EOMI. No scleral icterus. No pallor. Trach collar in place. CARDIOVASCULAR: S1 and S2 present. PULMONARY: Bilateral coarse breath sounds. No crackles or wheezing ABDOMEN: Abdomen is soft. Nontender. Nondistended. Normal bowel sounds. MUSCULOSKELETAL: No joint swelling or deformity. EXTREMITIES: No cyanosis, clubbing, or pedal edema. NEUROLOGICAL: Gross neurological examination did not reveal any focal deficits. SKIN: No rashes. - Labs CBC & Chem 7: 08/26/20 05:32 08/26/20 05:32 Labs: Abnormal Lab Results - Last 24 Hours (Table) 08/25/20 08/25/20 08/25/20 Range/Units 07:08 16:37 20:23 WBC (4.50-10.00) X 10*3/uL RBC (4.40-5.60) X 10*6/uL Hgb (13.0-17.0) g/dL Hct (39.6-50.0) % MCV (80.0-97.0) fL MCH (27.0-32.0) pg Immature Gran # (0.00-0.04) X 10*3/uL Neutrophils # (1.80-7.70) X 10*3/uL Lymphocytes # (0.90-5.00) X 10*3/uL Eosinophils # (0.04-0.35) X 10*3/uL BUN (9.0-27.0) mg/dL BUN/Creatinine Ratio 33.64 H (12.00-20.00) Ratio Glucose (70-110) mg/dL POC Glucose (mg/dL) 271 H 326 H (75-99) mg/dL Calcium (8.7-10.3) mg/dL Lactate Dehydrogenase (120-246) U/L C-Reactive Protein (0.0-0.8) mg/dL 08/26/20 08/26/20 08/26/20 Range/Units 05:32 05:32 06:57 WBC 13.46 H (4.50-10.00) X 10*3/uL RBC 3.45 L (4.40-5.60) X 10*6/uL Hgb 12.6 L (13.0-17.0) g/dL Hct 38.7 L (39.6-50.0) % MCV 112.2 H (80.0-97.0) fL MCH 36.5 H (27.0-32.0) pg Immature Gran # 0.13 H (0.00-0.04) X 10*3/uL Neutrophils # 12.33 H (1.80-7.70) X 10*3/uL Lymphocytes # 0.61 L (0.90-5.00) X 10*3/uL Eosinophils # 0 L (0.04-0.35) X 10*3/uL BUN 34.0 H (9.0-27.0) mg/dL BUN/Creatinine Ratio 30.91 H (12.00-20.00) Ratio Glucose 342 H (70-110) mg/dL POC Glucose (mg/dL) 331 H (75-99) mg/dL Calcium 8.4 L (8.7-10.3) mg/dL Lactate Dehydrogenase 265 H (120-246) U/L C-Reactive Protein 1.6 H (0.0-0.8) mg/dL 08/26/20 Range/Units 11:35 WBC (4.50-10.00) X 10*3/uL RBC (4.40-5.60) X 10*6/uL Hgb (13.0-17.0) g/dL Hct (39.6-50.0) % MCV (80.0-97.0) fL MCH (27.0-32.0) pg Immature Gran # (0.00-0.04) X 10*3/uL Neutrophils # (1.80-7.70) X 10*3/uL Lymphocytes # (0.90-5.00) X 10*3/uL Eosinophils # (0.04-0.35) X 10*3/uL BUN (9.0-27.0) mg/dL BUN/Creatinine Ratio (12.00-20.00) Ratio Glucose (70-110) mg/dL POC Glucose (mg/dL) 330 H (75-99) mg/dL Calcium (8.7-10.3) mg/dL Lactate Dehydrogenase (120-246) U/L C-Reactive Protein (0.0-0.8) mg/dL Microbiology - Last 24 Hours (Table) 08/23/20 17:40 Blood Culture - Preliminary Blood No Growth after 48 hours 08/23/20 17:55 Blood Culture - Preliminary Blood No Growth after 48 hours Assessment and Plan Assessment: ASSESSMENT Acute hypoxic respiratory failure secondary to COVID pneumonia Sepsis secondary to above Lymphopenia Increased inflammatory markers Severe obstructive sleep apnea Macrocytosis Hyperglycemia Acute kidney injury COPD History of DVT Hypertension Hyperlipidemia History of depression fractures History of polypectomy Nicotine dependence Past history of substance abuse Obesity with BMI of 36.8 PLAN: Patient is currently requiring 10 L of oxygen, 40% FiO2 through the trach collar to maintain saturations above 90%. Continue on ceftriaxone and Zithromax. Chest x-ray done this morning showing no significant changes and pretty much stable. Pulmonary Dr. King following the patient. Patient to be continued on Decadron, Lovenox, vitamin C, zinc supplements. Encouraged to continue with incentive spirometry. He is getting Remdesivir day#2 today. We will monitor inflammatory markers and chest x-ray. Further recommendations to follow depending on the progress of the patient.
--- NOTE | 2020-08-27 17:47 | P.PN ---
Subjective Progress Note Date: 08/27/20 Principal diagnosis: COVID Pneumonia Mr. Gomez is a 60-year-old male with a past medical history of obstructive sleep apnea status post tracheostomy, COPD, diabetes mellitus, DVT, hypertension, hyperlipidemia coming to the hospital with a chief complaint of difficulty in breathing. Patient states that he got the COVID 19 vaccine Approximately one week back. Since then patient has been having myalgias. He was also having chest discomfort and has been coughing along with difficulty in breathing. Over the past course of 1 week his symptoms have worsened he started to have fevers and was extremely fatigued so came in for further evaluation. Patient also complains of loss of taste and loss of smell and that the symptoms are slowly improving. He mentions that he had tracheostomy because of severe obstructive sleep apnea it was done in 2003. He states that he follows with Dr. King who is his gre instructor on a regular basis. Patient denies having any chest pain or palpitations. No abdominal pain nausea vomiting or diarrhea. No dysuria or hematuria. Patient denies and swelling of his lower extremities. He was given breathing treatments via transport and brought in to the hospital. In the ER, patient had a chest x-ray showing bilateral infiltrates and high riding endotracheal tube. At the time of admission patient was febrile with a temperature of 102.7, tachycardic, respiratory rate 18, saturating at 94% on trach collar his blood pressure was 1 10 x 75. On reviewing his labs white count of 4.1, hemoglobin 15.3, MCV 105.9, platelets 171 lymphocytes 0.8. D- dimer 0.66, sodium 131, potassium 4.3, chloride 88, bicarb 30, B and 33, creatinine 1.41. Total bilirubin 0.9, ferritin 1010, LDH 597, CRP 53.8, prolactin 0.32. He's tested positive for bui virus. On 08/25/2020- patient was seen and examined at bedside. He is sitting up comfortably in the bed appears to be no acute distress. He complains of mild cough. He is requiring 10 L of oxygen with 40% FiO2 on trach collar to maintain saturations above 90. Patient denies having any chest pain or palpitations. No abdominal pain nausea vomiting or diarrhea. No dysuria or hematuria. On reviewing vitals temperature of 97.6, heart rate around 50s, respiratory rate 18, blood pressure 104/66. On reviewing labs, white count of 13, hemoglobin 13.2, platelets 191. Sodium 134, potassium 5.1, chloride 98, bicarb 26, BNP 36 , creatinine 1.04. On 08/26/2020 - patient is seen and examined at bedside. He is sitting comfortably in bed in no acute distress. He is still requiring 10 L of oxygen with 40% FiO2 on trach collar to maintain his sats above 90. Patient had a chest x-ray done this morning showing right middle and lower lobe zone infiltrates essentially unchanged compared to prior study. On reviewing vitals temperature 90.8, heart rate 62, respiratory rate 18, blood pressure 111/58. Reviewing labs white count of 13.4, platelets 222, hemoglobin 12.6, sodium 136, Potassium 4.3, chloride 99, bicarb 26, BUN 34, creatinine 1.1. CRP is 1.6, LDH 265. On 08/27/2020 - patient is sitting comfortably in bed appears to be no acute distress. He is trying to be weaned off oxygen and requiring 6 L of oxygen with 40% FiO2 on trach collar to maintain his sats above 90. Patient states that his respiratory status has improved and his less short of breath. Denies having any fevers chills or rigors. No headache, fevers chills or rigors. Denies having abdominal pain nausea vomiting or diarrhea. Denies dysuria or hematuria. Reviewing his vitals T-max 98.1, heart rate 50s to 60s, respiratory rate 20, blood pressure 123/72. On reviewing his labs blood sugars have been running high in 200s to 300s. LDH 698, CRP 10.7. Active Medications Acetaminophen (Acetaminophen Tab 325 Mg Tab) 650 mg PO Q6HR PRN PRN Reason: Fever and/ or Pain Last Admin: 08/27/20 11:24 Dose: 650 mg Documented by: Albuterol Sulfate (Albuterol Hfa Inhaler) 2 puff INHALATION RT-Q4H PRN PRN Reason: Shortness Of Breath Or Wheezing Albuterol Sulfate (Albuterol Hfa Inhaler) 2 puff INHALATION RT-QID [facility] Last Admin: 08/27/20 15:46 Dose: Not Given Documented by: Ascorbic Acid (Ascorbic Acid 500 Mg Tab) 500 mg PO BID [facility] Last Admin: 08/27/20 08:28 Dose: 500 mg Documented by: Atorvastatin Calcium (Atorvastatin 40 Mg Tab) 40 mg PO DAILY [facility] Last Admin: 08/27/20 08:28 Dose: 40 mg Documented by: Azithromycin (Azithromycin 500 Mg Tab) 500 mg PO DAILY [facility] Last Admin: 08/27/20 08:29 Dose: 500 mg Documented by: Enoxaparin Sodium (Enoxaparin 40 Mg/0.4 Ml Syringe) 40 mg SQ DAILY [facility] Last Admin: 08/27/20 08:28 Dose: 40 mg Documented by: Famotidine (Famotidine 20 Mg Tab) 20 mg PO Q12HR [facility] Last Admin: 08/27/20 08:28 Dose: 20 mg Documented by: Fluoxetine HCl (Fluoxetine Hcl 20 Mg Cap) 40 mg PO DAILY [facility] Last Admin: 08/27/20 08:28 Dose: 40 mg Documented by: Sodium Chloride (Saline 0.9%) 1,000 mls @ 75 mls/hr IV .[id number] [facility] Last Admin: 08/27/20 17:29 Dose: Not Given Documented by: Ceftriaxone Sodium 1 gm/ (Sodium Chloride) 50 mls @ 100 mls/hr IVPB Q24HR [facility] Last Admin: 08/27/20 08:27 Dose: 100 mls/hr Documented by: Remdesivir 100 mg/ Sodium (Chloride) 250 mls @ 250 mls/hr IVPB DAILY@1200 [facility] Stop: 08/28/20 12:59 Last Admin: 08/27/20 12:21 Dose: 250 mls/hr Documented by: Insulin Aspart (Insulin Aspart (Novolog) 100 Unit/Ml Vial) 0 unit SQ ACHS [facility]; Protocol Last Admin: 08/27/20 12:21 Dose: 10 unit Documented by: Methylprednisolone Sodium Succinate (Methylprednisolone Sod Succi 125 Mg/2 Ml Vial) 60 mg IV Q6HR [facility] Last Admin: 08/27/20 12:20 Dose: 60 mg Documented by: Metoprolol Succinate (Metoprolol Succinate (Er) 25 Mg Tab.Er.24h) 25 mg PO DAILY [facility] Last Admin: 08/27/20 08:28 Dose: 25 mg Documented by: Morphine Sulfate (Morphine Sulfate Ir 15 Mg Tablet) 15 mg PO Q12HR [facility] Last Admin: 08/27/20 08:28 Dose: 15 mg Documented by: Morphine Sulfate (Morphine Sulfate Er 30 Mg Tablet) 30 mg PO Q12HR [facility]; Protocol Last Admin: 08/27/20 08:28 Dose: 30 mg Documented by: Tiotropium Panacea (Tiotropium 2.5 Mcg Inhaler) 2 puff INHALATION RT-DAILY [facility] Last Admin: 08/27/20 07:37 Dose: 2 puff Documented by: Zinc Sulfate (Zinc Sulfate 220 Mg Cap) 220 mg PO DAILY [facility] Last Admin: 08/27/20 08:28 Dose: 220 mg Documented by: Objective - Vital Signs Vital signs: Vital Signs Temp 98.1 F 08/27/20 14:00 Pulse 50 L 08/27/20 14:00 Resp 20 08/27/20 14:00 BP 123/72 08/27/20 14:00 Pulse Ox 96 08/27/20 14:00 Intake & Output 08/26/20 08/27/20 08/27/20 18:59 06:59 18:59 Intake Total 1700 Output Total 300 Balance 1400 Intake: Intake, IV Titration 1200 Amount Sodium Chloride 0.9% 1, 1200 000 ml @ 75 mls/hr IV . [id number] [facility] Rx#:[id number] Oral 500 Output: Urine 300 Other: # Voids 3 2 - Exam PHYSICAL EXAMINATION: GENERAL: The patient is alert and oriented x3, not in any acute distress. HEENT: Pupils are round and equally reacting to light. EOMI. No scleral icterus. No pallor. Trach collar in place. Requiring 6 L of oxygen, 40% FiO2 CARDIOVASCULAR: S1 and S2 present. PULMONARY: Bilateral coarse breath sounds. No crackles or wheezing ABDOMEN: Abdomen is soft. Nontender. Nondistended. Normal bowel sounds. MUSCULOSKELETAL: No joint swelling or deformity. EXTREMITIES: No cyanosis, clubbing, or pedal edema. NEUROLOGICAL: Gross neurological examination did not reveal any focal deficits. SKIN: No rashes. - Labs CBC & Chem 7: 08/26/20 05:32 08/26/20 05:32 Labs: Abnormal Lab Results - Last 24 Hours (Table) 08/26/20 08/26/20 08/27/20 Range/Units 16:18 19:45 06:54 POC Glucose (mg/dL) 360 H 299 H 315 H (75-99) mg/dL Lactate Dehydrogenase (313-618) U/L C-Reactive Protein (<10.0) mg/L 08/27/20 08/27/20 Range/Units 07:47 11:29 POC Glucose (mg/dL) 357 H (75-99) mg/dL Lactate Dehydrogenase 698 H (313-618) U/L C-Reactive Protein 10.7 H (<10.0) mg/L Microbiology - Last 24 Hours (Table) 08/23/20 17:55 Blood Culture - Preliminary Blood No Growth after 72 hours 08/23/20 17:40 Blood Culture - Preliminary Blood No Growth after 72 hours Assessment and Plan Assessment: ASSESSMENT Acute hypoxic respiratory failure secondary to COVID pneumonia Sepsis secondary to above Lymphopenia Increased inflammatory markers Severe obstructive sleep apnea Macrocytosis Hyperglycemia Acute kidney injury COPD History of DVT Hypertension Hyperlipidemia History of depression fractures History of polypectomy Nicotine dependence Past history of substance abuse Obesity with BMI of 36.8 PLAN: Patient is currently requiring 6 L of oxygen, 40% FiO2 through the trach collar to maintain saturations above 90%. Continue on ceftriaxone and Zithromax. Pulmonary Dr. King following the patient. Patient to be continued on Decadron, Lovenox, vitamin C, zinc supplements. Encouraged to continue with incentive spirometry and activity as tolerated. He is getting Remdesivir, #3 today. We will monitor inflammatory markers and chest x-ray. Further recommendations to follow depending on the progress of the patient.
[2020-08-27 20:30] LABS: Glucose,Whole Blood 355 mg/dL (75-99)
[2020-08-27] MEDS ORDERED: INSULIN DETEMIR (LEVEMIR) 100 UNIT/ML SYR SQ SCH (21:00)
[2020-08-28] MEDS: SODIUM CHLORIDE 0.9% 1,000 ML IV SCH (03:10)
[2020-08-28] MEDS: methylPREDNISolone SOD SUCCI 125 MG/2 ML VIAL IV SCH ×2 (05:38→12:37)
[2020-08-28 06:15] VITALS: RESP 18
[2020-08-28 07:41] LABS: Glucose,Whole Blood 280 mg/dL (75-99)
[2020-08-28 08:45] LABS: HGB 11.8 g/dL (13.0-17.0); MCH 36.5 pg (27.0-32.0); MCHC 32.8 g/dL (32.0-37.0); MCV 111.5 fL (80.0-97.0); Mean Platelet Volume 10.8 fL (9.5-12.2); Platelet Count 211 X 10*3/uL (140-440); RBC 3.23 X 10*6/uL (4.40-5.60); WBC 8.62 X 10*3/uL (4.50-10.00)
[2020-08-28] MEDS: ASCORBIC ACID 500 MG TAB PO SCH (08:58)
[2020-08-28] MEDS: FAMOTIDINE 20 MG TAB PO SCH (08:58)
[2020-08-28] MEDS: ATORVASTATIN 40 MG TAB PO SCH (08:58)
[2020-08-28] MEDS: MORPHINE SULFATE IR 15 MG TABLET PO SCH (08:58)
[2020-08-28] MEDS: AZITHROMYCIN 500 MG TAB PO SCH (08:58)
[2020-08-28] MEDS: MORPHINE SULFATE ER 30 MG TABLET PO SCH (08:59)
[2020-08-28] MEDS: ZINC SULFATE 220 MG CAP PO SCH (09:00)
[2020-08-28] MEDS: METOPROLOL SUCCINATE (ER) 25 MG TAB.ER.24H PO SCH (09:00)
[2020-08-28] MEDS: ENOXAPARIN 40 MG/0.4 ML SYRINGE SQ SCH (09:00)
[2020-08-28] MEDS: INSULIN ASPART (NovoLOG) 100 UNIT/ML VIAL SQ SCH ×2 (09:00→12:33)
[2020-08-28] MEDS: ALBUTEROL HFA INHALER INHALATION SCH ×3 (09:01→15:12)
[2020-08-28] MEDS: TIOTROPIUM 2.5 MCG INHALER INHALATION SCH (09:01)
[2020-08-28] MEDS: FLUoxetine HCL 20 MG CAP PO SCH (09:10)
[2020-08-28 09:41] LABS: Basophils # (A) 0.02 X 10*3/uL (0.00-0.10); Basophils % (A) 0.2 %; Eosinophils # (A) 0 X 10*3/uL (0.04-0.35); Eosinophils % (A) 0 %; Lymphocytes # (A) 0.47 X 10*3/uL (0.90-5.00); Lymphocytes % (A) 5.5 %; Macrocytosis (M) 2+; Monocytes # (A) 0.25 X 10*3/uL (0.20-1.00); Monocytes % (A) 2.9 %; Neutrophils % (A) 90.5 %
[2020-08-28 10:02] LABS: African American GFR (CKD) 114.1 (60.0-200.0); C Reactive Protein 0.5 mg/dL (0.0-0.8); Non-African American GFR(CKD) 98.5 (60.0-200.0); Potassium 4.2 mmol/L (3.5-5.5)
[2020-08-28 11:00] VITALS: BP 127/73; PULSE 65; TEMP 98.1
--- NOTE | 2020-08-28 11:09 | P.PN ---
Subjective Progress Note Date: 08/28/20 Principal diagnosis: Covid 19 pneumonia Acute hypoxic respiratory failure Sleep disorder breathing and sleep apnea status post permanent tracheostomy Hypertension hypertensive cardiovascular disease Dyslipidemia Morbid obesity 08/28/2020 patient is doing well get short of breath on activity and exertion with slight desaturation finish therapy, stable from pulmonary standpoint to go home on supplemental oxygen and oral Decadron 6 mg daily, patient is due for trach change will schedule follow-up in about 4 weeks This patient is a 60-year-old male with a history of obstructive sleep apnea status post multiple cardiopulmonary arrest due to sleep apnea, patient has pe rmanent tracheostomy, patient has his first dose of covid vaccine week ago developed labs aches pains followed by progressive cuff shortness of breath and breathing difficulty, came into the hospital for further evaluation, patient currently on 10 L oxygen, primary medical history significant for morbid obesity hypertension hypertensive cardiovascular disease mood disorder depression dyslipidemia and end-stage COPD along with severe sleep apnea with type 2 diabetes mellitus he also has a history of pulmonary embolism completed his anticoagulation Objective - Vital Signs Vital signs: Vital Signs Temp 98.1 F 08/28/20 10:00 Pulse 65 08/28/20 10:00 Resp 18 08/28/20 10:00 BP 127/73 08/28/20 10:00 Pulse Ox 92 L 08/28/20 10:00 Intake & Output 08/27/20 08/28/20 08/28/20 18:59 06:59 18:59 Intake Total 500 Output Total 1500 3000 Balance -1500 -2500 Intake: Oral 500 Output: Urine 1500 3000 Other: # Voids 2 - Exam - Constitutional General appearance: disheveled, morbidly obese - EENT Eyes: EOMI, PERRLA Ears: bilateral: normal - Neck Neck: normal ROM Carotids: bilateral: upstroke normal - Respiratory Respiratory: bilateral: diminished - Cardiovascular Rhythm: regular Heart sounds: normal: S1, S2 - Gastrointestinal General gastrointestinal: decreased bowel sounds - Integumentary Integumentary: decreased turgor - Neurologic Neurologic: CNII-XII intact - Musculoskeletal Musculoskeletal: gait normal, generalized weakness, strength equal bilaterally - Psychiatric Psychiatric: A&O x's 3, appropriate affect, intact judgment & insight - Labs CBC & Chem 7: 08/28/20 05:31 08/28/20 05:31 Labs: Abnormal Lab Results - Last 24 Hours (Table) 08/27/20 08/27/20 08/27/20 Range/Units 11:29 16:45 20:29 RBC (4.40-5.60) X 10*6/uL Hgb (13.0-17.0) g/dL Hct (39.6-50.0) % MCV (80.0-97.0) fL MCH (27.0-32.0) pg Immature Gran # (0.00-0.04) X 10*3/uL Neutrophils # (1.80-7.70) X 10*3/uL Lymphocytes # (0.90-5.00) X 10*3/uL Eosinophils # (0.04-0.35) X 10*3/uL BUN (9.0-27.0) mg/dL BUN/Creatinine Ratio (12.00-20.00) Ratio Glucose (70-110) mg/dL POC Glucose (mg/dL) 357 H 339 H 355 H (75-99) mg/dL Calcium (8.7-10.3) mg/dL 08/28/20 08/28/20 08/28/20 Range/Units 05:31 05:31 07:39 RBC 3.23 L (4.40-5.60) X 10*6/uL Hgb 11.8 L (13.0-17.0) g/dL Hct 36.0 L (39.6-50.0) % MCV 111.5 H (80.0-97.0) fL MCH 36.5 H (27.0-32.0) pg Immature Gran # 0.08 H (0.00-0.04) X 10*3/uL Neutrophils # 7.80 H (1.80-7.70) X 10*3/uL Lymphocytes # 0.47 L (0.90-5.00) X 10*3/uL Eosinophils # 0 L (0.04-0.35) X 10*3/uL BUN 32.0 H (9.0-27.0) mg/dL BUN/Creatinine Ratio 40.00 H (12.00-20.00) Ratio Glucose 285 H (70-110) mg/dL POC Glucose (mg/dL) 280 H (75-99) mg/dL Calcium 8.0 L (8.7-10.3) mg/dL Microbiology - Last 24 Hours (Table) 08/23/20 17:55 Blood Culture - Preliminary Blood No Growth after 96 hours 08/23/20 17:40 Blood Culture - Preliminary Blood No Growth after 96 hours Assessment and Plan Assessment: Covid 19 pneumonia Acute hypoxic respiratory failure, oxygen significantly improved 87-89% activity Sleep disorder breathing and sleep apnea status post permanent tracheostomy Hypertension hypertensive cardiovascular disease Dyslipidemia Morbid obesity Plan: Continue supplemental oxygen at during sleep and activity Reassess as outpatient Deep breathing exercise incentive spirometry Continue home medications Antibiotics can be changed to oral Zithromax for a few more days and Decadron for additional 5 days oral 6 mg Status post IV REMdesivir for 5 days Patient stable and clear for discharge with follow-up in 4 weeks to change the tracheostomy Time with Patient: Greater than 30
[2020-08-28 12:19] LABS: Glucose,Whole Blood 280 mg/dL (75-99)
[2020-08-28] MEDS: REMDESIVIR 100 MG in SODIUM CHLORIDE 0.9% 250 ML IVPB SCH (12:32)
--- NOTE | 2020-08-28 14:00 | P.DS ---
Providers Date of admission: 08/23/20 19:33 Attending physician: Brian Lal MD Consults: 08/24/20 09:44 Consult Physician Routine Consulting Provider: Jacques King Consult Reason/Comments: COVID Do you want consulting provider notified?: Yes Primary care physician: Lilli [facility] Course: Mr. Gomez is a 60-year-old male with a past medical history of obstructive sleep apnea status post tracheostomy, COPD, diabetes mellitus, DVT, hypertension, hyperlipidemia coming to the hospital with a chief complaint of difficulty in breathing. Patient states that he got the COVID 19 vaccine Approximately one week back. Since then patient has been having myalgias. He was also having chest discomfort and has been coughing along with difficulty in breathing. Over the past course of 1 week his symptoms have worsened he started to have fevers and was extremely fatigued so came in for further evaluation. Patient also complains of loss of taste and loss of smell and that the symptoms are slowly improving. He mentions that he had tracheostomy because of severe obstructive sleep apnea it was done in 2003. He states that he follows with Dr. 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 Patient denies having any chest pain or palpitations. No abdominal pain nausea vomiting or diarrhea. No dysuria or hematuria. Patient denies and swelling of his lower extremities. He was given breathing treatments via transport and brought in to the hospital. In the ER, patient had a chest x-ray showing bilateral infiltrates and high riding endotracheal tube. At the time of admission patient was febrile with a temperature of 102.7, tachycardic, respiratory rate 18, saturating at 94% on trach collar his blood pressure was 1 10 x 75. On reviewing his labs white count of 4.1, hemoglobin 15.3, MCV 105.9, platelets 171 lymphocytes 0.8. D- dimer 0.66, sodium 131, potassium 4.3, chloride 88, bicarb 30, B and 33, creatinine 1.41. Total bilirubin 0.9, ferritin 1010, LDH 597, CRP 53.8, prolac tin 0.32. He's tested positive for bui virus. On 08/25/2020- patient was seen and examined at bedside. He is sitting up comfortably in the bed appears to be no acute distress. He complains of mild cough. He is requiring 10 L of oxygen with 40% FiO2 on trach collar to maintain saturations above 90. Patient denies having any chest pain or palpitations. No abdominal pain nausea vomiting or diarrhea. No dysuria or hematuria. On reviewing vitals temperature of 97.6, heart rate around 50s, respiratory rate 18, blood pressure 104/66. On reviewing labs, white count of 13, hemoglobin 13.2, platelets 191. Sodium 134, potassium 5.1, chloride 98, bicarb 26, BNP 36 , creatinine 1.04. On 08/26/2020 - patient is seen and examined at bedside. He is sitting comfortably in bed in no acute distress. He is still requiring 10 L of oxygen with 40% FiO2 on trach collar to maintain his sats above 90. Patient had a chest x-ray done this morning showing right middle and lower lobe zone infiltr ates essentially unchanged compared to prior study. On reviewing vitals temperature 90.8, heart rate 62, respiratory rate 18, blood pressure 111/58. Reviewing labs white count of 13.4, platelets 222, hemoglobin 12.6, sodium 136, Potassium 4.3, chloride 99, bicarb 26, BUN 34, creatinine 1.1. CRP is 1.6, LDH 265. On 08/27/2020 - patient is sitting comfortably in bed appears to be no acute distress. He is trying to be weaned off oxygen and requiring 6 L of oxygen with 40% FiO2 on trach collar to maintain his sats above 90. Patient states that his respiratory status has improved and his less short of breath. Denies having any fevers chills or rigors. No headache, fevers chills or rigors. Denies having abdominal pain nausea vomiting or diarrhea. Denies dysuria or hematuria. Reviewing his vitals T-max 98.1, heart rate 50s to 60s, respiratory rate 20, blood pressure 123/72. On reviewing his labs blood sugars have been running high in 200s to 300s. LDH 698, CRP 10.7. 08/28/2020 Patient is comfortable but still requiring 6 L of oxygen patient is being discharged on 6 L which will be tapered and weaned off as an outpatient patient usually doesn't use any oxygen patient has a tracheostomy in place. Patient will be discharged to 5 days of azithromycin 5 days of Decadron. Patient will be started on long-acting insulin because of uncontrolled elevated blood sugars are do not have any hemoglobin A1c available patient will continue 15 units of long-acting insulin as long as he is on Decadron patient blood sugars presently or in 350s. Patient may need additional role hypoglycemic agents or insulin even after discontinue additional Decadron, for this patient will follow closely follow with primary care physician. PHYSICAL EXAMINATION: GENERAL: The patient is alert and oriented x3, not in any acute distress. Obese HEENT: Pupils are round and equally reacting to light. EOMI. No scleral icterus. No pallor. Trach collar in place. Requiring 6 L of oxygen, 40% FiO2 CARDIOVASCULAR: S1 and S2 present. PULMONARY: Bilateral coarse breath sounds. No crackles or wheezing ABDOMEN: Abdomen is soft. Nontender. Nondistended. Normal bowel sounds. MUSCULOSKELETAL: No joint swelling or deformity. EXTREMITIES: No cyanosis, clubbing, or pedal edema. NEUROLOGICAL: Gross neurological examination did not reveal any focal deficits. SKIN: No rashes. Assessment and Plan Assessment: ASSESSMENT Acute hypoxic respiratory failure secondary to COVID pneumonia Sepsis secondary to above Lymphopenia Increased inflammatory markers Severe obstructive sleep apnea Macrocytosis Hyperglycemia, type 2 diabetes mellitus elevated blood sugars uncontrolled blood sugars secondary to systemic steroids Acute kidney injury COPD History of DVT Hypertension Hyperlipidemia History of depression fractures History of polypectomy Nicotine dependence Past history of substance abuse Obesity with BMI of 36.8 Patient Condition at Discharge: Stable Plan - Discharge Summary Discharge Rx Participant: No New Discharge Prescriptions: New Zinc Sulfate [Orazinc] 220 mg PO DAILY #20 cap Famotidine [Pepcid] 20 mg PO Q12HR #14 tab Ascorbic Acid [Vitamin C] 500 mg PO BID #30 tab Azithromycin [Zithromax] 500 mg PO DAILY #5 tab Dexamethasone [Decadron] 6 mg PO DAILY #5 tablet Insulin Detemir (Levemir) [Levemir] 15 unit SQ HS #1 syr Continue Metoprolol Succinate (ER) [Toprol XL] 25 mg PO DAILY FLUoxetine HCL [PROzac] 40 mg PO DAILY Morphine Sulfate [Morphine Sulfate ER] 30 mg PO Q12H Simvastatin [Zocor] 80 mg PO DAILY metFORMIN HCL [Glucophage] 500 mg PO DAILY Ipratropium-Albuterol Nebulize [Duoneb 0.5 mg-3 mg/3 ml Soln] 3 ml INHALATION RT-BID Morphine Sulfate Ir [MSIR] 15 mg PO Q12H Discontinued lisinopriL [Zestril] 2.5 mg PO DAILY Discharge Medication List Metoprolol Succinate (ER) [Toprol XL] 25 mg PO DAILY 07/15/14 [History] FLUoxetine HCL [PROzac] 40 mg PO DAILY 01/23/16 [History] Morphine Sulfate [Morphine Sulfate ER] 30 mg PO Q12H 06/20/16 [History] Simvastatin [Zocor] 80 mg PO DAILY 10/02/16 [History] Ipratropium-Albuterol Nebulize [Duoneb 0.5 mg-3 mg/3 ml Soln] 3 ml INHALATION RT-BID 08/23/20 [History] Morphine Sulfate Ir [MSIR] 15 mg PO Q12H 08/23/20 [History] metFORMIN HCL [Glucophage] 500 mg PO DAILY 08/23/20 [History] Ascorbic Acid [Vitamin C] 500 mg PO BID #30 tab 08/28/20 [Rx] Azithromycin [Zithromax] 500 mg PO DAILY #5 tab 08/28/20 [Rx] Dexamethasone [Decadron] 6 mg PO DAILY #5 tablet 08/28/20 [Rx] Famotidine [Pepcid] 20 mg PO Q12HR #14 tab 08/28/20 [Rx] Insulin Detemir (Levemir) [Levemir] 15 unit SQ HS #1 syr 08/28/20 [Rx] Zinc Sulfate [Orazinc] 220 mg PO DAILY #20 cap 08/28/20 [Rx] Follow up Appointment(s)/Referral(s): Lilli Ferro MD [Primary Care Provider] - [facility] [NON-STAFF] - As Needed (oxygen ) Discharge Disposition: HOME SELF-CARE
== END 2020-08-28 17:05 | disposition home or self-care (01) | DRG 871 ==
LOC: EC 16:50 → 4SSUR 19:33
PROVIDERS: ADMIT Internal Medicine; ATTEND Internal Medicine
PROC: 5A0935A Assistance with Respiratory Ventilation, Less than 24 Consecutive Hours, High Flow/Velocity Cannula (ICD-10-PCS; principal; 2020-08-28)
DX: A41.89 Other specified sepsis (principal); U07.1 COVID-19; J12.82 Pneumonia due to coronavirus disease 2019; J96.01 Acute respiratory failure with hypoxia; E87.1 Hypo-osmolality and hyponatremia; J44.0 Chronic obstructive pulmonary disease with (acute) lower respiratory infection; J44.1 Chronic obstructive pulmonary disease with (acute) exacerbation; N17.9 Acute kidney failure, unspecified; I11.0 Hypertensive heart disease with heart failure; I50.9 Heart failure, unspecified; T38.0X5A Adverse effect of glucocorticoids and synthetic analogues, initial encounter; G47.33 Obstructive sleep apnea (adult) (pediatric); Z68.36 Body mass index [BMI] 36.0-36.9, adult; D72.810 Lymphocytopenia; E11.65 Type 2 diabetes mellitus with hyperglycemia; D75.89 Other specified diseases of blood and blood-forming organs; E66.01 Morbid (severe) obesity due to excess calories; E78.5 Hyperlipidemia, unspecified; F17.210 Nicotine dependence, cigarettes, uncomplicated; F17.220 Nicotine dependence, chewing tobacco, uncomplicated; F32.9 Major depressive disorder, single episode, unspecified; Z79.84 Long term (current) use of oral hypoglycemic drugs; Z79.899 Other long term (current) drug therapy; Z86.711 Personal history of pulmonary embolism; Z86.718 Personal history of other venous thrombosis and embolism; Z86.74 Personal history of sudden cardiac arrest; Z93.0 Tracheostomy status; G89.29 Other chronic pain; F19.11 Other psychoactive substance abuse, in remission
CPT/HCPCS: 36415; 71045; 80048; 80053; 82728; 83605; 83615; 83735; 84145; 85025; 85379; 85610; 85730; 86140; 87040; 87635; 93005; 94640; 96361; 96365; 96366; 96372; 96375; 96376; 99291

== ENCOUNTER → 2021-01-18 | Outpatient (CLI) | payer MEDICARE ==
--- NOTE | 2021-01-18 12:41 | XR ---
EXAMINATION TYPE: XR chest 2V DATE OF EXAM: 01/18/2021 COMPARISON: 08/26/2020 HISTORY: Shortness of breath TECHNIQUE: Frontal and lateral views of the chest are obtained. FINDINGS: Scattered senescent parenchymal changes noted. Hyperinflation compatible with COPD. Patchy basilar infiltrates are noted. Correlate for underlying pneumonia. Heart size is stable. Mediastinal structures are stable and grossly unremarkable. No evidence for hilar prominence. Degenerative changes dorsal spine. IMPRESSION: 1. Patchy basilar infiltrates are noted. Correlate for underlying pneumonia.
== END | disposition home or self-care (01) ==
LOC: RADXRMAIN 12:19
PROVIDERS: ATTEND Neurological Surgery
DX: R91.8 Other nonspecific abnormal finding of lung field (principal)
CPT/HCPCS: 71046; 87070

== ENCOUNTER → 2021-01-25 | Outpatient (CLI) | payer MEDICARE ==
--- NOTE | 2021-01-26 08:27 | XR ---
EXAMINATION TYPE: XR chest 2V DATE OF EXAM: 01/25/2021 COMPARISON: 01/18/2021 HISTORY: 60-year-old female J1 8.9, follow-up pneumonia TECHNIQUE: Frontal and lateral views FINDINGS: Tracheostomy cannula. Heart borderline enlarged. Patchy bibasilar opacities are redemonstrated by khoi w some improvement in the interval. Hyperinflation. No pleural effusion. Old healed right-sided rib f racture 4 minutes. IMPRESSION: 1. Borderline cardiomegaly and COPD. 2. Patchy bibasilar infiltrates show partial interval improvement.
== END | disposition home or self-care (01) ==
LOC: RADXRMAIN 16:29
PROVIDERS: ATTEND Family Medicine
DX: J44.9 Chronic obstructive pulmonary disease, unspecified (principal); R91.8 Other nonspecific abnormal finding of lung field
CPT/HCPCS: 71046

== ENCOUNTER 2021-05-01 17:47 | Emergency (ER) | payer MEDICARE ==
[2021-05-01 19:45] VITALS: TEMP 98.2
--- NOTE | 2021-05-01 21:20 | XR ---
EXAMINATION TYPE: XR chest 1V portable DATE OF EXAM: 05/01/2021 COMPARISON: Radiograph 01/25/2021 HISTORY: Shortness of breath. TECHNIQUE: Single frontal view of the chest is obtained. FINDINGS: Cardiomediastinal silhouette is prominent but stable. Central pulmonary vascular distention. Lungs ar e clear clear. Tracheostomy cannula IMPRESSION: Cardiomegaly with central pulmonary vascular distention..
[2021-05-01] MEDS ORDERED: FUROSEMIDE 10 MG/ML 4 ML VIAL IV STA (21:40)
--- NOTE | 2021-05-01 21:43 | ED ---
General Adult HPI - General Chief complaint: Upper Respiratory Infection Stated complaint: SOB, poss pneumonia Time Seen by Provider: 05/01/21 21:02 Source: patient Mode of arrival: ambulatory Limitations: no limitations - History of Present Illness Initial comments: This patient is a 60-year-old man who presents with complaint that he is concerned she may be developing pneumonia. Patient states that he has been feeling more short of breath than is usual for him going back a couple of weeks now. He states that he has history of COPD and CHF and that he has continued to use his home nebulized medications but he is not feeling like his breathing is normal. Patient states that he had cold bed in July and that since that time his oxygen saturations at home run at 87%. These have not really changed over the past couple weeks. The patient states that the main problem is he feels like he needs to cough something up but he is not coughing anything. The patient does have a tracheostomy due to severe sleep apnea. He uses oxygen on a when necessary basis and states that he is not using it constantly. -: week(s) Consistency: constant Improves with: none Worsens with: none Associated Symptoms: cough, shortness of breath Treatments Prior to Arrival: none - Related Data Home Medications Medication Instructions Recorded Confirmed Metoprolol Succinate (ER) [Toprol 25 mg PO DAILY 07/15/14 05/01/21 XL] FLUoxetine HCL [PROzac] 40 mg PO DAILY 01/23/16 05/01/21 Morphine Sulfate [Morphine Sulfate 30 mg PO Q12H 06/20/16 05/01/21 ER] Simvastatin [Zocor] 80 mg PO HS 10/02/16 05/01/21 Ipratropium-Albuterol Nebulize 3 ml INHALATION RT-BID 08/23/20 05/01/21 [Duoneb 0.5 mg-3 mg/3 ml Soln] Morphine Sulfate Ir [MSIR] 15 mg PO Q12H 08/23/20 05/01/21 metFORMIN HCL [Glucophage] 500 mg PO DAILY 08/23/20 05/01/21 Insulin Glargine,Hum.rec.anlog 15 unit SQ DAILY PRN 05/01/21 05/01/21 [Lantus Solostar Pen] lisinopriL [Zestril] 2.5 mg PO DAILY 05/01/21 05/01/21 Previous Rx's Medication Instructions Recorded Furosemide [Lasix] 20 mg PO DAILY #5 tab 05/02/21 Allergies Allergy/AdvReac Type Severity Reaction Status Date / Time No Known Allergies Allergy Verified 05/01/21 19:41 Review of Systems ROS Statement: Those systems with pertinent positive or pertinent negative responses have been documented in the HPI. ROS Other: All systems not noted in ROS Statement are negative. Constitutional: Denies: fever, chills, weakness Respiratory: Reports: as per HPI, cough, dyspnea. Denies: wheezes, hemoptysis, stridor Cardiovascular: Denies: chest pain, palpitations, orthopnea, edema, syncope Gastrointestinal: Denies: abdominal pain, vomiting, diarrhea Genitourinary: Denies: dysuria, hematuria Musculoskeletal: Denies: back pain Skin: Denies: rash Neurological: Denies: headache, weakness Past Medical History Past Medical History: Heart Failure, COPD, Diabetes Mellitus, Deep Vein Thrombosis (DVT), Hyperlipidemia, Hypertension, Sleep Apnea/CPAP/BIPAP Additional Past Medical History / Comment(s): 5--17 Pt admitted to [facility] after a fall with sternal and rib fractures. hx of: chronic pain, diverticulitis, states he has a mass next to spine the dr is watching History of Any Multi-Drug Resistant Organisms: Other MDRO Past Surgical History: Appendectomy Additional Past Surgical History / Comment(s): trach., left kidney operation d/t defect, bronch. colonoscopy/polypectomy-benign polyps Past Anesthesia/Blood Transfusion Reactions: No Reported Reaction Past Psychological History: Depression Smoking Status: Light tobacco smoker Past Alcohol Use History: Occasional Past Drug Use History: Marijuana - Past Family History Father Family Medical History: No Reported History Additional Family Medical History / Comment(s): none Mother Family Medical History: No Reported History General Exam Limitations: no limitations General appearance: alert, in no apparent distress Head exam: Present: atraumatic, normocephalic Eye exam: Present: normal appearance. Absent: scleral icterus, conjunctival injection Neck exam: Present: other (Tracheostomy present) Respiratory exam: Present: rales (Bilateral bases). Absent: respiratory distress, wheezes, rhonchi, stridor, accessory muscle use, decreased breath sounds, prolonged expiratory Cardiovascular Exam: Present: regular rate, normal rhythm, normal heart sounds. Absent: systolic murmur, diastolic murmur, rubs, gallop GI/Abdominal exam: Present: soft. Absent: distended, tenderness, guarding, rebound, rigid, mass Extremities exam: Present: normal inspection, normal capillary refill. Absent: pedal edema, calf tenderness Back exam: Present: normal inspection. Absent: CVA tenderness (R), CVA tenderness (L) Neurological exam: Present: alert Skin exam: Present: warm, dry, intact, normal color. Absent: rash Course Vital Signs 05/01/21 05/01/21 19:41 22:03 Temperature 98.2 F Pulse Rate 72 61 Respiratory 20 18 Rate Blood Pressure 105/71 105/79 O2 Sat by Pulse 87 L 98 Oximetry EKG Findings - EKG Results: EKG: interpreted by JONELLE, sinus rhythm (Rate 61 bpm), normal axis, normal QRS, normal ST/T - Blocks, [place], Hypertrophy, ST Abn: AV and intraventricular conduction: 1 AV block Medical Decision Making - Lab Data Result diagrams: 05/01/21 22:02 05/01/21 22:02 Lab Results 05/01/21 05/01/21 05/01/21 Range/Units 20:10 22:02 22:02 WBC 7.2 (3.8-10.6) k/uL RBC 3.68 L (4.30-5.90) m/uL Hgb 13.7 (13.0-17.5) gm/dL Hct 40.1 (39.0-53.0) % MCV 109.2 H (80.0-100.0) fL MCH 37.3 H (25.0-35.0) pg MCHC 34.2 (31.0-37.0) g/dL RDW 16.0 H (11.5-15.5) % Plt Count 186 (150-450) k/uL MPV 7.6 Neutrophils % 58 % Lymphocytes % 27 % Monocytes % 7 % Eosinophils % 4 % Basophils % 1 % Neutrophils # 4.2 (1.3-7.7) k/uL Lymphocytes # 2.0 (1.0-4.8) k/uL Monocytes # 0.5 (0-1.0) k/uL Eosinophils # 0.3 (0-0.7) k/uL Basophils # 0.1 (0-0.2) k/uL Anisocytosis Slight Macrocytosis Marked A Sodium 138 (137-145) mmol/L Potassium 3.9 (3.5-5.1) mmol/L Chloride 96 L (98-107) mmol/L Carbon Dioxide 35 H (22-30) mmol/L Anion Gap 7 mmol/L BUN 20 (9-20) mg/dL Creatinine 0.94 (0.66-1.25) mg/dL Est GFR (CKD-EPI)AfAm >90 (>60 ml/min/1.73 sqM) Est GFR (CKD-EPI)NonAf 89 (>60 ml/min/1.73 sqM) Glucose 112 H (74-99) mg/dL Calcium 9.6 (8.4-10.2) mg/dL Total Bilirubin 0.5 (0.2-1.3) mg/dL AST 29 (17-59) U/L ALT 14 (4-49) U/L Alkaline Phosphatase 67 (38-126) U/L Troponin I (0.000-0.034) ng/mL Total Protein 6.8 (6.3-8.2) g/dL Albumin 3.6 (3.5-5.0) g/dL Coronavirus (PCR) Not Detected (Not Detectd) 05/01/21 Range/Units 22:02 WBC (3.8-10.6) k/uL RBC (4.30-5.90) m/uL Hgb (13.0-17.5) gm/dL Hct (39.0-53.0) % MCV (80.0-100.0) fL MCH (25.0-35.0) pg MCHC (31.0-37.0) g/dL RDW (11.5-15.5) % Plt Count (150-450) k/uL MPV Neutrophils % % Lymphocytes % % Monocytes % % Eosinophils % % Basophils % % Neutrophils # (1.3-7.7) k/uL Lymphocytes # (1.0-4.8) k/uL Monocytes # (0-1.0) k/uL Eosinophils # (0-0.7) k/uL Basophils # (0-0.2) k/uL Anisocytosis Macrocytosis Sodium (137-145) mmol/L Potassium (3.5-5.1) mmol/L Chloride (98-107) mmol/L Carbon Dioxide (22-30) mmol/L Anion Gap mmol/L BUN (9-20) mg/dL Creatinine (0.66-1.25) mg/dL Est GFR (CKD-EPI)AfAm (>60 ml/min/1.73 sqM) Est GFR (CKD-EPI)NonAf (>60 ml/min/1.73 sqM) Glucose (74-99) mg/dL Calcium (8.4-10.2) mg/dL Total Bilirubin (0.2-1.3) mg/dL AST (17-59) U/L ALT (4-49) U/L Alkaline Phosphatase (38-126) U/L Troponin I <0.012 (0.000-0.034) ng/mL Total Protein (6.3-8.2) g/dL Albumin (3.5-5.0) g/dL Coronavirus (PCR) (Not Detectd) Disposition Clinical Impression: CHF (congestive heart failure) Disposition: HOME SELF-CARE Condition: Good Instructions (If sedation given, give patient instructions): Heart Failure (DC) Prescriptions: Furosemide [Lasix] 20 mg PO DAILY #5 tab Is patient prescribed a controlled substance at d/c from ED?: No Referrals: Lilli Ferro MD [Primary Care Provider] - 1-2 days
[2021-05-01 22:12] LABS: Anisocytosis Slight; Basophils # (A) 0.1 k/uL (0-0.2); Basophils % (A) 1 %; Eosinophils # (A) 0.3 k/uL (0-0.7); Eosinophils % (A) 4 %; HCT 40.1 % (39.0-53.0); HGB 13.7 gm/dL (13.0-17.5); Lymphocytes % (A) 27 %; MCH 37.3 pg (25.0-35.0); MCHC 34.2 g/dL (31.0-37.0); Macrocytosis Marked; Mean Platelet Volume 7.6; Monocytes # (A) 0.5 k/uL (0-1.0); Monocytes % (A) 7 %; Neutrophils # (A) 4.2 k/uL (1.3-7.7); Neutrophils % (A) 58 %; Platelet Count 186 k/uL (150-450); RBC 3.68 m/uL (4.30-5.90); WBC 7.2 k/uL (3.8-10.6)
[2021-05-01 22:14] LABS: MCV 109.2 fL (80.0-100.0)
[2021-05-01 22:26] LABS: ALT 14 U/L (4-49); AST 29 U/L (17-59); African American GFR (CKD) >90 (>60 ml/min/1.73 sqM); Albumin 3.6 g/dL (3.5-5.0); Alkaline Phosphatase 67 U/L (38-126); Anion Gap 7 mmol/L; Blood Urea Nitrogen 20 mg/dL (9-20); Calcium 9.6 mg/dL (8.4-10.2); Carbon Dioxide 35 mmol/L (22-30); Chloride 96 mmol/L (98-107); Glucose 112 mg/dL (74-99); Non-African American GFR(CKD) 89 (>60 ml/min/1.73 sqM); Potassium 3.9 mmol/L (3.5-5.1); Sodium 138 mmol/L (137-145); Total Bilirubin 0.5 mg/dL (0.2-1.3); Total Protein 6.8 g/dL (6.3-8.2)
[2021-05-02] MEDS ORDERED: FUROSEMIDE 40 MG TAB PO STA (02:15)
[2021-05-02 02:24] VITALS: BP 108/77; PULSE 75; RESP 16
== END 2021-05-02 02:23 | disposition home or self-care (01) ==
LOC: EC 17:47
DX: I50.9 Heart failure, unspecified (principal); J44.9 Chronic obstructive pulmonary disease, unspecified; E78.5 Hyperlipidemia, unspecified; E11.9 Type 2 diabetes mellitus without complications; I11.0 Hypertensive heart disease with heart failure; F17.200 Nicotine dependence, unspecified, uncomplicated; F12.90 Cannabis use, unspecified, uncomplicated; Z72.89 Other problems related to lifestyle; Z86.718 Personal history of other venous thrombosis and embolism; Z79.4 Long term (current) use of insulin; Z79.84 Long term (current) use of oral hypoglycemic drugs; Z79.899 Other long term (current) drug therapy
CPT/HCPCS: 36415; 93005; 80053; 84484; 85025; 87635; 71045; 99285; 96374; J1940

== ENCOUNTER 2021-08-13 19:15 | Observation (INO) | payer MEDICARE ==
--- NOTE | 2021-08-13 19:59 | ED ---
General Adult HPI - General Chief complaint: Shortness of Breath Stated complaint: SOB Time Seen by Provider: 08/13/21 19:26 Source: patient, EMS, RN notes reviewed Mode of arrival: EMS Limitations: no limitations - History of Present Illness Initial comments: Patient is a pleasant 61-year-old male presenting to the emergency department with concerns with hypoxia. Patient was taking a nap. Patient was not using his oxygen. Patient does have history of trach secondary to planned surgery that never occurred. Patient was advised to keep this secondary to his sleep apnea. Patient states he feels fine at this time and has no complaints. Patient denies ever having dyspnea. No cough. No fevers. No chest pain. No leg pain or leg swelling. Patient does occasionally use oxygen via trach mask at nighttime and other times. Patient did not have it on today. Patient states he was sleeping and his checked his oxygen and it was low. - Related Data Home Medications Medication Instructions Recorded Confirmed Metoprolol Succinate (ER) [Toprol 25 mg PO DAILY 07/15/14 08/13/21 XL] FLUoxetine HCL [PROzac] 40 mg PO DAILY 01/23/16 08/13/21 Morphine Sulfate [Morphine Sulfate 30 mg PO Q12H 06/20/16 08/13/21 ER] Simvastatin [Zocor] 80 mg PO HS 10/02/16 08/13/21 Ipratropium-Albuterol Nebulize 3 ml INHALATION RT-BID 08/23/20 08/13/21 [Duoneb 0.5 mg-3 mg/3 ml Soln] Morphine Sulfate Ir [MSIR] 15 mg PO Q12H 08/23/20 08/13/21 metFORMIN HCL [Glucophage] 1,000 mg PO DAILY 08/23/20 08/13/21 Insulin Glargine,Hum.rec.anlog 15 unit SQ DAILY PRN 05/01/21 08/13/21 [Lantus Solostar Pen] lisinopriL [Zestril] 2.5 mg PO DAILY 05/01/21 08/13/21 Allergies Allergy/AdvReac Type Severity Reaction Status Date / Time No Known Allergies Allergy Verified 08/13/21 22:45 Review of Systems ROS Statement: Those systems with pertinent positive or pertinent negative responses have been documented in the HPI. ROS Other: All systems not noted in ROS Statement are negative. Constitutional: Denies: fever Eyes: Denies: eye pain ENT: Denies: ear pain Respiratory: Denies: cough, dyspnea Cardiovascular: Denies: chest pain Endocrine: Denies: fatigue Gastrointestinal: Denies: abdominal pain Genitourinary: Denies: dysuria Musculoskeletal: Denies: back pain Skin: Denies: rash Neurological: Denies: weakness Past Medical History Past Medical History: Heart Failure, COPD, Diabetes Mellitus, Deep Vein Thrombosis (DVT), Hyperlipidemia, Hypertension, Sleep Apnea/CPAP/BIPAP Additional Past Medical History / Comment(s): 10-02-16 Pt admitted to [facility] after a fall with sternal and rib fractures. hx of: chronic pain, diverticulitis, states he has a mass next to spine the dr is watching History of Any Multi-Drug Resistant Organisms: Other MDRO Past Surgical History: Appendectomy Additional Past Surgical History / Comment(s): trach., left kidney operation d/t defect, bronch. colonoscopy/polypectomy-benign polyps Past Anesthesia/Blood Transfusion Reactions: No Reported Reaction Past Psychological History: Depression Smoking Status: Light tobacco smoker Past Alcohol Use History: Heavy Past Drug Use History: Marijuana - Past Family History Father Family Medical History: No Reported History Additional Family Medical History / Comment(s): none Mother Family Medical History: No Reported History General Exam Limitations: no limitations General appearance: alert, in no apparent distress Head exam: Present: normocephalic Eye exam: Present: normal appearance Neck exam: Present: normal inspection, other (Trach present) Respiratory exam: Present: normal lung sounds bilaterally. Absent: respiratory distress Cardiovascular Exam: Present: regular rate, normal rhythm GI/Abdominal exam: Present: soft. Absent: tenderness Extremities exam: Present: normal inspection. Absent: pedal edema, calf t enderness Neurological exam: Present: alert Psychiatric exam: Present: normal affect, normal mood Skin exam: Present: normal color. Absent: cyanosis Course Vital Signs 08/13/21 08/13/21 08/13/21 19:19 19:53 20:24 Temperature 98.1 F Pulse Rate 59 L 61 Respiratory 18 18 18 Rate Blood Pressure 91/61 101/62 O2 Sat by Pulse 97 92 L Oximetry 08/13/21 21:21 Temperature Pulse Rate 61 Respiratory 18 Rate Blood Pressure 94/54 O2 Sat by Pulse 92 L Oximetry EKG Findings - EKG Comments: EKG Findings:: Sinus bradycardia 58. For screening AV block LA 2:30. QRS 123. QT 460. QTC 46. Normal axis. Normal QRS. No acute ST change. Procedures - ABG Interpretation Ph: 7.38 PCO2: 67 PO2: 64 Bicarbonate: 39 Medical Decision Making - Medical Decision Making Patient reevaluated and updated. Case was discussed with Dr. dallas, who felt patient would qualify for full admission. Dr. Knutson has been paged. - Lab Data Result diagrams: 08/13/21 19:57 08/13/21 19:57 Lab Results 08/13/21 08/13/21 08/13/21 Range/Units 19:57 19:57 19:57 WBC 9.3 (3.8-10.6) k/uL RBC 3.96 L (4.30-5.90) m/uL Hgb 15.0 (13.0-17.5) gm/dL Hct 46.2 (39.0-53.0) % MCV 116.7 H (80.0-100.0) fL MCH 37.8 H (25.0-35.0) pg MCHC 32.4 (31.0-37.0) g/dL RDW 15.3 (11.5-15.5) % Plt Count 243 (150-450) k/uL MPV 8.8 Neutrophils % 72 % Lymphocytes % 15 % Monocytes % 8 % Eosinophils % 2 % Basophils % 1 % Neutrophils # 6.7 (1.3-7.7) k/uL Lymphocytes # 1.4 (1.0-4.8) k/uL Monocytes # 0.8 (0-1.0) k/uL Eosinophils # 0.2 (0-0.7) k/uL Basophils # 0.1 (0-0.2) k/uL Manual Slide Review Performed Polychromasia Present Poikilocytosis (manual Present Macrocytosis Marked A PT 11.3 (9.0-12.0) sec INR 1.0 (<1.2) APTT 23.8 (22.0-30.0) sec D-Dimer 0.58 (<0.60) mg/L FEU Sample Site ABG pH (7.35-7.45) ABG pCO2 (35-45) mmHg ABG pO2 (83-108) mmHg ABG HCO3 (21-25) mmol/L ABG Total CO2 (19-24) mmol/L ABG O2 Saturation (94-97) % ABG Base Excess mmol/L Wale Test FiO2 % Sodium 134 L (137-145) mmol/L Potassium 3.3 L (3.5-5.1) mmol/L Chloride 89 L (98-107) mmol/L Carbon Dioxide 38 H (22-30) mmol/L Anion Gap 7 mmol/L BUN 25 H (9-20) mg/dL Creatinine 1.39 H (0.66-1.25) mg/dL Est GFR (CKD-EPI)AfAm 64 (>60 ml/min/1.73 sqM) Est GFR (CKD-EPI)NonAf 55 (>60 ml/min/1.73 sqM) Glucose 152 H (74-99) mg/dL Plasma Lactic Acid Miguel Angel (0.7-2.0) mmol/L Calcium 8.7 (8.4-10.2) mg/dL Total Bilirubin 0.9 (0.2-1.3) mg/dL AST 30 (17-59) U/L ALT 12 (4-49) U/L Alkaline Phosphatase 68 (38-126) U/L Troponin I (0.000-0.034) ng/mL NT-Pro-B Natriuret Pep pg/mL Total Protein 7.0 (6.3-8.2) g/dL Albumin 3.5 (3.5-5.0) g/dL Coronavirus (PCR) (Not Detectd) Influenza Type A RNA (Not Detectd) Influenza Type B (PCR) (Not Detectd) 08/13/21 08/13/21 08/13/21 Range/Units 19:57 19:57 19:57 WBC (3.8-10.6) k/uL RBC (4.30-5.90) m/uL Hgb (13.0-17.5) gm/dL Hct (39.0-53.0) % MCV (80.0-100.0) fL MCH (25.0-35.0) pg MCHC (31.0-37.0) g/dL RDW (11.5-15.5) % Plt Count (150-450) k/uL MPV Neutrophils % % Lymphocytes % % Monocytes % % Eosinophils % % Basophils % % Neutrophils # (1.3-7.7) k/uL Lymphocytes # (1.0-4.8) k/uL Monocytes # (0-1.0) k/uL Eosinophils # (0-0.7) k/uL Basophils # (0-0.2) k/uL Manual Slide Review Polychromasia Poikilocytosis (manual Macrocytosis PT (9.0-12.0) sec INR (<1.2) APTT (22.0-30.0) sec D-Dimer (<0.60) mg/L FEU Sample Site ABG pH (7.35-7.45) ABG pCO2 (35-45) mmHg ABG pO2 (83-108) mmHg ABG HCO3 (21-25) mmol/L ABG Total CO2 (19-24) mmol/L ABG O2 Saturation (94-97) % ABG Base Excess mmol/L Wale Test FiO2 % Sodium (137-145) mmol/L Potassium (3.5-5.1) mmol/L Chloride (98-107) mmol/L Carbon Dioxide (22-30) mmol/L Anion Gap mmol/L BUN (9-20) mg/dL Creatinine (0.66-1.25) mg/dL Est GFR (CKD-EPI)AfAm (>60 ml/min/1.73 sqM) Est GFR (CKD-EPI)NonAf (>60 ml/min/1.73 sqM) Glucose (74-99) mg/dL Plasma Lactic Acid Miguel Angel 1.5 (0.7-2.0) mmol/L Calcium (8.4-10.2) mg/dL Total Bilirubin (0.2-1.3) mg/dL AST (17-59) U/L ALT (4-49) U/L Alkaline Phosphatase (38-126) U/L Troponin I <0.012 (0.000-0.034) ng/mL NT-Pro-B Natriuret Pep 582 pg/mL Total Protein (6.3-8.2) g/dL Albumin (3.5-5.0) g/dL Coronavirus (PCR) (Not Detectd) Influenza Type A RNA (Not Detectd) Influenza Type B (PCR) (Not Detectd) 08/13/21 08/13/2122 Range/Units 20:04 20:04 20:12 WBC (3.8-10.6) k/uL RBC (4.30-5.90) m/uL Hgb (13.0-17.5) gm/dL Hct (39.0-53.0) % MCV (80.0-100.0) fL MCH (25.0-35.0) pg MCHC (31.0-37.0) g/dL RDW (11.5-15.5) % Plt Count (150-450) k/uL MPV Neutrophils % % Lymphocytes % % Monocytes % % Eosinophils % % Basophils % % Neutrophils # (1.3-7.7) k/uL Lymphocytes # (1.0-4.8) k/uL Monocytes # (0-1.0) k/uL Eosinophils # (0-0.7) k/uL Basophils # (0-0.2) k/uL Manual Slide Review Polychromasia Poikilocytosis (manual Macrocytosis PT (9.0-12.0) sec INR (<1.2) APTT (22.0-30.0) sec D-Dimer (<0.60) mg/L FEU Sample Site rrad ABG pH 7.38 (7.35-7.45) ABG pCO2 67 H (35-45) mmHg ABG pO2 64 L (83-108) mmHg ABG HCO3 40 H* (21-25) mmol/L ABG Total CO2 42 H (19-24) mmol/L ABG O2 Saturation 91.0 L (94-97) % ABG Base Excess 14.8 mmol/L Wale Test Yes FiO2 21 % Sodium (137-145) mmol/L Potassium (3.5-5.1) mmol/L Chloride (98-107) mmol/L Carbon Dioxide (22-30) mmol/L Anion Gap mmol/L BUN (9-20) mg/dL Creatinine (0.66-1.25) mg/dL Est GFR (CKD-EPI)AfAm (>60 ml/min/1.73 sqM) Est GFR (CKD-EPI)NonAf (>60 ml/min/1.73 sqM) Glucose (74-99) mg/dL Plasma Lactic Acid Miguel Angel (0.7-2.0) mmol/L Calcium (8.4-10.2) mg/dL Total Bilirubin (0.2-1.3) mg/dL AST (17-59) U/L ALT (4-49) U/L Alkaline Phosphatase (38-126) U/L Troponin I (0.000-0.034) ng/mL NT-Pro-B Natriuret Pep pg/mL Total Protein (6.3-8.2) g/dL Albumin (3.5-5.0) g/dL Coronavirus (PCR) Not Detected (Not Detectd) Influenza Type A RNA Not Detected (Not Detectd) Influenza Type B (PCR) Not Detected (Not Detectd) Disposition Clinical Impression: Hypoxia, Renal insufficiency Disposition: ADMITTED IP TO THIS HOSP Is patient prescribed a controlled substance at d/c from ED?: No Referrals: Lilli Ferro MD [Primary Care Provider] - 1-2 days Decision Time: 22:51
[2021-08-13 20:13] LABS: ABG Base Excess 14.8 mmol/L; ABG PCO2 67 mmHg (35-45); ABG PH 7.38 (7.35-7.45); ABG PO2 64 mmHg (83-108); ABG TCO2 42 mmol/L (19-24); Allen Test Performed? Yes
[2021-08-13 20:14] LABS: ABG HCO3 40 mmol/L (21-25)
[2021-08-13 20:45] LABS: Albumin 3.5 g/dL (3.5-5.0); Calcium 8.7 mg/dL (8.4-10.2); Potassium 3.3 mmol/L (3.5-5.1); Total Bilirubin 0.9 mg/dL (0.2-1.3)
--- NOTE | 2021-08-13 20:56 | XR ---
EXAMINATION TYPE: XR chest 2V DATE OF EXAM: 08/13/2021 COMPARISON: 05/01/2021 HISTORY: Short of breath TECHNIQUE: FINDINGS: Heart is enlarged. There is some mild pulmonary interstitial edema. No definite pleural eff usion. Bony thorax appears intact. There is tracheostomy tube. IMPRESSION: There is some pulmonary interstitial edema slightly worse than last exam. No pleural flui d seen to suggest heart failure.
[2021-08-13 21:01] LABS: Partial Thromboplastin Time 23.8 sec (22.0-30.0); Prothrombin Time 11.3 sec (9.0-12.0)
[2021-08-13 21:10] LABS: Basophils # (A) 0.1 k/uL (0-0.2); Basophils % (A) 1 %; Eosinophils # (A) 0.2 k/uL (0-0.7); Eosinophils % (A) 2 %; HCT 46.2 % (39.0-53.0); Lymphocytes # (A) 1.4 k/uL (1.0-4.8); Lymphocytes % (A) 15 %; MCH 37.8 pg (25.0-35.0); MCHC 32.4 g/dL (31.0-37.0); MCV 116.7 fL (80.0-100.0); Macrocytosis Marked; Mean Platelet Volume 8.8; Monocytes # (A) 0.8 k/uL (0-1.0); Monocytes % (A) 8 %; Neutrophils # (A) 6.7 k/uL (1.3-7.7); Neutrophils % (A) 72 %; Platelet Count 243 k/uL (150-450); RBC 3.96 m/uL (4.30-5.90); RDW 15.3 % (11.5-15.5); WBC 9.3 k/uL (3.8-10.6)
[2021-08-13 21:39] LABS: Poikilocytosis (M) Present; Polychromasia Present
[2021-08-13] MEDS ORDERED: IPRATROPIUM-ALBUTEROL 3 ML NEB INHALATION PRN (22:52)
[2021-08-14] MEDS: IPRATROPIUM-ALBUTEROL 3 ML NEB INHALATION SCH ×4 (09:15→19:40)
[2021-08-14] MEDS ORDERED: INSULIN DETEMIR (LEVEMIR) 100 UNIT/ML SYR SQ PRN (11:02)
[2021-08-14] MEDS: FLUoxetine HCL 20 MG CAP PO SCH (12:06)
[2021-08-14] MEDS: SODIUM CHLORIDE 0.9% 1,000 ML IV SCH (12:06)
[2021-08-14] MEDS ORDERED: POTASSIUM CHLORIDE ER 20 MEQ TAB.ER PO STA (12:20)
--- NOTE | 2021-08-14 12:24 | P.HPIM ---
History of Present Illness Patient is a 61-year-old male was brought in with concerns of hypoxia by his . Patient the had about was discoloration while he was sleeping. Patient had a tracheostomy unsure why he has a tracheostomy. Patient does have history of sleep apnea. Patient denied any increase the output from the tracheostomy site area. Patient usually uses 5 L of onset and patient is only requiring 2 L year. Patient is in acute renal failure with elevated creatinine of 1.3. Patient doesn't have any history of congestive heart failure. Patient BNP is only 500 patient clinically is not in heart failure patient creatinine is around 1.3. Chest x-ray was read as a interstitial prominence although clinically patient doesn't appear to be in CHF at this time. REVIEW OF SYSTEMS: CONSTITUTIONAL: No fever, no malaise, no fatigue. HEENT: No recent visual problems or hearing problems. Denied any sore throat. CARDIOVASCULAR: No chest pain, orthopnea, PND, no palpitations, no syncope. PULMONARY: No shortness of breath, no cough, no hemoptysis. GASTROINTESTINAL: No diarrhea, no nausea, no vomiting, no abdominal pain. NEUROLOGICAL: No headaches, no weakness, no numbness. HEMATOLOGICAL: Denies any bleeding or petechiae. GENITOURINARY: Denies any burning micturition, frequency, or urgency. MUSCULOSKELETAL/RHEUMATOLOGICAL: Denies any joint pain, swelling, or any muscle pain. ENDOCRINE: Denies any polyuria or polydipsia. The rest of the 14-point review of systems is negative. PHYSICAL EXAMINATION: GENERAL: The patient is alert and oriented x3, not in any acute distress. Obese HEENT: Pupils are round and equally reacting to light. EOMI. No scleral icterus. No conjunctival pallor. Normocephalic, atraumatic. No pharyngeal erythema. No thyromegaly. CARDIOVASCULAR: S1 and S2 present. No murmurs, rubs, or gallops. PULMONARY: Chest is clear to auscultation, no wheezing or crackles. There is a tracheostomy site looks clean ABDOMEN: Soft, nontender, nondistended, normoactive bowel sounds. No palpable organomegaly. MUSCULOSKELETAL: No joint swelling or deformity. EXTREMITIES: No cyanosis, clubbing, or pedal edema. NEUROLOGICAL: Gross neurological examination did not reveal any focal deficits. SKIN: No rashes. Assessment and plan -Acute renal failure etiology is not clear probably prerenal azotemia, de hydration patient will be given gentle hydration today if creatinine improves by tomorrow patient will be discharged tomorrow. Because of her renal failure I have to hold off on long-acting morphine -Acute hypoxemia: Patient appears to have had desaturations when he is sleeping does have a tracheostomy and does have sleep apnea probably contributing to his hypoxemia no other etiology was evident by suspicion is low for pulmonary embolism. Pulmonary was consulted. Patient doesn't have pneumonia or CHF at this time renal failure and morphine may have contributed to his hypoxemia. -History of DVT in the past presently not on any anti-correlation patient will be started on subcutaneous heparin for DVT prophylaxis -COPD without any acute exacerbation -Hyperlipidemia -Hypertension -Type 2 diabetes mellitus: Hold off on metformin can use sliding scale insulin and long-acting insulin DVT prophylaxis: As mentioned above Past Medical History Past Medical History: Heart Failure, COPD, Diabetes Mellitus, Deep Vein Thrombosis (DVT), Hyperlipidemia, Hypertension, Pneumonia, Sleep Apnea/CPAP/BIPAP Additional Past Medical History / Comment(s): IDDM type II, trach d/t SANTY, occasional home oxygen use, past covid pneumonia, DVT R leg, chronic back pain, recent R foot pain, 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 History of Any Multi-Drug Resistant Organisms: Other MDRO Past Surgical History: Appendectomy Additional Past Surgical History / Comment(s): trach., left kidney operation d/t defect, bronch. colonoscopy/polypectomy-benign polyps Past Anesthesia/Blood Transfusion Reactions: No Reported Reaction Smoking Status: Light tobacco smoker - Past Family History Father Family Medical History: No Reported History Additional Family Medical History / Comment(s): none Mother Family Medical History: No Reported History Medications and Allergies Home Medications Medication Instructions Recorded Confirmed Type Metoprolol Succinate (ER) [Toprol 25 mg PO DAILY 07/15/14 08/13/21 History XL] FLUoxetine HCL [PROzac] 40 mg PO DAILY 01/23/16 08/13/21 History Morphine Sulfate [Morphine Sulfate 30 mg PO Q12H 06/20/16 08/13/21 History ER] Simvastatin [Zocor] 80 mg PO HS 10/02/16 08/13/21 History Ipratropium-Albuterol Nebulize 3 ml INHALATION RT-BID 08/23/20 08/13/21 History [Duoneb 0.5 mg-3 mg/3 ml Soln] Morphine Sulfate Ir [MSIR] 15 mg PO Q12H 08/23/20 08/13/21 History metFORMIN HCL [Glucophage] 1,000 mg PO DAILY 08/23/20 08/13/21 History Insulin Glargine,Hum.rec.anlog 15 unit SQ DAILY PRN 05/01/21 08/13/21 History [Lantus Solostar Pen] lisinopriL [Zestril] 2.5 mg PO DAILY 05/01/21 08/13/21 History Allergies Allergy/AdvReac Type Severity Reaction Status Date / Time No Known Allergies Allergy Verified 08/13/21 22:45 Physical Exam Vitals: Vital Signs Temp Pulse Pulse Resp BP BP Pulse Ox 08/14/21 11:57 58 L 18 08/14/21 11:47 60 18 08/14/21 09:25 62 18 08/14/21 09:15 60 18 08/14/21 07:53 98 F 55 L 18 97/55 97 08/14/21 04:00 66 20 110/72 93 L 08/14/21 02:00 73 22 117/78 92 L 08/14/21 00:00 55 L 18 92/61 94 L 08/13/21 21:21 61 18 94/54 92 L 08/13/21 20:24 61 18 101/62 92 L 08/13/21 19:53 18 08/13/21 19:19 98.1 F 59 L 18 91/61 97 Intake and Output 08/13/21 08/14/21 08/14/21 22:59 06:59 14:59 Other: Weight 133.356 kg 133.356 kg Results CBC & Chem 7: 08/13/21 19:57 08/13/21 19:57 Labs: Abnormal Lab Results - Last 24 Hours (Table) 08/13/21 08/13/21 08/13/21 Range/Units 19:57 19:57 20:12 RBC 3.96 L (4.30-5.90) m/uL MCV 116.7 H (80.0-100.0) fL MCH 37.8 H (25.0-35.0) pg Macrocytosis Marked A ABG pCO2 67 H (35-45) mmHg ABG pO2 64 L (83-108) mmHg ABG HCO3 40 H* (21-25) mmol/L ABG Total CO2 42 H (19-24) mmol/L ABG O2 Saturation 91.0 L (94-97) % Sodium 134 L (137-145) mmol/L Potassium 3.3 L (3.5-5.1) mmol/L Chloride 89 L (98-107) mmol/L Carbon Dioxide 38 H (22-30) mmol/L BUN 25 H (9-20) mg/dL Creatinine 1.39 H (0.66-1.25) mg/dL Glucose 152 H (74-99) mg/dL Thrombosis Risk Factor Assmnt - Choose All That Apply Any of the Below Risk Factors Present?: Yes Each Factor Represents 1 point: Abnormal pulmonary function (COPD), Age 41-60 years, Obesity (BMI >25), Serious lung disease incl. pneumonia (< 1month) Other Risk Factors: No Other congenital or acquired thrombophilia - If yes, enter type in comment: No Thrombosis Risk Factor Assessment Total Risk Factor Score: 4 Thrombosis Risk Factor Assessment Level: Moderate Risk
[2021-08-14 13:12] LABS: Glucose,Whole Blood 175 mg/dL (75-99)
[2021-08-14] MEDS: INSULIN ASPART (NovoLOG) 100 UNIT/ML VIAL SQ SCH ×3 (13:16→21:31)
[2021-08-14] MEDS: MORPHINE SULFATE IR 15 MG TABLET PO SCH ×2 (13:53→22:31)
--- NOTE | 2021-08-14 14:48 | CDI ---
Documentation Clarification Form Date: 08/14/2021 02:28:48 PM From: Shivani Padilla RN CCDS Admit Date: 08/13/2021 10:52:00 PM Patient Name: Pete Gomez Visit Number: [id number] Discharge Date: ATTENTION: The Clinical Documentation Specialists (CDI) and [facility] Coding Staff appreciate your assistance in clarifying documentation. Please respond to the clarification below the line at the bottom and electronically sign. The CDI & [facility] Coding staff will review the response and follow-up if needed. Please note: Queries are made part of the Legal Health Record. If you have any questions, please contact the author of this message via ITS. Dr. Manasa Andujar Hypoxia is documented in the H&P. Based on this information and the findings below, is there an additional diagnosis that is clinically appropriate for this patient? History/Risk Factors: 61-year-old male presents to the ED with concerns of hypoxia. Patient wasnt using his oxygen. Medical History: COPD, DM, DVT, HTN, HLD, Sleep Apnea /CPAP/BIPAP and Tracheostomy. ED, 08/13. Tobacco use: Light tobacco smoker Home oxygen: Occasional home oxygen use. Clinical Indicators: Vital signs: 08/13 B/P 91/61; HR 59; Temp 98.1 F Oral; RR 18; SpO2 97% Non- rebreather O2 flow rate 15 Patient usually uses 5L of onset and patient is only requiring 2L. 08/14,H&P. Lung/Breathing assessment: Chest is clear to auscultation no wheezing or crackles . 08/14, H&P. ABG/CB/14 pH 7.38 pO2 64 pCO2 67 Treatment: Breathing tx: 08/13 to current Duoneb 0.5mg -3mg/3mL Soln Q4H PRN; 08/14 Duoneb 0.5 mg 3mg/3ml Soln QID. 08/13 Non-rebreather 15L ; 08/13 20:42 Trach Collar 15L; 08/13 08/14 Trach Collar 4L. Is there an additional diagnosis that is clinically appropriate for this patient? [ x] Acute on Chronic Respiratory Failure [ ] Chronic Respiratory Failure [ ] Other Diagnosis, please specify [ ] Unable to determine (Template Last Revised: July 2020) MTDD
[2021-08-14] MEDS: HEPARIN SODIUM,PORCINE/PF 5,000 UNIT/0.5 ML SYRINGE SQ SCH ×2 (15:58→22:30)
[2021-08-14 17:07] LABS: Glucose,Whole Blood 120 mg/dL (75-99)
--- NOTE | 2021-08-14 17:25 | P.CNPUL ---
History of Present Illness Consult date: 08/14/21 Reason for consult: dyspnea, cough, hypoxemia, pneumonia, obstructive sleep apnea Chief complaint: Shortness of breath History of present illness: Patient is a morbidly obese 61-year-old male well-known to me patient has sleep disorder breathing and sleep apnea came into the hospital with increasing shortness of breath woke up from sleep due to severe respiratory distress patient has a very complex past medical history associated with the longest apneic events and cardiac arrest multiple times however this has improved since tracheostomy. Patient has been recommended multiple times in the past to change her tracheostomy but however he never showed up in the office did not follow. Specific questioning denies any chest pain denies any radiation of pain does go short of breath has been coughing out greenish phlegm no hemoptysis, no night sweats fever or chills denies any leg pain, has been using oxygen off and on Review of Systems All systems: negative Past Medical History Past Medical History: Heart Failure, COPD, Diabetes Mellitus, Deep Vein Thrombosis (DVT), Hyperlipidemia, Hypertension, Pneumonia, Sleep Apnea/CPAP/BIPAP Additional Past Medical History / Comment(s): IDDM type II, trach d/t SANTY, occasional home oxygen use, past covid pneumonia, DVT R leg, chronic back pain, recent R foot pain, 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 History of Any Multi-Drug Resistant Organisms: Other MDRO Past Surgical History: Appendectomy Additional Past Surgical History / Comment(s): trach., left kidney operation d/t defect, bronch. colonoscopy/polypectomy-benign polyps Past Anesthesia/Blood Transfusion Reactions: No Reported Reaction Smoking Status: Light tobacco smoker - Past Family History Father Family Medical History: No Reported History Additional Family Medical History / Comment(s): none Mother Family Medical History: No Reported History Medications and Allergies Home Medications Medication Instructions Recorded Confirmed Type Metoprolol Succinate (ER) [Toprol 25 mg PO DAILY 07/15/14 08/13/21 History XL] FLUoxetine HCL [PROzac] 40 mg PO DAILY 01/23/16 08/13/21 History Morphine Sulfate [Morphine Sulfate 30 mg PO Q12H 06/20/16 08/13/21 History ER] Simvastatin [Zocor] 80 mg PO HS 10/02/16 08/13/21 History Ipratropium-Albuterol Nebulize 3 ml INHALATION RT-BID 08/23/20 08/13/21 History [Duoneb 0.5 mg-3 mg/3 ml Soln] Morphine Sulfate Ir [MSIR] 15 mg PO Q12H 08/23/20 08/13/21 History metFORMIN HCL [Glucophage] 1,000 mg PO DAILY 08/23/20 08/13/21 History Insulin Glargine,Hum.rec.anlog 15 unit SQ DAILY PRN 05/01/21 08/13/21 History [Lantus Solostar Pen] lisinopriL [Zestril] 2.5 mg PO DAILY 05/01/21 08/13/21 History Allergies Allergy/AdvReac Type Severity Reaction Status Date / Time No Known Allergies Allergy Verified 08/13/21 22:45 Physical Exam Vitals: Vital Signs Temp Pulse Pulse Resp BP BP Pulse Ox 08/14/21 15:55 60 08/14/21 15:42 62 08/14/21 14:39 99.3 F 62 18 100/55 93 L 08/14/21 11:57 58 L 18 08/14/21 11:47 60 18 08/14/21 09:25 62 18 08/14/21 09:15 60 18 08/14/21 07:53 98 F 55 L 18 97/55 97 08/14/21 04:00 66 20 110/72 93 L 08/14/21 02:00 73 22 117/78 92 L 08/14/21 00:00 55 L 18 92/61 94 L 08/13/21 21:21 61 18 94/54 92 L 08/13/21 20:24 61 18 101/62 92 L 08/13/21 19:53 18 08/13/21 19:19 98.1 F 59 L 18 91/61 97 Intake and Output 08/14/21 08/14/21 08/14/21 06:59 14:59 22:59 Other: Voiding Method Toilet Weight 133.356 kg - Constitutional General appearance: disheveled, mild distress, morbidly obese - EENT Eyes: EOMI, PERRLA Ears: bilateral: normal - Neck Neck: normal ROM Carotids: bilateral: upstroke normal Thyroid: bilateral: normal size - Respiratory Respiratory: bilateral: diminished, wheezing, prolonged expiration - Cardiovascular Rhythm: regular Heart sounds: normal: S1, S2 - Gastrointestinal General gastrointestinal: normal bowel sounds - Integumentary Integumentary: decreased turgor - Neurologic Neurologic: CNII-XII intact - Musculoskeletal Musculoskeletal: gait normal, generalized weakness, strength equal bilaterally - Psychiatric Psychiatric: A&O x's 3, appropriate affect, intact judgment & insight Results - Laboratory Findings CBC and BMP: 08/13/21 19:57 08/13/21 19:57 ABG ABG pH 7.38 (7.35-7.45) 08/13/21 20:12 ABG pCO2 67 mmHg (35-45) H 08/13/21 20:12 ABG pO2 64 mmHg (83-108) L 08/13/21 20:12 ABG O2 Saturation 91.0 % (94-97) L 08/13/21 20:12 PT/INR, D-dimer PT 11.3 sec (9.0-12.0) 08/13/21 19:57 INR 1.0 (<1.2) 08/13/21 19:57 D-Dimer 0.58 mg/L FEU (<0.60) 08/13/21 19:57 Abnormal lab findings: Abnormal Labs 08/13/21 08/13/21 08/13/21 19:57 19:57 20:12 RBC 3.96 L MCV 116.7 H MCH 37.8 H Macrocytosis Marked A ABG pCO2 67 H ABG pO2 64 L ABG HCO3 40 H* ABG Total CO2 42 H ABG O2 Saturation 91.0 L Sodium 134 L Potassium 3.3 L Chloride 89 L Carbon Dioxide 38 H BUN 25 H Creatinine 1.39 H Glucose 152 H POC Glucose (mg/dL) 08/14/21 13:10 RBC MCV MCH Macrocytosis ABG pCO2 ABG pO2 ABG HCO3 ABG Total CO2 ABG O2 Saturation Sodium Potassium Chloride Carbon Dioxide BUN Creatinine Glucose POC Glucose (mg/dL) 175 H - Diagnostic Findings Chest x-ray: report reviewed, image reviewed (Bilateral pulmonary interstitial edema worse from previous exam from April 2021) Assessment and Plan Assessment: Purulent tracheobronchitis Acute on chronic hypoxic respiratory failure likely related to mucus plugging Acute renal failure/prerenal azotemia likely related dehydration Deep venous thrombosis History of pulmonary embolism COPD Morbid obesity Type 2 diabetes mellitus Hypertension hypertensive cardiovascular disease History of multiple cardiac arrest Severe degree of obstructive sleep apnea status post tracheostomy Plan: Supplemental oxygen Bronchodilator Continue home medications Broad-spectrum antibiotics IV steroids Schedule patient for bronchoscopy bronchoalveolar lavage and tracheostomy change Further recommendations pending plan of care as per clinical response of the patient Time with Patient: Greater than 30
[2021-08-14] MEDS ORDERED: IPRATROPIUM-ALBUTEROL 3 ML NEB INHALATION SCH (20:00)
[2021-08-14 20:53] LABS: Glucose,Whole Blood 161 mg/dL (75-99)
[2021-08-14] MEDS: ATORVASTATIN 40 MG TAB PO SCH (21:31)
[2021-08-15] MEDS: SODIUM CHLORIDE 0.9% 1,000 ML IV SCH ×2 (01:01→16:48)
[2021-08-15 07:18] LABS: Glucose,Whole Blood 116 mg/dL (75-99)
[2021-08-15] MEDS: INSULIN ASPART (NovoLOG) 100 UNIT/ML VIAL SQ SCH ×4 (07:40→21:55)
[2021-08-15] MEDS: IPRATROPIUM-ALBUTEROL 3 ML NEB INHALATION SCH ×4 (08:21→19:49)
[2021-08-15] MEDS ORDERED: ENOXAPARIN 60 MG/0.6 ML SYRINGE SQ SCH (09:00)
[2021-08-15] MEDS: MORPHINE SULFATE IR 15 MG TABLET PO SCH ×2 (09:37→22:00)
[2021-08-15] MEDS: FLUoxetine HCL 20 MG CAP PO SCH (09:37)
[2021-08-15] MEDS: METOPROLOL SUCCINATE (ER) 25 MG TAB.ER.24H PO SCH (09:38)
[2021-08-15] MEDS: HEPARIN SODIUM,PORCINE/PF 5,000 UNIT/0.5 ML SYRINGE SQ SCH ×2 (09:38→18:22)
[2021-08-15 09:41] LABS: African American GFR (CKD) 84.7 (60.0-200.0); Anion Gap 9.5 mmol/L (10.00-18.00); BUN/Creat Ratio 15.18 Ratio (12.00-20.00); Blood Urea Nitrogen 16.7 mg/dL (9.0-27.0); Calcium 8.9 mg/dL (8.7-10.3); Carbon Dioxide 35.5 mmol/L (20.0-27.5); Non-African American GFR(CKD) 73.1 (60.0-200.0); Potassium 3.3 mmol/L (3.5-5.5)
[2021-08-15] MEDS ORDERED: Potassium Replacement Protocol 1 EACH MISC MISCELLANE PRN (09:46)
[2021-08-15] MEDS ORDERED: KETAMINE 10 MG/ML 20 ML VIAL ONE (11:30)
[2021-08-15] MEDS ORDERED: fentaNYL (PF) 50 MCG/ML 2 ML AMP ONE (11:30)
[2021-08-15] MEDS ORDERED: MIDAZOLAM 2 MG/2 ML VIAL ONE (11:30)
[2021-08-15] MEDS ORDERED: IV FLUID CONTINUATION 500 ML IV ONE (12:14)
--- NOTE | 2021-08-15 12:21 | XR ---
EXAMINATION TYPE: XR chest 1V DATE OF EXAM: 08/15/2021 COMPARISON: 08/13/2021 HISTORY: Post right TECHNIQUE: Single frontal view of the chest is obtained. FINDINGS: Tracheostomy tube noted. Diffuse interstitial pattern with cardiomegaly. No pneumothorax. Underlying COPD noted. Just chronic rib deformities on the right. IMPRESSION: Diffuse interstitial pattern correlate for interstitial pneumonitis or venous congestion . Cannot exclude a pleural-based density along the upper lobe laterally. Consider follow-up CT scan a s clinically warranted.
[2021-08-15 12:59] LABS: Glucose,Whole Blood 119 mg/dL (75-99)
[2021-08-15] MEDS: POTASSIUM CHLORIDE ER 20 MEQ TAB.ER PO ONE ×2 (13:00→13:13)
--- NOTE | 2021-08-15 16:31 | P.PN ---
Subjective Progress Note Date: 08/15/21 Principal diagnosis: Purulent tracheobronchitis Acute on chronic hypoxic respiratory failure likely related to mucus plugging Acute renal failure/prerenal azotemia likely related dehydration Deep venous thrombosis History of pulmonary embolism COPD Morbid obesity Type 2 diabetes mellitus Hypertension hypertensive cardiovascular disease History of multiple cardiac arrest Severe degree of obstructive sleep apnea status post tracheostomy 08/15/2021, patient seen eval reexamined labs reviewed medications reviewed, patient is still congested and short of breath on minimal activity and exertion, unable to pass inner cannula to the tracheostomy likely related to material buildup. Otherwise patient remains afebrile with stable hemodynamics status, oxygen saturation into mid to Hi 80s on 6 L oxygen, chest x-ray continued to show pleural based density in upper lobe laterally, Procedure of bronchoscopy and Trach changeexlplained to patient would like to proceed with it Patient is a morbidly obese 61-year-old male well-known to me patient has sleep disorder breathing and sleep apnea came into the hospital with increasing shortness of breath woke up from sleep due to severe respiratory distress patient has a very complex past medical history associated with the longest apneic events and cardiac arrest multiple times however this has improved since tracheostomy. Patient has been recommended multiple times in the past to change her tracheostomy but however he never showed up in the office did not follow. Specific questioning denies any chest pain denies any radiation of pain does go short of breath has been coughing out greenish phlegm no hemoptysis, no night sweats fever or chills denies any leg pain, has been using oxygen off and on Objective - Vital Signs Vital signs: Vital Signs Temp 97 F L 08/15/21 12:59 Pulse 74 08/15/21 15:43 Resp 22 08/15/21 12:59 BP 110/70 08/15/21 12:59 Pulse Ox 86 L 08/15/21 12:59 Intake & Output 08/14/21 08/15/21 08/15/21 18:59 06:59 18:59 Intake Total 675 375 100 Balance 675 375 100 Weight 133.356 kg Intake: IV 100 Intake, IV Titration 675 375 Amount Sodium Chloride 0.9% 1, 675 375 000 ml @ 75 mls/hr IV . [id number] COUNT INCLUDES THE [facility] Rx#:[id number] Other: Voiding Method Toilet Urinal - Exam - Constitutional General appearance: disheveled, mild distress, morbidly obese - EENT Eyes: EOMI, PERRLA Ears: bilateral: normal - Neck Neck: normal ROM Carotids: bilateral: upstroke normal Thyroid: bilateral: normal size - Respiratory Respiratory: bilateral: diminished, wheezing, prolonged expiration - Cardiovascular Rhythm: regular Heart sounds: normal: S1, S2 - Gastrointestinal General gastrointestinal: normal bowel sounds - Integumentary Integumentary: decreased turgor - Neurologic Neurologic: CNII-XII intact - Musculoskeletal Musculoskeletal: gait normal, generalized weakness, strength equal bilaterally - Psychiatric Psychiatric: A&O x's 3, appropriate affect, intact judgment & insight - Labs CBC & Chem 7: 08/13/21 19:57 08/15/21 06:14 Labs: Abnormal Lab Results - Last 24 Hours (Table) 08/14/21 08/14/21 08/15/21 Range/Units 16:57 20:52 06:14 Potassium 3.3 L (3.5-5.5) mmol/L Chloride 92 L (96-109) mmol/L Carbon Dioxide 35.5 H (20.0-27.5) mmol/L Anion Gap 9.50 L (10.00-18.00) mmol/L Glucose 126 H (70-110) mg/dL POC Glucose (mg/dL) 120 H 161 H (75-99) mg/dL 08/15/21 08/15/21 Range/Units 07:16 12:57 Potassium (3.5-5.5) mmol/L Chloride (96-109) mmol/L Carbon Dioxide (20.0-27.5) mmol/L Anion Gap (10.00-18.00) mmol/L Glucose (70-110) mg/dL POC Glucose (mg/dL) 116 H 119 H (75-99) mg/dL Assessment and Plan Assessment: Pleural based lung density and mass Purulent tracheobronchitis Acute on chronic hypoxic respiratory failure likely related to mucus plugging Acute renal failure/prerenal azotemia likely related dehydration Deep venous thrombosis History of pulmonary embolism COPD Morbid obesity Type 2 diabetes mellitus Hypertension hypertensive cardiovascular disease History of multiple cardiac arrest Severe degree of obstructive sleep apnea status post tracheostomy Plan: CT chest wothout iv dye Supplemental oxygen Bronchodilator Continue home medications Broad-spectrum antibiotics IV steroids Schedule patient for bronchoscopy bronchoalveolar lavage and tracheostomy change later on today Further recommendations pending plan of care as per clinical response of the patient Time with Patient: Greater than 30
--- NOTE | 2021-08-15 16:42 | P.PCN ---
Date of Procedure: 08/15/21 Preoperative Diagnosis: Respiratory failure, pneumonia, mucous plug, tracheobronchitis Postoperative Diagnosis: Same Procedure(s) Performed: #1 tracheostomy change Anesthesia: MAC Surgeon: Jacques Ali Condition: stable Disposition: floor Indications for Procedure: Malfunctioning tracheostomy, mucous plug, blocked tracheostomy due to respiratory secretions Operative Findings: Old tracheostomy was removed unable to pass the inner cannula. replaced with new XLT non-cuffed #8 Shiley tolerated well no complication noted post procedure x-ray confirmed the position of tracheostomy also confirmed with bronchoscopy by direct visualization Description of Procedure: As above
--- NOTE | 2021-08-15 16:46 | P.PCN ---
Date of Procedure: 08/15/21 Preoperative Diagnosis: Recurrent pneumonia, tracheobronchitis Postoperative Diagnosis: As above Procedure(s) Performed: #1 bronchoscopy, #2 BAL right lower lobe and left lower lobe Anesthesia: MAC Surgeon: Jacques King Condition: stable Disposition: floor Indications for Procedure: As above Operative Findings: As below Description of Procedure: Fiberoptic bronchoscope was passed from the new #8 Shiley XLT nonfenestrated non-cuffed tracheostomy. The tracheostomy was in stable conditions and appropriate position. No granulation tissue seen, the scope was passed the tracheostomy the peggy was sharp, however diffuse edema was present bilaterally along with mucus plugging patient underwent pulmonary toilet of the right upper lobe middle lobe and lower lobe as well as on the left side with segments were inspected no endobronchial mass or lesion was seen however diffuse edema and respiratory secretions were seen which resection out and clean BAL was performed from the right lower lobe and left lower lobe patient tolerated procedure well no complication noted fluid is being sent for Gram stain and culture cytology
[2021-08-15] MEDS: AZITHROMYCIN 500 MG TAB PO SCH (16:48)
--- NOTE | 2021-08-15 18:04 | CT ---
EXAMINATION TYPE: CT chest wo con DATE OF EXAM: 08/15/2021 COMPARISON: 10/02/2016 HISTORY: Rule out mass CT DLP: 635.30 mGycm Automated exposure control for dose reduction was used. Images obtained from the thoracic inlet to the diaphragm without contrast. There is patchy linear infiltrate and atelectasis in both lower lobes. There is irregular pleural thi ckening at the left lateral lung base. There is some pleural thickening and atelectasis in the latera l right upper lobe. There are some coarse interstitial density throughout both lungs. There is no med iastinal adenopathy. There are a few paratracheal lymph nodes up to 1 cm. There are no hilar masses. There is bronchial cartilage calcification. Heart is enlarged. There are multiple old right-sided hea led rib fractures. The bony thorax is intact. There is degenerative spurring in the lower thoracic spine. Sternum is int act. There is old healed sternal fracture. No retrosternal mass. IMPRESSION: Cardiomegaly. Patchy interstitial infiltrates and atelectasis and pleural thickening in both lung fie lds. There is a nodular component. There is a changing pattern of infiltrates compared to old exam. A ppearances are more likely related to chronic inflammatory disease. The amount of atelectasis and inf iltrate at the lung bases is improved compared to old exam. No suspicious emerging pulmonary mass ady ntified.
[2021-08-15 19:01] LABS: Glucose,Whole Blood 100 mg/dL (75-99)
[2021-08-15 21:01] LABS: Glucose,Whole Blood 123 mg/dL (75-99)
[2021-08-15] MEDS: ATORVASTATIN 40 MG TAB PO SCH (22:00)
--- NOTE | 2021-08-15 22:14 | P.PN ---
Subjective Progress Note Date: 08/15/21 Patient is a 61-year-old male was brought in with concerns of hypoxia by his . Patient the had about was discoloration while he was sleeping. Patient had a tracheostomy unsure why he has a tracheostomy. Patient does have history of sleep apnea. Patient denied any increase the output from the tracheostomy site area. Patient usually uses 5 L of onset and patient is only requiring 2 L year. Patient is in acute renal failure with elevated creatinine of 1.3. Patient doesn't have any history of congestive heart failure. Patient BNP is only 500 patient clinically is not in heart failure patient creatinine is around 1.3. Chest x-ray was read as a interstitial prominence although clinically pat ient doesn't appear to be in CHF at this time. 08/15/2021 Patient evaluated this morning prior to bronchoscopy and will have his trach replaced. No acute events overnight, continues to have productive cough with greenish sputum. Otherwise no complaints. Labs today show sodium 137, potassium 3.3 which was replaced, chloride 92, CO2 35.5, creatinine has improved to 1.1, blood glucose in the 120s. Chest xray today shows diffuse interstitial pattern correlate for interstitial pneumonitis or venous congestion. Cannot exclude a pleural-based density along the upper lobe laterally. Consider follow up CT. CT was completed later this afternoon which shows no suspicious pulmonary mass. Pt continues on updrafts, started on oral azithromycin today. He is afebrile, maintaining oxygen saturation 91 to 93% on 5L via trach collar. Being followed closely by pulmonary. Review of Systems Constitutional: Denied any fatigue denied any fever. Cardio vascular: denied any chest pain, palpitations Gastrointestinal: denied any nausea, vomiting, diarrhea Pulmonary: Reports shortness of breath with exertion, congested cough with greenish sputum. Neurologic denied any new focal deficits All inpatient medications were reviewed and appropriate changes in these medications as dictated in the interval history and assessment and plan. PHYSICAL EXAMINATION: GENERAL: The patient is alert and oriented x3, not in any acute distress. Obese HEENT: Pupils are round and equally reacting to light. EOMI. No scleral icterus. No conjunctival pallor. Normocephalic, atraumatic. No pharyngeal erythema. No thyromegaly. CARDIOVASCULAR: S1 and S2 present. No murmurs, rubs, or gallops. PULMONARY: Coarse lung sounds through with congested cough. There is a tracheostomy site looks clean ABDOMEN: Soft, nontender, nondistended, normoactive bowel sounds. No palpable organomegaly. MUSCULOSKELETAL: No joint swelling or deformity. EXTREMITIES: No cyanosis, clubbing, or pedal edema. NEUROLOGICAL: Gross neurological examination did not reveal any focal deficits. SKIN: No rashes. Assessment and plan -Acute renal failure etiology is not clear probably prerenal azotemia, dehydration, creatinine improved to 1.1 after receiving hydration throughout the night and will resume morphine ER but at half the dose as patient was requesting more pain medication. -Acute on chronic hypoxic respiratory failure: Patient appears to have had desaturations when he is sleeping does have a tracheostomy and does have sleep apnea probably contributing to his hypoxemia, pulmonary planning for bronchoscopy with replacement of trach collar, and also recommends outpatient sleep study. -Acute purulent tracheobronchitis patient started on oral azithromycin today -Hypokalemia, replaced will repeat level in the morning -History of DVT/PE in the past, currently not on anticoagulation -COPD without any acute exacerbation -Hyperlipidemia -Hypertension -Type 2 diabetes mellitus: Hold off on metformin can use sliding scale insulin and long-acting insulin blood sugars currently in the 120s. -History of multiple cardiac arrest -Obstructive sleep apnea, currently not using a CPAP -Obesity DVT prophylaxis: SubQ heparin GI prophylaxis: Protonix Plan Repeat labs in AM Continue updrafts, antibiotics Continue all other supportive care Further recommendations from pulmonary Possible DC in the next 24 to 48 hrs. The impression and plan of care has been dictated by Estefani Shankar, Nurse Practitioner as directed. Dr. Pratima MD I have performed a history and physical examination and medical decision making of this patient, discussed the same with the dictator, and agree with the dictators assessment and plan as written, documented as a scribe. Based on total visit time, I have performed more than 50% of this visit. Objective - Vital Signs Vital signs: Vital Signs Temp 97 F L 08/15/21 12:59 Pulse 76 08/15/21 12:59 Resp 22 08/15/21 12:59 BP 110/70 08/15/21 12:59 Pulse Ox 86 L 08/15/21 12:59 Intake & Output 08/14/21 08/15/21 08/15/21 18:59 06:59 18:59 Intake Total 675 375 100 Balance 675 375 100 Weight 133.356 kg Intake: IV 100 Intake, IV Titration 675 375 Amount Sodium Chloride 0.9% 1, 675 375 000 ml @ 75 mls/hr IV . [id number] [facility] Rx#:[id number] Other: Voiding Method Toilet Urinal - Labs CBC & Chem 7: 08/13/21 19:57 08/15/21 06:14 Labs: Abnormal Lab Results - Last 24 Hours (Table) 08/14/21 08/14/21 08/15/21 Range/Units 16:57 20:52 06:14 Potassium 3.3 L (3.5-5.5) mmol/L Chloride 92 L (96-109) mmol/L Carbon Dioxide 35.5 H (20.0-27.5) mmol/L Anion Gap 9.50 L (10.00-18.00) mmol/L Glucose 126 H (70-110) mg/dL POC Glucose (mg/dL) 120 H 161 H (75-99) mg/dL 08/15/21 08/15/21 Range/Units 07:16 12:57 Potassium (3.5-5.5) mmol/L Chloride (96-109) mmol/L Carbon Dioxide (20.0-27.5) mmol/L Anion Gap (10.00-18.00) mmol/L Glucose (70-110) mg/dL POC Glucose (mg/dL) 116 H 119 H (75-99) mg/dL Assessment and Plan Time with Patient: Less than 30
[2021-08-15] MEDS: MORPHINE SULFATE ER 15 MG TABLET PO SCH (22:42)
[2021-08-16] MEDS: HEPARIN SODIUM,PORCINE/PF 5,000 UNIT/0.5 ML SYRINGE SQ SCH ×2 (00:24→09:18)
[2021-08-16] MEDS: SODIUM CHLORIDE 0.9% 1,000 ML IV SCH ×3 (00:26→09:18)
[2021-08-16 06:59] LABS: Glucose,Whole Blood 97 mg/dL (75-99)
[2021-08-16] MEDS ORDERED: PANTOPRAZOLE 40 MG TABLET PO SCH (07:30)
[2021-08-16] MEDS: IPRATROPIUM-ALBUTEROL 3 ML NEB INHALATION SCH ×2 (07:35→11:30)
[2021-08-16] MEDS: INSULIN ASPART (NovoLOG) 100 UNIT/ML VIAL SQ SCH (07:51)
[2021-08-16 08:56] LABS: HCT 42.4 % (39.6-50.0); HGB 13.5 g/dL (13.0-17.0); MCH 37.1 pg (27.0-32.0); MCHC 31.8 g/dL (32.0-37.0); MCV 116.5 fL (80.0-97.0); Mean Platelet Volume 9.5 fL (9.5-12.2); NRBC Per 100 WBC 0 /100 WBCS (0.0-0.0); Platelet Count 207 X 10*3/uL (140-440); RBC 3.64 X 10*6/uL (4.40-5.60); RDW 14.3 % (11.5-14.5); WBC 8.35 X 10*3/uL (4.50-10.00)
[2021-08-16 09:08] LABS: African American GFR (CKD) 113.3 (60.0-200.0); Blood Urea Nitrogen 12.8 mg/dL (9.0-27.0); Calcium 8.7 mg/dL (8.7-10.3); Magnesium 2.2 mg/dL (1.5-2.4); Non-African American GFR(CKD) 97.8 (60.0-200.0); Potassium 3.8 mmol/L (3.5-5.5)
[2021-08-16] MEDS: METOPROLOL SUCCINATE (ER) 25 MG TAB.ER.24H PO SCH (09:19)
[2021-08-16] MEDS: AZITHROMYCIN 500 MG TAB PO SCH (09:19)
[2021-08-16] MEDS: MORPHINE SULFATE IR 15 MG TABLET PO SCH (09:19)
[2021-08-16] MEDS: MORPHINE SULFATE ER 15 MG TABLET PO SCH (09:20)
--- NOTE | 2021-08-16 10:23 | P.PN ---
Subjective Progress Note Date: 08/16/21 Principal diagnosis: Purulent tracheobronchitis Acute on chronic hypoxic respiratory failure likely related to mucus plugging Acute renal failure/prerenal azotemia likely related dehydration Deep venous thrombosis History of pulmonary embolism COPD Morbid obesity Type 2 diabetes mellitus Hypertension hypertensive cardiovascular disease History of multiple cardiac arrest Severe degree of obstructive sleep apnea status post tracheostomy 08/16/2021, patient seen and evaluated examined which is status post bronchoscopy and BAL as well as tracheostomy changed. Patient is a status post computed tomography scan of the chest without IV contrast, computed tomography scan revealed bilateral patchy infiltrate with atelectasis of both lower lobes along with her regular pleural thickening F the left lateral lung base some pleural thickening and atelectasis of right lateral upper lobe also noted along with coarse interstitial density paratracheal lymph nodes up to a centimeter and noted in the mediastinum. No hilar mass no hemorrhaging mass in the pleural parenchyma area has been noted. Patient tolerated the bronchoscopy well, preliminary culture results are pending. Patient underwent tracheostomy change and new XLT Shiley 8 non-cuffed nonfenestrated tube has been placed tolerated well, would recommend follow-up in one week 08/15/2021, patient seen eval reexamined labs reviewed medications reviewed, patient is still congested and short of breath on minimal activity and exertion, unable to pass inner cannula to the tracheostomy likely related to material buildup. Otherwise patient remains afebrile with stable hemodynamics status, oxygen saturation into mid to Hi 80s on 6 L oxygen, chest x-ray continued to show pleural based density in upper lobe laterally, Procedure of bronchoscopy and Trach changeexlplained to patient would like to proceed with it Patient is a morbidly obese 61-year-old male well-known to me patient has sleep disorder breathing and sleep apnea came into the hospital with increasing shortness of breath woke up from sleep due to severe respiratory distress patient has a very complex past medical history associated with the longest apneic events and cardiac arrest multiple times however this has improved since tracheostomy. Patient has been recommended multiple times in the past to change her tracheostomy but however he never showed up in the office did not follow. Specific questioning denies any chest pain denies any radiation of pain does go short of breath has been coughing out greenish phlegm no hemoptysis, no night sweats fever or chills denies any leg pain, has been using oxygen off and on Objective - Vital Signs Vital signs: Vital Signs Temp 99 F 08/16/21 05:15 Pulse 84 08/16/21 07:50 Resp 20 08/16/21 05:15 BP 117/68 08/16/21 05:15 Pulse Ox 88 L 08/16/21 05:15 Intake & Output 08/15/21 08/16/21 08/16/21 18:59 06:59 18:59 Intake Total 1000 100 Balance 1000 100 Intake: IV 100 Intake, IV Titration 900 Amount Sodium Chloride 0.9% 1, 900 000 ml @ 75 mls/hr IV . [id number] [facility] Rx#:[id number] Oral 100 Other: Voiding Method Urinal Urinal # Voids 2 - Exam - Constitutional General appearance: disheveled, mild distress, morbidly obese - EENT Eyes: EOMI, PERRLA Ears: bilateral: normal - Neck Neck: normal ROM Carotids: bilateral: upstroke normal Thyroid: bilateral: normal size - Respiratory Respiratory: bilateral: diminished, wheezing, prolonged expiration - Cardiovascular Rhythm: regular Heart sounds: normal: S1, S2 - Gastrointestinal General gastrointestinal: normal bowel sounds - Integumentary Integumentary: decreased turgor - Neurologic Neurologic: CNII-XII intact - Musculoskeletal Musculoskeletal: gait normal, generalized weakness, strength equal bilaterally - Psychiatric Psychiatric: A&O x's 3, appropriate affect, intact judgment & insight - Labs CBC & Chem 7: 08/16/21 05:43 08/16/21 05:43 Labs: Abnormal Lab Results - Last 24 Hours (Table) 08/15/21 08/15/21 08/15/21 Range/Units 12:57 18:59 21:00 RBC (4.40-5.60) X 10*6/uL MCV (80.0-97.0) fL MCH (27.0-32.0) pg MCHC (32.0-37.0) g/dL Carbon Dioxide (20.0-27.5) mmol/L Anion Gap (10.00-18.00) mmol/L POC Glucose (mg/dL) 119 H 100 H 123 H (75-99) mg/dL 08/16/21 08/16/21 Range/Units 05:43 05:43 RBC 3.64 L (4.40-5.60) X 10*6/uL MCV 116.5 H (80.0-97.0) fL MCH 37.1 H (27.0-32.0) pg MCHC 31.8 L (32.0-37.0) g/dL Carbon Dioxide 34.0 H (20.0-27.5) mmol/L Anion Gap 8.00 L (10.00-18.00) mmol/L POC Glucose (mg/dL) (75-99) mg/dL Microbiology - Last 24 Hours (Table) 08/15/21 12:03 Gram Stain - Preliminary Bronchial Washings - Right Bronchial Washings Culture - Preliminary 08/15/21 12:03 Legionella Culture - Preliminary Bronchial Washings - Right 08/15/21 12:03 Fungal Culture - Preliminary Lung - Right Upper Lobe 08/15/21 12:03 Acid Fast Bacilli Culture - Preliminary Lung - Right Upper Lobe Assessment and Plan Assessment: Pleural based lung density and pleural thickening along with interstitial prominence subcentimeter lymph node in mediastinal area Purulent tracheobronchitis Acute on chronic hypoxic respiratory failure likely related to mucus plugging Acute renal failure/prerenal azotemia likely related dehydration Deep venous thrombosis History of pulmonary embolism COPD Morbid obesity Type 2 diabetes mellitus Hypertension hypertensive cardiovascular disease History of multiple cardiac arrest Severe degree of obstructive sleep apnea status post tracheostomy Plan: CT chest wothout iv dye findings reviewed Supplemental oxygen Bronchodilator Continue home medications Broad-spectrum antibiotics Continue oral antibiotics for 7-10 days as outpatient 500 mg daily Zithromax Reviewed with the patient bronchoscopy bronchoalveolar lavage and tracheostomy change Further recommendations pending plan of care as per clinical response of the patient Time with Patient: Greater than 30
[2021-08-16 11:38] VITALS: BP 124/72; RESP 22; TEMP 98.2
[2021-08-16] MEDS: FLUoxetine HCL 20 MG CAP PO SCH (11:38)
[2021-08-16 11:48] VITALS: PULSE 90
[2021-08-16 12:48] LABS: Basophils # (A) 0.04 X 10*3/uL (0.00-0.10); Basophils % (A) 0.5 %; Eosinophils # (A) 0.25 X 10*3/uL (0.04-0.35); Immature Grans, Automated 0.6 %; Lymphocytes # (A) 1.76 X 10*3/uL (0.90-5.00); Lymphocytes % (A) 21.1 %; Macrocytosis (M) 2+; Monocytes # (A) 0.76 X 10*3/uL (0.20-1.00); Monocytes % (A) 9.1 %; Neutrophils # (A) 5.49 X 10*3/uL (1.80-7.70); Neutrophils % (A) 65.7 %
--- NOTE | 2021-08-16 15:36 | P.DS ---
Providers Date of admission: 08/13/21 22:52 Attending physician: Siri Knutson Consults: 08/14/21 11:19 Consult Physician Routine Consulting Provider: Jacques King Consult Reason/Comments: COPD , known to you Do you want consulting provider notified?: Yes Primary care physician: Lilli Ferro [facility] Course: Final Diagnosis -Acute renal failure etiology is not clear probably prerenal azotemia, dehydration, Patient received IV hydration and creatinine is now 0.8, was 1.39 on admission. -Acute on chronic hypoxic respiratory failure: Patient appears to have had desaturations when he is sleeping does have a tracheostomy and does have sleep apnea probably contributing to his hypoxemia, as well as mucus plugging, patient underwent bronch with washings and trach collar was replaced and also recommends outpatient sleep study. -Acute purulent tracheobronchitis patient started on oral azithromycin -Hypokalemia, given oral supplementation and now 3.8 -History of DVT/PE in the past, currently not on anticoagulation -COPD without any acute exacerbation -Hyperlipidemia -Hypertension -Type 2 diabetes mellitus: Blood sugars stable can resume all home medications on discharge -History of multiple cardiac arrest -Obstructive sleep apnea, severe, status post tracheostomy -Obesity -Current light tobacco use -History of daily alcohol abuse, no drink in the last week Discharge Disposition Patient is stable for discharge home on trach collar, cleared by Dr King. Hospital Course This is a pleasant 61-year-old male who presents to the with concerns for hypoxia by his as she had noticed that he had some discoloration when he was sleeping. Patient is a history of sleep apnea for which he had a tracheostomy tube placed. Patient has not followed up in the office as recommended for monitoring of his trach. Patient does use oxygen at 5 L nasal cannula at home. Patient also presents with acute renal failure with a creatinine of 1.39 on admission. Probably dehydrated, BNP was 500. Cxray on admission shows interstitial prominence. Patient follows in the primary care office with Dr. Ferro. Chronic medical conditions including heart failure, COPD, diabetes mellitus type 2, trach due to obstructive sleep apnea, multiple episodes of cardiac arrest, lipidemia, hypertension, pneumonia, sleep apnea with CPAP, DVT right leg, Covid pneumonia in the past, diverticulitis, Pseudomonas in the sputum in 2017, currently daily smoker and chews 1 can of tobacco daily, occasional marijuana use, past history of cocaine. He was admitted to the hospital with consultation placed to pulmonary services. Patient underwent bronchoscopy and tracheostomy change with bronchoalveolar lavage. Cytology shows no malignancy. Chest CT completed this admission which shows patchy interstitial infiltrate and atelectasis and pleural thickening in both lung villalpando with a nodular component. This is likely related to chronic inflammatory changes. The amount of atelectasis and infiltrate at the lung bases improved compared to old exam. There is no suspicious emerging pulmonary mass identified. Labs this admission show a white count of 9.3, hemoglobin 15, platelet count 243, sodium 134, potassium 3.3, chloride 89, CO2 38, BUN 25, creatinine 1.39, blood glucose 152, troponin negative. Liver enzymes are negative. Covid negative, influenza A/B negative. Additional broncial washing are negative for virus. Patient is remained afebrile, heart rate has been in the 70s, blood pressure 124/72. 08/16/2021 Patient is a postop day #1 bronchoscopy with tracheostomy change. No acute events overnight. He currently denies any pain. He was restarted on his home dose of morphine ER at half dose yesterday as well as his home dose of morphine IR. He can resume his regular home medications on discharge. Blood sugar is controlle. He remains afebrile. White count today stable. Hemoglobin stable. Vitals remain unchanged, afebrile, blood pressure stable, oxygenation stable at baseline. Denies any chest pain, chest pressure, shortness of breath. Has intermittent productive cough. Lungs are clear today, s1 s2 auscultated. Focal neurological exam is negative. Patient was seen in follow-up today by Dr. King, who recommended patient follow up in the office in one week. Also recommends patient to take oral azithromycin for 7 to 10 days, which we will send for 8 more days of oral azithromycin for a total of 10 days of therapy. We will also recommend he take Pepcid for prophylaxis he can stop this when he stops antibiotics and steroids. Please see medication reconciliation for a list of current medications. Thank you for allowing us to participate in the care of this patient. The impression and plan of care has been dictated by Estefani Shankar, Nurse Practitioner as directed. Dr. Pratima MD I have performed a history and physical examination and medical decision making of this patient, discussed the same with the dictator, and agree with the dictators assessment and plan as written, documented as a scribe. Based on total visit time, I have performed more than 50% of this visit. Patient Condition at Discharge: Fair Plan - Discharge Summary Discharge Rx Participant: No New Discharge Prescriptions: New Azithromycin [Zithromax] 500 mg PO DAILY #4 tab methylPREDNISolone Dose Pack [Medrol Dose Pack] 4 mg PO DIRECTED #21 tab Famotidine [Pepcid] 20 mg PO DAILY #30 tablet Continue Metoprolol Succinate (ER) [Toprol XL] 25 mg PO DAILY FLUoxetine HCL [PROzac] 40 mg PO DAILY Morphine Sulfate [Morphine Sulfate ER] 30 mg PO Q12H Simvastatin [Zocor] 80 mg PO HS metFORMIN HCL [Glucophage] 1,000 mg PO DAILY Ipratropium-Albuterol Nebulize [Duoneb 0.5 mg-3 mg/3 ml Soln] 3 ml INHALATION RT-BID Morphine Sulfate Ir [MSIR] 15 mg PO Q12H Insulin Glargine,Hum.rec.anlog [Lantus Solostar Pen] 15 unit SQ DAILY PRN PRN Reason: HIGH BLOOD SUGAR lisinopriL [Zestril] 2.5 mg PO DAILY Discharge Medication List Metoprolol Succinate (ER) [Toprol XL] 25 mg PO DAILY 07/15/14 [History] FLUoxetine HCL [PROzac] 40 mg PO DAILY 01/23/16 [History] Morphine Sulfate [Morphine Sulfate ER] 30 mg PO Q12H 06/20/16 [History] Simvastatin [Zocor] 80 mg PO HS 10/02/16 [History] Ipratropium-Albuterol Nebulize [Duoneb 0.5 mg-3 mg/3 ml Soln] 3 ml INHALATION RT-BID 08/23/20 [History] Morphine Sulfate Ir [MSIR] 15 mg PO Q12H 08/23/20 [History] metFORMIN HCL [Glucophage] 1,000 mg PO DAILY 08/23/20 [History] Insulin Glargine,Hum.rec.anlog [Lantus Solostar Pen] 15 unit SQ DAILY PRN 05/01/21 [History] lisinopriL [Zestril] 2.5 mg PO DAILY 05/01/21 [History] Azithromycin [Zithromax] 500 mg PO DAILY #4 tab 08/16/21 [Rx] Famotidine [Pepcid] 20 mg PO DAILY #30 tablet 08/16/21 [Rx] methylPREDNISolone Dose Pack [Medrol Dose Pack] 4 mg PO DIRECTED #21 tab 08/16/21 [Rx] Follow up Appointment(s)/Referral(s): Lilli Ferro MD [Primary Care Provider] - 08/22/21 4:45 pm Jacques King MD [STAFF PHYSICIAN] - 1 Week (Office closed at time of discharge. Patient to make own follow-up appt. ) Patient Instructions/Handouts: Famotidine (By mouth), Prednisone (By mouth), Azithromycin (By mouth), Tracheostomy Care (DC), Acute Bronchitis (ED) Discharge Disposition: HOME WITH HOME HEALTH SERVICES
== END 2021-08-16 12:50 | disposition home health service (06) ==
LOC: EC 19:15 → 5NMEDONC 22:52 → INTOOBSV 22:52 → 5NMEDONC 08-14 21:11 → UNDODISIN 08-16 12:50
PROVIDERS: ADMIT Hospitalist; ATTEND Hospitalist
DX: N17.9 Acute kidney failure, unspecified (principal); J96.21 Acute and chronic respiratory failure with hypoxia; J95.03 Malfunction of tracheostomy stoma; J44.0 Chronic obstructive pulmonary disease with (acute) lower respiratory infection; G47.33 Obstructive sleep apnea (adult) (pediatric); E87.6 Hypokalemia; E78.5 Hyperlipidemia, unspecified; E11.9 Type 2 diabetes mellitus without complications; I11.0 Hypertensive heart disease with heart failure; I50.9 Heart failure, unspecified; E66.01 Morbid (severe) obesity due to excess calories; Z68.36 Body mass index [BMI] 36.0-36.9, adult; E86.0 Dehydration; J98.11 Atelectasis; T17.990A Other foreign object in respiratory tract, part unspecified in causing asphyxiation, initial encounter; M53.80 Other specified dorsopathies, site unspecified; G89.29 Other chronic pain; M54.9 Dorsalgia, unspecified; F17.200 Nicotine dependence, unspecified, uncomplicated; F32.A Depression, unspecified; F17.220 Nicotine dependence, chewing tobacco, uncomplicated; Z20.822 Contact with and (suspected) exposure to COVID-19; Z86.718 Personal history of other venous thrombosis and embolism; Z86.711 Personal history of pulmonary embolism; Z87.01 Personal history of pneumonia (recurrent); Z86.16 Personal history of COVID-19; Z86.74 Personal history of sudden cardiac arrest; Z99.81 Dependence on supplemental oxygen; Z79.84 Long term (current) use of oral hypoglycemic drugs; Z79.891 Long term (current) use of opiate analgesic; Z79.899 Other long term (current) drug therapy; Z90.49 Acquired absence of other specified parts of digestive tract; Z98.890 Other specified postprocedural states; Z87.81 Personal history of (healed) traumatic fracture; Z16.24 Resistance to multiple antibiotics; Z91.81 History of falling; Z71.9 Counseling, unspecified
CPT/HCPCS: 96372; 99285; 36415; 94640 ×6; 36600; 93005; 87798 ×3; 87496; 87498; 87529; 85379; 88108; 88305; 83880; 80053; 80048 ×2; 82805; 83605; 83735; 84484; 85025 ×2; 85610; 85730; 87252; 87502 ×2; 87634; 87070; 87205; 87116; 87102; 87077; 87186; 87206; 87281; 87635; 71045; 71046; 71250; 31502; 31624; 31615; G0378 ×4; J2250; J3010; J1644 ×3

== ENCOUNTER → 2021-11-19 | Outpatient (CLI) | payer MEDICARE ==
[2021-11-19 23:40] LABS: T4, Free (Free Thyroxine) 1.18 ng/dL (0.800-1.800)
[2021-11-19 23:56] LABS: Thyroid Peroxidase Antibodies <9.0 U/mL (0.0-33.0)
== END | disposition home or self-care (01) ==
LOC: LABWHC1 15:02
PROVIDERS: ATTEND Family Medicine
DX: R07.0 Pain in throat (principal)
CPT/HCPCS: 36415; 84432; 84439; 84443; 86376

== ENCOUNTER 2022-05-07 14:59 | Observation (INO) | payer MEDICARE ==
[2022-05-07 16:28] LABS: ALT 35 U/L (4-49); AST 78 U/L (17-59); African American GFR (CKD) >90 (>60 ml/min/1.73 sqM); Albumin 4.4 g/dL (3.5-5.0); Alkaline Phosphatase 104 U/L (38-126); Amylase 48 U/L (30-110); Anion Gap 9 mmol/L; Blood Urea Nitrogen 15 mg/dL (9-20); Calcium 9.7 mg/dL (8.4-10.2); Carbon Dioxide 30 mmol/L (22-30); Chloride 97 mmol/L (98-107); Glucose 216 mg/dL (74-99); Lipase 59 U/L (23-300); Non-African American GFR(CKD) >90 (>60 ml/min/1.73 sqM); Potassium 4.8 mmol/L (3.5-5.1); Sodium 136 mmol/L (137-145); Total Protein 8.3 g/dL (6.3-8.2)
[2022-05-07 16:53] LABS: Basophils # (A) 0.1 k/uL (0-0.2); Basophils % (A) 1 %; Eosinophils # (A) 0.2 k/uL (0-0.7); Eosinophils % (A) 3 %; HCT 45.5 % (39.0-53.0); HGB 15.5 gm/dL (13.0-17.5); Lymphocytes # (A) 0.9 k/uL (1.0-4.8); Lymphocytes % (A) 13 %; MCH 36.9 pg (25.0-35.0); MCHC 34.1 g/dL (31.0-37.0); MCV 108.3 fL (80.0-100.0); Macrocytosis Moderate; Mean Platelet Volume 8.3; Monocytes # (A) 0.5 k/uL (0-1.0); Monocytes % (A) 6 %; Neutrophils # (A) 5.3 k/uL (1.3-7.7); Neutrophils % (A) 75 %; Platelet Count 198 k/uL (150-450); RDW 12.9 % (11.5-15.5); WBC 7.1 k/uL (3.8-10.6)
[2022-05-07 17:46] LABS: Appearance,Urine Clear (Clear); Bilirubin,Urine Negative (Negative); Blood,Urine Negative (Negative); Color,Urine Yellow; Glucose,Urine (UA) Negative (Negative); Hyaline Casts,Urine 3 /lpf (0-2); Ketones,Urine Negative (Negative); Leukocyte Esterase,Urine Small (Negative); Mucus,Urine Rare /hpf; Nitrite,Urine Negative (Negative); PH, Urine 6.5 (5.0-8.0); Protein,Urine 1+ (Negative); RBC,Urine 1 /hpf (0-5); Squamous Epithelial Cell,Urine 1 /hpf (0-4); WBC,Urine 2 /hpf (0-5)
[2022-05-07] MEDS ORDERED: SODIUM CHLORIDE 0.9% 1,000 ML IV ONE (18:40)
[2022-05-07] MEDS ORDERED: ONDANSETRON 4 MG/2 ML VIAL IVP STA (18:41)
[2022-05-07] MEDS ORDERED: MORPHINE SULFATE 4 MG/ML SYRINGE IV STA (18:41)
--- NOTE | 2022-05-07 18:53 | ED ---
Abdominal Pain HPI - General Chief Complaint: Abdominal Pain Stated Complaint: Abd/rib pain Time Seen by Provider: 05/07/22 18:33 Source: patient, RN notes reviewed Mode of arrival: ambulatory Limitations: no limitations - History of Present Illness Initial Comments: Patient presents with right upper quadrant/right flank pain for last several days. Patient states this one about 2 weeks. Patient states located in the right upper quadrant and right lower rib area. States that he believes this is exacerbated by eating, pain is sharp in nature, no radiation. Also seems to be worse at night when he is sleeping on that side. Patient states he's had some constipation as well. No known fever. Denies any problems with respirations. No cough. No headache, no fever or chills, no changes in vision or hearing, no sore throat or difficulty with speech, no neck pain, no chest pain or shortness of breath,no changes in urination or bowel movements, no numbness or tingling, no extremity pain, no skin rashes or lesions. Past medical, surgical, social, and family history reviewed. - Related Data Home Medications Medication Instructions Recorded Confirmed Metoprolol Succinate (ER) [Toprol 25 mg PO DAILY 07/15/14 08/29/21 XL] FLUoxetine HCL [PROzac] 40 mg PO DAILY 01/23/16 08/29/21 Morphine Sulfate [Morphine Sulfate 30 mg PO Q12H 06/20/16 08/29/21 ER] Simvastatin [Zocor] 80 mg PO HS 10/02/16 08/29/21 Morphine Sulfate Ir [MSIR] 15 mg PO Q12H 08/23/20 08/29/21 metFORMIN HCL [Glucophage] 1,000 mg PO DAILY 08/23/20 08/29/21 Insulin Glargine,Hum.rec.anlog 15 unit SQ DAILY PRN 05/01/21 08/29/21 [Lantus Solostar Pen] lisinopriL [Zestril] 2.5 mg PO DAILY 05/01/21 08/29/21 Previous Rx's Medication Instructions Recorded Famotidine [Pepcid] 20 mg PO DAILY #30 tablet 08/16/21 Cyanocobalamin [Vitamin B-12] 1,000 mcg PO DAILY 30 Days #30 tab 09/04/21 Folic Acid 1 mg PO DAILY #30 tab 09/04/21 Ipratropium-Albuterol Nebulize 3 ml INHALATION QID #0 09/04/21 [Duoneb 0.5 mg-3 mg/3 ml Soln] Ipratropium-Albuterol Nebulize 3 ml INHALATION RT-Q4H PRN ml 09/04/21 [Duoneb 0.5 mg-3 mg/3 ml Soln] Piperacillin-Tazobactam [Zosyn] 3.375 gm IVPB Q8HR 9 Days #27 each 09/04/21 Thiamine [Vitamin B-1] 100 mg PO BID-W/MEALS #60 tab 09/04/21 predniSONE 10 mg PO DIRECTED #30 tab 09/04/21 Allergies Allergy/AdvReac Type Severity Reaction Status Date / Time No Known Allergies Allergy Verified 08/29/21 20:12 Review of Systems ROS Statement: Those systems with pertinent positive or pertinent negative responses have been documented in the HPI. ROS Other: All systems not noted in ROS Statement are negative. Past Medical History Past Medical History: Heart Failure, COPD, Diabetes Mellitus, Deep Vein Thrombosis (DVT), Hyperlipidemia, Hypertension, Pneumonia, Sleep Apnea/CPAP/BIPAP, Syncope Additional Past Medical History / Comment(s): IDDM type II, trach d/t SANTY, occasional home oxygen use, past covid pneumonia, NADEEN, DVT R leg, chronic back pain, recent R foot pain, 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 History of Any Multi-Drug Resistant Organisms: Other MDRO Past Surgical History: Appendectomy Additional Past Surgical History / Comment(s): trach., left kidney operation d/t defect, bronch. colonoscopy/polypectomy-benign polyps, Trach tube changed 08/16/21 Past Anesthesia/Blood Transfusion Reactions: No Reported Reaction Past Psychological History: Depression Smoking Status: Current some day smoker - Past Family History Father Family Medical History: No Reported History Additional Family Medical History / Comment(s): none Mother Family Medical History: No Reported History General Exam Limitations: no limitations General appearance: alert, in no apparent distress Head exam: Present: atraumatic, normocephalic, normal inspection Eye exam: Present: normal appearance, PERRL, EOMI. Absent: scleral icterus, conjunctival injection, periorbital swelling ENT exam: Present: normal exam, normal oropharynx, mucous membranes dry, mucous membranes moist, normal external ear exam Neck exam: Present: normal inspection, full ROM. Absent: tenderness, meni ngismus, lymphadenopathy Respiratory exam: Present: normal lung sounds bilaterally. Absent: respiratory distress, wheezes, rales, rhonchi, stridor Cardiovascular Exam: Present: regular rate, normal rhythm, normal heart sounds. Absent: systolic murmur, diastolic murmur, rubs, gallop, clicks GI/Abdominal exam: Present: soft, tenderness (Right upper quadrant, mild), normal bowel sounds. Absent: distended, guarding, rebound, rigid Extremities exam: Present: normal inspection, full ROM, normal capillary refill. Absent: tenderness, pedal edema, joint swelling, calf tenderness Back exam: Present: normal inspection Neurological exam: Present: alert, oriented X3, CN II-XII intact Psychiatric exam: Present: normal affect, normal mood Skin exam: Present: warm, dry, intact, normal color. Absent: rash Course Vital Signs 05/07/22 05/07/22 15:17 18:21 Temperature 97.1 F L Pulse Rate 77 84 Respiratory 16 18 Rate Blood Pressure 116/74 130/72 O2 Sat by Pulse 92 L 97 Oximetry - Reevaluation(s) Reevaluation #1: 05/07/22 20:40 Patient reevaluated is improved after pain medication. Awaiting diagnostic workup. Reevaluation #2: 05/07/22 21:01 Gallbladder ultrasound shows moderate hepatomegaly with multiple gallstones, no dilated ducts. Reevaluation #3: 05/07/22 21:22 Patient reevaluated, unable to hold down fluids without increased pain. Medical Decision Making - Medical Decision Making Differential includes gallbladder disease, [place] skeletal pain, chest wall pain, does not appear to be consistent with pneumonia however, this is possible. Patient has had no fever or productive cough. There is no rash or lesions. Shingles not likely. Other intra-abdominal etiology such as constipation, enteritis is possible. Case discussed in detail with the on-call surgeon, Dr. Slade, who agrees to admit the patient with medical consult The case was discussed in detail with ED attending physician. Presentation, findings, treatment plan discussed in detail. Assistant Maintenance Manager Dr. Walden - Lab Data Result diagrams: 05/07/22 15:40 05/07/22 15:40 Lab Results 05/07/22 05/07/22 05/07/22 Range/Units 15:40 15:40 15:40 WBC 7.1 (3.8-10.6) k/uL RBC 4.20 L (4.30-5.90) m/uL Hgb 15.5 (13.0-17.5) gm/dL Hct 45.5 (39.0-53.0) % MCV 108.3 H (80.0-100.0) fL MCH 36.9 H (25.0-35.0) pg MCHC 34.1 (31.0-37.0) g/dL RDW 12.9 (11.5-15.5) % Plt Count 198 (150-450) k/uL MPV 8.3 Neutrophils % 75 % Lymphocytes % 13 % Monocytes % 6 % Eosinophils % 3 % Basophils % 1 % Neutrophils # 5.3 (1.3-7.7) k/uL Lymphocytes # 0.9 L (1.0-4.8) k/uL Monocytes # 0.5 (0-1.0) k/uL Eosinophils # 0.2 (0-0.7) k/uL Basophils # 0.1 (0-0.2) k/uL Macrocytosis Moderate Sodium 136 L (137-145) mmol/L Potassium 4.8 (3.5-5.1) mmol/L Chloride 97 L (98-107) mmol/L Carbon Dioxide 30 (22-30) mmol/L Anion Gap 9 mmol/L BUN 15 (9-20) mg/dL Creatinine 0.83 (0.66-1.25) mg/dL Est GFR (CKD-EPI)AfAm >90 (>60 ml/min/1.73 sqM) Est GFR (CKD-EPI)NonAf >90 (>60 ml/min/1.73 sqM) Glucose 216 H (74-99) mg/dL Calcium 9.7 (8.4-10.2) mg/dL Total Bilirubin 1.0 (0.2-1.3) mg/dL AST 78 H (17-59) U/L ALT 35 (4-49) U/L Alkaline Phosphatase 104 (38-126) U/L Troponin I <0.012 (0.000-0.034) ng/mL Total Protein 8.3 H (6.3-8.2) g/dL Albumin 4.4 (3.5-5.0) g/dL Amylase 48 (30-110) U/L Lipase 59 (23-300) U/L Urine Color Urine Appearance (Clear) Urine pH (5.0-8.0) Ur Specific [place] (1.001-1.035) Urine Protein (Negative) Urine Glucose (UA) (Negative) Urine Ketones (Negative) Urine Blood (Negative) Urine Nitrite (Negative) Urine Bilirubin (Negative) Urine Urobilinogen (<2.0) mg/dL Ur Leukocyte Esterase (Negative) Urine RBC (0-5) /hpf Urine WBC (0-5) /hpf Ur Squamous Epith Cells (0-4) /hpf Hyaline Casts (0-2) /lpf Urine Mucus (None) /hpf 05/07/22 Range/Units 15:47 WBC (3.8-10.6) k/uL RBC (4.30-5.90) m/uL Hgb (13.0-17.5) gm/dL Hct (39.0-53.0) % MCV (80.0-100.0) fL MCH (25.0-35.0) pg MCHC (31.0-37.0) g/dL RDW (11.5-15.5) % Plt Count (150-450) k/uL MPV Neutrophils % % Lymphocytes % % Monocytes % % Eosinophils % % Basophils % % Neutrophils # (1.3-7.7) k/uL Lymphocytes # (1.0-4.8) k/uL Monocytes # (0-1.0) k/uL Eosinophils # (0-0.7) k/uL Basophils # (0-0.2) k/uL Macrocytosis Sodium (137-145) mmol/L Potassium (3.5-5.1) mmol/L Chloride (98-107) mmol/L Carbon Dioxide (22-30) mmol/L Anion Gap mmol/L BUN (9-20) mg/dL Creatinine (0.66-1.25) mg/dL Est GFR (CKD-EPI)AfAm (>60 ml/min/1.73 sqM) Est GFR (CKD-EPI)NonAf (>60 ml/min/1.73 sqM) Glucose (74-99) mg/dL Calcium (8.4-10.2) mg/dL Total Bilirubin (0.2-1.3) mg/dL AST (17-59) U/L ALT (4-49) U/L Alkaline Phosphatase (38-126) U/L Troponin I (0.000-0.034) ng/mL Total Protein (6.3-8.2) g/dL Albumin (3.5-5.0) g/dL Amylase (30-110) U/L Lipase (23-300) U/L Urine Color Yellow Urine Appearance Clear (Clear) Urine pH 6.5 (5.0-8.0) Ur Specific [place] 1.020 (1.001-1.035) Urine Protein 1+ H (Negative) Urine Glucose (UA) Negative (Negative) Urine Ketones Negative (Negative) Urine Blood Negative (Negative) Urine Nitrite Negative (Negative) Urine Bilirubin Negative (Negative) Urine Urobilinogen 2.0 (<2.0) mg/dL Ur Leukocyte Esterase Small H (Negative) Urine RBC 1 (0-5) /hpf Urine WBC 2 (0-5) /hpf Ur Squamous Epith Cells 1 (0-4) /hpf Hyaline Casts 3 H (0-2) /lpf Urine Mucus Rare H (None) /hpf - EKG Data EKG Comments: EKG done at 1549 interpreted by mn reveals sinus rhythm with first-degree AV block. Rate 77, when necessary 232, remainder of the intervals are normal. Normal axis. No evidence of acute ST or T-wave changes. When compared to the previous study, first-degree AV block is new. No other significant changes. - Radiology Data Radiology results: report reviewed, image reviewed Two-view chest x-ray interpreted by mn reveals no acute pathology. I did review the radiology interpretation. Concur. KUB interpreted by mn reveals no acute pathology. Concur with radiology interpretation. Disposition Clinical Impression: Cholelithiasis, Biliary colic Disposition: ADMITTED IP TO THIS HOSP Condition: Fair Is patient prescribed a controlled substance at d/c from ED?: No Referrals: Lilli Ferro MD [Primary Care Provider] - 1-2 days Time of Disposition: 21:22 Decision to Admit Reason: Admit from EC Decision Time: 21:22
--- NOTE | 2022-05-07 18:57 | XR ---
EXAMINATION TYPE: XR KUB DATE OF EXAM: 05/07/2022 COMPARISON: 01/12/2013 HISTORY: Abdominal pain TECHNIQUE: 3 views upright FINDINGS: There is no sign of intestinal obstruction or pneumoperitoneum. Fecal pattern is normal. No sign of a mass. Lung bases are clear. No pathologic calcification of the kidneys. IMPRESSION: Nonacute abdomen. No change.
--- NOTE | 2022-05-07 19:26 | XR ---
EXAMINATION TYPE: XR chest 2V DATE OF EXAM: 05/07/2022 COMPARISON: 09/03/2021 HISTORY: Right upper quadrant pain TECHNIQUE: FINDINGS: Heart is normal. No obvious heart failure. There is coarse interstitial density in the lowe r lung villalpando. There is tracheostomy tube. No pleural effusion. There are no hilar masses. IMPRESSION: There is some mild pulmonary interstitial infiltrates which are mostly cleared compared t o the pulmonary edema evident on old exam. No pleural fluid seen to suggest heart failure.
--- NOTE | 2022-05-07 20:43 | US ---
EXAMINATION TYPE: US gallbladder DATE OF EXAM: 05/07/2022 COMPARISON: NONE CLINICAL HISTORY: Right upper quadrant abdominal pain. RUQ pain x 3 weeks TECHNIQUE: Multiple sonographic images of the right upper quadrant are obtained. FINDINGS: EXAM MEASUREMENTS: Liver Length: 23.1 cm Gallbladder Wall: 0.4 cm CBD: 0.56 cm Right Kidney: 10.7 x 5.7 x 5.8 cm UNIT COORDINATOR NOTES: Pancreas: Parts visualized appear wnl Liver: Hepatomegaly, heterogeneous appearance Gallbladder: Multiple gallstones visualized with a thickened wall Evidence for sonographic Cristina's sign: No CBD: wnl Right Kidney: wnl IMPRESSION: There is moderate hepatomegaly. There is likely fatty infiltration. Multiple gallstones. No dilated d ucts.
[2022-05-07] MEDS ORDERED: ONDANSETRON 4 MG/2 ML VIAL IVP PRN (21:23)
[2022-05-07] MEDS ORDERED: NALOXONE 0.4 MG/ML 1 ML VIAL IV PRN (21:23)
[2022-05-07] MEDS ORDERED: DEXTROSE 50% SYRINGE 50 ML IVP PRN ×2 (21:27)
[2022-05-07] MEDS ORDERED: IPRATROPIUM-ALBUTEROL 3 ML NEB INHALATION PRN (21:28)
[2022-05-07] MEDS: PANTOPRAZOLE 40 MG/10 ML VIAL IV SCH (21:58)
[2022-05-07 22:05] LABS: Glucose,Whole Blood 116 mg/dL (70-110)
[2022-05-07] MEDS: INSULIN ASPART (NovoLOG) 100 UNIT/ML VIAL SQ SCH (22:05)
[2022-05-07] MEDS: SODIUM CHLORIDE 0.9% 1,000 ML IV SCH (23:58)
[2022-05-08] MEDS: IPRATROPIUM-ALBUTEROL 3 ML NEB INHALATION SCH ×5 (00:03→20:13)
[2022-05-08] MEDS: MORPHINE SULFATE 4 MG/ML SYRINGE IV PRN ×4 (00:14→21:03)
[2022-05-08] MEDS: INSULIN ASPART (NovoLOG) 100 UNIT/ML VIAL SQ SCH ×4 (02:49→20:54)
[2022-05-08 02:51] LABS: Glucose,Whole Blood 109 mg/dL (70-110)
[2022-05-08 06:38] LABS: Basophils # (A) 0.1 k/uL (0-0.2); Basophils % (A) 1 %; Eosinophils # (A) 0.3 k/uL (0-0.7); Eosinophils % (A) 4 %; HGB 13.8 gm/dL (13.0-17.5); Hypochromasia Slight; Lymphocytes # (A) 1.9 k/uL (1.0-4.8); Lymphocytes % (A) 26 %; MCH 36.5 pg (25.0-35.0); MCV 110.7 fL (80.0-100.0); Macrocytosis Marked; Mean Platelet Volume 8.1; Monocytes # (A) 0.5 k/uL (0-1.0); Monocytes % (A) 7 %; Neutrophils # (A) 4.5 k/uL (1.3-7.7); Neutrophils % (A) 60 %; Platelet Count 199 k/uL (150-450); RBC 3.79 m/uL (4.30-5.90); RDW 13.1 % (11.5-15.5); WBC 7.4 k/uL (3.8-10.6)
[2022-05-08 06:52] LABS: ALT 27 U/L (4-49); AST 44 U/L (17-59); African American GFR (CKD) >90 (>60 ml/min/1.73 sqM); Albumin 3.4 g/dL (3.5-5.0); Alkaline Phosphatase 82 U/L (38-126); Anion Gap 4 mmol/L; Blood Urea Nitrogen 14 mg/dL (9-20); Calcium 8.6 mg/dL (8.4-10.2); Carbon Dioxide 35 mmol/L (22-30); Chloride 98 mmol/L (98-107); Glucose 126 mg/dL (74-99); Non-African American GFR(CKD) 79 (>60 ml/min/1.73 sqM); Potassium 5.1 mmol/L (3.5-5.1); Sodium 137 mmol/L (137-145); Total Bilirubin 0.9 mg/dL (0.2-1.3); Total Protein 6.7 g/dL (6.3-8.2)
[2022-05-08 06:55] LABS: INR 1.1 (<1.2); Partial Thromboplastin Time 23.8 sec (22.0-30.0); Prothrombin Time 11.1 sec (9.0-12.0)
[2022-05-08 09:04] LABS: Stomatocytes Present
[2022-05-08 09:11] LABS: Glucose,Whole Blood 126 mg/dL (70-110)
[2022-05-08] MEDS: PANTOPRAZOLE 40 MG/10 ML VIAL IV SCH (10:54)
[2022-05-08] MEDS: SODIUM CHLORIDE 0.9% 1,000 ML IV SCH ×3 (10:54→21:07)
--- NOTE | 2022-05-08 12:22 | P.GSHP ---
History of Present Illness H&P Date: 05/08/22 CHIEF COMPLAINT: Abdominal pain HISTORY OF PRESENT ILLNESS: This is a 61-year-old male who presented with right upper quadrant abdominal pain that has worsened over the last 2 weeks. Patient reports that he has been doing with this pain for about 1-2 months. He reports that the pain is sharp. The pain does not radiate. He does have pain and nausea after eating. He does report that there is pain when he lays on that side. He does have past surgical history of appendectomy and a prior left kidney surgery due to a defect. Patient has been done with constipation. He did report being unable to urinate since 5:00 last night. There was 480 ml of retained urine on bladder scan. Patient was able to urinate and post void residual had just minimal urine output. Gallbladder ultrasound completed showing multiple gallstones. Patient is scheduled for laparoscopic cholecystectomy today. He denies any cardiac history. Patient has a tracheostomy due to obstructive sleep apnea and is on Trach collar. PAST MEDICAL HISTORY: See below PAST SURGICAL HISTORY: See below MEDICATIONS: See below ALLERGIES: See below SOCIAL HISTORY: No illicit drug use. REVIEW OF SYSTEMS: CONSTITUTIONAL: Denies fever or chills. HEENT: Denies blurred vision, vision changes, or eye pain. Denies hemoptysis CARDIOVASCULAR: Denies chest pain or pressure. RESPIRATORY: No shortness of breath. GASTROINTESTINAL: See HPI for pertinent findings HEMATOLOGIC: Denies bleeding disorders. GENITOURINARY: Denies any blood in urine or increased urinary frequency. SKIN: Denies pruitis. Denies rash. PHYSICAL EXAM: VITAL SIGNS: Reviewed GENERAL: Well-developed in no acute distress. HEENT: No sclera icterus. Extraocular movements grossly intact. Moist buccal mucosa. Head is atraumatic, normocephalic. No nasal drainage. ABDOMEN: Soft. Nondistended. Tenderness to palpation right upper quadrant NEUROLOGIC: Alert and oriented. Cranial nerves II through XII grossly intact. LABORATORY DATA: WBC 7.4HgB 13.8 platelets 199 Sodium 137 potassium 5.1 creatinine 1.05 Glucose 126 A1c 8.5 Total bili 0.9 AST 7844 ALT 27 alk phos 82 Troponin negative lipase 59 IMAGING: fall her ultrasound moderate hepatomegaly. There is likely fatty malnutrition. Multiple gallstones with thickened gallbladder wall. No dilated ducts. ASSESSMENT: 1. Chronic cholecystitis. Right upper quadrant abdominal pain with ultrasound showing gallstones and thickened gallbladder wall 2. Urinary retention PLAN: -Patient scheduled for laparoscopic cholecystectomy today with Dr. Slade -keep patient NPO -Continue IV fluids -Continue to monitor for urinary retention. Check postvoid residuals -Medical service consulted for medical management Physician Ware Tester note has been reviewed by physician. Signing provider agrees with the documented findings, assessment, and plan of care. Past Medical History Past Medical History: Heart Failure, COPD, Diabetes Mellitus, Deep Vein Thrombosis (DVT), Hyperlipidemia, Hypertension, Pneumonia, Renal Disease, Seizure Disorder, Sleep Apnea/CPAP/BIPAP, Syncope Additional Past Medical History / Comment(s): IDDM type II, neuropathy bilateral feet, trach d/t SANTY, occasional home oxygen use, past covid pneumonia, past pneumonia with pseudomonas aeruginosa, past seizure pt states he was told was d/t coughing jags/hypoxia but no seizure for years, NADEEN, DVT R leg, chronic back pain, occasional R foot pain and will have difficulty with ROM, 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 History of Any Multi-Drug Resistant Organisms: Other MDRO Past Surgical History: Appendectomy Additional Past Surgical History / Comment(s): Trach with trach tube changed 07/2021, left kidney operation d/t defect, bronch. colonoscopy/polypectomy- benign polyps. Past Anesthesia/Blood Transfusion Reactions: No Reported Reaction Smoking Status: Former smoker - Past Family History Father Family Medical History: Dementia Additional Family Medical History / Comment(s): Father is . Mother Family Medical History: Myocardial Infarction (DC) Additional Family Medical History / Comment(s): Mother is . Medications and Allergies Home Medications Medication Instructions Recorded Confirmed Type Metoprolol Succinate (ER) [Toprol 25 mg PO DAILY 07/15/14 05/07/22 History XL] Morphine Sulfate [Morphine Sulfate 30 mg PO Q12H 06/20/16 05/07/22 History ER] Simvastatin [Zocor] 80 mg PO HS 10/02/16 05/07/22 History Morphine Sulfate Ir [MSIR] 15 mg PO Q12H PRN 08/23/20 05/07/22 History Insulin Glargine,Hum.rec.anlog 1 dose SQ DAILY PRN 05/01/21 05/07/22 History [Lantus Solostar Pen] lisinopriL [Zestril] 2.5 mg PO DAILY 05/01/21 05/07/22 History Albuterol Sulfate [Albuterol 2 puff PO RT-Q6H PRN 05/07/22 05/07/22 History Sulfate Hfa] Ipratropium-Albuterol Nebulize 3 ml INHALATION RT-QID PRN 05/07/22 05/07/22 History [Duoneb 0.5 mg-3 mg/3 ml Soln] Pregabalin [Lyrica] 75 mg PO BID 05/07/22 05/07/22 History Allergies Allergy/AdvReac Type Severity Reaction Status Date / Time No Known Allergies Allergy Verified 05/07/22 21:48 Surgical - Exam Vital Signs Temp Pulse Resp BP Pulse Ox 97.1 F L 77 16 116/74 92 L 05/07/22 15:17 05/07/22 15:17 05/07/22 15:17 05/07/22 15:17 05/07/22 15:17 Results - Labs 05/08/22 05:45 05/08/22 05:45 Abnormal Lab Results - Last 24 Hours (Table) 05/07/22 05/07/22 05/07/22 Range/Units 15:40 15:40 15:47 RBC 4.20 L (4.30-5.90) m/uL MCV 108.3 H (80.0-100.0) fL MCH 36.9 H (25.0-35.0) pg Lymphocytes # 0.9 L (1.0-4.8) k/uL Macrocytosis Sodium 136 L (137-145) mmol/L Chloride 97 L (98-107) mmol/L Carbon Dioxide (22-30) mmol/L Glucose 216 H (74-99) mg/dL POC Glucose (mg/dL) (70-110) mg/dL Hemoglobin A1c (0.0-6.0) % AST 78 H (17-59) U/L Total Protein 8.3 H (6.3-8.2) g/dL Albumin (3.5-5.0) g/dL Urine Protein 1+ H (Negative) Ur Leukocyte Esterase Small H (Negative) Hyaline Casts 3 H (0-2) /lpf Urine Mucus Rare H (None) /hpf 05/07/22 05/08/22 05/08/22 Range/Units 22:03 05:45 05:45 RBC 3.79 L (4.30-5.90) m/uL MCV 110.7 H (80.0-100.0) fL MCH 36.5 H (25.0-35.0) pg Lymphocytes # (1.0-4.8) k/uL Macrocytosis Marked A Sodium (137-145) mmol/L Chloride (98-107) mmol/L Carbon Dioxide (22-30) mmol/L Glucose (74-99) mg/dL POC Glucose (mg/dL) 116 H (70-110) mg/dL Hemoglobin A1c 8.5 H (0.0-6.0) % AST (17-59) U/L Total Protein (6.3-8.2) g/dL Albumin (3.5-5.0) g/dL Urine Protein (Negative) Ur Leukocyte Esterase (Negative) Hyaline Casts (0-2) /lpf Urine Mucus (None) /hpf 05/08/22 05/08/22 Range/Units 05:45 09:09 RBC (4.30-5.90) m/uL MCV (80.0-100.0) fL MCH (25.0-35.0) pg Lymphocytes # (1.0-4.8) k/uL Macrocytosis Sodium (137-145) mmol/L Chloride (98-107) mmol/L Carbon Dioxide 35 H (22-30) mmol/L Glucose 126 H (74-99) mg/dL POC Glucose (mg/dL) 126 H (70-110) mg/dL Hemoglobin A1c (0.0-6.0) % AST (17-59) U/L Total Protein (6.3-8.2) g/dL Albumin 3.4 L (3.5-5.0) g/dL Urine Protein (Negative) Ur Leukocyte Esterase (Negative) Hyaline Casts (0-2) /lpf Urine Mucus (None) /hpf Diabetes panel 05/07/22 05/08/22 05/08/22 Range/Units 15:40 05:45 05:45 Sodium 136 L 137 (137-145) mmol/L Potassium 4.8 5.1 (3.5-5.1) mmol/L Chloride 97 L 98 (98-107) mmol/L Carbon Dioxide 30 35 H (22-30) mmol/L BUN 15 14 (9-20) mg/dL Creatinine 0.83 1.04 (0.66-1.25) mg/dL Glucose 216 H 126 H (74-99) mg/dL Hemoglobin A1c 8.5 H (0.0-6.0) % Calcium 9.7 8.6 (8.4-10.2) mg/dL AST 78 H 44 (17-59) U/L ALT 35 27 (4-49) U/L Alkaline Phosphatase 104 82 (38-126) U/L Total Protein 8.3 H 6.7 (6.3-8.2) g/dL Albumin 4.4 3.4 L (3.5-5.0) g/dL Calcium panel 05/07/22 05/08/22 Range/Units 15:40 05:45 Calcium 9.7 8.6 (8.4-10.2) mg/dL Albumin 4.4 3.4 L (3.5-5.0) g/dL Pituitary panel 05/07/22 05/08/22 Range/Units 15:40 05:45 Sodium 136 L 137 (137-145) mmol/L Potassium 4.8 5.1 (3.5-5.1) mmol/L Chloride 97 L 98 (98-107) mmol/L Carbon Dioxide 30 35 H (22-30) mmol/L BUN 15 14 (9-20) mg/dL Creatinine 0.83 1.04 (0.66-1.25) mg/dL Glucose 216 H 126 H (74-99) mg/dL Calcium 9.7 8.6 (8.4-10.2) mg/dL Adrenal panel 05/07/22 05/08/22 Range/Units 15:40 05:45 Sodium 136 L 137 (137-145) mmol/L Potassium 4.8 5.1 (3.5-5.1) mmol/L Chloride 97 L 98 (98-107) mmol/L Carbon Dioxide 30 35 H (22-30) mmol/L BUN 15 14 (9-20) mg/dL Creatinine 0.83 1.04 (0.66-1.25) mg/dL Glucose 216 H 126 H (74-99) mg/dL Calcium 9.7 8.6 (8.4-10.2) mg/dL Total Bilirubin 1.0 0.9 (0.2-1.3) mg/dL AST 78 H 44 (17-59) U/L ALT 35 27 (4-49) U/L Alkaline Phosphatase 104 82 (38-126) U/L Total Protein 8.3 H 6.7 (6.3-8.2) g/dL Albumin 4.4 3.4 L (3.5-5.0) g/dL
[2022-05-08 12:35] VITALS: BMI 25.3
[2022-05-08] MEDS ORDERED: SODIUM CHLORIDE 0.9% 1,000 ML IV ONE (14:53)
[2022-05-08] MEDS ORDERED: ONDANSETRON 4 MG/2 ML VIAL IVP ONE (15:04)
[2022-05-08] MEDS ORDERED: DEXAMETHASONE SOD PHOSPHATE 4 MG/ML 1 ML VIAL IVP ONE (15:04)
[2022-05-08 15:06] LABS: Glucose,Whole Blood 120 mg/dL (70-110)
[2022-05-08] MEDS ORDERED: HEPARIN SODIUM,PORCINE/PF 5,000 UNIT/0.5 ML SYRINGE SQ ONE (15:51)
[2022-05-08] MEDS ORDERED: HEPARIN SODIUM,PORCINE 5,000 UNIT/ML 1 ML VIAL SQ ONE (15:56)
[2022-05-08] MEDS ORDERED: MIDAZOLAM 2 MG/2 ML VIAL ONE (16:03)
[2022-05-08] MEDS ORDERED: ROCURONIUM 10 MG/ML (5 ML VIAL) IV ONE (16:03)
[2022-05-08] MEDS ORDERED: HYDROmorphone (PF) 1 MG/ML ONE (16:03)
[2022-05-08] MEDS ORDERED: GLYCOPYRROLATE 0.2 MG/ML 2 ML VIAL ONE (16:03)
[2022-05-08] MEDS ORDERED: fentaNYL (PF) 50 MCG/ML 2 ML AMP ONE (16:03)
[2022-05-08] MEDS ORDERED: NEOSTIGMINE 1 MG/ML 10 ML VIAL ONE (16:03)
[2022-05-08] MEDS ORDERED: PROPOFOL 10 MG/ML 20 ML VIAL IV ONE (16:03)
[2022-05-08] MEDS ORDERED: SODIUM CHLORIDE 0.9% 100 ML with ceFAZolin 2,000 MG IV ONE ×2 (16:20)
[2022-05-08] MEDS ORDERED: BUPIVACAIN-EPI 0.25%-1:200,000 30 ML VIAL SQ ONE (16:32)
[2022-05-08] MEDS ORDERED: LACTATED RINGERS 1,000 ML IV ONE (17:01)
[2022-05-08] MEDS ORDERED: ONDANSETRON 4 MG/2 ML VIAL IVP PRN (17:01)
[2022-05-08] MEDS ORDERED: HYDROcodone/APAP 5-325MG 1 EACH TAB PO PRN ×2 (17:01)
[2022-05-08] MEDS ORDERED: traMADol 50 MG TAB PO PRN (17:01)
[2022-05-08] MEDS ORDERED: NALOXONE 0.4 MG/ML 1 ML VIAL IV PRN (17:01)
[2022-05-08] MEDS ORDERED: HYDROmorphone 1 MG/ML 1 ML SYRINGE IVP PRN (17:01)
--- NOTE | 2022-05-08 17:01 | P.OP ---
Date of Procedure: 05/08/22 Preoperative Diagnosis: Cholecystitis Postoperative Diagnosis: Cholecystitis Procedure(s) Performed: Laparoscopic cholecystectomy Anesthesia: ARTURO Surgeon: Kelton Slade Estimated Blood Loss (ml): 25 Pathology: other (Gallbladder) Condition: stable Disposition: PACU Operative Findings: Cirrhotic liver Description of Procedure: The patient was placed on the operating table. The patient received a general endotracheal tube anesthesia. The patients abdomen was prepped and draped in the usual sterile fashion. Through an infraumbilical stab incision, the fascia of the anterior abdominal wall was grasped with a pair of Kochers and then the Veress needle was placed in the peritoneal cavity. Position of the Veress needle was confirmed with positive drop test. The abdomen was then insufflated. After adequate insufflation, the 10 mm trocar was placed in the peritoneal cavity. Following this the laparoscope was placed in the peritoneal cavity. The patient was placed in the head-up, right side up position and then a 5 mm trocar was placed in the right lateral and right subcostal position under direct visualization. A 8 mm trocar was placed in the epigastric position. The gallbladder was grasped in the fundus and infund ibulum. Traction on the gallbladder was placed in the lateral and the cephalad positions. The triangle of Calot was visualized.. The cystic duct was bluntly dissected until the union of the cystic duct and common bile duct was seen. A critical view of safety was achieved. The cystic duct was then divided and sealed with the Harmonic scissors. A PDS Endoloop was then placed throughout the cystic duct stump. The cystic artery divided and sealed with the Harmonic scissors. The gallbladder was then removed from the liver bed using Harmonic scissors. The gallbladder was then extracted through the epigastric port site. Operative field was checked for any bleeding spots and Harmonic scissors was used to coagulate the liver bed. The abdomen was irrigated. The trocars were removed. The skin was closed using interrupted 3-0 Vicryl suture. Dermabond dressing were applied. The patient tolerated the procedure well.
[2022-05-08] MEDS ORDERED: HYDROmorphone 0.5 MG/0.5 ML SYRINGE IVP ONE ×2 (17:39→17:48)
[2022-05-08] MEDS: KETOROLAC 15 MG/ML 1 ML VIAL IVP SCH (19:03)
[2022-05-08 20:54] LABS: Glucose,Whole Blood 126 mg/dL (70-110)
[2022-05-08] MEDS: DOCUSATE 100 MG CAP PO SCH (21:01)
[2022-05-09] MEDS: KETOROLAC 15 MG/ML 1 ML VIAL IVP SCH ×3 (00:56→11:55)
[2022-05-09 03:32] LABS: Glucose,Whole Blood 108 mg/dL (70-110)
[2022-05-09] MEDS: INSULIN ASPART (NovoLOG) 100 UNIT/ML VIAL SQ SCH ×3 (03:32→15:47)
[2022-05-09] MEDS: SODIUM CHLORIDE 0.9% 1,000 ML IV SCH ×2 (05:24→11:04)
[2022-05-09] MEDS: IPRATROPIUM-ALBUTEROL 3 ML NEB INHALATION SCH ×3 (07:35→15:21)
[2022-05-09] MEDS ORDERED: ENOXAPARIN 40 MG/0.4 ML SYRINGE SQ SCH (09:00)
[2022-05-09 09:14] LABS: Glucose,Whole Blood 134 mg/dL (70-110)
--- NOTE | 2022-05-09 09:42 | P.CONS ---
History of Present Illness - Reason for Consult Consult date: 05/08/22 Medical management - Chief Complaint Abdominal pain - History of Present Illness Patient is a 61-year-old male with a known history of hypertension, hyperlipidemia, diabetes type 2 insulin-dependent, bilateral peripheral neuropathy, obstructive sleep apnea and home oxygen, COPD, chronic CHF, history of DVT right leg and chronic low back pain and prior history of smoking and other multiple medical problems presents to ER with complaints of abdominal pain mainly in the right upper quadrant which has been getting worse for the past 2 weeks. Patient says that he has been dealing with this pain for the past 1-2 months. Patient is having sharp pain without any radiation and associated with nausea especially after eating. Denied any fever or chills. No chest pain or shortness of breath. KUB x-ray showed non- acute abdomen. Chest x-ray showed there is some mild pulmonary interstitial infiltrates which are mostly clear compared to the pulmonary edema evident on selby exam. EKG showed sinus rhythm with first-degree AV block. Ultrasound gallbladder showed moderate hepatomegaly. There is likely fatty infiltration. Multiple gallstones. No dilated ducts. Laboratory data show WBC 7.1 hemoglobin 15.5 MCV 108.3 and platelets 198, sodium 136 potassium 4.8 chloride 97 bicarb is 30 BUN 15 and creatinine 0.8 and blood sugar is 216 A1c 8.5 AST 78 ALT 30 from was 104 and troponin 1 negative total protein 8.3 albumin 4.4 amylase and lipase not elevated Urinalysis is negative for infection. Patient was having urinary retention with more than 400 mL on bladder scan. Review of Systems Constitutional: Patient denies any fever or chills . No generalized weakness or weight loss. Abdomen: Patient does have nausea vomiting and right upper quadrant abdominal pain. No diarrhea. History of constipation.. Cardiovascular: Patient denies any chest pain or short of breath no palpitations. Respiratory: patient denied any cough is from production. No shortness of breath Neurologic: Patient denied any numbness or tingling headache. Musculoskeletal: Patient denies any complaints of joint swelling or deformity. Skin: Negative Psychiatric: Negative Endocrine: No heat or cold intolerance. No recent weight gain. Genitourinary: No dysuria or hematuria. All other 14 point ROS negative except the above Past Medical History Past Medical History: Heart Failure, COPD, Diabetes Mellitus, Deep Vein Thrombosis (DVT), Hyperlipidemia, Hypertension, Pneumonia, Renal Disease, Seizure Disorder, Sleep Apnea/CPAP/BIPAP, Syncope Additional Past Medical History / Comment(s): IDDM type II, neuropathy bilateral feet, trach d/t SANTY, occasional home oxygen use, past covid pneumonia, past pneumonia with pseudomonas aeruginosa, past seizure pt states he was told was d/t coughing jags/hypoxia but no seizure for years, NADEEN, DVT R leg, chronic back pain, occasional R foot pain and will have difficulty with ROM, 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 History of Any Multi-Drug Resistant Organisms: Other MDRO Past Surgical History: Appendectomy Additional Past Surgical History / Comment(s): Trach with trach tube changed 07/2021, left kidney operation d/t defect, bronch. colonoscopy/polypectomy- benign polyps. Past Anesthesia/Blood Transfusion Reactions: No Reported Reaction Smoking Status: Former smoker - Past Family History Father Family Medical History: Dementia Additional Family Medical History / Comment(s): Father is . Mother Family Medical History: Myocardial Infarction ([place]) Additional Family Medical History / Comment(s): Mother is . Medications and Allergies Home Medications Medication Instructions Recorded Confirmed Type Metoprolol Succinate (ER) [Toprol 25 mg PO DAILY 07/15/14 05/07/22 History XL] Morphine Sulfate [Morphine Sulfate 30 mg PO Q12H 06/20/16 05/07/22 History ER] Simvastatin [Zocor] 80 mg PO HS 10/02/16 05/07/22 History Morphine Sulfate Ir [MSIR] 15 mg PO Q12H PRN 08/23/20 05/07/22 History Insulin Glargine,Hum.rec.anlog 1 dose SQ DAILY PRN 05/01/21 05/07/22 History [Lantus Solostar Pen] lisinopriL [Zestril] 2.5 mg PO DAILY 05/01/21 05/07/22 History Albuterol Sulfate [Albuterol 2 puff PO RT-Q6H PRN 05/07/22 05/07/22 History Sulfate Hfa] Ipratropium-Albuterol Nebulize 3 ml INHALATION RT-QID PRN 05/07/22 05/07/22 History [Duoneb 0.5 mg-3 mg/3 ml Soln] Pregabalin [Lyrica] 75 mg PO BID 05/07/22 05/07/22 History Allergies Allergy/AdvReac Type Severity Reaction Status Date / Time No Known Allergies Allergy Verified 05/08/22 15:03 Physical Exam Vitals: Vital Signs Temp Pulse Pulse Resp BP BP Pulse Ox 05/08/22 12:51 60 05/08/22 12:32 60 05/08/22 08:36 98.3 F 71 18 121/76 95 05/08/22 07:50 62 05/08/22 07:35 62 94 L 05/08/22 07:00 98.2 F 70 20 95/54 82 L 05/07/22 23:53 86 18 100/70 90 L 05/07/22 20:00 76 18 101/70 90 L 05/07/22 18:21 84 18 130/72 97 05/07/22 15:17 97.1 F L 77 16 116/74 92 L FiO2 05/08/22 12:51 05/08/22 12:32 05/08/22 08:36 05/08/22 07:50 05/08/22 07:35 40 05/08/22 07:00 05/07/22 23:53 05/07/22 20:00 05/07/22 18:21 05/07/22 15:17 Intake and Output 05/07/22 05/08/22 05/08/22 22:59 06:59 14:59 Output Total 11 Balance -11 Output: Post Void Residual 11 Other: # Voids 1 Weight 86.183 kg 92 kg PHYSICAL EXAMINATION: Patient is lying in the bed comfortably, no acute distress, awake alert and oriented.. HEENT: Normocephalic. Neck is supple. Pupils reactive. Nostrils clear. Oral cavity is moist. Neck reveals no JVD, carotid bruits, or thyromegaly. CHEST EXAMINATION: Trachea is central. Symmetrical expansion. Trach collar. Bibasilar diminished sounds. Lung villalpando clear to auscultation and percussion. CARDIAC: Normal S1, S2 with no gallops. No murmurs ABDOMEN: Soft. Bowel sounds present and mild right upper quadrant tenderness with deep palpation.. No organomegaly. No abdominal bruits. Extremities: reveal no edema. No clubbing or cyanosis Neurologically awake, alert, oriented x3 with well-coordinated movements. No focal deficits noted Skin: No rash or skin lesions. Psychiatric: Coperative. Nonsuicidal Musculoskeletal: No joint swelling or deformity. Normal range of motion. Results CBC & Chem 7: 05/08/22 05:45 05/08/22 05:45 Labs: Abnormal Lab Results - Last 24 Hours (Table) 05/07/22 05/07/22 05/07/22 Range/Units 15:40 15:40 15:47 RBC 4.20 L (4.30-5.90) m/uL MCV 108.3 H (80.0-100.0) fL MCH 36.9 H (25.0-35.0) pg Lymphocytes # 0.9 L (1.0-4.8) k/uL Macrocytosis Sodium 136 L (137-145) mmol/L Chloride 97 L (98-107) mmol/L Carbon Dioxide (22-30) mmol/L Glucose 216 H (74-99) mg/dL POC Glucose (mg/dL) (70-110) mg/dL Hemoglobin A1c (0.0-6.0) % AST 78 H (17-59) U/L Total Protein 8.3 H (6.3-8.2) g/dL Albumin (3.5-5.0) g/dL Urine Protein 1+ H (Negative) Ur Leukocyte Esterase Small H (Negative) Hyaline Casts 3 H (0-2) /lpf Urine Mucus Rare H (None) /hpf 05/07/22 05/08/22 05/08/22 Range/Units 22:03 05:45 05:45 RBC 3.79 L (4.30-5.90) m/uL MCV 110.7 H (80.0-100.0) fL MCH 36.5 H (25.0-35.0) pg Lymphocytes # (1.0-4.8) k/uL Macrocytosis Marked A Sodium (137-145) mmol/L Chloride (98-107) mmol/L Carbon Dioxide (22-30) mmol/L Glucose (74-99) mg/dL POC Glucose (mg/dL) 116 H (70-110) mg/dL Hemoglobin A1c 8.5 H (0.0-6.0) % AST (17-59) U/L Total Protein (6.3-8.2) g/dL Albumin (3.5-5.0) g/dL Urine Protein (Negative) Ur Leukocyte Esterase (Negative) Hyaline Casts (0-2) /lpf Urine Mucus (None) /hpf 05/08/22 05/08/22 Range/Units 05:45 09:09 RBC (4.30-5.90) m/uL MCV (80.0-100.0) fL MCH (25.0-35.0) pg Lymphocytes # (1.0-4.8) k/uL Macrocytosis Sodium (137-145) mmol/L Chloride (98-107) mmol/L Carbon Dioxide 35 H (22-30) mmol/L Glucose 126 H (74-99) mg/dL POC Glucose (mg/dL) 126 H (70-110) mg/dL Hemoglobin A1c (0.0-6.0) % AST (17-59) U/L Total Protein (6.3-8.2) g/dL Albumin 3.4 L (3.5-5.0) g/dL Urine Protein (Negative) Ur Leukocyte Esterase (Negative) Hyaline Casts (0-2) /lpf Urine Mucus (None) /hpf Assessment and Plan Assessment: Right upper quadrant abdominal pain and associated nausea and vomiting. Possible chronic cholecystitis. Ultrasound of the abdomen showed gallstones and thickened gallbladder wall. Acute urinary retention Hypertension Diabetes type 2 insulin-dependent and uncontrolled B A1c level 8.5 Bilateral peripheral neuropathy Obstructive sleep apnea next line COPD on home oxygen Chronic CHF with diastolic dysfunction Chronic low back pain History of smoking DVT prophylaxis plan: Patient will be continued on pain management, IV hydration nothing by mouth. Symptomatic management for nausea and vomiting. Continue with GI prophylaxis. Neck is general surgery is planning for laparoscopy cholecystectomy today. Continue with DuoNeb's and other home medications and follow closely. Insulin sliding scale and titrate insulin dose. Further recommendations based on the clinical course. Thank you for your consult. Time with Patient: Greater than 30
[2022-05-09] MEDS: PANTOPRAZOLE 40 MG/10 ML VIAL IV SCH (11:03)
[2022-05-09] MEDS: DOCUSATE 100 MG CAP PO SCH (11:03)
--- NOTE | 2022-05-09 15:10 | P.DS ---
Providers Date of admission: 05/07/22 21:27 Expected date of discharge: 05/09/22 Attending physician: Kelton Slade Consults: 05/07/22 21:23 Consult Physician Urgent Consulting Provider: Siri Knutson Consult Reason/Comments: Medical management Do you want consulting provider notified?: Yes Primary care physician: Lilli [place] Hospital Course: Discharge diagnosis 1. Cholecystitis status post laparoscopic cholecystectomy Hospital course This is a 61-year-old male who presented with right upper quadrant abdominal pain that has worsened over the last 2 weeks. Gallbladder ultrasound completed showing multiple gallstones and thickened gallbladder wall. Patient diagnosed with cholecystitis. He is status post laparoscopic cholecystectomy. Patient's pain is controlled. He is tolerating diet. He is afebrile. He is urinating without difficulty. He is up and ambulating. He is stable for discharge. Please refer to chart for any further details. Physician Content Administrator note has been reviewed by physician. Signing provider agrees with the documented findings, assessment, and plan of care. Patient Condition at Discharge: Stable Plan - Discharge Summary Discharge Rx Participant: No New Discharge Prescriptions: Continue Metoprolol Succinate (ER) [Toprol XL] 25 mg PO DAILY Morphine Sulfate [Morphine Sulfate ER] 30 mg PO Q12H Simvastatin [Zocor] 80 mg PO HS Pregabalin [Lyrica] 75 mg PO BID Morphine Sulfate Ir [MSIR] 15 mg PO Q12H PRN PRN Reason: Pain Insulin Glargine,Hum.rec.anlog [Lantus Solostar Pen] 1 dose SQ DAILY PRN PRN Reason: HIGH BLOOD SUGAR lisinopriL [Zestril] 2.5 mg PO DAILY Albuterol Sulfate [Albuterol Sulfate Hfa] 2 puff PO RT-Q6H PRN PRN Reason: Shortness Of Breath Ipratropium-Albuterol Nebulize [Duoneb 0.5 mg-3 mg/3 ml Soln] 3 ml INHALATION RT-QID PRN PRN Reason: Shortness Of Breath Discharge Medication List Metoprolol Succinate (ER) [Toprol XL] 25 mg PO DAILY 07/15/14 [History] Morphine Sulfate [Morphine Sulfate ER] 30 mg PO Q12H 06/20/16 [History] Simvastatin [Zocor] 80 mg PO HS 10/02/16 [History] Morphine Sulfate Ir [MSIR] 15 mg PO Q12H PRN 08/23/20 [History] Insulin Glargine,Hum.rec.anlog [Lantus Solostar Pen] 1 dose SQ DAILY PRN 05/01/21 [History] lisinopriL [Zestril] 2.5 mg PO DAILY 05/01/21 [History] Albuterol Sulfate [Albuterol Sulfate Hfa] 2 puff PO RT-Q6H PRN 05/07/22 [History] Ipratropium-Albuterol Nebulize [Duoneb 0.5 mg-3 mg/3 ml Soln] 3 ml INHALATION RT-QID PRN 05/07/22 [History] Pregabalin [Lyrica] 75 mg PO BID 05/07/22 [History] Follow up Appointment(s)/Referral(s): Lilli Ferro MD [Primary Care Provider] - 1-2 days Kelton Slade MD [STAFF PHYSICIAN] - 1 Week Activity/Diet/Wound Care/Special Instructions: PATIENT IS REQUESTING INFLUENZA VACCINE PRIOR TO DISCHARGE. No driving while taking [place] No lifting over 10 pounds Shower daily. No soaking or tub baths for 2 weeks Very light activity until you are reevaluated at your follow up appointment with your surgeon Work on alcohol cessation Discharge Disposition: HOME SELF-CARE
[2022-05-09 15:11] LABS: Glucose,Whole Blood 136 mg/dL (70-110)
[2022-05-09 15:19] VITALS: BP 132/89; PULSE 68; RESP 20; TEMP 98
--- NOTE | 2022-05-09 15:20 | P.PN ---
Subjective Progress Note Date: 05/09/22 - Reason for Consult Consult date: 05/08/22 Medical management - Chief Complaint Abdominal pain - History of Present Illness Patient is a 61-year-old male with a known history of hypertension, hyperlipidemia, diabetes type 2 insulin-dependent, bilateral peripheral neuropathy, obstructive sleep apnea and home oxygen, COPD, chronic CHF, history of DVT right leg and chronic low back pain and prior history of smoking and other multiple medical problems presents to ER with complaints of abdominal pain mainly in the right upper quadrant which has been getting worse for the past 2 weeks. Patient says that he has been dealing with this pain for the past 1-2 months. Patient is having sharp pain without any radiation and associated with nausea especially after eating. Denied any fever or chills. No chest pain or shortness of breath. KUB x-ray showed non- acute abdomen. Chest x-ray showed there is some mild pulmonary interstitial infiltrates which are mostly clear compared to the pulmonary edema evident on selby exam. EKG showed sinus rhythm with first-degree AV block. Ultrasound gallbladder showed moderate hepatomegaly. There is likely fatty infiltration. Multiple gallstones. No dilated ducts. Laboratory data show WBC 7.1 hemoglobin 15.5 MCV 108.3 and platelets 198, sodium 136 potassium 4.8 chloride 97 bicarb is 30 BUN 15 and creatinine 0.8 and blood sugar is 216 A1c 8.5 AST 78 ALT 30 from was 104 and troponin 1 negative total protein 8.3 albumin 4.4 amylase and lipase not elevated Urinalysis is negative for infection. Patient was having urinary retention with more than 400 mL on bladder scan. 05/09/2022 Patient is seen and evaluated in follow-up today postcholecystectomy. Patient reports his pain is currently controlled and will continue on his current regimen as patient takes morphine in the outpatient setting. Patient needs follow-up with primary care provider along with general surgery as instructed. Patient is afebrile denies chest pain or shortness of breath and is tolerating current diet. Patient reports the urinating with no difficulties. Patient will need close outpatient follow-up with his design painter as well. Patient reports the passing some gas with no bowel movement as of yet. Medications have been reviewed and resumed. And for possible discharge today. Review of systems: Constitutional: No reports of fatigue, fever, or chills Cardiovascular: No reports of chest pain or palpitations Respiratory: No reports of shortness of breath or cough GI: No reports of nausea, vomiting, or diarrhea, reports passing gas with no BM yet : No reports of dysuria or retention Neurovascular: No reports of weakness or numbness All medications have been reviewed PHYSICAL EXAMINATION: Patient is lying in the bed comfortably, no acute distress, awake alert and oriented.. HEENT: Normocephalic. Neck is supple. Pupils reactive. Nostrils clear. Oral cavity is moist. Neck reveals no JVD, carotid bruits, or thyromegaly. CHEST EXAMINATION: Trachea is central. Symmetrical expansion. Trach collar. Bibasilar diminished sounds. Lung villalpando clear to auscultation and percussion. CARDIAC: Normal S1, S2 with no gallops. No murmurs ABDOMEN: Soft. Bowel sounds present and mild right upper quadrant tenderness with deep palpation.. No organomegaly. No abdominal bruits. Extremities: reveal no edema. No clubbing or cyanosis Neurologically awake, alert, oriented x3 with well-coordinated movements. No focal deficits noted Skin: No rash or skin lesions. Psychiatric: Cooperative. Non-suicidal Musculoskeletal: No joint swelling or deformity. Normal range of motion. Assessment: Right upper quadrant abdominal pain and associated nausea and vomiting. Possible chronic cholecystitis. Ultrasound of the abdomen showed gallstones and thickened gallbladder wall. Post laparoscopic cholecystectomy Acute urinary retention Hypertension Diabetes type 2 insulin-dependent and uncontrolled HbA1c level 8.5 Bilateral peripheral neuropathy Obstructive sleep apnea COPD on home oxygen, not in exacerbation Chronic CHF with diastolic dysfunction Chronic low back pain History of smoking DVT prophylaxis plan: Patient is status post laparoscopic cholecystectomy and tolerating diet will need close outpatient follow-up with general surgery in one week Recommend continue current diet and advance as tolerated Recommend following up with primary care provider on discharge along with pain management in the outpatient setting Home medications have been reviewed and resumed Discussed glycemic control and recommend continue monitoring Accu-Cheks before meals and at bedtime and keep a diary for primary care follow-up Due to multiple complex medical issues, prognosis is guarded We will continue to follow with general surgery during hospitalization. Thank you kindly for this consultation. Plan is for discharge today. The impression and plan of care has been dictated by Ashly Carrasquillo, Nurse Practitioner as directed. MD Westley I have performed a history and examination and MDM of this patient, discussed the same with the dictator, and agree with the dictator's assessment and plan as written ,documented as a scribe. Based on total visit time, I have performed more than 50% of the visit. Objective - Vital Signs Vital signs: Vital Signs Temp 98.4 F 05/09/22 07:00 Pulse 65 05/09/22 07:52 Resp 18 05/09/22 07:00 BP 117/74 05/09/22 07:00 Pulse Ox 95 05/09/22 12:12 FiO2 40 05/09/22 12:12 Intake & Output 05/08/22 05/09/22 05/09/22 18:59 06:59 18:59 Intake Total 1000 Output Total 31 Balance 969 Weight 92 kg Intake: IV 1000 Output: Post Void Residual 11 Estimated Blood Loss 20 Other: Voiding Method Toilet Toilet # Voids 2 1 - Labs CBC & Chem 7: 05/08/22 05:45 05/08/22 05:45 Labs: Abnormal Lab Results - Last 24 Hours (Table) 05/08/22 05/08/22 05/09/22 Range/Units 15:04 20:52 09:13 POC Glucose (mg/dL) 120 H 126 H 134 H (70-110) mg/dL
== END 2022-05-09 17:00 | disposition home or self-care (01) ==
LOC: EC 14:59 → 6NMEDSUR 21:27
PROVIDERS: ADMIT Surgery; ATTEND Surgery
DX: K80.10 Calculus of gallbladder with chronic cholecystitis without obstruction (principal); K74.60 Unspecified cirrhosis of liver; R33.9 Retention of urine, unspecified; I11.0 Hypertensive heart disease with heart failure; I50.32 Chronic diastolic (congestive) heart failure; J44.9 Chronic obstructive pulmonary disease, unspecified; E11.42 Type 2 diabetes mellitus with diabetic polyneuropathy; E78.5 Hyperlipidemia, unspecified; G47.33 Obstructive sleep apnea (adult) (pediatric); G89.29 Other chronic pain; M54.50 Low back pain, unspecified; F32.A Depression, unspecified; F17.200 Nicotine dependence, unspecified, uncomplicated; Z86.718 Personal history of other venous thrombosis and embolism; Z93.0 Tracheostomy status; Z99.81 Dependence on supplemental oxygen; Z79.4 Long term (current) use of insulin; Z79.84 Long term (current) use of oral hypoglycemic drugs; Z79.899 Other long term (current) drug therapy
CPT/HCPCS: 96376 ×2; 96361 ×2; 96374; 96375; 99285; 36415; 94640 ×2; 94760 ×2; 93005; 88304; 80053 ×2; 82150; 83690; 84484; 85025 ×2; 85610; 85730; 81001; 83036; 71046; 74018; 76705; 47562; G0378 ×3; J2250; J2270 ×2; J1644; J1100; J2710; J2405 ×2; J0690; J1650; J3010; J1170 ×2; J1885 ×2; J2704; C9113 ×3

== ENCOUNTER → 2022-08-30 | Outpatient (CLI) | payer MEDICARE ==
[2022-08-30 18:53] LABS: Basophils # (A) 0.07 X 10*3/uL (0.00-0.10); Basophils % (A) 0.8 %; Eosinophils # (A) 0.26 X 10*3/uL (0.04-0.35); Eosinophils % (A) 3.1 %; HCT 49.2 % (39.6-50.0); HGB 15.5 g/dL (13.0-17.0); Immature Grans, Automated 0.6 %; Lymphocytes # (A) 2.03 X 10*3/uL (0.90-5.00); MCH 32.1 pg (27.0-32.0); MCHC 31.5 g/dL (32.0-37.0); MCV 101.9 fL (80.0-97.0); Mean Platelet Volume 11.4 fL (9.5-12.2); Monocytes # (A) 0.88 X 10*3/uL (0.20-1.00); Monocytes % (A) 10.4 %; NRBC Per 100 WBC 0 /100 WBCS (0.0-0.0); Neutrophils # (A) 5.17 X 10*3/uL (1.80-7.70); Neutrophils % (A) 61.1 %; Platelet Count 186 X 10*3/uL (140-440); RBC 4.83 X 10*6/uL (4.40-5.60); RDW 14.5 % (11.5-14.5); Reticulocyte % 1.98 % (0.10-1.80); WBC 8.46 X 10*3/uL (4.50-10.00)
[2022-08-30 19:57] LABS: African American GFR (CKD) 84.1 (60.0-200.0); BUN/Creat Ratio 14.55 Ratio (12.00-20.00); Calcium 9.5 mg/dL (8.7-10.3); Non-African American GFR(CKD) 72.6 (60.0-200.0)
[2022-08-30 23:33] LABS: Protein, Total 7.8 g/dL (6.2-8.2)
== END | disposition home or self-care (01) ==
LOC: LABWHC1 11:23
PROVIDERS: ATTEND Internal Medicine Hematology & Oncology
DX: D64.89 Other specified anemias (principal); D89.2 Hypergammaglobulinemia, unspecified; Z71.3 Dietary counseling and surveillance
CPT/HCPCS: 36415; 80048; 82607; 82747; 83883; 83921; 84165; 85025; 85045

== ENCOUNTER → 2022-09-06 | Outpatient (CLI) | payer MEDICARE ==
--- NOTE | 2022-09-06 16:17 | NM ---
EXAMINATION TYPE: NM parathyroid w/spect DATE OF EXAM: 09/06/2022 COMPARISON: CT cervical spine 2014 HISTORY: Hypercalcemia. Hyperparathyroidism. TECHNIQUE: Following administration of 26.8 mCi Tc99m Sestamibi. Anterior projection images of the neck and ches t were obtained 10 minutes and 3 hours post injection. SPECT images of the neck and chest were obtai carlos and reconstructed in three axes. FINDINGS: Thyroid tracer washout: Delayed images demonstrate near-complete tracer washout from the thyroid. Parathyroid uptake: None. The delayed images do not demonstrate any focal abnormal persistent uptake in the region of the parathyroid glands to suggest parathyroid adenoma. Normal uptake: There is physiological tracer uptake in the myocardium, salivary glands, and thyroid g land. IMPRESSION: Normal parathyroid imaging study. No evidence for abnormal mediastinal uptake to suggest mediastinal parathyroid adenoma
== END | disposition home or self-care (01) ==
LOC: RADNMMAIN 10:47
PROVIDERS: ATTEND Family Medicine
DX: E21.3 Hyperparathyroidism, unspecified (principal)
CPT/HCPCS: 78071; A9500

== ENCOUNTER 2023-03-03 13:45 | Day surgery (SDC) | payer MEDICARE, OTHER ==
[2023-02-28 14:06] VITALS: BMI 36.0
[~2023-03-03 13:45] MED LIST changes: -ALBUTEROL NEB (CONC) 2.5 MG/0.5 ML INHALATION ONE; -LACTATED RINGERS 1,000 ML IV ONE; -LIDOCAINE 1% 20 ML VIAL (10MG/ML) FOR IV START INTRADERMA PRN; -LIDOCAINE 2% (PF) 20 MG/ML 2 ML AMP INHALATION ONE; -Pre Op ABX Message 1 EACH MISC MISCELLANE ONE
[2023-03-03 14:50] LABS: Glucose,Whole Blood 110 mg/dL (70-110)
[2023-03-03 14:53] VITALS: TEMP 97
[2023-03-03] MEDS ORDERED: fentaNYL (PF) 50 MCG/ML 2 ML AMP ONE (15:10)
[2023-03-03] MEDS ORDERED: MIDAZOLAM 2 MG/2 ML VIAL ONE (15:10)
[2023-03-03] MEDS ORDERED: LIDOCAINE 2% INJ 20 MG/ML (2 ML VIAL) ONE (15:10)
[2023-03-03] MEDS ORDERED: PROPOFOL 10 MG/ML 20 ML VIAL IV ONE (15:10)
[2023-03-03 16:05] LABS: Glucose,Whole Blood 101 mg/dL (70-110)
--- NOTE | 2023-03-03 16:05 | P.PCN ---
Date of Procedure: 03/03/23 Preoperative Diagnosis: Purulent tracheobronchitis, pneumonia, infected trach, foul-smelling discharge from the old tracheostomy Postoperative Diagnosis: As above Procedure(s) Performed: #1 bronchoscopy #2 BAL of left lower lobe #3 tracheostomy change with removal of old tube and placing new CUFFLESS #8 XLT Shiley trach, #4 inspection of new tracheostomy to confirm appropriate location Anesthesia: MAC Surgeon: Jacques King Condition: stable Disposition: same day Indications for Procedure: As above Operative Findings: Patient prepared and draped in a usual fashion informed consent obtained from the patient and conscious sedation provided by anesthesia for details please refer to the anesthesia flowsheet. Old tracheostomy removed which was heavily coated with brownish thick far fiberoptic bronchoscope passed through the stoma. Some granulation tissue noted and mid trachea level mild inflamm atory changes at the upper trachea as well as proximal airways seen with edema and with mucus plugging and purulent secretion was suctioned and cleaned BAL was performed from the left lower lobe airways otherwise clean and no endobronchial mass or lesion seen. New Size 8 XLT Shiley cuff less trach placed, inner cannula placed secured with neck tightness. Bronchoscope was passed from the new tracheostomy and confirmed location above the peggy, noted appropriate position of the tracheostomy bronchoscope withdrawn. Patient tolerated procedure well no complication noted, chest x-ray pending Description of Procedure: As above
--- NOTE | 2023-03-03 16:48 | XR ---
EXAMINATION TYPE: XR chest 1V portable DATE OF EXAM: 03/03/2023 4:38 PM CLINICAL INDICATION:Male, 62 years old with history of post bronchoscopy/ro pneumothorax; [facility] COMPARISON: Chest radiographs from 05/07/2022 TECHNIQUE: XR chest 1V portable Frontal view of the chest. FINDINGS: Lungs/Pleura: There is no evidence of pleural effusion, focal consolidation, or pneumothorax. Pulmonary vascularity: Unremarkable. Heart/mediastinum: Cardiomediastinal silhouette is prominent in size. Musculoskeletal: No acute osseous pathology. Other findings: None Lines/Tubes: Tracheostomy cannula tip projecting over the trachea. IMPRESSION: Bibasilar airspace opacities which could relate to atelectasis versus developing airspace disease.
[2023-03-03 17:09] VITALS: BP 124/68; PULSE 71; RESP 19
[2023-03-04 01:21] LABS: Appearance,BF Bloody (Clear); RBC, Body Fluid 269500 /UL (0-2000)
[2023-03-04 08:48] LABS: Nucleated Cells, Body Fluid 500 /UL
== END 2023-03-03 17:11 | disposition home or self-care (01) ==
LOC: ORWHC2ENDO 13:45
PROVIDERS: ATTEND Internal Medicine Sleep Medicine
DX: Z43.0 Encounter for attention to tracheostomy (principal); J40 Bronchitis, not specified as acute or chronic; E78.5 Hyperlipidemia, unspecified; E11.9 Type 2 diabetes mellitus without complications; G40.909 Epilepsy, unspecified, not intractable, without status epilepticus; G47.33 Obstructive sleep apnea (adult) (pediatric); I11.0 Hypertensive heart disease with heart failure; I50.9 Heart failure, unspecified; J44.9 Chronic obstructive pulmonary disease, unspecified; F12.90 Cannabis use, unspecified, uncomplicated; Z79.82 Long term (current) use of aspirin; Z79.899 Other long term (current) drug therapy; Z79.51 Long term (current) use of inhaled steroids; Z79.84 Long term (current) use of oral hypoglycemic drugs
CPT/HCPCS: 87798 ×3; 87496; 87498; 87529; 89050; 87502; 87634; 87070; 87205; 87116; 87102; 87077; 87186; 87206; 71045; 31502; 31624; J2250; J3010; J2704; J2001

== ENCOUNTER 2023-10-05 19:46 | Observation (INO) | payer MEDICARE, OTHER ==
--- NOTE | 2023-10-05 20:01 | ED ---
Arrhythmia/Palpitations HPI - General Chief Complaint: Arrhythmia/Palpitations Stated Complaint: Atrial Flutter Time Seen by Provider: 10/05/23 19:59 Source: patient, EMS, RN notes reviewed Mode of arrival: EMS Limitations: no limitations - History of Present Illness Initial Comments: 63-year-old male with a history of diabetes history of COPD history of a tracheostomy for sleep apnea who apparently prior to arrival had the onset of near syncope feeling lightheaded and dizzy he was reported per EMS to have atrial flutter with a 2-1 block. No chest pain reported now he may have had some earlier however. Prior to this he was in his normal state. MD Complaint: irregular heart beat - Related Data Home Medications Medication Instructions Recorded Confirmed Metoprolol Succinate (ER) [Toprol 50 mg PO QAM 07/15/14 03/03/23 XL] Morphine Sulfate [Morphine Sulfate 30 mg PO Q12H 06/20/16 03/03/23 ER] Simvastatin [Zocor] 80 mg PO HS 10/02/16 03/03/23 Morphine Sulfate Ir [MSIR] 15 mg PO Q12H PRN 08/23/20 03/03/23 Insulin Glargine,Hum.rec.anlog 1 dose SQ DAILY PRN 05/01/21 03/03/23 [Lantus Solostar Pen] lisinopriL [Zestril] 2.5 mg PO QAM 05/01/21 03/03/23 Albuterol Sulfate [Albuterol 2 puff PO Q4-6H PRN 05/07/22 03/03/23 Sulfate Hfa] Ipratropium-Albuterol Nebulize 3 ml INHALATION RT-QID PRN 05/07/22 03/03/23 [Duoneb 0.5 mg-3 mg/3 ml Soln] Pregabalin [Lyrica] 150 mg PO BID 05/07/22 03/03/23 Aspirin [Adult Low Dose Aspirin EC] 81 mg PO DAILY 12/17/22 02/28/23 metFORMIN HCL [Glucophage] 500 mg PO BID 12/17/22 03/03/23 Allergies Allergy/AdvReac Type Severity Reaction Status Date / Time No Known Allergies Allergy Verified 03/03/23 14:31 Review of Systems ROS Statement: Those systems with pertinent positive or pertinent negative responses have been documented in the HPI. ROS Other: All systems not noted in ROS Statement are negative. Past Medical History Past Medical History: Heart Failure, COPD, Diabetes Mellitus, Deep Vein Thrombosis (DVT), Hyperlipidemia, Hypertension, Pneumonia, Renal Disease, Seizure Disorder, Sleep Apnea/CPAP/BIPAP, Syncope Additional Past Medical History / Comment(s): uses O2 @ 5 1/2 L,steroid injection Jan 2023 for dislocated tailbone from recent fall, IDDM type II, neuropathy bilateral feet, trach d/t SANTY, occasional home oxygen use, past covid pneumonia, past pneumonia with pseudomonas aeruginosa, past seizure pt states he was told was d/t coughing jags/hypoxia but no seizure for years, NADEEN, DVT R leg, chronic back pain, occasional R foot and knee pain and will have difficulty with ROM, mass next to spine being monitored and unchanged x 3 years, past fall with sternal/rib fractures 2019 approx. History of Any Multi-Drug Resistant Organisms: Other MDRO Past Surgical History: Cholecystectomy Additional Past Surgical History / Comment(s): Trach with trach tube changed 07/2021, left kidney operation d/t defect, bronch., colonoscopy/polypectomy-benign polyps. Past Anesthesia/Blood Transfusion Reactions: No Reported Reaction Past Psychological History: No Psychological Hx Reported Smoking Status: Former smoker Past Alcohol Use History: None Reported Past Drug Use History: Marijuana - Past Family History Father Family Medical History: Dementia Additional Family Medical History / Comment(s): Father is . Mother Family Medical History: Myocardial Infarction ([place]) Additional Family Medical History / Comment(s): Mother is . General Exam - General Exam Comments Initial Comments: This is a well-developed well-nourished awake alert oriented x 4 male he does speak in spite of his tracheostomy. Limitations: no limitations General appearance: alert, anxious Head exam: Present: atraumatic, normocephalic, normal inspection Eye exam: Present: normal appearance, PERRL, EOMI. Absent: scleral icterus, conjunctival injection, periorbital swelling ENT exam: Present: normal exam, mucous membranes moist Neck exam: Present: full ROM, other (Tracheostomy in place and functioning. No stridor JVD or bruits). Absent: tenderness, meningismus, lymphadenopathy Respiratory exam: Present: normal lung sounds bilaterally. Absent: respiratory distress, wheezes, rales, rhonchi, stridor Cardiovascular Exam: Present: regular rate, normal rhythm, normal heart sounds. Absent: systolic murmur, diastolic murmur, rubs, gallop, clicks GI/Abdominal exam: Present: soft, normal bowel sounds. Absent: distended, tenderness, guarding, rebound, rigid Extremities exam: Present: normal inspection, full ROM, normal capillary refill. Absent: tenderness, pedal edema, joint swelling, calf tenderness Back exam: Present: normal inspection Neurological exam: Present: alert, oriented X3, CN II-XII intact Psychiatric exam: Present: normal affect, normal mood Skin exam: Present: warm, dry, intact, normal color. Absent: rash Course Vital Signs 10/05/23 10/05/23 10/05/23 19:53 20:00 22:00 Temperature 97 F L Pulse Rate 54 L 52 L Respiratory 18 18 Rate Blood Pressure 120/74 101/74 O2 Sat by Pulse 93 L 93 L Oximetry Fraction of 28 Inspired Oxygen (FIO2) Medical Decision Making - Medical Decision Making Patient has been observed in the emergency department throughout the evening no further episodes. I did discuss findings with the patient and family and patient had bradycardia but no evidence of atrial flutter seen on the reviewed EMS EKG as well as the one done in this department. He has been having episodes of near syncope and nausea. The only findings thus far is that of hyperkalemia 6.0. Patient will be admitted for cardiology evaluation. Is unclear the etiology of the near syncopal episodes at this time. The patient is in agreement with this. Was pt. sent in by a medical professional or institution (, PA, FIELD HUMAN RESOURCES MANAGER, urgent care, hospital, or custodial...) When possible be specific @ -No Did you speak to anyone other than the patient for history (EMS, parent, family, police, friend...)? What history was obtained from this source @ -Per medics, patient's family Did you review nursing and triage notes (agree or disagree)? Why? @ -I reviewed and agree with nursing and triage notes Were old charts reviewed (outside hosp., previous admission, EMS record, old EKG, old radiological studies, urgent care reports/EKG's, custodial records)? Report findings @ -Old charts were reviewed Differential Diagnosis (chest pain, altered mental status, abdominal pain women, abdominal pain men, vaginal bleeding, weakness, fever, dyspnea, syncope, headache, dizziness, GI bleed, back pain, seizure, CVA, palpatations, mental health, musculoskeletal)? @ -Chest pain, dysrhythmia, near syncope EKG interpreted by me (3pts min.). @ -As above EKG interpreted by me sinus bradycardia rate 52 parable 272 QRS ration 117 QT/QTc 420/400 moderate interventricular conduction delay/3 AV block X-rays interpreted by me (1pt min.). @ -Chest x-ray interpreted by me no acute findings CT interpreted by me (1pt min.). @ -None done U/S interpreted by me (1pt. min.). @ -None done What testing was considered but not performed or refused? (CT, X-rays, U/S, labs)? Why? @ -None What meds were considered but not given or refused? Why? @ -None Did you discuss the management of the patient with other professionals (professionals i.e. , PA, FIELD HUMAN RESOURCES MANAGER, lab, RT, psych nurse, social worker clinical, child welfare caseworker, teacher, ship's electronic warfare officer, behavioral health case manager)? Give summary @ -[facility] covering for Dr. Knutson Was smoking cessation discussed for >3mins.? @ -No Was critical care preformed (if so, how long)? @ -31 minutes Were there social determinants of health that impacted care today? How? (Homelessness, low income, unemployed, alcoholism, drug addiction, transportation, low edu. Level, literacy, decrease access to med. care, longterm, rehab)? @ -No Was there de-escalation of care discussed even if they declined (Discuss DNR or withdrawal of care, Hospice)? DNR status @ -No What co-morbidities impacted this encounter? (DM, HTN, Smoking, COPD, CAD, Cancer, CVA, ARF, Chemo, Hep., AIDS, mental health diagnosis, sleep apnea, morbid obesity)? @ -No heart failure, COPD, diabetes, hypertension, tracheostomy Was patient admitted / discharged? Hospital course, mention meds given and route, prescriptions, significant lab abnormalities, going to OR and other pertinent info. @ -Hospital course the patient was admitted to the hospital for further evaluation and monitoring cardiology consultation Undiagnosed new problem with uncertain prognosis? @ -Cardiac, near syncope Drug Therapy requiring intensive monitoring for toxicity (Heparin, Nitro, Insulin, Cardizem)? @ -No Were any procedures done? @ -No Diagnosis/symptom? @ -Bradycardia, near syncope, hyperkalemia Acute, or Chronic, or Acute on Chronic? @ -Acute Uncomplicated (without systemic symptoms) or Complicated (systemic symptoms)? @ -Complicated Side effects of treatment? @ -No Exacerbation, Progression, or Severe Exacerbation? @ -No Poses a threat to life or bodily function? How? (Chest pain, [place], [place], pneumonia, PE, COPD, DKA, ARF, appy, cholecystitis, CVA, Diverticulitis, Homicidal, Suicidal, threat to staff... and all critical care pts) @ -Potential - Lab Data Result diagrams: 10/05/23 20:25 10/05/23 20: Lab Results 10/05/23 10/05/23 10/05/23 Range/Units 20:06 20:25 20:25 WBC 8.3 (3.8-10.6) k/uL RBC 5.52 (4.30-5.90) m/uL Hgb 16.2 (13.0-17.5) gm/dL Hct 51.4 (39.0-53.0) % MCV 93.2 (80.0-100.0) fL MCH 29.4 (25.0-35.0) pg MCHC 31.6 (31.0-37.0) g/dL RDW 14.2 (11.5-15.5) % Plt Count 143 L (150-450) k/uL MPV 8.4 Neutrophils % 73 % Lymphocytes % 17 % Monocytes % 5 % Eosinophils % 3 % Basophils % 1 % Neutrophils # 6.1 (1.3-7.7) k/uL Lymphocytes # 1.4 (1.0-4.8) k/uL Monocytes # 0.4 (0-1.0) k/uL Eosinophils # 0.3 (0-0.7) k/uL Basophils # 0.1 (0-0.2) k/uL PT 11.6 (10.0-12.5) sec INR 1.1 (<1.2) APTT 24.5 (22.0-30.0) sec D-Dimer 0.41 (<0.60) mg/L FEU Sodium (137-145) mmol/L Potassium (3.5-5.1) mmol/L Chloride (98-107) mmol/L Carbon Dioxide (22-30) mmol/L Anion Gap mmol/L BUN (9-20) mg/dL Creatinine (0.66-1.25) mg/dL Est GFR (CKD-EPI)AfAm (>60 ml/min/1.73 sqM) Est GFR (CKD-EPI)NonAf (>60 ml/min/1.73 sqM) Glucose (74-99) mg/dL POC Glucose (mg/dL) 109 (70-110) mg/dL POC Glu Shingle Grader ID Dieter Bull Calcium (8.4-10.2) mg/dL Magnesium (1.6-2.3) mg/dL Total Bilirubin (0.2-1.3) mg/dL AST (17-59) U/L ALT (4-49) U/L Alkaline Phosphatase (38-126) U/L Troponin I (0.000-0.034) ng/mL NT-Pro-B Natriuret Pep pg/mL Total Protein (6.3-8.2) g/dL Albumin (3.5-5.0) g/dL 10/05/23 10/05/23 10/05/23 Range/Units 20:25 20:25 20:25 WBC (3.8-10.6) k/uL RBC (4.30-5.90) m/uL Hgb (13.0-17.5) gm/dL Hct (39.0-53.0) % MCV (80.0-100.0) fL MCH (25.0-35.0) pg MCHC (31.0-37.0) g/dL RDW (11.5-15.5) % Plt Count (150-450) k/uL MPV Neutrophils % % Lymphocytes % % Monocytes % % Eosinophils % % Basophils % % Neutrophils # (1.3-7.7) k/uL Lymphocytes # (1.0-4.8) k/uL Monocytes # (0-1.0) k/uL Eosinophils # (0-0.7) k/uL Basophils # (0-0.2) k/uL PT (10.0-12.5) sec INR (<1.2) APTT (22.0-30.0) sec D-Dimer (<0.60) mg/L FEU Sodium 135 L (137-145) mmol/L Potassium 6.0 H (3.5-5.1) mmol/L Chloride 98 (98-107) mmol/L Carbon Dioxide 32 H (22-30) mmol/L Anion Gap 5 mmol/L BUN 27 H (9-20) mg/dL Creatinine 1.23 (0.66-1.25) mg/dL Est GFR (CKD-EPI)AfAm 73 (>60 ml/min/1.73 sqM) Est GFR (CKD-EPI)NonAf 63 (>60 ml/min/1.73 sqM) Glucose 127 H (74-99) mg/dL POC Glucose (mg/dL) (70-110) mg/dL POC Glu Shingle Grader ID Calcium 9.4 (8.4-10.2) mg/dL Magnesium 2.0 (1.6-2.3) mg/dL Total Bilirubin 1.1 (0.2-1.3) mg/dL AST 24 (17-59) U/L ALT 17 (4-49) U/L Alkaline Phosphatase 75 (38-126) U/L Troponin I <0.012 (0.000-0.034) ng/mL NT-Pro-B Natriuret Pep 140 pg/mL Total Protein 7.9 (6.3-8.2) g/dL Albumin 4.3 (3.5-5.0) g/dL Critical Care Time Critical Care Time: Yes Total Critical Care Time: 31 Disposition Clinical Impression: Near syncope, Bradycardia, Hyperkalemia, Tracheostomy dependence Disposition: ADMITTED IP TO THIS [facility] Condition: Stable Referrals: Lilli Ferro MD [Primary Care Provider] - 1-2 days Time of Disposition: 23:30 Decision Date: 10/05/23 Decision Time: 23:30
[2023-10-05 20:07] LABS: Glucose,Whole Blood 109 mg/dL (70-110)
[2023-10-05 20:25] VITALS: TEMP 97
[2023-10-05 20:44] LABS: Basophils # (A) 0.1 k/uL (0-0.2); Basophils % (A) 1 %; Eosinophils # (A) 0.3 k/uL (0-0.7); Eosinophils % (A) 3 %; HCT 51.4 % (39.0-53.0); HGB 16.2 gm/dL (13.0-17.5); Lymphocytes # (A) 1.4 k/uL (1.0-4.8); Lymphocytes % (A) 17 %; MCH 29.4 pg (25.0-35.0); MCHC 31.6 g/dL (31.0-37.0); MCV 93.2 fL (80.0-100.0); Mean Platelet Volume 8.4; Monocytes # (A) 0.4 k/uL (0-1.0); Monocytes % (A) 5 %; Neutrophils # (A) 6.1 k/uL (1.3-7.7); Neutrophils % (A) 73 %; Platelet Count 143 k/uL (150-450); RBC 5.52 m/uL (4.30-5.90); RDW 14.2 % (11.5-15.5); WBC 8.3 k/uL (3.8-10.6)
--- NOTE | 2023-10-05 20:48 | XR ---
EXAMINATION TYPE: XR chest 1V DATE OF EXAM: 10/05/2023 8:42 PM CLINICAL INDICATION:Male, 63 years old with history of dysrhythmia; [facility] COMPARISON: Chest radiographs from 03/03/2023 TECHNIQUE: XR chest 1V Frontal view of the chest. FINDINGS: Lungs/Pleura: Hazy airspace opacities are present in the lung bases, right greater than left. No evid ence of pleural effusion or pneumothorax. Pulmonary vascularity: Mild pulmonary vascular congestion. Heart/mediastinum: Cardiomediastinal silhouette is enlarged and stable. Musculoskeletal: No acute osseous pathology. IMPRESSION: Cardiomegaly with hazy bibasilar airspace disease. Findings may relate to developing pulmonary edema.
[2023-10-05 20:59] LABS: INR 1.1 (<1.2); Partial Thromboplastin Time 24.5 sec (22.0-30.0); Prothrombin Time 11.6 sec (10.0-12.5)
[2023-10-05 21:03] LABS: ALT 17 U/L (4-49); AST 24 U/L (17-59); African American GFR (CKD) 73 (>60 ml/min/1.73 sqM); Albumin 4.3 g/dL (3.5-5.0); Alkaline Phosphatase 75 U/L (38-126); Anion Gap 5 mmol/L; Blood Urea Nitrogen 27 mg/dL (9-20); Calcium 9.4 mg/dL (8.4-10.2); Carbon Dioxide 32 mmol/L (22-30); Chloride 98 mmol/L (98-107); Glucose 127 mg/dL (74-99); Non-African American GFR(CKD) 63 (>60 ml/min/1.73 sqM); Sodium 135 mmol/L (137-145); Total Bilirubin 1.1 mg/dL (0.2-1.3); Total Protein 7.9 g/dL (6.3-8.2)
[2023-10-06] MEDS ORDERED: NALOXONE 0.4 MG/ML 1 ML VIAL IV PRN (00:12)
[2023-10-06] MEDS ORDERED: ACETAMINOPHEN TAB 325 MG TAB PO PRN (00:12)
[2023-10-06] MEDS ORDERED: IPRATROPIUM-ALBUTEROL 3 ML NEB INHALATION PRN (00:15)
[2023-10-06] MEDS ORDERED: MORPHINE SULFATE IR 15 MG TABLET PO PRN (00:15)
[2023-10-06] MEDS: FUROSEMIDE 10 MG/ML 4 ML VIAL IV STA (01:24)
[2023-10-06] MEDS: SODIUM CHLORIDE 0.9% 1,000 ML IV SCH (01:27)
[2023-10-06] MEDS: SODIUM POLYSTYRENE SULFONATE 15 GM/60 ML BOTTLE PO STA (01:54)
[2023-10-06] MEDS: ALBUTEROL NEBULIZED (CONC) 20 MG, SODIUM CHLORIDE 0.9% NEBULIZ 3 ML INHALATION ONE (03:36)
[2023-10-06 03:55] LABS: ALT 17 U/L (4-49); AST 24 U/L (17-59); African American GFR (CKD) 76 (>60 ml/min/1.73 sqM); Albumin 4.6 g/dL (3.5-5.0); Alkaline Phosphatase 85 U/L (38-126); Anion Gap 13 mmol/L; Blood Urea Nitrogen 26 mg/dL (9-20); Calcium 9.7 mg/dL (8.4-10.2); Carbon Dioxide 29 mmol/L (22-30); Chloride 98 mmol/L (98-107); Glucose 148 mg/dL (74-99); Non-African American GFR(CKD) 66 (>60 ml/min/1.73 sqM); Potassium 4.9 mmol/L (3.5-5.1); Sodium 140 mmol/L (137-145); Total Bilirubin 1.2 mg/dL (0.2-1.3); Total Protein 8.4 g/dL (6.3-8.2)
[2023-10-06] MEDS: metFORMIN 500 MG TAB PO SCH (09:10)
[2023-10-06] MEDS: MORPHINE SULFATE ER 30 MG TABLET PO SCH (09:10)
[2023-10-06] MEDS: METOPROLOL SUCCINATE (ER) 50 MG TAB.ER.24H PO SCH (09:10)
[2023-10-06] MEDS: ASPIRIN 81 MG PO SCH (09:10)
--- NOTE | 2023-10-06 11:37 | P.CRDCN ---
History of Present Illness Consult date: 10/06/23 Reason for Consult (text): Bradycardia, near syncope History of present illness: History of present illness: This is a 63-year-old male patient of Dr. PERRI Bal with past medical history of hypertension, hyperlipidemia, diabetes mellitus type 2, remote history of tobacco use and dependence, obstructive sleep apnea, COPD, DVT, seizure disorder , history of alcohol abuse, past history of cocaine use, history of trach collar. Patient was last seen in the office in November 2022 at which time he presented for follow-up for surgical procedure. Lexiscan stress test was abnormal and he subsequently underwent cardiac catheterization on 12/19/2022 w hich was unremarkable for coronary artery disease with normal filling pressures and no gradient across the valve. Patient presented to the emergency center due to lightheadedness, dizziness, near syncope. EMS reported that the patient was in atrial flutter 2-1 block but strip was unable to be found. Patient complains of episodes of nausea and vomiting going on the last couple of weeks. He states he has an episode of vomiting and then he feels good for a while. He has had a few episodes over the past couple weeks. He denies having any chest pain or pressure. He states he did stop drinking alcohol in April. Patient is seen today in the emergency center waiting for a bed on the cardiac stepdown unit. EKG sinus rhythm at a ventricular rate of 52, first-degree AV block. Chest x-ray: Cardiomegaly with hazy bibasilar airspace disease. Findings may relate to developing pulmonary edema. Platelet count 143. Sodium 140, potassium 4.9 down from 6.0. BUN 26 creatinine 1.19. Blood sugar 148. Troponin negative x 2. proBNP 140. Home cardiac medications: Lisinopril 2.5 mg daily, Toprol-XL 50 mg daily. Review Of Systems: At the time of my exam: CONSTITUTIONAL: Denies fever or chills. HEENT: Denies blurred vision, vision changes, or eye pain. Denies hemoptysis CARDIOVASCULAR: Denies chest pain. Denies orthopnea. Denies PND. Denies palpitations RESPIRATORY: Denies shortness of breath. GASTROINTESTINAL: Denies abdominal pain. Reports episodes of nausea or vomiting. HEMATOLOGIC: Denies bleeding disorders. GENITOURINARY: Denies any blood in urine. SKIN: Denies pruitis. Denies rash. Physical examination: Gen: This is an obese 63-year-old male in no acute distress VS: reviewed, blood pressure 108/66, heart rate 63, pulse ox 92% on trach collar. HEENT: Head is atraumatic, normocephalic. Pupils equal, round. Sclerae is anicteric. NECK: Supple. No JVD. No carotid bruit. LUNGS: Clear to auscultation. No wheezes or rhonchi. No intercostal retractions. HEART: Regular rate and rhythm. No murmur. ABDOMEN: Soft No tenderness. EXTREMITIES: No pedal edema. No calf tenderness. NEUROLOGICAL: Patient is awake, alert and oriented x3. Assessment: Dizziness and near syncopal episodes possible vasovagal response Nausea and vomiting Hypertension Hyperlipidemia Diabetes mellitus type 2 Obstructive sleep apnea Plan: Resume patient's home cardiac medications except hold lisinopril and decrease Toprol-XL to 25 mg daily Obtain 2-D echocardiogram and Doppler study to assess cardiac structure and function Obtain 7-day event monitor for patient prior to discharge If heart rate and echocardiogram are unremarkable by this afternoon, patient is cleared for discharge with plan to continue to hold lisinopril and continue the decreased dose of metoprolol. Patient may follow-up with Dr. PERRI Bal in 2 weeks. Thank you kindly for this consultation. Nurse practitioner note has been reviewed, I agree with documented findings and plan of care. Patient was seen and examined. Past Medical History Past Medical History: Heart Failure, COPD, Diabetes Mellitus, Deep Vein Thrombosis (DVT), Hyperlipidemia, Hypertension, Pneumonia, Renal Disease, Seizure Disorder, Sleep Apnea/CPAP/BIPAP, Syncope Additional Past Medical History / Comment(s): uses O2 @ 5 1/2 L,steroid injection Jan 2023 for dislocated tailbone from recent fall, IDDM type II, neuropathy bilateral feet, trach d/t SANTY, occasional home oxygen use, past covid pneumonia, past pneumonia with pseudomonas aeruginosa, past seizure pt states he was told was d/t coughing jags/hypoxia but no seizure for years, NADEEN, DVT R leg, chronic back pain, occasional R foot and knee pain and will have difficulty with ROM, mass next to spine being monitored and unchanged x 3 years, past fall with sternal/rib fractures 2019 approx. History of Any Multi-Drug Resistant Organisms: Other MDRO Past Surgical History: Cholecystectomy Additional Past Surgical History / Comment(s): Trach with trach tube changed 07/2021, left kidney operation d/t defect, bronch., colonoscopy/polypectomy -benign polyps. Past Anesthesia/Blood Transfusion Reactions: No Reported Reaction Past Psychological History: No Psychological Hx Reported Smoking Status: Former smoker Past Alcohol Use History: None Reported Past Drug Use History: Marijuana - Past Family History Father Family Medical History: Dementia Additional Family Medical History / Comment(s): Father is . Mother Family Medical History: Myocardial Infarction ([place]) Additional Family Medical History / Comment(s): Mother is . Medications and Allergies Home Medications Medication Instructions Recorded Confirmed Type Metoprolol Succinate (ER) [Toprol 50 mg PO QAM 07/15/14 10/06/23 History XL] Morphine Sulfate [Morphine Sulfate 30 mg PO Q12H 06/20/16 10/06/23 History ER] lisinopriL [Zestril] 2.5 mg PO QAM 05/01/21 10/06/23 History Albuterol Sulfate [Albuterol 2 puff PO RT-Q4H PRN 05/07/22 10/06/23 History Sulfate Hfa] Ipratropium-Albuterol Nebulize 3 ml INHALATION RT-QID 05/07/22 10/06/23 History [Duoneb 0.5 mg-3 mg/3 ml Soln] Pregabalin [Lyrica] 150 mg PO BID 05/07/22 10/06/23 History Morphine Sulfate ER [Ms Contin] 15 mg PO Q12H 10/06/23 10/06/23 History Allergies Allergy/AdvReac Type Severity Reaction Status Date / Time No Known Allergies Allergy Verified 10/06/23 09:18 Physical Exam Vitals: Vital Signs Temp Pulse Resp BP Pulse Ox FiO2 10/06/23 07:40 35 10/06/23 06:03 63 20 108/66 92 L 10/06/23 03:00 63 18 142/86 95 10/06/23 01:20 69 20 121/86 10/06/23 00:25 35 10/05/23 22:00 52 L 18 101/74 93 L 10/05/23 20:00 28 10/05/23 19:53 97 F L 54 L 18 120/74 93 L Intake and Output 05/10/2310/06/23 10/06/23 22:59 06:59 14:59 Other: Weight 129.274 kg Results 10/05/23 20:25 10/06/23 03:03 Cardiac Enzymes 10/05/23 10/05/23 10/06/23 Range/Units 20:25 20:25 03:03 AST 24 (17-59) U/L Troponin I <0.012 <0.012 (0.000-0.034) ng/mL 10/06/23 Range/Units 03:03 AST 24 (17-59) U/L Troponin I (0.000-0.034) ng/mL Coagulation 10/05/23 Range/Units 20:25 PT 11.6 (10.0-12.5) sec APTT 24.5 (22.0-30.0) sec CBC 10/05/23 Range/Units 20:25 WBC 8.3 (3.8-10.6) k/uL RBC 5.52 (4.30-5.90) m/uL Hgb 16.2 (13.0-17.5) gm/dL Hct 51.4 (39.0-53.0) % Plt Count 143 L (150-450) k/uL Comprehensive Metabolic Panel 10/05/23 10/06/23 Range/Units 20:25 03:03 Sodium 135 L 140 (137-145) mmol/L Potassium 6.0 H 4.9 (3.5-5.1) mmol/L Chloride 98 98 (98-107) mmol/L Carbon Dioxide 32 H 29 (22-30) mmol/L BUN 27 H 26 H (9-20) mg/dL Creatinine 1.23 1.19 (0.66-1.25) mg/dL Glucose 127 H 148 H (74-99) mg/dL Calcium 9.4 9.7 (8.4-10.2) mg/dL AST 24 24 (17-59) U/L ALT 17 17 (4-49) U/L Alkaline Phosphatase 75 85 (38-126) U/L Total Protein 7.9 8.4 H (6.3-8.2) g/dL Albumin 4.3 4.6 (3.5-5.0) g/dL Current Medications Generic Name Dose Route Start Last Admin Trade Name Freq PRN Reason Stop Dose Admin Acetaminophen 650 mg 10/06/23 00:12 Acetaminophen Tab 325 Mg Tab PO Q6HR PRN Mild Pain or Fever > 100.5 Albuterol/Ipratropium 3 ml 10/06/23 00:15 Ipratropium-Albuterol 3 Ml Neb INHALATION RT-QID PRN Shortness Of Breath Aspirin 81 mg 10/06/23 09:00 10/06/23 09:10 Aspirin 81 Mg PO 81 mg DAILY FRANCO Administration Atorvastatin Calcium 40 mg 10/06/23 21:00 Atorvastatin 40 Mg Tab PO HS FRANCO Sodium Chloride 1,000 mls @ 75 mls/hr 10/06/23 00:15 10/06/23 01:27 Saline 0.9% IV 75 mls/hr .[id number] FRANCO Administration Lisinopril 2.5 mg 10/06/23 09:00 10/06/23 09:10 Lisinopril 2.5 Mg Tab PO 2.5 mg QAM FRANCO Administration Metformin HCl 500 mg 10/06/23 09:00 10/06/23 09:10 Metformin 500 Mg Tab PO 500 mg BID FRANCO Administration Metoprolol Succinate 50 mg 10/06/23 09:00 10/06/23 09:10 Metoprolol Succinate (Er) 50 Mg Tab.Er.24h PO 50 mg QAM FRANCO Administration Morphine Sulfate 15 mg 10/06/23 00:15 Morphine Sulfate Ir 15 Mg Tablet PO Q12H PRN Pain Morphine Sulfate 30 mg 10/06/23 09:00 10/06/23 09:10 Morphine Sulfate Er 30 Mg Tablet PO 30 mg Q12HR FRANCO Administration Protocol Naloxone HCl 0.2 mg 10/06/23 00:12 Naloxone 0.4 Mg/Ml 1 Ml Vial IV Q2M PRN Opioid Reversal Pregabalin 150 mg 10/06/23 09:00 Pregabalin 75 Mg Cap PO BID FRANCO Intake and Output 10/05/23 10/06/23 10/06/23 22:59 06:59 14:59 Other: Weight 129.274 kg 10/05/23 20:25 10/06/23 03:03
[2023-10-06] MEDS: PREGABALIN 75 MG CAP PO SCH (12:43)
[2023-10-06] MEDS: ATORVASTATIN 40 MG TAB PO SCH (20:28)
--- NOTE | 2023-10-06 22:17 | P.HPIM ---
History of Present Illness H&P Date: 10/06/23 Chief Complaint: Near syncope Patient is a 63-year-old male with known history of COPD, obstructive sleep apnea status post trach tube placement, history of DVT, hypertension, hyperlipidemia, seizure disorder, diabetes, chronic back pain and obesity with a BMI 35.6 and prior history of smoking and marijuana use presents to ER with complaints of dizziness and about to pass out. Patient states that he was at a restaurant and suddenly felt nauseous and vomiting x 1. EMS was called and patient was noted to be in atrial flutter with 2-1 block. Breath patient denies any chest pain. Feels better now. Patient had cardiac catheterization on 12/19/2022 which was unremarkable for CAD. Otherwise patient denies any recent illnesses. Denies any increased cough or sputum production. No fever no chills. No leg swelling. Chest x-ray showed cardiomegaly with hazy bibasilar airspace disease. Findings may relate to developing pulmonary edema. EKG showed sinus bradycardia with first-degree AV block. Laboratory test showed WBC 8.3 hemoglobin 16.2 and platelets 143 Sodium 135 and potassium 6.0, bicarb 32 BUN 27 creatinine 1.23 and blood sugar 127. Liver enzymes are not elevated proBNP 140 and troponin x 3 negative. Review of Systems Constitutional: Patient denies any fever or chills . No generalized weakness or weight loss. Abdomen: Patient did have nausea and vomiting x 1. No diarrhea or abdominal pain. Cardiovascular: Patient denies any chest pain or short of breath no palpitations. No leg swelling Respiratory: patient denied any cough is from production. No shortness of breath Neurologic: Patient denied any numbness or tingling headache. Musculoskeletal: Patient denies any complaints of joint swelling or deformity. Skin: Negative Psychiatric: Negative Endocrine: No heat or cold intolerance. No recent weight gain. Genitourinary: No dysuria or hematuria. All other 14 point ROS negative except the above Past Medical History Past Medical History: Heart Failure, COPD, Diabetes Mellitus, Deep Vein Thrombosis (DVT), Hyperlipidemia, Hypertension, Pneumonia, Renal Disease, Seizure Disorder, Sleep Apnea/CPAP/BIPAP, Syncope Additional Past Medical History / Comment(s): uses O2 @ 5 1/2 L,steroid injection Jan 2023 for dislocated tailbone from recent fall, IDDM type II, neuropathy bilateral feet, trach d/t SANTY, occasional home oxygen use, past covid pneumonia, past pneumonia with pseudomonas aeruginosa, past seizure pt states he was told was d/t coughing jags/hypoxia but no seizure for years, NADEEN, DVT R leg, chronic back pain, occasional R foot and knee pain and will have difficulty with ROM, mass next to spine being monitored and unchanged x 3 years, past fall with sternal/rib fractures 2019. History of Any Multi-Drug Resistant Organisms: Other MDRO Past Surgical History: Cholecystectomy Additional Past Surgical History / Comment(s): Trach with trach tube changed 07/2021, left kidney operation d/t defect, bronch., colonoscopy/polypectomy-benign polyps. Past Anesthesia/Blood Transfusion Reactions: No Reported Reaction Past Psychological History: No Psychological Hx Reported Smoking Status: Former smoker Past Alcohol Use History: None Reported Past Drug Use History: Marijuana - Past Family History Father Family Medical History: Dementia Additional Family Medical History / Comment(s): Father is . Mother Family Medical History: Myocardial Infarction (ID) Additional Family Medical History / Comment(s): Mother is . Medications and Allergies Home Medications Medication Instructions Recorded Confirmed Type Metoprolol Succinate (ER) [Toprol 50 mg PO QAM 07/15/14 10/06/23 History XL] Morphine Sulfate [Morphine Sulfate 30 mg PO Q12H 06/20/16 10/06/23 History ER] lisinopriL [Zestril] 2.5 mg PO QAM 05/01/21 10/06/23 History Albuterol Sulfate [Albuterol 2 puff PO RT-Q4H PRN 05/07/22 10/06/23 History Sulfate Hfa] Ipratropium-Albuterol Nebulize 3 ml INHALATION RT-QID 05/07/22 10/06/23 History [Duoneb 0.5 mg-3 mg/3 ml Soln] Pregabalin [Lyrica] 150 mg PO BID 05/07/22 10/06/23 History Morphine Sulfate ER [Ms Contin] 15 mg PO Q12H 10/06/23 10/06/23 History Allergies Allergy/AdvReac Type Severity Reaction Status Date / Time No Known Allergies Allergy Verified 10/06/23 09:18 Physical Exam Vitals: Vital Signs Temp Pulse Resp BP Pulse Ox FiO2 10/06/23 09:20 80 16 113/82 97 10/06/23 07:40 35 10/06/23 06:03 63 20 108/66 92 L 10/06/23 03:00 63 18 142/86 95 10/06/23 01:20 69 20 121/86 10/06/23 00:25 35 10/05/23 22:00 52 L 18 101/74 93 L 10/05/23 20:00 28 10/05/23 19:53 97 F L 54 L 18 120/74 93 L Intake and Output 10/05/23 10/06/23 10/06/23 22:59 06:59 14:59 Other: Weight 129.274 kg PHYSICAL EXAMINATION: Patient is lying in the bed comfortably, no acute distress, awake alert and oriented.. HEENT: Normocephalic. Neck is supple. Pupils reactive. Nostrils clear. Oral cavi ty is moist. Neck reveals no JVD, carotid bruits, or thyromegaly. CHEST EXAMINATION: Trachea is central. Symmetrical expansion. Trach collar in place. Mild expiratory wheezing otherwise lung villalpando clear to auscultation and percussion. CARDIAC: Normal S1, S2 with no gallops. No murmurs ABDOMEN: Soft. Bowel sounds normal. No organomegaly. No abdominal bruits. Extremities: reveal no edema. No clubbing or cyanosis Neurologically awake, alert, oriented x3 with well-coordinated movements. No focal deficits noted Skin: No rash or skin lesions. Psychiatric: Coperative. Nonsuicidal Musculoskeletal: No joint swelling or deformity. Normal range of motion. Results CBC & Chem 7: 10/05/23 20:25 10/06/23 03:03 Labs: Abnormal Lab Results - Last 24 Hours (Table) 10/05/23 10/05/23 10/06/23 Range/Units 20:25 20:25 03:03 Plt Count 143 L (150-450) k/uL Sodium 135 L (137-145) mmol/L Potassium 6.0 H (3.5-5.1) mmol/L Carbon Dioxide 32 H (22-30) mmol/L BUN 27 H 26 H (9-20) mg/dL Glucose 127 H 148 H (74-99) mg/dL Total Protein 8.4 H (6.3-8.2) g/dL Thrombosis Risk Factor Assmnt - DVT/VTE Prophylaxis DVT/VTE Prophylaxis: Pharmacologic Prophylaxis ordered Assessment and Plan Assessment: Dizziness and near syncopal episode likely due to vasovagal Nausea and vomiting episode x 1 Sinus bradycardia with heart rate 54 on admission Mild hyperkalemia 6.0 Appears to sleep apnea on chronic trach collar Hypertension Hyperlipidemia Seizure disorder Diabetes type 2 [id number]-[id number] Chronic low back pain History of rib fractures Prior history of smoking and marijuana use DVT prophylaxis with heparin subcu Plan: Patient will be continued on telemetry. Was given a dose of Lasix and Kayexalate in the ER with improvement in potassium level. Continue with DuoNebs and pain management as per home regimen. Continue with aspirin and statins and metoprolol dose decreased. And follow-up heart rate. 2D echocardiogram was ordered and cardiology is on board. Recommending 7-day event monitor prior to discharge. Time with Patient: Greater than 30
[2023-10-07] MEDS: HEPARIN SODIUM,PORCINE 5,000 UNIT/ML 1 ML VIAL SQ SCH (01:12)
[2023-10-07 05:53] VITALS: RESP 18
[2023-10-07] MEDS: METOPROLOL SUCCINATE (ER) 25 MG TAB.ER.24H PO SCH (09:38)
[2023-10-07 10:35] LABS: Basophils # (A) 0.2 k/uL (0-0.2); Basophils % (A) 2 %; Eosinophils # (A) 0.4 k/uL (0-0.7); Eosinophils % (A) 4 %; HCT 53.7 % (39.0-53.0); HGB 16.9 gm/dL (13.0-17.5); Lymphocytes # (A) 1.8 k/uL (1.0-4.8); Lymphocytes % (A) 22 %; MCH 29.6 pg (25.0-35.0); MCHC 31.5 g/dL (31.0-37.0); Mean Platelet Volume 8.8; Monocytes # (A) 0.5 k/uL (0-1.0); Monocytes % (A) 6 %; Neutrophils # (A) 5.5 k/uL (1.3-7.7); Neutrophils % (A) 65 %; Platelet Count 175 k/uL (150-450); RBC 5.71 m/uL (4.30-5.90); RDW 14.2 % (11.5-15.5); WBC 8.5 k/uL (3.8-10.6)
[2023-10-07 10:50] LABS: African American GFR (CKD) 90 (>60 ml/min/1.73 sqM); Anion Gap 7 mmol/L; Blood Urea Nitrogen 26 mg/dL (9-20); Calcium 9.4 mg/dL (8.4-10.2); Carbon Dioxide 27 mmol/L (22-30); Chloride 102 mmol/L (98-107); Glucose 108 mg/dL (74-99); Non-African American GFR(CKD) 78 (>60 ml/min/1.73 sqM); Potassium 4.7 mmol/L (3.5-5.1); Sodium 136 mmol/L (137-145)
[2023-10-07 11:34] LABS: Glucose,Whole Blood 110 mg/dL (70-110)
--- NOTE | 2023-10-07 11:56 | P.PN ---
Subjective Progress Note Date: 10/07/23 Reason for Consult (text): Bradycardia, near syncope History of present illness: History of present illness: This is a 63-year-old male patient of Dr. PERRI Bal with past medical history of hypertension, hyperlipidemia, diabetes mellitus type 2, remote history of tobacco use and dependence, obstructive sleep apnea, COPD, DVT, seizure disorder, history of alcohol abuse, past history of cocaine use, history of trach collar. Patient was last seen in the office in November 2022 at which time he presented for follow-up for surgical procedure. Lexiscan stress test was abnormal and he subsequently underwent cardiac catheterization on 12/19/2022 which was unremarkable for coronary artery disease with normal filling pressures and no gradient across the valve. Patient presented to the emergency center due to lightheadedness, dizziness, near syncope. EMS reported that the patient was in atrial flutter 2-1 block but strip was unable to be found. Patient complains of episodes of nausea and vomiting going on the last couple of weeks. He states he has an episode of vomiting and then he feels good for a while. He has had a few episodes over the past couple weeks. He denies having any chest pain or pressure. He states he did stop drinking alcohol in April. Patient is seen today in the emergency center waiting for a bed on the cardiac stepdown unit. EKG sinus rhythm at a ventricular rate of 52, first-degree AV block. Chest x-ray: Cardiomegaly with hazy bibasilar airspace disease. Findings may relate to developing pulmonary edema. Platelet count 143. Sodium 140, potassium 4.9 down from 6.0. BUN 26 creatinine 1.19. Blood sugar 148. Troponin negative x 2. proBNP 140. Home cardiac medications: Lisinopril 2.5 mg daily, Toprol-XL 50 mg daily. 10/06 Patient is seen today in follow-up. He denies having any chest pain or pressure. His heart rates have been controlled. He states he has been up and sat in a chair yesterday without any problems. No lightheadedness or dizziness was experienced. He states he is feeling well today. Blood pressure 104/72, heart rate 58, pulse ox 92% on room air trach collar. Repeat blood work reveals sodium 136, potassium 4.7, BUN 26 and creatinine 1.04. Echocardiogram has been obtained and report is pending. Event monitor has been applied. Physical examination: Gen: This is an obese 63-year-old male in no acute distress VS: reviewed HEENT: Head is atraumatic, normocephalic. Pupils equal, round. Sclerae is anicteric. NECK: Supple. No JVD. No carotid bruit. LUNGS: Clear to auscultation. No wheezes or rhonchi. No intercostal retractions. HEART: Regular rate and rhythm. No murmur. ABDOMEN: Soft No tenderness. EXTREMITIES: No pedal edema. No calf tenderness. NEUROLOGICAL: Patient is awake, alert and oriented x3. Assessment: Dizziness and near syncopal episodes possible vasovagal response, rule out arrhythmia Nausea and vomiting Hypertension Hyperlipidemia Diabetes mellitus type 2 Obstructive sleep apnea Plan: Continue patient's home cardiac medications with the following changes hold lisinopril and decrease Toprol-XL to 25 mg daily Obtain 2-D echocardiogram and Doppler study to assess cardiac structure and function Obtain 7-day event monitor for patient prior to discharge If heart rate and echocardiogram are unremarkable by this afternoon, patient is cleared for discharge with plan to continue to hold lisinopril and continue the decreased dose of metoprolol. Patient may follow-up with Dr. PERRI Bal in 2 weeks. Thank you kindly for this consultation. Nurse practitioner note has been reviewed, I agree with documented findings and plan of care. Patient was seen and examined. Objective - Vital Signs Vital signs: Vital Signs Temp 97 F L 10/05/23 19:53 Pulse 58 L 10/07/23 05:00 Resp 18 10/07/23 05:00 BP 104/72 10/07/23 05:00 Pulse Ox 92 L 10/07/23 05:00 FiO2 35 10/07/23 08:50 - Labs CBC & Chem 7: 10/07/23 09:53 10/07/23 09:53
--- NOTE | 2023-10-07 12:40 | CA ---
Transthoracic Echo Report Name: Pete Gomez Age: 63 Gender: M : 1960 Exam Date: 10/06/2023 12:07 Exam Location: [place] [facility] Ht (in): 75 Wt (lb): 285 Ordering Physician: Isha Nicholas Attending/Referring Phys: [id number], Yu [employer] Integr[employer] Specialist Halley Meier, [place] Procedure CPT: Indications: LVF Cardiac Hx: Technical Quality: Technically difficult study Contrast 1: Definity Total Dose (mL): 2 Contrast 2: Total Dose (mL): MEASUREMENTS (Male / Female) Normal Values 2D ECHO LV Diastolic Diameter PLAX 4.8 cm 4.2 - 5.9 / 3.9 - 5.3 cm LV Systolic Diameter PLAX 3.5 cm IVS Diastolic Thickness 1.5 cm 0.6 - 1.0 / 0.6 - 0.9 cm LVPW Diastolic Thickness 1.5 cm 0.6 - 1.0 / 0.6 - 0.9 cm LV Relative Wall Thickness 0.6 RV Internal Dim ED PLAX 3.8 cm LA Systolic Diameter LX 3.5 cm 3.0 - 4.0 / 2.7 - 3.8 cm LA Volume 63.6 cm??? 18 - 58 / 22 - 52 cm??? LA Volume Index 23.9 cm???/m??? 16 - 28 cm???/m??? M-MODE Aortic Root Diameter MM 4.2 cm AV Cusp Separation MM 2.8 cm DOPPLER MV Area PHT 2.8 cm??? Mitral E Point Velocity 57.9 cm/s Mitral A Point Velocity 84.7 cm/s Mitral E to A Ratio 0.7 MV Deceleration Time 266.2 ms MV E' Velocity 6.5 cm/s Mitral E to MV E' Ratio 8.8 TR Peak Velocity 244.9 cm/s TR Peak Gradient 24.0 mmHg Right Ventricular Systolic Press 29.0 mmHg FINDINGS Left Ventricle Left ventricular ejection fraction is estimated at 50-55 %. Left ventricular cavity size normal. Moderate concentric left ventricular hypertrophy. Right Ventricle Mild right ventricular dilatation. Moderately increased right ventricular wall thickness. Right ventricular systolic pressure within normal limits. Right Atrium Right atrium not well visualized. Left Atrium Normal left atrial size. Mitral Valve Structurally normal mitral valve. No mitral stenosis, regurgitation or prolapse. Aortic Valve Aortic valve not well visualized. No aortic valve stenosis or regurgitation. Tricuspid Valve Tricuspid valve not well visualized. No tricuspid prolapse. No tricuspid stenosis. Mild tricuspid regurgitation. Pulmonic Valve No pulmonic regurgitation. Pericardium No pericardial effusion. Aorta Mild aortic dilatation at the level of the sinuses of valsalva 42 mm CONCLUSIONS Normal LV systolic function Previewed by: Dr. Arnie Rivera MD (Electronically Signed) Final Date: 07 Oct 2023 12:39
[2023-10-07 14:28] VITALS: BP 110/78; PULSE 78
== END 2023-10-07 13:54 | disposition home or self-care (01) ==
LOC: EC 19:46 → 3SCARD 10-06 00:12
PROVIDERS: ADMIT Hospitalist; ATTEND Hospitalist
DX: I48.3 Typical atrial flutter (principal); E11.9 Type 2 diabetes mellitus without complications; J44.9 Chronic obstructive pulmonary disease, unspecified; Z93.0 Tracheostomy status; G47.33 Obstructive sleep apnea (adult) (pediatric); Z79.899 Other long term (current) drug therapy; Z79.4 Long term (current) use of insulin; Z79.82 Long term (current) use of aspirin; Z79.84 Long term (current) use of oral hypoglycemic drugs; I11.0 Hypertensive heart disease with heart failure; I50.9 Heart failure, unspecified; Z86.718 Personal history of other venous thrombosis and embolism; E78.5 Hyperlipidemia, unspecified; G40.909 Epilepsy, unspecified, not intractable, without status epilepticus; G89.29 Other chronic pain; M54.9 Dorsalgia, unspecified; E66.9 Obesity, unspecified; Z68.35 Body mass index [BMI] 35.0-35.9, adult; Z87.891 Personal history of nicotine dependence
CPT/HCPCS: 96361; 96372; 96374; 99285; 36415; 93005 ×2; 93270; 85379; 83880; 80053 ×2; 80048; 83735; 84484 ×2; 85025 ×2; 85610; 85730; 71045; G0378 ×2; C8929; J1644; J1940; Q9957; 93306

== ENCOUNTER 2024-09-13 10:07 | Emergency (ER) | payer MEDICARE ==
[2024-09-13 10:14] LABS: Glucose,Whole Blood 143 mg/dL (70-110)
--- NOTE | 2024-09-13 11:16 | ED ---
Extremity Problem HPI - General Chief complaint: Extremity Problem,Nontraumatic Stated complaint: L foot big toe numb, stiff, pain Time Seen by Provider: 09/13/24 10:23 Source: patient, family, RN notes reviewed Mode of arrival: ambulatory Limitations: no limitations - History of Present Illness Initial comments: 64-year-old male presents emergency department chief complaint of pain, swelling of the left foot states that this started overnight states that he does not remember injury but states it looks red, purpleish. 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 Patient states he does not feel short of breath over the usual he denies any fever no history of gout no other complaints. - Related Data Home Medications Medication Instructions Recorded Confirmed Morphine Sulfate [Morphine Sulfate 30 mg PO Q12H 06/20/16 09/13/24 ER] lisinopriL [Zestril] 2.5 mg PO DAILY 05/01/21 09/13/24 Ipratropium-Albuterol Nebulize 3 ml INHALATION RT-QID 05/07/22 09/13/24 [Duoneb 0.5 mg-3 mg/3 ml Soln] Morphine Sulfate ER [Ms Contin] 15 mg PO Q12H 10/06/23 09/13/24 Metoprolol Succinate (ER) [Toprol 25 mg PO DAILY 09/13/24 09/13/24 XL] Simvastatin [Zocor] 80 mg PO HS 09/13/24 09/13/24 Previous Rx's Medication Instructions Recorded metFORMIN HCL [Glucophage] 500 mg PO BID tab 10/07/23 predniSONE 50 mg PO DAILY #4 tab 09/13/24 Allergies Allergy/AdvReac Type Severity Reaction Status Date / Time No Known Allergies Allergy Verified 09/13/24 11:44 Review of Systems ROS Statement: Those systems with pertinent positive or pertinent negative responses have been documented in the HPI. ROS Other: All systems not noted in ROS Statement are negative. Past Medical History Past Medical History: Heart Failure, COPD, Diabetes Mellitus, Deep Vein Thrombosis (DVT), Hyperlipidemia, Hypertension, Pneumonia, Renal Disease, Seizure Disorder, Sleep Apnea/CPAP/BIPAP, Syncope Additional Past Medical History / Comment(s): uses O2 @ 5 1/2 L,steroid injection Jan 2023 for dislocated tailbone from recent fall, IDDM type II, neuropathy bilateral feet, trach d/t SANTY, occasional home oxygen use, past covid pneumonia, past pneumonia with pseudomonas aeruginosa, past seizure pt states he was told was d/t coughing jags/hypoxia but no seizure for years, NADEEN, DVT R leg, chronic back pain, occasional R foot and knee pain and will have difficulty with ROM, mass next to spine being monitored and unchanged x 3 years, past fall with sternal/rib fractures 2019 approx. History of Any Multi-Drug Resistant Organisms: Other MDRO Past Surgical History: Cholecystectomy Additional Past Surgical History / Comment(s): Trach with trach tube changed 07/2021, left kidney operation d/t defect, bronch., colonoscopy/polypectomy-benign polyps. Past Anesthesia/Blood Transfusion Reactions: No Reported Reaction Past Psychological History: No Psychological Hx Reported Smoking Status: Former smoker Past Alcohol Use History: None Reported Past Drug Use History: Marijuana - Past Family History Father Family Medical History: Dementia Additional Family Medical History / Comment(s): Father is . Mother Family Medical History: Myocardial Infarction (PA) Additional Family Medical History / Comment(s): Mother is . General Exam Limitations: no limitations General appearance: alert, in no apparent distress Head exam: Present: atraumatic, normocephalic, normal inspection Eye exam: Present: normal appearance, PERRL, EOMI. Absent: scleral icterus, conjunctival injection, periorbital swelling Respiratory exam: Present: normal lung sounds bilaterally. Absent: respiratory distress, wheezes, rales, rhonchi, stridor Cardiovascular Exam: Present: regular rate, normal rhythm, normal heart sounds. Absent: systolic murmur, diastolic murmur, rubs, gallop, clicks Extremities exam: Present: other (Left foot at the first MTP region there is some ecchymosis, tenderness well palpation of the first digitPedal pulses faint bilaterally dusky color to both feet which is chronic) Skin exam: Present: warm, dry, intact, normal color. Absent: rash Course Vital Signs 09/13/24 09/13/24 10:11 12:29 Temperature 98.1 F 97.8 F Pulse Rate 85 74 Respiratory 20 16 Rate Blood Pressure 155/79 112/69 O2 Sat by Pulse 89 L 94 L Oximetry Medical Decision Making - Medical Decision Making Was pt. sent in by a medical professional or institution (Dr., PA, [facility], urgent care, hospital, or [facility]...) When possible be specific @ -No Did you speak to anyone other than the patient for history (EMS, parent, family, police, friend...)? What history was obtained from this source @ -No Did you review nursing and triage notes (agree or disagree)? Why? @ -I reviewed and agree with nursing and triage notes Were old charts reviewed (outside hosp., previous admission, EMS record, old EKG, old radiological studies, urgent care reports/EKG's, [facility] records)? Report findings @ -No old charts were reviewed Differential Diagnosis (chest pain, altered mental status, abdominal pain women, abdominal pain men, vaginal bleeding, weakness, fever, dyspnea, syncope, headache, dizziness, GI bleed, back pain, seizure, CVA, palpatations, mental health, musculoskeletal)? @ -Cellulitis, toe fracture, foot fracture, gout, pseudogout EKG interpreted by me (3pts min.). @ -None X-rays interpreted by me (1pt min.). @X-ray left foot shows no acute osseous abnormality, probable old plantar fasciitis CT interpreted by me (1pt min.). @ -None done U/S interpreted by me (1pt. min.). @ -None done What testing was considered but not performed or refused? (CT, X-rays, U/S, labs)? Why? @ -None What meds were considered but not given or refused? Why? @ -None Did you discuss the management of the patient with other professionals (professionals i.e. MAGALIS Toscano, [facility], lab, RT, psych nurse, social worker delinquency prevention, capability lead, teacher, third officer, case work aide)? Give summary @ -No Was smoking cessation discussed for >3mins.? @ -No Was critical care preformed (if so, how long)? @ -No Were there social determinants of health that impacted care today? How? (Homelessness, low income, unemployed, alcoholism, drug addiction, transportation, low edu. Level, literacy, decrease access to med. care, care home, rehab)? @ -No Was there de-escalation of care discussed even if they declined (Discuss DNR or withdrawal of care, Hospice)? DNR status @ -No What co-morbidities impacted this encounter? (DM, HTN, Smoking, COPD, CAD, Cancer, CVA, ARF, Chemo, Hep., AIDS, mental health diagnosis, sleep apnea, morbid obesity)? @ -None Was patient admitted / discharged? Hospital course, mention meds given and route, prescriptions, significant lab abnormalities, going to OR and other pertinent info. @ -Discharge patient has elevated uric acid and symptoms consistent with gout. Patient workup otherwise negative patient is discharged in stable condition return for as discussed Undiagnosed new problem with uncertain prognosis? @ -No Drug Therapy requiring intensive monitoring for toxicity (Heparin, Nitro, Insulin, Cardizem)? @ -No Were any procedures done? @ -No Diagnosis/symptom? @ -Gout Acute, or Chronic, or Acute on Chronic? @ -Acute Uncomplicated (without systemic symptoms) or Complicated (systemic symptoms)? @ -Uncomplicated Side effects of treatment? @ -No Exacerbation, Progression, or Severe Exacerbation? @ -No Poses a threat to life or bodily function? How? (Chest pain, USA, PA, pneumonia, PE, COPD, DKA, ARF, appy, cholecystitis, CVA, Diverticulitis, Homicidal, Suicidal, threat to staff... and all critical care pts) @ -No - Lab Data Result diagrams: 09/13/24 11:05 09/13/24 11:05 Lab Results 09/13/24 09/13/24 09/13/24 Range/Units 10:13 11:05 11:05 WBC 7.61 (4.50-10.00) 10*3/uL RBC 4.66 (4.40-5.60) 10*6/uL Hgb 16.8 (13.0-17.0) g/dL Hct 49.3 (39.6-50.0) % MCV 105.8 H (80.0-97.0) fL MCH 36.1 H (27.0-32.0) pg MCHC 34.1 (32.0-37.0) g/dL Plt Count 161 (140-440) 10*3/uL MPV 9.8 (9.5-12.2) fL Immature Gran % (Auto) 0.5 % Neutrophils % 71.0 % Lymphocytes % 16.6 % Monocytes % 8.1 % Eosinophils % 2.9 % Basophils % 0.9 % Immature Gran # 0.04 (0.00-0.04) 10*3/uL Neutrophils # 5.40 (1.80-7.70) 10*3/uL Lymphocytes # 1.26 (0.90-5.00) 10*3/uL Monocytes # 0.62 (0.20-1.00) 10*3/uL Eosinophils # 0.22 (0.04-0.35) 10*3/uL Basophils # 0.07 (0.00-0.10) 10*3/uL Manual Slide Review Performed PT 11.8 (10.0-12.5) sec INR 1.1 (<1.2) APTT 22.3 (22.0-30.0) sec Sodium (137-145) mmol/L Potassium (3.5-5.1) mmol/L Chloride (98-107) mmol/L Carbon Dioxide (22-30) mmol/L Anion Gap mmol/L BUN (9-20) mg/dL Creatinine (0.66-1.25) mg/dL Est GFR (CKD-EPI)AfAm (>60 ml/min/1.73 sqM) Est GFR (CKD-EPI)NonAf (>60 ml/min/1.73 sqM) Glucose (74-99) mg/dL POC Glucose (mg/dL) 143 H (70-110) mg/dL POC Glu [employer] Writer Prose ID Masha Lili Uric Acid (3.5-8.5) mg/dL Calcium (8.4-10.2) mg/dL Total Bilirubin (0.2-1.3) mg/dL AST (17-59) U/L ALT (4-49) U/L Alkaline Phosphatase (38-126) U/L C-Reactive Protein (<1.0) mg/dL Total Protein (6.3-8.2) g/dL Albumin (3.5-5.0) g/dL 09/13/24 Range/Units 11:05 WBC (4.50-10.00) 10*3/uL RBC (4.40-5.60) 10*6/uL Hgb (13.0-17.0) g/dL Hct (39.6-50.0) % MCV (80.0-97.0) fL MCH (27.0-32.0) pg MCHC (32.0-37.0) g/dL Plt Count (140-440) 10*3/uL MPV (9.5-12.2) fL Immature Gran % (Auto) % Neutrophils % % Lymphocytes % % Monocytes % % Eosinophils % % Basophils % % Immature Gran # (0.00-0.04) 10*3/uL Neutrophils # (1.80-7.70) 10*3/uL Lymphocytes # (0.90-5.00) 10*3/uL Monocytes # (0.20-1.00) 10*3/uL Eosinophils # (0.04-0.35) 10*3/uL Basophils # (0.00-0.10) 10*3/uL Manual Slide Review PT (10.0-12.5) sec INR (<1.2) APTT (22.0-30.0) sec Sodium 134 L (137-145) mmol/L Potassium 5.6 H (3.5-5.1) mmol/L Chloride 98 (98-107) mmol/L Carbon Dioxide 27 (22-30) mmol/L Anion Gap 9 mmol/L BUN 17 (9-20) mg/dL Creatinine 1.02 (0.66-1.25) mg/dL Est GFR (CKD-EPI)AfAm >90 (>60 ml/min/1.73 sqM) Est GFR (CKD-EPI)NonAf 79 (>60 ml/min/1.73 sqM) Glucose 128 H (74-99) mg/dL POC Glucose (mg/dL) (70-110) mg/dL POC Glu Fiction [employer]fiction Writer Prose ID Uric Acid 10.2 H (3.5-8.5) mg/dL Calcium 9.2 (8.4-10.2) mg/dL Total Bilirubin 0.8 (0.2-1.3) mg/dL AST 51 (17-59) U/L ALT 32 (4-49) U/L Alkaline Phosphatase 80 (38-126) U/L C-Reactive Protein <0.5 (<1.0) mg/dL Total Protein 8.0 (6.3-8.2) g/dL Albumin 4.4 (3.5-5.0) g/dL Disposition Clinical Impression: Gout Disposition: HOME SELF-CARE Condition: Stable Instructions (If sedation given, give patient instructions): Low Purine Diet (ED), Gout (ED) Additional Instructions: Please return to the Emergency Department if symptoms worsen or any other concerns. Prescriptions: predniSONE 50 mg PO DAILY #4 tab Is patient prescribed a controlled substance at d/c from ED?: No Referrals: Lilli Ferro MD [Primary Care Provider] - 1-2 days Time of Disposition: 12:17
[2024-09-13 11:20] LABS: Basophils # (A) 0.07 10*3/uL (0.00-0.10); Basophils % (A) 0.9 %; Eosinophils # (A) 0.22 10*3/uL (0.04-0.35); Eosinophils % (A) 2.9 %; HCT 49.3 % (39.6-50.0); HGB 16.8 g/dL (13.0-17.0); Lymphocytes # (A) 1.26 10*3/uL (0.90-5.00); Lymphocytes % (A) 16.6 %; MCH 36.1 pg (27.0-32.0); MCHC 34.1 g/dL (32.0-37.0); MCV 105.8 fL (80.0-97.0); Mean Platelet Volume 9.8 fL (9.5-12.2); Monocytes # (A) 0.62 10*3/uL (0.20-1.00); Monocytes % (A) 8.1 %; Platelet Count 161 10*3/uL (140-440); RBC 4.66 10*6/uL (4.40-5.60); RDW 13.8 % (11.5-14.5); WBC 7.61 10*3/uL (4.50-10.00)
[2024-09-13 11:34] LABS: ALT 32 U/L (4-49); African American GFR (CKD) >90 (>60 ml/min/1.73 sqM); Albumin 4.4 g/dL (3.5-5.0); Anion Gap 9 mmol/L; Blood Urea Nitrogen 17 mg/dL (9-20); C Reactive Protein <0.5 mg/dL (<1.0); Calcium 9.2 mg/dL (8.4-10.2); Carbon Dioxide 27 mmol/L (22-30); Chloride 98 mmol/L (98-107); Glucose 128 mg/dL (74-99); INR 1.1 (<1.2); Non-African American GFR(CKD) 79 (>60 ml/min/1.73 sqM); Partial Thromboplastin Time 22.3 sec (22.0-30.0); Prothrombin Time 11.8 sec (10.0-12.5); Sodium 134 mmol/L (137-145); Total Bilirubin 0.8 mg/dL (0.2-1.3); Uric Acid 10.2 mg/dL (3.5-8.5)
--- NOTE | 2024-09-13 11:34 | XR ---
EXAMINATION TYPE: XR foot complete LT DATE OF EXAM: 09/13/2024 11:27 AM COMPARISON: None CLINICAL INDICATION: Male, 64 years old with history of pain, 1st MTP; PHH, pain TECHNIQUE: 3 views FINDINGS: 9 mm ossification along the plantar hindfoot suggesting prior injury to the plantar fascia. No acute fracture, subluxation, dislocation. Joint spaces throughout are maintained. IMPRESSION: No acute osseous abnormality seen. Findings suggest old inflammation or injury at the plantar fascia. [facility], Workstation: [email or web address], 09/13/2024 11:32 AM
[2024-09-13 11:40] LABS: Potassium 5.6 mmol/L (3.5-5.1)
[2024-09-13 11:41] LABS: AST 51 U/L (17-59); Alkaline Phosphatase 80 U/L (38-126)
[2024-09-13] MEDS ORDERED: methylPREDNISolone SOD SUCCI 125 MG/2 ML VIAL IV STA (12:16)
[2024-09-13 12:30] VITALS: BP 112/69; PULSE 74; RESP 16; TEMP 97.8
== END 2024-09-13 12:30 | disposition home or self-care (01) ==
LOC: EC 10:07
DX: M10.9 Gout, unspecified (principal); Z87.891 Personal history of nicotine dependence
CPT/HCPCS: 36415; 80053; 84550; 85025; 85610; 85730; 86140; 99283

== ENCOUNTER → 2024-09-28 | Outpatient (CLI) | payer MEDICARE ==
[2024-09-28 19:11] LABS: HCT 51.1 % (39.6-50.0); MCH 35.5 pg (27.0-32.0); MCHC 33.3 g/dL (32.0-37.0); MCV 106.7 FL (80.0-97.0); Mean Platelet Volume 10.7 FL (9.5-12.2); NRBC Per 100 WBC 0 X 10*3/uL (0.00-0.01); Platelet Count 169 X 10*3/uL (140-440); RBC 4.79 X 10*6/uL (4.40-5.60); RDW 13.2 % (11.5-14.5); WBC 8.75 X 10*3/uL (4.50-10.00)
[2024-09-28 19:52] LABS: ALT 38 U/L (10-49); AST 43 U/L (14-35); Albumin 4.4 g/dL (3.8-4.9); Albumin/Globulin Ratio 1.22 Ratio (1.60-3.17); Alkaline Phosphatase 110 U/L (41-126); BUN/Creat Ratio 15.33 Ratio (12.00-20.00); Blood Urea Nitrogen 18.4 mg/dL (9.0-27.0); Calcium 9.6 mg/dL (8.7-10.3); Carbon Dioxide 26.1 mmol/L (21.6-31.8); Chloride 96 mmol/L (96-109); Chol/HDL Ratio 3.07 Ratio; Globulin 3.6 g/dL (1.6-3.3); Glucose 158 mg/dL (70-110); LDL Cholesterol,Calculated 83.3 mg/dL (0.0-131.0); Sodium 136 mmol/L (135-145); Total Bilirubin 0.9 mg/dL (0.3-1.2)
[2024-09-28 20:31] LABS: Basophils # (A) 0.09 X 10*3/uL (0.00-0.10); Eosinophils # (A) 0.17 X 10*3/uL (0.04-0.35); Eosinophils % (A) 1.9 %; Lymphocytes # (A) 1.32 X 10*3/uL (0.90-5.00); Lymphocytes % (A) 15.1 %; Macrocytosis (M) 2+ (None Seen); Monocytes # (A) 0.71 X 10*3/uL (0.20-1.00); Monocytes % (A) 8.1 %; Neutrophils # (A) 6.39 X 10*3/uL (1.80-7.70); Neutrophils % (A) 73.1 %
== END | disposition home or self-care (01) ==
LOC: LABWHC1 12:52
PROVIDERS: ATTEND Family Medicine
DX: Z12.5 Encounter for screening for malignant neoplasm of prostate (principal); E11.65 Type 2 diabetes mellitus with hyperglycemia
CPT/HCPCS: 36415; 80053; 80061; 84153; 84443; 85025

== ENCOUNTER → 2024-10-06 | Outpatient (CLI) | payer MEDICARE ==
[2024-10-06 10:49] LABS: Basophils # (A) 0.06 10*3/uL (0.00-0.10); Basophils % (A) 0.7 %; Eosinophils # (A) 0.22 10*3/uL (0.04-0.35); Eosinophils % (A) 2.6 %; HCT 48.6 % (39.6-50.0); HGB 16.4 g/dL (13.0-17.0); Lymphocytes # (A) 1.53 10*3/uL (0.90-5.00); Lymphocytes % (A) 18.1 %; MCH 35.9 pg (27.0-32.0); MCHC 33.7 g/dL (32.0-37.0); MCV 106.3 fL (80.0-97.0); Mean Platelet Volume 9.5 fL (9.5-12.2); Monocytes # (A) 0.71 10*3/uL (0.20-1.00); Monocytes % (A) 8.4 %; Neutrophils # (A) 5.87 10*3/uL (1.80-7.70); Neutrophils % (A) 69.6 %; Platelet Count 150 10*3/uL (140-440); RBC 4.57 10*6/uL (4.40-5.60); RDW 13.2 % (11.5-14.5); WBC 8.44 10*3/uL (4.50-10.00)
[2024-10-06 11:02] LABS: ALT 35 U/L (4-49); AST 58 U/L (17-59); African American GFR (CKD) 80 (>60 ml/min/1.73 sqM); Albumin 4.2 g/dL (3.5-5.0); Albumin/Globulin Ratio 1.2; Alkaline Phosphatase 87 U/L (38-126); Anion Gap 11 mmol/L; Blood Urea Nitrogen 21 mg/dL (9-20); Calcium 9.8 mg/dL (8.4-10.2); Carbon Dioxide 29 mmol/L (22-30); Chloride 94 mmol/L (98-107); Globulin 3.5 g/dL; Glucose 139 mg/dL (74-99); Non-African American GFR(CKD) 69 (>60 ml/min/1.73 sqM); Potassium 5.8 mmol/L (3.5-5.1); Sodium 134 mmol/L (137-145); Total Bilirubin 1.1 mg/dL (0.2-1.3); Total Protein 7.7 g/dL (6.3-8.2)
[2024-10-06 12:28] LABS: Macrocytosis PRESENT
[2024-10-06 16:02] LABS: Chol/HDL Ratio 2.58 Ratio; Prostate Specific Antigen 0.58 ng/mL (0.000-4.500)
== END | disposition home or self-care (01) ==
LOC: LABWHC1 10:16
PROVIDERS: ATTEND Family Medicine
DX: Z12.5 Encounter for screening for malignant neoplasm of prostate (principal); E87.5 Hyperkalemia; E11.65 Type 2 diabetes mellitus with hyperglycemia
CPT/HCPCS: 36415; 80053; 80061; 84153; 84443; 85025